=== PATIENT | male | born 1945 | race Caucasian/White ===

== ENCOUNTER → 2017-03-25 13:37 | Outpatient (CLI) | payer MEDICARE, OTHER, SELFPAY ==
[2017-03-25 16:23] LABS: Anion Gap 8 (5-15); BUN 20 mg/dL (7-18); BUN/Creat Ratio 23.1 RATIO (10-20); Calcium,Total 9.2 mg/dL (8.5-10.1); Chloride 104 mmol/L (98-107); Cholesterol 194 mg/dL (200); Creatinine, Serum 0.86 mg/dL (0.70-1.30); EST Glomerular Filtration Rate 93 mL/min (>60); Est Glom Filt Rate - Afr Amer 112 mL/min (>60); Glucose 76 mg/dL (74-106); High Density Lipoprotein 61 mg/dL; Potassium 3.7 mmol/L (3.5-5.1); Sodium Level 141 mmol/L (136-145); Triglycerides 84 mg/dL; Very Low Density Lipoprotein 17 mg/dL (5-40)
== END ==
PROVIDERS: Family Provider Family Medicine; PCP Family Medicine; Visit Provider Family Medicine
DX: I10 Essential (primary) hypertension (principal)
CPT/HCPCS: 36415; 80048; 80061

== ENCOUNTER → 2017-04-12 06:44 | Outpatient (CLI) | payer MEDICARE, OTHER, SELFPAY ==
--- NOTE | 2017-04-12 16:14 | STRESSREP_ITS ---
Stress Test Report Exercise myocardial perfusion stress test 71-year-old man with a history of chest pain. Stress test. Resting EKG demonstrates normal sinus rhythm with a rate of 65 bpm. Normal intervals and noted. Resting blood pressure is 150/90 mmHg. The patient exercised according to the regular Antonio protocol for total duration of 6 minutes and 31 seconds attaining a maximum heart rate of 171 bpm. This was 114 % of the maximum predicted heart rate. At rest there were no ST or T-wave changes noted suggest ischemia at peak exercise no ST or T-wave changes were noted suggest ischemia. Frequent premature ventricular complexes were noted with no couplet activity. The resting blood pressure is 150/90 with a peak blood pressure 162/84 mmHg. No clinical angina was noted the test was terminated due to shortness of breath and leg fatigue. Myocardial perfusion protocol. 14.8 mCi of technetium 99m sestamibi was injected at rest. The patient then exercised according to the regular Antonio protocol for 6-1/2 minutes attaining 7.7 metabolic equivalents. At peak exercise 44.1 mCi of technetium 99m sestamibi was injected. Stress images were obtained. Stress and rest images were reconstructed and compared in the short axis vertical long and horizontal long axis. Gated images were also obtained. Perfusion SPECT analysis. Review of the images demonstrate normal uptake of tracer noted in all areas of myocardium except for the basal inferior wall with mildly reduced perfusion. The resting images demonstrate a similar patent. No areas of reversibility are noted suggest ischemia possible previous infarct is noted. Gated SPECT analysis: The gated ejection fraction is noted to be 37% with global hypokinesis present. Conclusion: Exercise myocardial perfusion stress test with no evidence of ischemia. Mild cardiomyopathy present.
== END ==
PROVIDERS: Family Provider Family Medicine; PCP Family Medicine; Visit Provider Family Medicine
DX: R07.9 Chest pain, unspecified (principal)
CPT/HCPCS: 78452; 93017; A9500; A4216

== ENCOUNTER → 2017-09-22 11:04 | Outpatient (CLI) | payer MEDICARE, OTHER, SELFPAY ==
[2017-09-22 13:10] LABS: Anion Gap 7 (5-15); BUN 17 mg/dL (7-18); BUN/Creat Ratio 19.6 RATIO (10-20); Calcium,Total 8.8 mg/dL (8.5-10.1); Chloride 104 mmol/L (98-107); Creatinine, Serum 0.87 mg/dL (0.70-1.30); EST Glomerular Filtration Rate 92 mL/min (>60); Est Glom Filt Rate - Afr Amer 112 mL/min (>60); Glucose 85 mg/dL (74-106); Sodium Level 140 mmol/L (136-145)
== END ==
PROVIDERS: Family Provider Family Medicine; PCP Family Medicine; Visit Provider Family Medicine
DX: I10 Essential (primary) hypertension (principal)
CPT/HCPCS: 36415; 80048

== ENCOUNTER → 2018-01-21 10:37 | Outpatient (CLI) | payer MEDICARE, OTHER, SELFPAY ==
[2016-04-08 08:04] VITALS: BMI 36.3
[2018-01-21 13:35] LABS: Anion Gap 6 (5-15); BUN 21 mg/dL (7-18); BUN/Creat Ratio 24.3 RATIO (10-20); Calcium,Total 8.6 mg/dL (8.5-10.1); Chloride 101 mmol/L (98-107); Creatinine, Serum 0.86 mg/dL (0.70-1.30); EST Glomerular Filtration Rate 93 mL/min (>60); Est Glom Filt Rate - Afr Amer 112 mL/min (>60); Glucose 86 mg/dL (74-106); Potassium 3.8 mmol/L (3.5-5.1); Sodium Level 140 mmol/L (136-145)
--- OUTSIDE RECORDS SUMMARY | 2018-03-09 01:40 | XMS RPT_ITS ---
:1945 Author Organization OHIP Care Team Providers Name Role Phone Blanco Collazo Attending Unavailable Blanco Collazo Primary Care Unavailable Blanco Collazo Attending Unavailable Blanco Collazo Primary Care Unavailable Blanco Collazo Attending Unavailable Blanco Collazo Referring Unavailable Blanco Collazo Primary Care Unavailable Jessica, [place] Attending Unavailable Blanco Collazo Referring Unavailable Blanco Collazo Attending Unavailable Blanco Collazo Primary Care Unavailable PROBLEMS PROBLEMS DATE TYPE CONDITION / CODE ATTENDING STATUS SOURCE 01/21/2018 Unknown I10 - Essential Blanco Collazo Active Jennifer (primary) Community hypertension / Hospital I10(ICD-10) Repository 05/11/2017 Unknown R07.9 - Chest Jessica, Abelino Active Jennifer pain, unspecified Community / R07.9(ICD-10) Hospital Repository PROCEDURES PROCEDURES No Procedure Records FoundRESULTS RESULTS BASIC METABOLIC Collected: 01/21/2018 Status: F Source: [facility] ([facility]) 10:39 AM [facility] REPOSITORY TYPE CODE TESTS RESULT OUT OF RANGE REFERENCE UNITS LAB L501.0100 74-106 mg/dL Normal GLU 86 Result Comment: Please note revised GLUCOSE reference range effective 2017. LAB L501.1000 7-18 mg/dL High BUN 21 LAB L501.1100 0.70-1.30 mg/dL Normal CREAT,SERUM 0.86 Result Comment: The validity of the calculated GFR AND GFRAA in patients over 70 years has not been determined. Clinical correlation is essential. LAB L501.1110 >60 mL/min Normal EST GFR 93 Result Comment: Non- GFR Calc LAB L501.1115 >60 mL/min Normal EST GFR - AA 112 Result Comment: GFR Calc LAB L501.1300 10-20 RATIO High BUN/CRE 24.3 LAB L501.2200 8.5-10.1 mg/dL CA Normal 8.6 LAB L501.5300 136-145 mmol/L NA Normal 140 LAB L501.5600 3.5-5.1 mmol/L K Normal 3.8 LAB L501.5900 98-107 mmol/L CL Normal 101 LAB L501.6100 21.0-32.0 mmol/L High CO2 33.0 LAB L501.6200 5-15 Normal GAP 6 Performed By: #### L500.2500 #### [facility], [address] BASIC METABOLIC Collected: 09/22/2017 Status: F Source: [facility] ([facility]) 11:06 AM [facility] REPOSITORY TYPE CODE TESTS RESULT OUT OF RANGE REFERENCE UNITS LAB L501.0100 74-106 mg/dL Normal GLU 85 Result Comment: Please note revised GLUCOSE reference range effective 2017. LAB L501.1000 7-18 mg/dL Normal BUN 17 LAB L501.1100 0.70-1.30 mg/dL Normal CREAT,SERUM 0.87 Result Comment: The validity of the calculated GFR AND GFRAA in patients over 70 years has not been determined. Clinical correlation is essential. LAB L501.1110 >60 mL/min Normal EST GFR 92 Result Comment: Non- GFR Calc LAB L501.1115 >60 mL/min Normal EST GFR - AA 112 Result Comment: GFR Calc LAB L501.1300 10-20 RATIO Normal BUN/CRE 19.6 LAB L501.2200 8.5-10.1 mg/dL CA Normal 8.8 LAB L501.5300 136-145 mmol/L NA Normal 140 LAB L501.5600 3.5-5.1 mmol/L K Normal 4.0 LAB L501.5900 98-107 mmol/L CL Normal 104 LAB L501.6100 21.0-32.0 mmol/L Normal CO2 29.0 LAB L501.6200 5-15 Normal GAP 7 Performed By: #### L500.2500 #### [facility] [address] [place], [address] STRESS REPORT Observed: 04/12/2017 Status: F Source: [place] 4:14 PM [facility] REPOSITORY [facility] Cardiovascular Services [address] [place] [address] MR#: [id number] Acct: [id number] Name: ASHVIN MASTERS Rep #: [id number] : 1945 71 From: Abelino Lopez MD Primary Care: Blanco Collazo MD Status: REG CLI Ordering Dr: Sex: M C Stress Test Report Exercise myocardial perfusion stress test 71-year-old man with a history of chest pain. Stress test. Resting EKG demonstrates normal sinus rhythm with a rate of 65 bpm. Normal intervals and noted. Resting blood pressure is 150/90 mmHg. The patient exercised according to the regular Antonio protocol for total duration of 6 minutes and 31 seconds attaining a maximum heart rate of 171 bpm. This was 114% of the maximum predicted heart rate. At rest there were no ST or T-wave changes noted suggest ischemia at peak exercise no ST or T-wave changes were noted suggest ischemia. Frequent premature ventricular complexes were noted with no couplet activity. The resting blood pressure is 150/90 with a peak blood pressure 162/84 mmHg. No clinical angina was noted the test was terminated due to shortness of breath and leg fatigue. Myocardial perfusion protocol. 14.8 mCi of technetium 99m sestamibi was injected at rest. The patient then exercised according to the regular Antonio protocol for 6-1/2 minutes attaining 7.7 metabolic equivalents. At peak exercise 44.1 mCi of technetium 99m sestamibi was injected. Stress images were obtained. Stress and rest images were reconstructed and compared in the short axis vertical long and horizontal long axis. Gated images were also obtained. Perfusion SPECT analysis. Review of the images demonstrate normal uptake of tracer noted in all areas of myocardium except for the basal inferior wall with mildly reduced perfusion. The resting images demonstrate a similar patent. No areas of reversibility are noted suggest ischemia possible previous infarct is noted. Gated SPECT analysis: The gated ejection fraction is noted to be 37% with global hypokinesis present. Conclusion: Exercise myocardial perfusion stress test with no evidence of ischemia. Mild cardiomyopathy present. 04/12/17 1614 <Electronically signed by Abelino Lopez MD> Date Abelino Lopez MD CC: Blanco Collazo MD Date Dictated: 04/12/171609 Date Transcribed: 04/12/171609 Survey Research Professor: [place] Signed BASIC METABOLIC Collected: 03/25/2017 Status: F Source: [facility] PROFILE (BMP) 1:39 PM [facility] REPOSITORY TYPE CODE TESTS RESULT OUT OF RANGE REFERENCE UNITS LAB L501.0100 74-106 mg/dL Normal GLU 76 Result Comment: Please note revised GLUCOSE reference range effective 2017. LAB L501.1000 7-18 mg/dL High BUN 20 LAB L501.1100 0.70-1.30 mg/dL Normal CREAT,SERUM 0.86 Result Comment: The validity of the calculated GFR AND GFRAA in patients over 70 years has not been determined. Clinical correlation is essential. LAB L501.1110 >60 mL/min Normal EST GFR 93 Result Comment: Non- GFR Calc LAB L501.1115 >60 mL/min Normal EST GFR - AA 112 Result Comment: GFR Calc LAB L501.1300 10-20 RATIO High BUN/CRE 23.1 LAB L501.2200 8.5-10.1 mg/dL CA Normal 9.2 LAB L501.5300 136-145 mmol/L NA Normal 141 LAB L501.5600 3.5-5.1 mmol/L K Normal 3.7 LAB L501.5900 98-107 mmol/L CL Normal 104 LAB L501.6100 21.0-32.0 mmol/L Normal CO2 29.0 LAB L501.6200 5-15 Normal GAP 8 Performed By: #### L500.2500, L500.4100 #### [facility] [address] [place], [address] LIPID PROFILE Collected: 03/25/2017 Status: F Source: [place] 1:39 PM [facility] REPOSITORY TYPE CODE TESTS RESULT OUT OF RANGE REFERENCE UNITS LAB L501.4900 200 mg/dL Normal CHOL 194 Result Comment: <200 mg/dL Desirable 200-240 mg/dL Borderline >240 mg/dL High Risk LAB L501.5000 mg/dL Normal TRIG 84 Result Comment: The drugs N-Acetylcysteine and Metamizole may falsely depress this assay. Serum Triglycerides Reference Interval Normal <150 mg/dL Borderline high 150 - 199 mg/dL High 200 - 499 mg/dL Very High > or = 500 mg/dL LAB L501.6400 mg/dL Normal HDL 61 Result Comment: The drugs N-Acetylcysteine and Metamizole may falsely depress this assay. Reference Range HDL <40 mg/dL Low HDL Cholesterol HDL >or= 60 mg/dL High HDL Cholesterol LAB L501.6500 0-130 mg/dL Normal LDL 116 LAB L501.6600 5-40 mg/dL Normal VLDL 17 Performed By: #### L500.2500, L500.4100 #### [facility] [address] [place], [place], [address] ALLERGIES ALLERGIES DATE TYPE / CODE NAME / CODE REACTION SEVERITY SOURCE 04/06/2016 Drug No Known Unknown [facility] Allergy/4160 Allergies/F00 [facility] [address](SNOMED 3288971(RXNOR Repository CT) M) ENCOUNTERS ENCOUNTERS ADMIT/DISCHARGE ACCOUNT ADMITTING ENCOUNTER LOCATION SOURCE NUMBER CLASS 01/21/2018 [id number] Ambulatory [address] ing:MFPLAB Repository 09/22/2017 [id number] Ambulatory [place] 0 [facility] ing:MFPLAB Repository 04/12/2017 [id number] Ambulatory [place] Jennifer 6 [facility] ing:CVS Repository 04/12/2017 [id number] Ambulatory BMSBuilding:W Jennifer 2 [facility] Repository 03/25/2017 [id number] Ambulatory [place] 5 [facility] ing:MFPLAB Repository PAYERS PAYERS ENCOUNTER GUARANTOR PAYER SUBSCRIBER SOURCE 01/21/2018 Ashvin L Primary Ashvin L Jennifer [id number] Insurance:MEDICARE BahmerDOB: [facility] PART A [facility] [id number]: Repository [id number]: [phone] [id number] [phone] () Date:2018-01-21 01/21/2018 Secondary Ashvin L [place] Insurance:AARPPolicy BahmerDOB: [facility] Number: [id number] [facility] [id number] Repository Date:6517-93-64DE [facility] [address], [place] [address]GW: 01/21/2018 Tertiary NOT GIVENUNK [place] Insurance:SELF PAY [facility] Number: Effective Repository Date:2018-01-21 09/22/2017 Ashvin L Primary Ashvin L [place] [id number] Insurance:MEDICARE BahmerDOB: [facility] PART A [facility] [id number] Number: Repository [address]Ncn: 330 [id number] [phone] () Date:2017-09-22 09/22/2017 Secondary Ashvin L Jennifer Insurance:AARPPolicy BahmerDOB: [facility] Number: [id number] Hospital [id number] Repository Date:[id number] [facility] [address], [place] [address]EP: 09/22/2017 Tertiary NOT GIVENUNK Jennifer Insurance:SELF PAY [facility] Number: Effective Repository Date:2017-09-22 04/12/2017 Ashvin L Primary Ashvin L Jennifer [id number] Insurance:MEDICARE BahmerDOB: [facility] [place] PART A [facility] [id number] Number: Repository [address]Xrk: 330 [id number] [phone] (HP) Date:2017-03-31 04/12/2017 Secondary Ashvin L Jennifer Insurance:AARPPolicy BahmerDOB: Community Number: [id number] Hospital [id number] Repository Date:4678-11-29TZ [address], [place] [address]HC: 04/12/2017 Tertiary NOT GIVENUNK Jennifer Insurance:SELF PAY [facility] Hospital Number: Effective Repository Date:2017-03-31 04/12/2017 Ashvin L Primary Ashvin L [place] [id number] Insurance:MEDICARE BahmerDOB: [facility] [place] PART A [id number] [place] Number[facility] Repository [id number]: 330 [id number] [phone] (HP) Date:2017-03-31 04/12/2017 Secondary Ashvin L [place] Insurance:AARPPolicy BahmerDOB: Community Number: [id number] Hospital [id number] Repository Date:1607-80-73KC [address], [place] [address]SZ: 04/12/2017 Tertiary NOT GIVENUNK [place] Insurance:SELF PAY [facility] Hospital Number: Effective Repository Date:2017-04-12 03/25/2017 Ashvin L Primary Ashvin L Jennifer [id number] Insurance:MEDICARE BahmerDOB: [facility] [place] PART A [facility] [id number] Number[place] Repository [id number]: 330 [id number] [phone] (HP) Date:2017-03-25 03/25/2017 Secondary Ashvin L Jennifer Insurance:AARPPolicy BahmerDOB: Community Number: [id number] Hospital [id number] Repository Date:[id number] [address], [place] [address]RW: 03/25/2017 Tertiary NOT GIVENELROY Dee Insurance:SELF PA[facility]: Effective Repository Date:2017-03-25
== END ==
PROVIDERS: Family Provider Family Medicine; PCP Family Medicine; Visit Provider Family Medicine
DX: I10 Essential (primary) hypertension (principal)
CPT/HCPCS: 36415; 80048

== ENCOUNTER → 2018-09-29 11:32 | Outpatient (CLI) | payer MEDICARE, OTHER, SELFPAY ==
[2016-04-08 08:04] VITALS: BMI 36.3
[2018-09-29 14:17] LABS: Anion Gap 7 (5-15); BUN 22 mg/dL (7-18); BUN/Creat Ratio 22.3 RATIO (10-20); Calcium,Total 8.8 mg/dL (8.5-10.1); Chloride 101 mmol/L (98-107); Cholesterol 179 mg/dL (200); Creatinine, Serum 0.99 mg/dL (0.70-1.30); EST Glomerular Filtration Rate 79 mL/min (>60); Est Glom Filt Rate - Afr Amer 96 mL/min (>60); Glucose 91 mg/dL (74-106); High Density Lipoprotein 54 mg/dL; Potassium 4.1 mmol/L (3.5-5.1); Sodium Level 138 mmol/L (136-145); Triglycerides 137 mg/dL; Very Low Density Lipoprotein 27 mg/dL (5-40)
== END ==
PROVIDERS: Family Provider Family Medicine; PCP Family Medicine; Referring Provider Family Medicine; Visit Provider Family Medicine
DX: I10 Essential (primary) hypertension (principal)
CPT/HCPCS: 36415; 80048; 80061

== ENCOUNTER → 2019-01-19 10:18 | Outpatient (CLI) | payer MEDICARE, OTHER, SELFPAY ==
[2016-04-08 08:04] VITALS: BMI 36.3
[2019-01-19 12:52] LABS: Anion Gap 7 (5-15); BUN 22 mg/dL (7-18); BUN/Creat Ratio 20.8 RATIO (10-20); Calcium,Total 9.1 mg/dL (8.5-10.1); Chloride 103 mmol/L (98-107); Creatinine, Serum 1.06 mg/dL (0.70-1.30); EST Glomerular Filtration Rate 73 mL/min (>60); Est Glom Filt Rate - Afr Amer 88 mL/min (>60); Glucose 102 mg/dL (74-106); Potassium 4.1 mmol/L (3.5-5.1); Sodium Level 137 mmol/L (136-145); Thyroid Stim Hormone (TSH) 0.43 uIU/mL (0.358-3.74)
== END ==
PROVIDERS: Family Provider Family Medicine; PCP Family Medicine; Referring Provider Family Medicine; Visit Provider Family Medicine
DX: E66.9 Obesity, unspecified (principal); I10 Essential (primary) hypertension
CPT/HCPCS: 36415; 80048; 84403; 84443

== ENCOUNTER → 2019-07-21 11:26 | Outpatient (CLI) | payer MEDICARE, OTHER, SELFPAY ==
[2016-04-08 08:04] VITALS: BMI 36.3
[2019-07-21 15:41] LABS: Anion Gap 2 (5-15); BUN 20 mg/dL (7-18); BUN/Creat Ratio 19.8 RATIO (10-20); Calcium,Total 9.4 mg/dL (8.5-10.1); Chloride 101 mmol/L (98-107); Cholesterol 177 mg/dL (200); Creatinine, Serum 1.01 mg/dL (0.70-1.30); EST Glomerular Filtration Rate 77 mL/min (>60); Est Glom Filt Rate - Afr Amer 93 mL/min (>60); Glucose 103 mg/dL (74-106); High Density Lipoprotein 67 mg/dL; Potassium 4.7 mmol/L (3.5-5.1); Sodium Level 136 mmol/L (136-145); Triglycerides 155 mg/dL; Very Low Density Lipoprotein 31 mg/dL (5-40)
== END ==
PROVIDERS: PCP Family Medicine; Visit Provider Family Medicine
DX: I10 Essential (primary) hypertension (principal)
CPT/HCPCS: 36415; 80048; 80061

== ENCOUNTER → 2019-10-11 13:19 | Outpatient (CLI) | payer MEDICARE, OTHER, SELFPAY ==
--- NOTE | 2019-10-11 13:24 | ECHOCS_ITS ---
Reason For Study: SOB Procedure This was a 2D Doppler, Color Flow transthoracic echocardiogram. Exam performed in department. Left Ventricle Normal LV size. The estimated ejection fraction is 50-55 %. No evidence for diastolic dysfunction. No regional wall motion abnormalities noted. Right Ventricle Normal RV size. Normal systolic function. Atria Normal left atrium. Normal right atrium. No doppler evidence for ASD. Bubble contrast study negative for right to left interatrial shunt. Mitral Valve There is no mitral valve stenosis. No mitral valve insufficiency. Tricuspid Valve There is no tricuspid stenosis. Trivial tricuspid valve insufficiency. Pulmonary artery systolic pressure is 30 mmHg. Aortic Valve Trisinus/trileaflet aortic valve. There is no aortic stenosis. No aortic valve insufficiency. Pulmonic Valve There is no pulmonic valvular stenosis. No pulmonic valve insufficiency. Great Vessels Normal aortic root. Pericardium/Pleural No pericardial effusion. Medication 22 gauge I.V. with prn adaptor inserted into right arm. Performed a rapid injection of agitated mix of 9 cc saline and 1cc air to assess for atrial septal defect. Diluted definity 5ml given slow IV push to enhance endocardial definition. MMode/2D Measurements & Calculations LVIDd: 4.6 cm IVSd: 1.00 cm Ao root diam: 3.2 cm LVIDs: 3.3 cm LVPWd: 1.1 cm RVDd: 3.5 cm FS: 28.9 % LAV(MOD-bp): 47.2 ml LVAd ap4: 38.3 cm2 SV(MOD-sp4): 72.8 ml LAV(MOD-bp) Indexed: 20.5 ml/m2 EDV(MOD-sp4): 137.3 ml LAV(MOD-sp2): 43.6 ml EDV(sp4-el): 137.4 ml LAV(MOD-sp4): 47.5 ml LVAs ap4: 22.8 cm2 ESV(MOD-sp4): 64.5 ml ESV(sp4-el): 62.8 ml EF(MOD-sp4): 53.0 % EF(sp4-el): 54.3 % SV(sp4-el): 74.5 ml LA A4 area: 18.1 cm2 LA dimension(2D): 3.8 cm RA A4 area: 15.2 cm2 Doppler Measurements & Calculations MV E max marbin: 41.2 cm/sec Lat Peak E' Marbin: 8.0 cm/sec Med Peak E' Marbin: 6.7 cm/sec MV A max marbin: 87.3 cm/sec E/E' lat: 5.2 E/E' med: 6.2 MV E/A: 0.47 Ao V2 max: 155.2 cm/sec LV V1 max: 64.6 cm/sec PA V2 max: 155.0 cm/sec Ao max P.6 mmHg LV V1 max P.7 mmHg TR max marbin: 260.0 cm/sec TR max P.1 mmHg Interpretation Summary Bubble contrast study negative for right to left interatrial shunt. The estimated ejection fraction is 50-55 %. Trivial tricuspid valve insufficiency. The study was technically difficult. Contrast injection was performed. Ordering Physician: Blanco Collazo Referring Physician: Blanco Collazo Performed By: Helene Busch RDCS
== END ==
PROVIDERS: PCP Family Medicine; Referring Provider Family Medicine; Visit Provider Family Medicine
DX: R06.02 Shortness of breath (principal)
CPT/HCPCS: 93306; Q9957; A4216; C8929

== ENCOUNTER → 2020-01-18 11:02 | Outpatient (CLI) | payer MEDICARE, OTHER, SELFPAY ==
[2016-04-08 08:04] VITALS: BMI 36.3
[2020-01-18 13:02] LABS: Anion Gap 4 (5-15); BUN 20 mg/dL (7-18); Calcium,Total 8.8 mg/dL (8.5-10.1); Chloride 101 mmol/L (98-107); EST Glomerular Filtration Rate 78 mL/min (>60); Est Glom Filt Rate - Afr Amer 94 mL/min (>60); Glucose 93 mg/dL (74-106); Potassium 4.1 mmol/L (3.5-5.1); Sodium Level 137 mmol/L (136-145)
== END ==
PROVIDERS: PCP Family Medicine; Referring Provider Family Medicine; Visit Provider Family Medicine
DX: I10 Essential (primary) hypertension (principal)
CPT/HCPCS: 36415; 80048

== ENCOUNTER → 2020-03-06 13:44 | Outpatient (CLI) | payer MEDICARE, OTHER, SELFPAY | LOC: MFPLAB 13:46 → LABSPEC 13:46 | PROVIDERS: PCP Family Medicine; Referring Provider Family Medicine; Visit Provider Family Medicine | DX: U07.1 COVID-19 (principal) | CPT/HCPCS: 87635; U0005; U0003 ==

== ENCOUNTER 2020-03-16 14:46 | Inpatient (IN) | payer MEDICARE, OTHER, SELFPAY ==
[2020-03-16] VITALS (10 sets, daily range): BP systolic 90–122; BP diastolic 59–70; PULSE 70–94; RESP 16–25; TEMP 36.7–36.9; O2SAT 81–98; BMI 38.5; BMI 36.9
--- NOTE | 2020-03-16 15:11 | ED.VIS.GEN ---
History of Present Illness Chief Complaint: Shortness of Breath Informant: Patient Narrative: 74-year-old male presenting for shortness of breath. Patient tested positive for Covid?1910 days ago. He is unsure how long before that his symptoms started. He states his temperature is usually 97.5 and his temperature has been higher but he has not had a technical fever. He does not have any chest pain or palpitations. He states he had a little bit of change in taste and smell as well as some diarrhea intermittently but has been able to eat and drink. He is making urine and stool. Patient states that if he is laying in bed he can usually sleep for 4 hours however when he gets up and walks he is significantly short of breath. He does not wear home O2 at baseline. He denies cardiac or pulmonary disease. - Past Medical History (1) Hypertension Status: Chronic (2) Osteoarthritis Status: Chronic Past Medical History - Allergies and Home Meds Allergies/Adverse Reactions: Allergies No Known Allergies Allergy (Verified 03/16/20 14:48) Primary Care Physician: Blanco Collazo MD [Primary Care Provider] - Prior records reviewed: Yes Past Medical History: - - Viewed in problem list Surgical History: noncontributory, - - testicular Smoking Status: Never smoker - Family History Maternal Family History: Reports: No pertinent history - age 52,mental health Paternal Family History: Reports: No pertinent history - age 56 mental health Review of Systems General: Reports: Fever, Malaise, Subjective Eyes: Reports: -, -. Denies: Visual changes - left, Visual changes - right, Visual changes - bilaterally, Blurred vision - left, Blurred vision - right, Blurred Vision - bilaterally, Diplopia ENT: Denies: Rhinorrhea, Sore throat Cardiovascular: Denies: Chest pain, Palpitations Respiratory: Reports: Dyspnea, Cough, Sputum, Dyspnea on exertion Gastrointestinal: Reports: Diarrhea. Denies: Abdominal pain, Nausea Genitourinary: Denies: Dysuria, Hematuria Musculoskeletal: Denies: Myalgias, Arthralgias Skin: Denies: Rash, Abscess Neurological: Denies: Headache, Weakness, Parasthesia, Numbness Psych: Denies: Depression, Anxiety Physical Exam Vital Signs/Narrative: Vital Signs Temp Pulse Resp BP Pulse Ox 03/16/20 14:52 93 03/16/20 14:48 98.5 F 94 25 H 122/62 H 81 Inital Vital Signs reviewed: Yes General: Obese, No Acute Distress Head: Normocephalic, Atraumatic Eyes: Perrl, EOMI ENT: Moist mucous membranes, No rhinorrhea Cardiovascular: Regular rate, Regular rhythm Respiratory: No distress, CTA bilaterally. Negative for: Wheezing Back: Nontender, Normal Inspection Extremities: Nontender, No edema Skin: Normal color, No rash Neurological: Alert, Oriented x3, Cranial nerves II-XII grossly intact Psychological: Normal affect, Normal Mood Diagnostic/Tx/Re-eval Clinical Impression(s) from Imaging Studies Chest X-Ray 03/16/20 15:12 IMPRESSION: Multilobar pulmonary infiltrates worrisome for COVID pneumonia. Superimposed bacterial pneumonia in the right lung base is possible. Electronically Signed: Joe Hassan MD ([place]) at 15:39 EST , Service support , Chest CTA 03/16/20 15:50 IMPRESSION: 1. No central or segmental pulmonary embolism. 2. Multilobar pulmonary infiltrates with imaging features commonly reported with COVID pneumonia. 3. Bibasilar atelectasis. Electronically Signed: Joe Hassan MD (Brooks) at 17:10 EST , Service support , Laboratory Data 03/16/20 03/16/20 03/16/20 15:00 15:00 15:00 WBC 6.4 RBC 4.31 L Hgb 13.0 Hct 40.7 MCV 94.4 H MCH 30.2 MCHC 31.9 L RDW Std Deviation 45.0 H RDW Coeff of Levi 12.9 Plt Count 300 MPV 9.6 Immature Gran % (Auto) 0.800 Neut % (Auto) 74.3 H Lymph % (Auto) 14.1 L Miller % (Auto) 9.1 Eos % (Auto) 1.4 Baso % (Auto) 0.3 Absolute Neuts (auto) 4.7 Absolute Lymphs (auto) 0.90 Nucleated RBC % 0 Sodium 135 L Potassium 3.5 Chloride 96 L Carbon Dioxide 33.0 H Anion Gap 6 BUN 19 H Creatinine 1.01 Estim Creat Clear Calc 65.14 Est GFR (MDRD) Af Amer 93 Est GFR (MDRD) Non-Af 77 BUN/Creatinine Ratio 18.8 Glucose 111 H Lactic Acid 1.0 Calcium 8.2 L Total Bilirubin 0.50 AST 89 H ALT 117 H Alkaline Phosphatase 87 Troponin I 0.023 Total Protein 6.8 Albumin 2.8 L Globulin 4.0 Albumin/Globulin Ratio 0.7 L Procalcitonin 03/16/20 15:00 WBC RBC Hgb Hct MCV MCH MCHC RDW Std Deviation RDW Coeff of Levi Plt Count MPV Immature Gran % (Auto) Neut % (Auto) Lymph % (Auto) Miller % (Auto) Eos % (Auto) Baso % (Auto) Absolute Neuts (auto) Absolute Lymphs (auto) Nucleated RBC % Sodium Potassium Chloride Carbon Dioxide Anion Gap BUN Creatinine Estim Creat Clear Calc Est GFR (MDRD) Af Amer Est GFR (MDRD) Non-Af BUN/Creatinine Ratio Glucose Lactic Acid Calcium Total Bilirubin AST ALT Alkaline Phosphatase Troponin I Total Protein Albumin Globulin Albumin/Globulin Ratio Procalcitonin 1.40 H - Medical Decision Making Patient presents 10 days after diagnosis of Covid?19. He does not recall exactly when the symptoms started. He states that he has continued to have fevers higher than 97.5 which is his baseline but he has not had a temperature over 100. He is complaining of worsening shortness of breath when he ambulates. He states he can sit and rest most of the time but ambulating is difficult. On arrival his pulse ox was 81%. Patient had EKG which showed a normal sinus rhythm at 76 bpm as interpreted by myself. Chest x-ray showed multiple bilateral pulmonary infiltrates as interpreted by self radiology does agree. Lab work shows no leukocytosis. Hemoglobin is stable. Patient has slightly elevated LFTs. His procalcitonin is slightly high at 1.4. GFR is normal. Patient had follow-up CTA of the chest also shows multifocal infiltrates however there is no pulmonary embolism or dissection. Given patient's severe hypoxia I felt he would benefit from inpatient treatment. Discussed with hospitalist who agreed. Patient was given 6 mg of Decadron IV in the ER. He is stable on transfer to the floor. Impression: 1. Covid?19 pneumonia 2. Hypoxia ED Disposition - Plan for ED Patient: Referrals: Blanco Collazo MD [Primary Care Provider] -
--- NOTE | 2020-03-16 15:12 | RAD_ITS ---
STUDY: X-RAY CHEST REASON FOR EXAM: Male, 74 years old. COUGH, FATIGUE, SHORTNESS OF BREATH, COVID+ TECHNIQUE: AP COMPARISON: None. FINDINGS: Right more than left peripheral dominant reticular and groundglass opacities in multiple pulmonary lobes with localized consolidation in the right lung base. There is no demonstrated pleural abnormality. There is mild cardiac enlargement. Normal mediastinum and ramin. Normal visualized pulmonary arteries. There is atherosclerotic tortuosity of the aortic arch and descending thoracic aorta. There is demineralization of the osseous structures. Normal visualized ribs, clavicles, and shoulders. There is no demonstrated abnormality of the visualized soft tissue structures of the upper abdomen. RAD/Chest 1 View (Portable) IMPRESSION: Multilobar pulmonary infiltrates worrisome for COVID pneumonia. Superimposed bacterial pneumonia in the right lung base is possible. Electronically Signed: Joe Hassan MD ([place]) at 15:39 EST , Service support ,
[2020-03-16 15:38] LABS: Absolute Neutrophil Count 4.7 X10^3/uL (2.0-7.7); Basophil# 0.02 X10^3/uL; Basophil% 0.3 % (0-1); Eosinophil# 0.09 X10^3/uL; Eosinophils% 1.4 % (0-5); Hematocrit 40.7 % (40-54); Lymphocyte % 14.1 % (19-41); Mean Corp Hgb Conc 31.9 g/dL (32-36); Mean Corpuscular Hgb 30.2 pg (27.0-32.0); Mean Corpuscular Volume 94.4 fL (80-94); Mean Platelet Vol. 9.6 fl (6.2-12.0); Monocyte# 0.58 X10^3/uL; Monocyte% 9.1 % (0-10); NRBC Flagged by Analyzer 0 % (0-5); Neutrophil # 4.73 X10^3/uL (2.7-7.7); Neutrophil % 74.3 % (47-70); Platelet Count 300 K/mm3 (150-450); RBC Distribution Width CV 12.9 % (11.6-14.6); Red Blood Count 4.31 M/mm3 (4.6-6.2); White Blood Count 6.4 K/mm3 (4.4-11.0)
--- NOTE | 2020-03-16 15:50 | CT_ITS ---
STUDY: CTA CHEST REASON FOR EXAM: Male, 74 years old. Hypoxia, COVID x 10 days. Hx hypertension. RADIATION DOSAGE (If Supplied By Facility): CTDIvol = ( 24.75 ) mGy, DLP = ( 745.35 ) mGycm TECHNIQUE: The examination was performed with the intravenous administration of IV 100mL Isovue-370. Post-processing of the angiographic images was performed, with multiplanar reformation and 3D reconstruction. Individualized dose optimization techniques were used for this CT. COMPARISON: None. FINDINGS: Normal enhancement of the main pulmonary artery and right and left pulmonary arteries. Normal enhancement of the bilateral peripheral pulmonary arteries. There is no demonstrated pulmonary embolism. Normal thoracic aorta and visualized great vessels. There is no demonstrated aortic dissection. Normal heart and pericardium. Normal mediastinum. Normal hilar regions. Intralobular septal thickening and peripheral groundglass opacities and multiple pulmonary lobes. No cavitating process. Mild subpleural atelectasis of the bilateral lower lobes. No pleural effusion. There is a benign granuloma in the left lower lobe. Normal pleura. Normal chest wall structures. There are degenerative changes of thoracic spine. Compression deformity of T7 is likely chronic. Normal visualized upper abdomen. CT/CTA Chest W/WO Contrast IMPRESSION: 1. No central or segmental pulmonary embolism. 2. Multilobar pulmonary infiltrates with imaging features commonly reported with COVID pneumonia. 3. Bibasilar atelectasis. Electronically Signed: Joe Hassan MD ([place]) at 17:10 EST , Service support ,
[2020-03-16 15:53] LABS: ALB/GLOB Ratio 0.7 RATIO (0.9-2.4); AST(SGOT) 89 U/L (15-37); Alanine Aminotransfer ALT/SGPT 117 U/L (16-61); Albumin, Serum 2.8 g/dL (3.2-5.0); Alkaline Phosphatase 87 U/L (45-117); Anion Gap 6 (5-15); BUN 19 mg/dL (7-18); BUN/Creat Ratio 18.8 RATIO (10-20); Calcium,Total 8.2 mg/dL (8.5-10.1); Chloride 96 mmol/L (98-107); Creatinine, Serum 1.01 mg/dL (0.70-1.30); EST Glomerular Filtration Rate 77 mL/min (>60); Est Glom Filt Rate - Afr Amer 93 mL/min (>60); Estimated Creatinine Clearance 65.14 ml/min; Glucose 111 mg/dL (74-106); Potassium 3.5 mmol/L (3.5-5.1); Protein, Total 6.8 g/dL (6.4-8.2); Sodium Level 135 mmol/L (136-145)
[2020-03-16] MEDS: dexAMETHasone 4 MG/ML Vial 6 MG IV (16:04)
--- NOTE | 2020-03-16 17:16 | EKG12_ITS ---
Test Reason : Blood Pressure : / mmHG Vent. Rate : 076 BPM Atrial Rate : 076 BPM P-R Int : 174 ms QRS Dur : 112 ms QT Int : 412 ms P-R-T Axes : 032 -23 -11 degrees QTc Int : 463 ms Normal sinus rhythm Normal ECG Confirmed by TIFFANY CALDWELL MD ([id number]), deputy editor in chief MARIANNA CISNEROS ([id number]) on 03/19/2020 8:16:59 AM Referred By: [place] Confirmed By:TIFFANY CALDWELL MD
[2020-03-16 19:22] LABS: International Normalized Ratio 1.1; Prothrombin Time (Protime)PT. 13.4 SECONDS (11.7-14.9)
[2020-03-16 19:23] LABS: Fibrinogen 678 mg/dl (203-444)
[2020-03-16 19:35] LABS: Alkaline Phosphatase 85 U/L (45-117); LDH 488 U/L (87-241)
[2020-03-16 19:53] LABS: D-Dimer Quantitative (DVT/PE) 1.97 FEU/ug/m (0.27-0.49)
--- NOTE | 2020-03-16 20:23 | PCM.HP.STD ---
Problem List (1) Pneumonia due to COVID-19 virus Status: Acute (2) Acute respiratory failure with hypoxia Status: Acute History of Present Illness Date of Admission: 03/16/20 Chief Complaint: Shortness of breath and exertional dyspnea The patient is a 74 year old M who 10 days ago still positive for COVID-19 infection. At that time he had had a mild febrile illness. Now presents today with a few days history of increasing shortness of breath, exertional dyspnea and easy fatigability. He admits to a cough. Denies any orthopnea or paroxysmal nocturnal dyspnea. Denies any lower extremity swelling. Has any chest pain. Oxygen saturation was as low as 81 percent on room air. Currently requiring 3 L of supplemental oxygen [] Past Medical History Past Medical History (Chronic Problems): Chronic Problems Hypertension (Chronic) Osteoarthritis (Chronic) Obesity (BMI 30.0-34.9) (Chronic) Allergies No Known Allergies Allergy (Verified 03/16/20 14:48) Home Medications: Ambulatory Orders Medication Instructions Recorded Multivitamins,Therapeutic 1 tablet PO DAILY 01/29/15 [Multivitamin] Triamterene 37.5MG/Hctz 25MG 1 cap PO DAILY 01/29/15 [Dyazide (G)] Aspirin E.C. [Ecotrin] 81 mg PO DAILY@0800 03/16/20 Cetirizine HCl [Zyrtec] 10 mg PO DAILY 03/16/20 Fluticasone 0.05% [Flonase Nasal 2 spray NASAL DAILY 03/16/20 [place]] Lisinopril [Zestril] 20 mg PO DAILY 03/16/20 Loratadine [Claritin] 10 mg PO DAILY 03/16/20 Rosuvastatin Calcium [Crestor] 5 mg PO QHS 03/16/20 Surgical History: noncontributory, - - testicular Psychiatric History: No pertinent psych hx Smoking Status: Never smoker - *Family History Maternal History Items: No pertinent history - age 52,mental health Paternal History Items: No pertinent history - age 56 mental health Review of Systems Constitutional: Reports: Anorexia, Malaise, Weakness, Fatigue. Denies: Chills, Fever, Night Sweats Eyes: Reports: Blurred vision Cardiovascular: Denies: Chest Pain, Orthopnea, Palpitations Respiratory: Reports: Cough, Shortness of breath upon exertion. Denies: Wheezing Gastrointestinal: Denies: Abdominal Pain Comment: All Other systems reviewed and essentially negative. VTE Information - Inpt Only VTE Present on Admission: No VTE Mechan Device Prophylaxis: None VTE Pharm Prophylaxis ordered?: Yes - Physical Exam Vitals/I&O's: Vital Signs Temp Pulse Resp BP Pulse Ox 98.3 F 76 16 109/62 94 03/16/20 19:04 03/16/20 19:04 03/16/20 19:04 03/16/20 19:04 03/16/20 19:04 Oxygen Flow Rate (L/min) 4 Oxygen Delivery Method Nasal Cannula Weight: 113.398 kg Body Mass Index (BMI) 36.9 General: Alert, Oriented x3, Cooperative, - - dyspneic at rest HEENT: Atraumatic, PERRLA, EOMI Oral: Moist Mucosa Neck: Supple, No JVD Lungs: - - Mild crackles posteriorly. Cardiovascular: Regular rate, Regular Rhythm, Normal S1, Normal S2, No murmurs, No Ectopic Activity Abdomen: Soft, Non Tender, Non-Distended, Obese Extremities: Edema - Mild edema involving the right lower extremity Skin: No rashes Musculoskeletal: No Tenderness to Palpation of Joints or Extremities, No Muscle Wasting Neurological: Cranial nerves II-XII grossly intact, Motor Exam 5/5 strength throughout Psych/Mental Status: Normal Affect, Appropriate Laboratory Results 03/16/20 15:00: WBC 6.4, RBC 4.31 L, Hgb 13.0, Hct 40.7, MCV 94.4 H, MCH 30.2, MCHC 31.9 L, RDW Std Deviation 45.0 H, RDW Coeff of Levi 12.9, Plt Count 300, MPV 9.6, Immature Gran % (Auto) 0.800, Neut % (Auto) 74.3 H, Lymph % (Auto) 14.1 L, [place] % (Auto) 9.1, Eos % (Auto) 1.4, Baso % (Auto) 0.3, Absolute Neuts (auto) 4.7, Absolute Lymphs (auto) 0.90, Nucleated RBC % 0 03/16/20 15:00: Sodium 135 L, Potassium 3.5, Chloride 96 L, Carbon Dioxide 33.0 H, Anion Gap 6, BUN 19 H, Creatinine 1.01, Estim Creat Clear Calc 65.14, Est GFR (MDRD) Af Amer 93, Est GFR (MDRD) Non-Af 77, BUN/Creatinine Ratio 18.8, Glucose 111 H, Calcium 8.2 L, Total Bilirubin 0.50, AST 89 H, ALT 117 H, Alkaline Phosphatase 87, Troponin I 0.023, Total Protein 6.8, Albumin 2.8 L, Globulin 4.0, Albumin/Globulin Ratio 0.7 L 03/16/20 15:00: Lactic Acid 1.0 03/16/20 15:00: Procalcitonin 1.40 H 03/16/20 15:00: PT 13.4, INR 1.1, Fibrinogen 678 H, D-Dimer Quant (PE/DVT) 1.97 H* 03/16/20 15:00: Alkaline Phosphatase 85, Lactate Dehydrogenase 488 H, C-React Prot Ext Range 134.00 H Current Medications Acetaminophen (Acetaminophen 325 Mg Tablet) 650 mg PO Q6H PRN PRN PRN Reason: Pain Score 1-10/Temp > 100.7 F Aspirin (Aspirin E.C. 81 Mg Tablet) 81 mg PO DAILY [facility] Atorvastatin Calcium (Atorvastatin Calcium 10 Mg Tablet) 10 mg PO DAILY [facility] Dexamethasone Sodium Phosphate (Dexamethasone 10 Mg/Ml Vial) 6 mg IV DAILY [facility] Enoxaparin Sodium (Enoxaparin 40 Mg/0.4 Ml Syringe) 40 mg SC DAILY [facility] Remdesivir 200 mg/ Sodium (Chloride) 250 mls @ 125 mls/hr IV X1 ONE Stop: 03/16/20 20:51 Last Admin: 03/16/20 19:56 Dose: 125 mls/hr Documented by: Remdesivir 100 mg/ Sodium (Chloride) 250 mls @ 125 mls/hr IV DAILY@2200 [facility] Stop: 03/20/20 23:59 Sodium Chloride () 250 mls @ 15 mls/hr IV .[id number] PRN PRN Reason: Saline Flush Sodium Chloride () 250 mls @ 15 mls/hr IV .[id number] PRN PRN Reason: Additional IVPB Infusion Lisinopril (Lisinopril 20 Mg Tablet) 20 mg PO DAILY [facility] Magnesium Hydroxide (Magnesium Hydroxide 30 Ml Udc) 30 ml PO DAILY PRN PRN PRN Reason: Constipation Melatonin (Melatonin 3 Mg Tablet) 3 mg PO QHS PRN PRN PRN Reason: INSOMNIA Sodium Chloride (0.9% Saline Lock 10 Ml Syringe) 10 - 40 ml IV UD PRN PRN Reason: SALINE FLUSH Triamterene/Hydrochlorothiazide (Triamterene 37.5mg/Hctz 25mg Capsule) 1 cap PO DAILY [facility] Assessment/Plan All Active Problems Pneumonia due to COVID-19 virus (Acute) Acute respiratory failure with hypoxia (Acute) Screening for colon cancer (Acute) Status post total right knee replacement (Acute) 1. COVID-19 infection with pneumonia. Patient hypoxic. Started on Remdesivir and Dexamethasone. Will consult infectious disease. 2. Acute hypoxic respiratory failure. Secondary to #1 above. Continue oxygen supplementation. 3. Hypertension. Well-controlled. Will continue antihypertensives as at home. Inpatient E&M: 54588 Init Hosp L3
--- NOTE | 2020-03-16 21:17 | PCS.PANDOC ---
PANDEMIC DOCUMENTATION INITIATED: Date: 03/16/2020 Time:2116
[2020-03-17] VITALS (12 sets, daily range): BP systolic 97–122; BP diastolic 57–76; PULSE 69–109; RESP 17–18; TEMP 36.4–36.6; O2SAT 92–96
[2020-03-17] MEDS: dexAMETHasone 10 MG/ML Vial 6 MG IV (07:25)
[2020-03-17 07:26] LABS: Hematocrit 38.2 % (40-54); Hemoglobin 12.4 g/dL (13.0-16.5); Mean Corp Hgb Conc 32.5 g/dL (32-36); Mean Corpuscular Hgb 31.2 pg (27.0-32.0); Mean Platelet Vol. 9.6 fl (6.2-12.0); Platelet Count 294 K/mm3 (150-450); RBC Distribution Width CV 13.2 % (11.6-14.6); RBC Distribution Width SD 46.7 fl (35.1-43.9); Red Blood Count 3.98 M/mm3 (4.6-6.2); White Blood Count 5.9 K/mm3 (4.4-11.0)
[2020-03-17] MEDS: Aspirin E.C. 81 MG Tablet PO (07:26)
[2020-03-17] MEDS: Triamterene 37.5MG/Hctz 25MG Capsule 1 CAP PO (07:26)
[2020-03-17] MEDS: Enoxaparin 40 MG/0.4 ML Syringe SC ×2 (07:26→22:16)
[2020-03-17] MEDS: Atorvastatin Calcium 10 MG Tablet PO (07:26)
[2020-03-17] MEDS: Lisinopril 20 MG Tablet PO (07:26)
[2020-03-17] MEDS: 0.9% Saline Lock 10 ML Syringe IV ×3 (07:27→22:17)
--- NOTE | 2020-03-17 07:40 | PCM.PN.HOSP ---
Patient Problems: Active and Suspected Problems Pneumonia due to COVID-19 virus (Acute) Acute respiratory failure with hypoxia (Acute) Reason for Visit: Follow-up on acute COVID-19 pneumonia Subjective: Patient was seen and examined. Denied any new complaints. Remains on 6 L of oxygen. Denies any fever chills or chest pain. Vitals/I&O's: Vital Signs Temp Pulse Resp BP Pulse Ox 97.7 F L 69 18 118/76 95 03/17/20 07:31 03/17/20 07:31 03/17/20 07:31 03/17/20 07:31 03/17/20 07:31 Oxygen Flow Rate (L/min) 6 Oxygen Delivery Method Nasal Cannula Weight: 113.398 kg Body Mass Index (BMI) 36.9 Intake and Output for Last 24 Hours 03/15/20 03/16/20 03/17/20 23:59 23:59 23:59 Intake Total 750 / 750 Balance 750 / 750 General: Alert, Oriented x3, Cooperative, No apparent distress, - - Base HEENT: Atraumatic, PERRLA, EOMI, Normocephalic Oral: Moist Mucosa Neck: Supple Lungs: Diminished Cardiovascular: Regular rate, Regular Rhythm, Normal S1, Normal S2, No murmurs Abdomen: Bowel Sounds Present, Soft, Non Tender, Non-Distended, No Hepato-splenomegaly Extremities: No edema Skin: No rashes Musculoskeletal: No Tenderness to Palpation of Joints or Extremities Lymphatic: No Cervical, Supraclavicular, or Inguinal Adenopathy Neurological: Cranial nerves II-XII grossly intact, Neuro grossly intact Psych/Mental Status: Normal Affect, Appropriate Laboratory Results 03/16/20 15:00: WBC 6.4, RBC 4.31 L, Hgb 13.0, Hct 40.7, MCV 94.4 H, MCH 30.2, MCHC 31.9 L, RDW Std Deviation 45.0 H, RDW Coeff of Levi 12.9, Plt Count 300, MPV 9.6, Immature Gran % (Auto) 0.800, Neut % (Auto) 74.3 H, Lymph % (Auto) 14.1 L, [place] % (Auto) 9.1, Eos % (Auto) 1.4, Baso % (Auto) 0.3, Absolute Neuts (auto) 4.7, Absolute Lymphs (auto) 0.90, Nucleated RBC % 0 03/16/20 15:00: Sodium 135 L, Potassium 3.5, Chloride 96 L, Carbon Dioxide 33.0 H, Anion Gap 6, BUN 19 H, Creatinine 1.01, Estim Creat Clear Calc 65.14, Est GFR (MDRD) Af Amer 93, Est GFR (MDRD) Non-Af 77, BUN/Creatinine Ratio 18.8, Glucose 111 H, Calcium 8.2 L, Total Bilirubin 0.50, AST 89 H, ALT 117 H, Alkaline Phosphatase 87, Troponin I 0.023, Total Protein 6.8, Albumin 2.8 L, Globulin 4.0, Albumin/Globulin Ratio 0.7 L 03/16/20 15:00: Lactic Acid 1.0 03/16/20 15:00: Procalcitonin 1.40 H 03/16/20 15:00: PT 13.4, INR 1.1, Fibrinogen 678 H, D-Dimer Quant (PE/DVT) 1.97 H* 03/16/20 15:00: Alkaline Phosphatase 85, Lactate Dehydrogenase 488 H, C-React Prot Ext Range 134.00 H 03/17/20 06:34: WBC 5.9, RBC 3.98 L, Hgb 12.4 L, Hct 38.2 L, MCV 96.0 H, MCH 31.2, MCHC 32.5, RDW Std Deviation 46.7 H, RDW Coeff of Levi 13.2, Plt Count 294, MPV 9.6 03/17/20 06:54: Sodium Pending, Potassium Pending, Chloride Pending, Carbon Dioxide Pending, Anion Gap Pending, BUN Pending, Creatinine Pending, Est GFR (MDRD) Af Amer Pending, Est GFR (MDRD) Non-Af Pending, BUN/Creatinine Ratio Pending, Glucose Pending, Calcium Pending, Total Bilirubin Pending, AST Pending, ALT Pending, Alkaline Phosphatase Pending, Total Protein Pending, Albumin Pending Current Medications Acetaminophen (Acetaminophen 325 Mg Tablet) 650 mg PO Q6H PRN PRN PRN Reason: Pain Score 1-10/Temp > 100.7 F Aspirin (Aspirin E.C. 81 Mg Tablet) 81 mg PO DAILY [facility] Last Admin: 03/17/20 07:26 Dose: 81 mg Documented by: Atorvastatin Calcium (Atorvastatin Calcium 10 Mg Tablet) 10 mg PO DAILY [facility] Last Admin: 03/17/20 07:26 Dose: 10 mg Documented by: Dexamethasone Sodium Phosphate (Dexamethasone 10 Mg/Ml Vial) 6 mg IV DAILY [facility] Last Admin: 03/17/20 07:25 Dose: 6 mg Documented by: Enoxaparin Sodium (Enoxaparin 40 Mg/0.4 Ml Syringe) 40 mg SC DAILY [facility] Last Admin: 03/17/20 07:26 Dose: 40 mg Documented by: Remdesivir 100 mg/ Sodium (Chloride) 250 mls @ 125 mls/hr IV DAILY@2200 [facility] Stop: 03/20/20 23:59 Sodium Chloride () 250 mls @ 15 mls/hr IV .[id number] PRN PRN Reason: Saline Flush Sodium Chloride () 250 mls @ 15 mls/hr IV .[id number] PRN PRN Reason: Additional IVPB Infusion Lisinopril (Lisinopril 20 Mg Tablet) 20 mg PO DAILY [facility] Last Admin: 03/17/20 07:26 Dose: 20 mg Documented by: Magnesium Hydroxide (Magnesium Hydroxide 30 Ml Udc) 30 ml PO DAILY PRN PRN PRN Reason: Constipation Melatonin (Melatonin 3 Mg Tablet) 3 mg PO QHS PRN PRN PRN Reason: INSOMNIA Sodium Chloride (0.9% Saline Lock 10 Ml Syringe) 10 - 40 ml IV UD PRN PRN Reason: SALINE FLUSH Last Admin: 03/17/20 07:27 Dose: 10 ml Documented by: Triamterene/Hydrochlorothiazide (Triamterene 37.5mg/Hctz 25mg Capsule) 1 cap PO DAILY [facility] Last Admin: 03/17/20 07:26 Dose: 1 cap Documented by: STROKE Vital Signs/Narrative: Vital Signs Temp Pulse Resp BP Pulse Ox 03/17/20 07:31 97.7 F L 69 18 118/76 95 Medical Necessity - Tobacco Use Smoking Status: Never smoker Assessment/Plan All Active Problems Pneumonia due to COVID-19 virus (Acute) Acute respiratory failure with hypoxia (Acute) Screening for colon cancer (Acute) Status post total right knee replacement (Acute) 1. Acute hypoxic respiratory insufficiency secondary to COVID-19 pneumonia Patient currently is on 6 L of oxygen, continue with breathing treatments, IV steroids, encourage use of incentive spirometer. Wean off oxygen for SPO2 more than 94% 2. Acute COVID-19 pneumonia with hypoxia, continue on oral Decadron and remdesivir ID consulted. Will check BNPep 3. Hypertension/hyperlipidemia, remains stable, continue on lisinopril, triamterene/hydrochlorothiazide atorvastatin 4. Obesity, BMI 36.9, lifestyle modification recommended 5. DVT PPx- Lovenox SC Inpatient E&M: 37986 Subs Hosp L3
[2020-03-17 08:04] LABS: ALB/GLOB Ratio 0.6 RATIO (0.9-2.4); AST(SGOT) 62 U/L (15-37); Alanine Aminotransfer ALT/SGPT 103 U/L (16-61); Albumin, Serum 2.5 g/dL (3.2-5.0); Alkaline Phosphatase 78 U/L (45-117); Anion Gap 5 (5-15); BUN 18 mg/dL (7-18); BUN/Creat Ratio 22.3 RATIO (10-20); Calcium,Total 8.3 mg/dL (8.5-10.1); Chloride 97 mmol/L (98-107); Creatinine, Serum 0.81 mg/dL (0.70-1.30); EST Glomerular Filtration Rate 100 mL/min (>60); Est Glom Filt Rate - Afr Amer 121 mL/min (>60); Estimated Creatinine Clearance 81.22 ml/min; Globulin 4.1 g/dL (2.2-4.2); Glucose 130 mg/dL (74-106); Protein, Total 6.6 g/dL (6.4-8.2); Sodium Level 135 mmol/L (136-145)
[2020-03-17 11:29] LABS: BNP,B-Type NATRIURETIC PEPTIDE 32.1 pg/mL (0-100)
[2020-03-17] MEDS: Furosemide 40 MG/4 ML Vial IV (13:24)
[2020-03-18] VITALS (16 sets, daily range): BP systolic 112–135; BP diastolic 60–91; PULSE 66–79; RESP 16–18; TEMP 36.3–36.8; O2SAT 79–94
[2020-03-18] MEDS: 0.9% Saline Lock 10 ML Syringe IV ×2 (03:16→08:01)
[2020-03-18 05:35] LABS: Absolute Lymphocyte Count 0.87 X10^3/uL (0.83-4.51); Basophil# 0.02 X10^3/uL; Basophil% 0.2 % (0-1); Hematocrit 40.4 % (40-54); Hemoglobin 12.9 g/dL (13.0-16.5); Lymphocyte # 0.87 X10^3/ul (4.0); Lymphocyte % 7.3 % (19-41); Mean Corp Hgb Conc 31.9 g/dL (32-36); Mean Corpuscular Hgb 30.9 pg (27.0-32.0); Mean Corpuscular Volume 96.7 fL (80-94); Mean Platelet Vol. 9.6 fl (6.2-12.0); Monocyte# 0.86 X10^3/uL; Monocyte% 7.3 % (0-10); NRBC Flagged by Analyzer 0 % (0-5); Neutrophil # 10.02 X10^3/uL (2.7-7.7); Neutrophil % 84.6 % (47-70); Platelet Count 399 K/mm3 (150-450); RBC Distribution Width CV 12.9 % (11.6-14.6); RBC Distribution Width SD 46.5 fl (35.1-43.9); Red Blood Count 4.18 M/mm3 (4.6-6.2); White Blood Count 11.8 K/mm3 (4.4-11.0)
[2020-03-18 06:04] LABS: ALB/GLOB Ratio 0.6 RATIO (0.9-2.4); AST(SGOT) 54 U/L (15-37); Alanine Aminotransfer ALT/SGPT 114 U/L (16-61); Albumin, Serum 2.6 g/dL (3.2-5.0); Alkaline Phosphatase 84 U/L (45-117); Anion Gap 4 (5-15); BUN 31 mg/dL (7-18); BUN/Creat Ratio 32.2 RATIO (10-20); Calcium,Total 8.8 mg/dL (8.5-10.1); Chloride 95 mmol/L (98-107); Creatinine, Serum 0.96 mg/dL (0.70-1.30); EST Glomerular Filtration Rate 81 mL/min (>60); Est Glom Filt Rate - Afr Amer 98 mL/min (>60); Estimated Creatinine Clearance 68.53 ml/min; Globulin 4.1 g/dL (2.2-4.2); Glucose 146 mg/dL (74-106); Protein, Total 6.7 g/dL (6.4-8.2); Sodium Level 133 mmol/L (136-145)
--- NOTE | 2020-03-18 07:45 | PN_ITS ---
Patient Problems: Active and Suspected Problems Pneumonia due to COVID-19 virus (Acute) Acute respiratory failure with hypoxia (Acute) Subjective: Patient overnight with continued usage of 6 L nasal cannula with + cough and dyspnea but still worse when up and moving. He does note that diarrhea has resolved and only admitting to currently mild headache. 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 Oxygenation trial performed and patient required 5 L to maintain low 90s saturations however he had notable increased work of breathing and was very fatigued. Patient denies fevers, chills, nausea, emesis, abdominal pain, chest pain. Objective: Physical Examination: General: awake, alert, oriented x 3 and cooperative, seated upright in the medical surgical Covid unit bed, fatigued appearing. Skin: normal color, turgor, no icterus, cyanosis. HEENT: AT/NC, EOMI, PERRLA, mildly dry MM. Lungs: Diminished breath sounds bilaterally, greater bases, moderate effort, im proved from recent ambulatory trial as had been significantly short of breath with activity, no obvious rales, rhonchi or wheezing. Heart: Regular rate and rhythm; no gallop, rub audible. Abdomen: soft, obese, NTTP, ND, normal BS. Extremities: no cyanosis, clubbing, or edema. Neurological: patient awake, alert, oriented as noted; cognitive function appears now baseline intact; pupils equally reactive to light and accomodation; cranial nerves II-XII grossly normal, moving all 4 extremities, no focal deficits, strength moderately to severely globally decreased secondary to acute presentation. Psychiatric: affect appears fatigued, less ill-appearing, no acute evidence of depressive or anxiety feelings. Vitals/I&O's: Vital Signs Temp Pulse Resp BP Pulse Ox 97.6 F L 71 16 135/91 H 93 03/18/20 03:20 03/18/20 07:30 03/18/20 03:20 03/18/20 03:20 03/18/20 03:20 Oxygen Flow Rate (L/min) 5 Oxygen Delivery Method Nasal Cannula Weight: 250 lb Body Mass Index (BMI) 36.9 Intake and Output for Last 24 Hours 03/16/20 03/17/20 03/18/20 23:59 23:59 23:59 Intake Total 750 / 750 950 / 1350 1250 / 1250 Output Total 700 / 700 Balance 750 / 750 250 / 650 1250 / 1250 Microbiology Past 72 Hours 03/17/20 15:30 Mucosa - Nose SARS-CoV-2 Antigen (Rapid) - Final Laboratory Results 03/17/20 06:34: B-Natriuretic Peptide 32.1 03/17/20 06:54: Sodium 135 L, Potassium 4.0, Chloride 97 L, Carbon Dioxide 33.0 H, Anion Gap 5, BUN 18, Creatinine 0.81, Estim Creat Clear Calc 81.22, Est GFR (MDRD) Af Amer 121, Est GFR (MDRD) Non-Af 100, BUN/Creatinine Ratio 22.3 H, Glucose 130 H, Calcium 8.3 L, Total Bilirubin 0.40, AST 62 H, ALT 103 H, Alkaline Phosphatase 78, Total Protein 6.6, Albumin 2.5 L, Globulin 4.1, Albumin/Globulin Ratio 0.6 L 03/18/20 05:00: Sodium 133 L, Potassium 4.0, Chloride 95 L, Carbon Dioxide 34.0 H, Anion Gap 4 L, BUN 31 H, Creatinine 0.96, Estim Creat Clear Calc 68.53, Est GFR (MDRD) Af Amer 98, Est GFR (MDRD) Non-Af 81, BUN/Creatinine Ratio 32.2 H, Glucose 146 H, Calcium 8.8, Total Bilirubin 0.40, AST 54 H, ALT 114 H, Alkaline Phosphatase 84, Total Protein 6.7, Albumin 2.6 L, Globulin 4.1, Albumin/Globulin Ratio 0.6 L 03/18/20 05:00: WBC 11.8 H, RBC 4.18 L, Hgb 12.9 L, Hct 40.4, MCV 96.7 H, MCH 30.9, MCHC 31.9 L, RDW Std Deviation 46.5 H, RDW Coeff of Levi 12.9, Plt Count 399, MPV 9.6, Immature Gran % (Auto) 0.600, Neut % (Auto) 84.6 H, Lymph % (Auto) 7.3 L, [place] % (Auto) 7.3, Eos % (Auto) 0.0, Baso % (Auto) 0.2, Absolute Neuts (auto) 10.0 H, Absolute Lymphs (auto) 0.87, Nucleated RBC % 0 Current Medications Acetaminophen (Acetaminophen 325 Mg Tablet) 650 mg PO Q6H PRN PRN PRN Reason: Pain Score 1-10/Temp > 100.7 F Albuterol Sulfate (Albuterol 2.5 Mg/3 Ml Vial.Neb.) 2.5 mg INHALATION Q2H PRN PRN PRN Reason: Dyspnea, wheezing Aspirin (Aspirin E.C. 81 Mg Tablet) 81 mg PO DAILY [facility] Last Admin: 03/17/20 07:26 Dose: 81 mg Documented by: Atorvastatin Calcium (Atorvastatin Calcium 10 Mg Tablet) 10 mg PO DAILY [facility] Last Admin: 03/17/20 07:26 Dose: 10 mg Documented by: Dexamethasone Sodium Phosphate (Dexamethasone 10 Mg/Ml Vial) 6 mg IV DAILY [facility] Last Admin: 03/17/20 07:25 Dose: 6 mg Documented by: Enoxaparin Sodium (Enoxaparin 40 Mg/0.4 Ml Syringe) 40 mg SC BID [facility] Last Admin: 03/17/20 22:16 Dose: 40 mg Documented by: Hydralazine HCl (Hydralazine 20 Mg/Ml Vial) 10 mg IV Q4H PRN PRN PRN Reason: SBP > 160 Remdesivir 100 mg/ Sodium (Chloride) 250 mls @ 125 mls/hr IV DAILY@2200 [facility] Stop: 03/20/20 23:59 Last Infusion: 03/18/20 00:17 Dose: Infused Documented by: Sodium Chloride () 250 mls @ 15 mls/hr IV .[id number] PRN PRN Reason: Saline Flush Sodium Chloride () 250 mls @ 15 mls/hr IV .[id number] PRN PRN Reason: Additional IVPB Infusion Lisinopril (Lisinopril 20 Mg Tablet) 20 mg PO DAILY [facility] Last Admin: 03/17/20 07:26 Dose: 20 mg Documented by: Magnesium Hydroxide (Magnesium Hydroxide 30 Ml Udc) 30 ml PO DAILY PRN PRN PRN Reason: Constipation Melatonin (Melatonin 3 Mg Tablet) 3 mg PO QHS PRN PRN PRN Reason: INSOMNIA Sodium Chloride (0.9% Saline Lock 10 Ml Syringe) 10 - 40 ml IV UD PRN PRN Reason: SALINE FLUSH Last Admin: 03/18/20 03:16 Dose: 10 ml Documented by: Triamterene/Hydrochlorothiazide (Triamterene 37.5mg/Hctz 25mg Capsule) 1 cap PO DAILY [facility] Last Admin: 03/17/20 07:26 Dose: 1 cap Documented by: STROKE Vital Signs/Narrative: Vital Signs Pulse 03/18/20 07:30 71 Medical Necessity - Tobacco Use Smoking Status: Never smoker Assessment/Plan All Active Problems Pneumonia due to COVID-19 virus (Acute) Acute respiratory failure with hypoxia (Acute) Screening for colon cancer (Acute) Status post total right knee replacement (Acute) The patient is a 74 y/o M w/ PMHx: Obesity, HTN, OA, Allergic Rhinitis who presents to the [facility] ED on 03/16/20 with history of onset Covid type symptoms approximately 10 days prior to current presentation with mild fever, fatigue and malaise, headaches, loose stools with minimally decreased sense of taste and smell with worsening cough and dyspnea prompting eventual ED return for evaluation. 1. Acute hypoxic respiratory failure secondary to acute bilateral pneumonia secondary to acute COVID-19 viral syndrome: ED evaluation included chest x-ray with multi lobar pulmonary infiltrates with questionable possible superimposed bacterial pneumonia right lung base, D-dimer elevated therefore CTPA obtained with no central or segmental pulmonary emboli with multi lobar pulmonary infiltrates consistent with Covid pneumonia and bibasilar atelectasis. Patient was admitted to the Covid unit, patient initiated on IV Decadron as well as remdesivir, infectious disease consulted, continued on Lovenox anticoagulant therapy, trend CBC, CMP, oxygenation assessment 03/18/2020 with significant evidence dyspnea noted to be 88% on room air at rest however with ambulation dropped to 82% with improvement to 90% on 5 to 6 L however was notably short of breath. Possible discharge plan 03/19/2020 pending reassessment. 2. Elevated LFTs secondary to #1: Admission AST/ALT 89/117, alk phos 85, continue trending with 03/18/2020 AST/ALT 54/114, secondary to acute Covid 19 viral syndrome, continue treatment as noted #1. 3. Hypertension: Continue home regimen including triamterene, hydrochlorothiazide, lisinopril with hold parameters as needed, PRN hydralazine. 4. Hyperlipidemia: Continue home statin regimen. 5. Obesity: Weight loss and lifestyle changes encouraged. 6. Allergic rhinitis: We will resume patient fluticasone and Claritin home regimen. 7. DVT prophylaxis: SCDs, Lovenox as noted. 8. CODE STATUS: Full code. Inpatient E&M: [id number] Subs Hosp L3
[2020-03-18] MEDS: Atorvastatin Calcium 10 MG Tablet PO (08:00)
[2020-03-18] MEDS: dexAMETHasone 10 MG/ML Vial 6 MG IV (08:01)
[2020-03-18] MEDS: Enoxaparin 40 MG/0.4 ML Syringe SC ×2 (08:01→21:05)
[2020-03-18] MEDS: Lisinopril 20 MG Tablet PO (08:02)
[2020-03-18] MEDS: Triamterene 37.5MG/Hctz 25MG Capsule 1 CAP PO (08:02)
[2020-03-18] MEDS: Aspirin E.C. 81 MG Tablet PO (08:02)
--- NOTE | 2020-03-18 08:25 | CASEMGMT ---
LW/POA forms scheduled into summary tab of echart. SHASHANK Lazar
--- NOTE | 2020-03-18 09:55 | CASEMGMT ---
Addendum entered by Dariel Minaya 03/18/20 13:10: COVID Testing- patient states was done by order of Dr. Collazo @ [facility] drive through testing area. Original Note: RN CM Assessment Note Introduced role of CM to patient via phone to room. Demographics, PCP verified. The patient is awake alert and oriented and able to participate in assessment. Pt states he lives alone and was very independent prior to admission. Denies care needs but has good understanding of possible needs on dc if oxygen or home health are needed. -Patient is able to quarantine @ home and has family who can bring supplies if needed. Presentation: shortness of breath Diagnosis: Covid pneumonia PCP: Dr. Blanco Collazo Insurance[facility] Prescription Benefit: yes LNOK: Elgin Jensen Living Arrangements: Lives independently, states no care needs. Plan is to return home on discharge. Tranportation: drives, but family can assist DME: no home oxygen or cpap. Discussed Home oxygen list with pt including [facility] and hospital affiliation. Patient does not have a preference and is agreeable to [facility]. HHC: none SNF: none Patient DC Goals: Home. DC Plan: Home on discharge. Recommend home oxygen testing at rest and with activity. CM available for discharge planning coordination. Contact CM for any concerns/needs that may arise. Moses AVERY RN ACM
--- NOTE | 2020-03-18 14:10 | PCM.HP.ID ---
Problem List (1) Pneumonia due to COVID-19 virus Status: Acute Reason for Consult: covid Consulted by: Dr. Dewey History of Present Illness: The patient is a 74 year old M with sx for about 10 days, c/o fever, cough, fatigue, mild change in taste/smell. Had progressive dyspnea, came to ED, sat was 81%. Lives alone. Admitted on dex and remdesivir, feeling a little better today. Full ROS performed and neg except as noted above. - Medical History Past Medical History (Chronic Problems): Chronic Problems Hypertension (Chronic) Osteoarthritis (Chronic) Obesity (BMI 30.0-34.9) (Chronic) Allergies/Adverse Reactions: Allergies No Known Allergies Allergy (Verified 03/16/20 14:48) Home Medications: Ambulatory Orders Medication Instructions Recorded Multivitamins,Therapeutic 1 tablet PO DAILY 01/29/15 [Multivitamin] Triamterene 37.5MG/Hctz 25MG 1 cap PO DAILY 01/29/15 [Dyazide (G)] Aspirin E.C. [Ecotrin] 81 mg PO DAILY@0800 03/16/20 Cetirizine HCl [Zyrtec] 10 mg PO DAILY 03/16/20 Fluticasone 0.05% [Flonase Nasal 2 spray NASAL DAILY 03/16/20 [place]] Lisinopril [Zestril] 20 mg PO DAILY 03/16/20 Loratadine [Claritin] 10 mg PO DAILY 03/16/20 Rosuvastatin Calcium [Crestor] 5 mg PO QHS 03/16/20 - Social History Tobacco Use: non-smoker Vital Signs Temp Pulse Resp BP Pulse Ox 97.3 F L 71 18 125/72 H 93 03/18/20 08:00 03/18/20 08:00 03/18/20 08:00 03/18/20 08:00 03/18/20 10:27 Oxygen Flow Rate (L/min) [ 5 AMBULATION with Oxygen] Oxygen Flow Rate (L/min) 5 Oxygen Delivery Method Nasal Cannula Weight: 113.398 kg Body Mass Index (BMI) 36.9 Microbiology Past 72 Hours 03/17/20 15:30 SARS-CoV-2 Antigen (Rapid) - Final Mucosa - Nose Laboratory Tests Past 24 Hrs 03/18/20 03/18/20 05:00 05:00 WBC 11.8 H RBC 4.18 L Hgb 12.9 L Hct 40.4 MCV 96.7 H MCH 30.9 MCHC 31.9 L RDW Std Deviation 46.5 H RDW Coeff of Levi 12.9 Plt Count 399 MPV 9.6 Immature Gran % (Auto) 0.600 Neut % (Auto) 84.6 H Lymph % (Auto) 7.3 L [place] % (Auto) 7.3 Eos % (Auto) 0.0 Baso % (Auto) 0.2 Absolute Neuts (auto) 10.0 H Absolute Lymphs (auto) 0.87 Nucleated RBC % 0 Sodium 133 L Potassium 4.0 Chloride 95 L Carbon Dioxide 34.0 H Anion Gap 4 L BUN 31 H Creatinine 0.96 Estim Creat Clear Calc 68.53 Est GFR (MDRD) Af Amer 98 Est GFR (MDRD) Non-Af 81 BUN/Creatinine Ratio 32.2 H Glucose 146 H Calcium 8.8 Total Bilirubin 0.40 AST 54 H ALT 114 H Alkaline Phosphatase 84 Total Protein 6.7 Albumin 2.6 L Globulin 4.1 Albumin/Globulin Ratio 0.6 L - Other Studies Radiology: [] reviewed Other Studies: [] Route of nutrition/ use of supplements: [] Nutritional Intake: [] IV Site: [] Price Catheter: [] - Physical Exam General: Alert, Oriented x3, Cooperative HEENT: Atraumatic, PERRLA, EOMI Neck: Supple, No Nodes Lungs: Diminished Cardiovascular: Regular rate, Regular Rhythm Abdomen: Soft, Non Tender, Non-Distended Extremities: No edema Skin: No rashes IV Site: Peripheral, without redness Musculoskeletal: No Tenderness to Palpation of Joints or Extremities Neurological: Cranial nerves II-XII grossly intact - Assessment/Plan Antibiotics: [] Assessment/Plan: [] Active and Suspected Problems Pneumonia due to COVID-19 virus (Acute) Acute respiratory failure with hypoxia (Acute) tested (+) 03/06/20. CT neg for PE. On dex for 10 day course and remdesivir. D-dimer was 2. On lovenox 40mg bid. Will change dex to po. Will follow, thank you
[2020-03-19] VITALS (15 sets, daily range): BP systolic 98–117; BP diastolic 56–72; PULSE 57–69; RESP 18–20; TEMP 36.2–36.4; O2SAT 87–96
[2020-03-19 05:47] LABS: Absolute Neutrophil Count 10.4 X10^3/uL (2.0-7.7); Basophil# 0.02 X10^3/uL; Basophil% 0.2 % (0-1); Eosinophil# 0.01 X10^3/uL; Eosinophils% 0.1 % (0-5); Hematocrit 38.7 % (40-54); Hemoglobin 12.6 g/dL (13.0-16.5); Lymphocyte % 8.6 % (19-41); Mean Corp Hgb Conc 32.6 g/dL (32-36); Mean Corpuscular Hgb 31.3 pg (27.0-32.0); Mean Platelet Vol. 9.6 fl (6.2-12.0); Monocyte% 8.6 % (0-10); NRBC Flagged by Analyzer 0 % (0-5); Neutrophil % 80.9 % (47-70); Platelet Count 414 K/mm3 (150-450); RBC Distribution Width CV 12.9 % (11.6-14.6); RBC Distribution Width SD 45.4 fl (35.1-43.9); Red Blood Count 4.03 M/mm3 (4.6-6.2); White Blood Count 12.8 K/mm3 (4.4-11.0)
[2020-03-19 06:16] LABS: ALB/GLOB Ratio 0.7 RATIO (0.9-2.4); AST(SGOT) 33 U/L (15-37); Alanine Aminotransfer ALT/SGPT 94 U/L (16-61); Albumin, Serum 2.5 g/dL (3.2-5.0); Alkaline Phosphatase 74 U/L (45-117); Anion Gap 3 (5-15); BUN 30 mg/dL (7-18); BUN/Creat Ratio 30.6 RATIO (10-20); Calcium,Total 8.6 mg/dL (8.5-10.1); Chloride 99 mmol/L (98-107); Creatinine, Serum 0.98 mg/dL (0.70-1.30); EST Glomerular Filtration Rate 80 mL/min (>60); Est Glom Filt Rate - Afr Amer 96 mL/min (>60); Estimated Creatinine Clearance 67.13 ml/min; Globulin 3.7 g/dL (2.2-4.2); Glucose 109 mg/dL (74-106); Potassium 4.5 mmol/L (3.5-5.1); Protein, Total 6.2 g/dL (6.4-8.2); Sodium Level 138 mmol/L (136-145)
--- NOTE | 2020-03-19 07:15 | PCM.PN.HOSP ---
Patient Problems: Active and Suspected Problems Pneumonia due to COVID-19 virus (Acute) Acute respiratory failure with hypoxia (Acute) Subjective: Patient overnight with onset of increased coughing but no specific dyspnea increase or recurrent symptoms including headache, fever, chills, body aches. Patient today with oxygenation trial with significant increased oxygen needs eventually requiring 5 to 6 L even at rest on room air. Patient remains fatigued with increased coughing otherwise no complaints. He is eager for discharge but understands impetus for remaining in the hospital to continue treatment and evaluation. Given status repeat D-dimer obtained which had actually improved and patient ministered Lasix regimen with also consultation to pulmonary/ICU physician. Patient denies fevers, chills, nausea, emesis, abdominal pain, chest pain. Objective: Physical Examination: General: awake, alert, oriented x 3 and cooperative, seated upright in the medical surgical Covid unit bed, fatigued, coughing frequently during evaluation. Skin: normal color, turgor, no icterus, cyanosis. HEENT: AT/NC, EOMI, PERRLA, improved MMM. Lungs: More diminished than day prior, greater bases, still moderate effort, coughing significantly during evaluation, no obvious rales, rhonchi or wheezing. Heart: Regular rate and rhythm; no gallop, rub audible. Abdomen: soft, obese, NTTP, ND, normal BS. Extremities: no cyanosis, clubbing, or edema. Neurological: patient awake, alert, oriented as noted; cognitive function appears now baseline intact; pupils equally reactive to light and accomodation; cranial nerves II-XII grossly normal, moving all 4 extremities, no focal deficits, strength remains moderately to severely globally decreased secondary to acute presentation. Psychiatric: affect appears fatigued, no acute evidence of depressive or anxiety feelings. Vitals/I&O's: Vital Signs Temp Pulse Resp BP Pulse Ox 97.2 F L 59 L 18 108/72 93 03/19/20 03:00 03/19/20 06:10 03/19/20 05:28 03/19/20 03:00 03/19/20 06:10 Oxygen Flow Rate (L/min) [ 5 AMBULATION with Oxygen] Oxygen Flow Rate (L/min) 2 Oxygen Delivery Method Nasal Cannula Weight: 250 lb Body Mass Index (BMI) 36.9 Intake and Output for Last 24 Hours 03/17/20 03/18/20 03/19/20 23:59 23:59 23:59 Intake Total 950 / 1350 2100 / 2580 880 / 880 Output Total 700 / 700 Balance 250 / 650 2100 / 2580 880 / 880 Microbiology Past 72 Hours 03/17/20 15:30 Mucosa - Nose SARS-CoV-2 Antigen (Rapid) - Final Laboratory Results 03/19/20 05:15: WBC 12.8 H, RBC 4.03 L, Hgb 12.6 L, Hct 38.7 L, MCV 96.0 H, MCH 31.3, MCHC 32.6, RDW Std Deviation 45.4 H, RDW Coeff of Levi 12.9, Plt Count 414, MPV 9.6, Immature Gran % (Auto) 1.600 H, Neut % (Auto) 80.9 H, Lymph % (Auto) 8.6 L, [place] % (Auto) 8.6, Eos % (Auto) 0.1, Baso % (Auto) 0.2, Absolute Neuts (auto) 10.4 H, Absolute Lymphs (auto) 1.10, Nucleated RBC % 0 03/19/20 05:15: Sodium 138, Potassium 4.5, Chloride 99, Carbon Dioxide 36.0 H, Anion Gap 3 L, BUN 30 H, Creatinine 0.98, Estim Creat Clear Calc 67.13, Est GFR (MDRD) Af Amer 96, Est GFR (MDRD) Non-Af 80, BUN/Creatinine Ratio 30.6 H, Glucose 109 H, Calcium 8.6, Total Bilirubin 0.40, AST 33, ALT 94 H, Alkaline Phosphatase 74, Total Protein 6.2 L, Albumin 2.5 L, Globulin 3.7, Albumin/Globulin Ratio 0.7 L Current Medications Acetaminophen (Acetaminophen 325 Mg Tablet) 650 mg PO Q6H PRN PRN PRN Reason: Pain Score 1-10/Temp > 100.7 F Albuterol Sulfate (Albuterol 2.5 Mg/3 Ml Vial.Neb.) 2.5 mg INHALATION Q2H PRN PRN PRN Reason: Dyspnea, wheezing Aspirin (Aspirin E.C. 81 Mg Tablet) 81 mg PO DAILY [facility] Last Admin: 03/18/20 08:02 Dose: 81 mg Documented by: Atorvastatin Calcium (Atorvastatin Calcium 10 Mg Tablet) 10 mg PO DAILY [facility] Last Admin: 03/18/20 08:00 Dose: 10 mg Documented by: Dexamethasone (Dexamethasone 4 Mg Tablet) 6 mg PO DAILY [facility] Stop: 03/25/20 10:01 Enoxaparin Sodium (Enoxaparin 40 Mg/0.4 Ml Syringe) 40 mg SC BID [facility] Last Admin: 03/18/20 21:05 Dose: 40 mg Documented by: Fluticasone Propionate (Fluticasone 0.05% 1 [place] Nasal.Sry) 2 spray NASAL DAILY [facility] Hydralazine HCl (Hydralazine 20 Mg/Ml Vial) 10 mg IV Q4H PRN PRN PRN Reason: SBP > 160 Remdesivir 100 mg/ Sodium (Chloride) 250 mls @ 125 mls/hr IV DAILY@2200 [facility] Stop: 03/20/20 23:59 Last Infusion: 03/18/20 23:05 Dose: Infused Documented by: Sodium Chloride () 250 mls @ 15 mls/hr IV .[id number] PRN PRN Reason: Saline Flush Sodium Chloride () 250 mls @ 15 mls/hr IV .[id number] PRN PRN Reason: Additional IVPB Infusion Lisinopril (Lisinopril 20 Mg Tablet) 20 mg PO DAILY [facility] Last Admin: 03/18/20 08:02 Dose: 20 mg Documented by: Loratadine (Loratadine 10 Mg Tablet) 10 mg PO DAILY [facility] Magnesium Hydroxide (Magnesium Hydroxide 30 Ml Udc) 30 ml PO DAILY PRN PRN PRN Reason: Constipation Melatonin (Melatonin 3 Mg Tablet) 3 mg PO QHS PRN PRN PRN Reason: INSOMNIA Nutritional Formula (Lactose Free) (Ensure Enlive 120 Ml Liquid) 120 ml PO 4X/DAYCM [facility] Sodium Chloride (0.9% Saline Lock 10 Ml Syringe) 10 - 40 ml IV UD PRN PRN Reason: SALINE FLUSH Last Admin: 03/18/20 08:01 Dose: 10 ml Documented by: Triamterene/Hydrochlorothiazide (Triamterene 37.5mg/Hctz 25mg Capsule) 1 cap PO DAILY [facility] Last Admin: 03/18/20 08:02 Dose: 1 cap Documented by: STROKE Vital Signs/Narrative: Vital Signs Pulse Resp Pulse Ox 03/19/20 06:10 59 L 93 03/19/20 05:28 18 93 03/19/20 05:18 57 L 03/19/20 04:15 20 H 95 Medical Necessity - Tobacco Use Smoking Status: Never smoker Assessment/Plan All Active Problems Pneumonia due to COVID-19 virus (Acute) Acute respiratory failure with hypoxia (Acute) Screening for colon cancer (Acute) Status post total right knee replacement (Acute) The patient is a 74 y/o M w/ PMHx: Obesity, HTN, OA, Allergic Rhinitis who presents to the [facility] ED on 03/16/20 with history of onset Covid type symptoms approximately 10 days prior to current presentation with mild fever, fatigue and malaise, headaches, loose stools with minimally decreased sense of taste and smell with worsening cough and dyspnea prompting eventual ED return for evaluation. 1. Acute hypoxic respiratory failure secondary to acute bilateral pneumonia secondary to acute COVID-19 viral syndrome: ED evaluation included chest x-ray with multi lobar pulmonary infiltrates with questionable possible superimposed bacterial pneumonia right lung base, D-dimer elevated therefore CTPA obtained with no central or segmental pulmonary emboli with multi lobar pulmonary infiltrates consistent with Covid pneumonia and bibasilar atelectasis. Patient was admitted to the Covid unit, patient initiated on IV Decadron as well as remdesivir, infectious disease consulted, continued on Lovenox anticoagulant therapy, being CBC, CMP, oxygenation assessment 03/18/2020 with significant evidence dyspnea noted to be 88% on room air at rest however with ambulation dropped to 82% with improvement to 90% on 5 to 6 L however was notably short of breath therefore discharge held. Reevaluation 03/19/2020 with significant increase in oxygen requirements up to 5 to 6 L even at rest therefore D-dimer reassessed and noted to be improved since prior 1.97 initially--> 0.75 near age-adjusted, administered IV Lasix 40 mg x 1 with consultation to pulmonary critical care physician. Suspect likely will need to re-diuresis 03/20/2020, continue to monitor. 2. Elevated LFTs secondary to #1: Admission AST/ALT 89/117, alk phos 85, continue trending with 03/18/2020 AST/ALT 54/114, secondary to acute Covid 19 viral syndrome, improving with 03/19/2020 total bilirubin 0.40, AST/ALT 33/94, alk phos 74, continue to trend. 3. Hypertension: Continue home regimen including triamterene, hydrochlorothiazide, lisinopril with hold parameters as needed, PRN hydralazine. 4. Hyperlipidemia: Continue home statin regimen. 5. Obesity: Weight loss and lifestyle changes encouraged. 6. Allergic rhinitis: We will continue fluticasone and Claritin home regimen. 7. DVT prophylaxis: SCDs, Lovenox as noted. 8. CODE STATUS: Full code. Inpatient E&M: 16943 Subs Hosp L3
[2020-03-19] MEDS: Lisinopril 20 MG Tablet PO (08:31)
[2020-03-19] MEDS: Aspirin E.C. 81 MG Tablet PO (08:31)
[2020-03-19] MEDS: Atorvastatin Calcium 10 MG Tablet PO (08:31)
[2020-03-19] MEDS: dexAMETHasone 4 MG Tablet 6 MG PO (08:31)
[2020-03-19] MEDS: Enoxaparin 40 MG/0.4 ML Syringe SC ×2 (08:32→21:36)
[2020-03-19] MEDS: Triamterene 37.5MG/Hctz 25MG Capsule 1 CAP PO (08:32)
[2020-03-19] MEDS: Loratadine 10 MG Tablet PO (08:32)
[2020-03-19] MEDS: Fluticasone 0.05% 1 SPRAY NASAL.SRY 2 SPRAY NASAL (08:33)
[2020-03-19] MEDS: Furosemide 40 MG/4 ML Vial IV (10:59)
[2020-03-19] MEDS: 0.9% Saline Lock 10 ML Syringe IV (11:00)
[2020-03-19 11:26] LABS: D-Dimer Quantitative (DVT/PE) 0.75 FEU/ug/m (0.27-0.49)
[2020-03-20] VITALS (12 sets, daily range): BP systolic 101–122; BP diastolic 58–74; PULSE 58–77; RESP 16–18; TEMP 36.3–36.4; O2SAT 87–95
[2020-03-20 06:16] LABS: Absolute Lymphocyte Count 1.07 X10^3/uL (0.83-4.51); Absolute Neutrophil Count 8.6 X10^3/uL (2.0-7.7); Basophil# 0.03 X10^3/uL; Basophil% 0.3 % (0-1); Eosinophil# 0.01 X10^3/uL; Eosinophils% 0.1 % (0-5); Hematocrit 42.3 % (40-54); Hemoglobin 13.7 g/dL (13.0-16.5); Lymphocyte # 1.07 X10^3/ul (4.0); Lymphocyte % 9.7 % (19-41); Mean Corp Hgb Conc 32.4 g/dL (32-36); Mean Corpuscular Hgb 31.7 pg (27.0-32.0); Mean Corpuscular Volume 97.9 fL (80-94); Mean Platelet Vol. 9.4 fl (6.2-12.0); Monocyte# 1.08 X10^3/uL; Monocyte% 9.8 % (0-10); NRBC Flagged by Analyzer 0 % (0-5); Neutrophil # 8.62 X10^3/uL (2.7-7.7); Neutrophil % 78.3 % (47-70); Platelet Count 405 K/mm3 (150-450); RBC Distribution Width CV 12.6 % (11.6-14.6); RBC Distribution Width SD 45.6 fl (35.1-43.9); Red Blood Count 4.32 M/mm3 (4.6-6.2)
--- NOTE | 2020-03-20 06:20 | PCM.CONS.PUL ---
Reason for Consult Date of Consultation: 03/20/20 Reason for Consultation: Acute hypoxemic respiratory failure secondary to COVID-19 pneumonia History of Present Illness: The patient is a 74-year-old male, with a history as outlined below, who presented to the emergency department on March 16 with complaints of shortness of breath, cough, self-limited diarrhea, headache and hypoxemia. The patient had previously been tested for coronavirus and found to be positive on March 06. The patient denies any known history of any lung disease. He is a lifelong non-smoker. At his baseline, he does not utilize supplemental oxygen. On presentation to the emergency department, the patient was noted to be afebrile hemodynamically stable. He was initially documented to be saturating 81% on room air. Initial laboratory evaluation revealed a normal white blood cell count. D-dimer was elevated at 1.97. Chemistry profile was largely unremarkable. Lactate was within normal limits. Troponin was within normal limits. Procalcitonin was noted to be 1.40. CTA chest showed no evidence of pulmonary embolism. However, there was evidence of bilateral, predominantly peripheral groundglass opacities, right greater than left. The patient was subsequently admitted to the coronavirus cohort unit, where he was placed on remdesivir, Decadron and prophylactic Lovenox. At the most during his hospitalization to date, the patient has required upwards of 5 L/min via nasal cannula. As of this morning, the patient is maintaining appropriate oxygen saturations on 4 L/min. Past Medical History Past Medical History (Chronic Problems): Chronic Problems Hypertension (Chronic) Osteoarthritis (Chronic) Obesity (BMI 30.0-34.9) (Chronic) Allergies No Known Allergies Allergy (Verified 03/16/20 14:48) Home Medications: Ambulatory Orders Medication Instructions Recorded Multivitamins,Therapeutic 1 tablet PO DAILY 01/29/15 [Multivitamin] Triamterene 37.5MG/Hctz 25MG 1 cap PO DAILY 01/29/15 [Dyazide (G)] Aspirin E.C. [Ecotrin] 81 mg PO DAILY@0800 03/16/20 Cetirizine HCl [Zyrtec] 10 mg PO DAILY 03/16/20 Fluticasone 0.05% [Flonase Nasal 2 spray NASAL DAILY 03/16/20 [place]] Lisinopril [Zestril] 20 mg PO DAILY 03/16/20 Loratadine [Claritin] 10 mg PO DAILY 03/16/20 Rosuvastatin Calcium [Crestor] 5 mg PO QHS 03/16/20 Surgical History: noncontributory, - - testicular Psychiatric History: No pertinent psych hx Smoking Status: Never smoker - *Family History Maternal History Items: No pertinent history - age 52,mental health Paternal History Items: No pertinent history - age 56 mental health Review of Systems Constitutional: Denies: Chills, Fever Eyes: Denies: Blurred vision, Double vision HEENT: Denies: Head Aches, Sinus Congestion, Sinus Drainage Cardiovascular: Denies: Chest Pain, Palpitations Respiratory: Reports: Cough, Shortness of Breath Gastrointestinal: Denies: Abdominal Pain, Nausea, Vomiting Genitourinary: Denies: Dysuria Musculoskeletal: Denies: Joint Pain, Joint Tenderness Skin: Denies: Rash, Wounds Neurological: Denies: Numbness, Tingling, Focal weakness Psychiatric: Denies: Anxiety, Depression, Homicidal Ideations, Suicidal Ideations Hematologic/ Lymphatic: Denies: Easy Bruising, Easy Bleeding, Hx of blood clot Patient Problems: Active and Suspected Problems Pneumonia due to COVID-19 virus (Acute) Acute respiratory failure with hypoxia (Acute) Objective: The patient's most recent lab work, culture data and imaging studies have all been personally reviewed. Surface echocardiogram dated October 2019 revealed an ejection fraction of 50 to 55%. Pulmonary artery systolic pressure was estimated to be 30 mmHg. Coronavirus PCR was positive on March 06. Blood cultures have shown no growth to date. - Physical Exam Vitals/I&O's: Vital Signs Temp Pulse Resp BP Pulse Ox 97.4 F L 58 L 18 122/74 H 93 03/20/20 02:41 03/20/20 02:41 03/20/20 02:41 03/20/20 02:41 03/20/20 02:41 Oxygen Flow Rate (L/min) [ 5 AMBULATION with Oxygen] Oxygen Flow Rate (L/min) 4 Oxygen Delivery Method Nasal Cannula Weight: 250 lb Body Mass Index (BMI) 36.9 Intake and Output for Last 24 Hours 03/18/20 03/19/20 03/20/20 23:59 23:59 23:59 Intake Total 2099 1130 / 1430 300 / 300 Balance 2100 / 2580 1130 / 1430 300 / 300 General: Alert, Oriented x3, Cooperative, No apparent distress HEENT: Atraumatic, PERRLA, Normocephalic Oral: No Gingival or Mucosal Lesions/ Ulcerations Neck: Supple, No Nodes, Trachea Midline Lungs: No rhonchi, No wheeze, No rales, Diminished Cardiovascular: Regular rate, Regular Rhythm, Normal S1, Normal S2, No murmurs Abdomen: Bowel Sounds Present, Soft, Non Tender, Obese Extremities: No clubbing, No cyanosis, No edema Skin: No breakdown Musculoskeletal: No Tenderness to Palpation of Joints or Extremities Lymphatic: No Cervical, Supraclavicular, or Inguinal Adenopathy Neurological: Cranial nerves II-XII grossly intact, Neuro grossly intact Psych/Mental Status: Normal Affect, Appropriate Labs (Last 48 Hours) 03/19/20 03/19/20 03/19/20 05:15 05:15 05:15 WBC 12.8 H RBC 4.03 L Hgb 12.6 L Hct 38.7 L MCV 96.0 H MCH 31.3 MCHC 32.6 RDW Std Deviation 45.4 H RDW Coeff of Levi 12.9 Plt Count 414 MPV 9.6 Immature Gran % (Auto) 1.600 H Neut % (Auto) 80.9 H Lymph % (Auto) 8.6 L [place] % (Auto) 8.6 Eos % (Auto) 0.1 Baso % (Auto) 0.2 Absolute Neuts (auto) 10.4 H Absolute Lymphs (auto) 1.10 Nucleated RBC % 0 D-Dimer Quant (PE/DVT) 0.75 H* Sodium 138 Potassium 4.5 Chloride 99 Carbon Dioxide 36.0 H Anion Gap 3 L BUN 30 H Creatinine 0.98 Estim Creat Clear Calc 67.13 Est GFR (MDRD) Af Amer 96 Est GFR (MDRD) Non-Af 80 BUN/Creatinine Ratio 30.6 H Glucose 109 H Calcium 8.6 Total Bilirubin 0.40 AST 33 ALT 94 H Alkaline Phosphatase 74 Total Protein 6.2 L Albumin 2.5 L Globulin 3.7 Albumin/Globulin Ratio 0.7 L 03/20/20 03/20/20 05:44 05:44 WBC 11.0 RBC 4.32 L Hgb 13.7 Hct 42.3 MCV 97.9 H MCH 31.7 MCHC 32.4 RDW Std Deviation 45.6 H RDW Coeff of Levi 12.6 Plt Count 405 MPV 9.4 Immature Gran % (Auto) 1.800 H Neut % (Auto) 78.3 H Lymph % (Auto) 9.7 L [place] % (Auto) 9.8 Eos % (Auto) 0.1 Baso % (Auto) 0.3 Absolute Neuts (auto) 8.6 H Absolute Lymphs (auto) 1.07 Nucleated RBC % 0 D-Dimer Quant (PE/DVT) Sodium Pending Potassium Pending Chloride Pending Carbon Dioxide Pending Anion Gap Pending BUN Pending Creatinine Pending Estim Creat Clear Calc Est GFR (MDRD) Af Amer Pending Est GFR (MDRD) Non-Af Pending BUN/Creatinine Ratio Pending Glucose Pending Calcium Pending Total Bilirubin Pending AST Pending ALT Pending Alkaline Phosphatase Pending Total Protein Pending Albumin Pending Globulin Albumin/Globulin Ratio Microbiology 03/16/20 15:25 Blood Culture (Wb) - Left Hand Blood Culture - Preliminary No growth in 48 hours. 03/16/20 15:00 Blood Culture (Wb) - Anticubital Left Blood Culture - Preliminary No growth in 48 hours. Clinical Impression(s) from Imaging Studies Chest X-Ray 03/16/20 15:12 IMPRESSION: Multilobar pulmonary infiltrates worrisome for COVID pneumonia. Superimposed bacterial pneumonia in the right lung base is possible. Electronically Signed: Joe Hassan MD ([place]) at 15:39 EST , Service support , Chest CTA 03/16/20 15:50 IMPRESSION: 1. No central or segmental pulmonary embolism. 2. Multilobar pulmonary infiltrates with imaging features commonly reported with COVID pneumonia. 3. Bibasilar atelectasis. Electronically Signed: Joe Hassan MD ([place]) at 17:10 EST , Service support , Current Medications Acetaminophen (Acetaminophen 325 Mg Tablet) 650 mg PO Q6H PRN PRN PRN Reason: Pain Score 1-10/Temp > 100.7 F Albuterol Sulfate (Albuterol 2.5 Mg/3 Ml Vial.Neb.) 2.5 mg INHALATION Q2H PRN PRN PRN Reason: Dyspnea, wheezing Aspirin (Aspirin E.C. 81 Mg Tablet) 81 mg PO DAILY [facility] Last Admin: 03/19/20 08:31 Dose: 81 mg Documented by: Atorvastatin Calcium (Atorvastatin Calcium 10 Mg Tablet) 10 mg PO DAILY [facility] Last Admin: 03/19/20 08:31 Dose: 10 mg Documented by: Dexamethasone (Dexamethasone 4 Mg Tablet) 6 mg PO DAILY [facility] Stop: 03/25/20 10:01 Last Admin: 03/19/20 08:31 Dose: 6 mg Documented by: Enoxaparin Sodium (Enoxaparin 40 Mg/0.4 Ml Syringe) 40 mg SC BID [facility] Last Admin: 03/19/20 21:36 Dose: 40 mg Documented by: Fluticasone Propionate (Fluticasone 0.05% 1 [place] Nasal.Sry) 2 spray NASAL DAILY [facility] Last Admin: 03/19/20 08:33 Dose: 2 sprays Documented by: Hydralazine HCl (Hydralazine 20 Mg/Ml Vial) 10 mg IV Q4H PRN PRN PRN Reason: SBP > 160 Remdesivir 100 mg/ Sodium (Chloride) 250 mls @ 125 mls/hr IV DAILY@2200 [facility] Stop: 03/20/20 23:59 Last Infusion: 03/19/20 23:35 Dose: Infused Documented by: Sodium Chloride () 250 mls @ 15 mls/hr IV .[id number] PRN PRN Reason: Saline Flush Sodium Chloride () 250 mls @ 15 mls/hr IV .[id number] PRN PRN Reason: Additional IVPB Infusion Lisinopril (Lisinopril 20 Mg Tablet) 20 mg PO DAILY [facility] Last Admin: 03/19/20 08:31 Dose: 20 mg Documented by: Loratadine (Loratadine 10 Mg Tablet) 10 mg PO DAILY [facility] Last Admin: 03/19/20 08:32 Dose: 10 mg Documented by: Magnesium Hydroxide (Magnesium Hydroxide 30 Ml Udc) 30 ml PO DAILY PRN PRN PRN Reason: Constipation Melatonin (Melatonin 3 Mg Tablet) 3 mg PO QHS PRN PRN PRN Reason: INSOMNIA Sodium Chloride (0.9% Saline Lock 10 Ml Syringe) 10 - 40 ml IV UD PRN PRN Reason: SALINE FLUSH Last Admin: 03/19/20 11:00 Dose: 10 ml Documented by: Triamterene/Hydrochlorothiazide (Triamterene 37.5mg/Hctz 25mg Capsule) 1 cap PO DAILY [facility] Last Admin: 03/19/20 08:32 Dose: 1 cap Documented by: Assessment/Plan All Active Problems Pneumonia due to COVID-19 virus (Acute) Acute respiratory failure with hypoxia (Acute) Screening for colon cancer (Acute) Status post total right knee replacement (Acute) RECOMMENDATIONS: 1. Agree with continuing remdesivir to complete treatment course. Continue to monitor liver and renal function. 2. Continue Decadron to complete 10-day treatment course. 3. Continue prophylactic Lovenox. 4. Continue to wean supplemental oxygen to maintain saturations at or above 90%. 5. Continue attempts at diuresis as tolerated by hemodynamics and renal function. IMPRESSIONS: 1. Acute hypoxemic respiratory failure secondary to COVID-19 pneumonia The patient did present to the hospital with shortness of breath and hypoxemia along with radiographic evidence of diffuse bilateral groundglass changes, consistent with COVID-19 pneumonia. The patient is currently amidst his treatment course of remdesivir and will be continued on Decadron to complete 10 days of total therapy. Liver and renal function will be monitored accordingly. CTA chest failed to demonstrate evidence of pulmonary emboli. In addition, a recheck of the patient's D-dimer level was not significantly elevated. Therefore, prophylactic Lovenox is appropriate. Agree with attempts at gentle diuresis as tolerated by hemodynamics and renal function. Encourage incentive spirometer use and mobilize patient as tolerated. Supplemental oxygen can be weaned to maintain saturations at or above 90%. 2. Hypertension/hyperlipidemia/obesity Complicates care, management, recovery and prognosis. Continue home medications as indicated. This note was generated with [employer] software. It may contain incorrect words, spelling, and punctuation that were not noted in checking the note before signing. Inpatient E&M: 21276 Init Hosp L3
[2020-03-20 06:53] LABS: ALB/GLOB Ratio 0.8 RATIO (0.9-2.4); AST(SGOT) 24 U/L (15-37); Alanine Aminotransfer ALT/SGPT 91 U/L (16-61); Albumin, Serum 2.7 g/dL (3.2-5.0); Alkaline Phosphatase 77 U/L (45-117); Anion Gap 2 (5-15); BUN 29 mg/dL (7-18); BUN/Creat Ratio 29.7 RATIO (10-20); Calcium,Total 8.6 mg/dL (8.5-10.1); Chloride 98 mmol/L (98-107); Creatinine, Serum 0.98 mg/dL (0.70-1.30); EST Glomerular Filtration Rate 80 mL/min (>60); Est Glom Filt Rate - Afr Amer 97 mL/min (>60); Estimated Creatinine Clearance 67.13 ml/min; Globulin 3.4 g/dL (2.2-4.2); Glucose 103 mg/dL (74-106); Potassium 5.1 mmol/L (3.5-5.1); Protein, Total 6.1 g/dL (6.4-8.2); Sodium Level 136 mmol/L (136-145)
--- NOTE | 2020-03-20 07:02 | PN_ITS ---
Patient Problems: Active and Suspected Problems Pneumonia due to COVID-19 virus (Acute) Acute respiratory failure with hypoxia (Acute) Subjective: Patient with less coughing overnight but increased fatigue and still requiring significant oxygen levels with ambulatory attempts. This morning oxygenation trial noted to be 91% with 6 L with significant increased work of breathing and notable fatigue. Even moving in the bed following examination patient had to catch his breath and had some conversational dyspnea. Patient reevaluated this morning by pulmonary/critical care who redosed his IV Lasix and agreed with continuing to completion of patient remdesivir which will complete late this evening. Patient denies fevers, chills, nausea, emesis, abdominal pain, chest pain. Objective: Physical Examination: General: awake, alert, oriented x 3 and cooperative, seated upright in the medical surgical Covid unit bed, fatigued. Skin: normal color, turgor, no icterus, cyanosis. HEENT: AT/NC, EOMI, PERRLA, MMM. Lungs: Diminished BS, greater bases, no obvious rales, rhonchi or wheezing but just with evaluation appeared short of breath, conversationally. Heart: Regular rate and rhythm; no gallop, rub audible. Abdomen: soft, obese, NTTP, ND, normal BS. Extremities: no cyanosis, clubbing, or edema. Neurological: patient awake, alert, oriented as noted; cognitive function appears now baseline intact; pupils equally reactive to light and accomodation; cranial nerves II-XII grossly normal, moving all 4 extremities, no focal deficits, strength moderately to severely globally decreased secondary to acute presentation. Psychiatric: affect appears still fatigued, no acute evidence of depressive or a nxiety feelings. Vitals/I&O's: Vital Signs Temp Pulse Resp BP Pulse Ox 97.4 F L 58 L 18 122/74 H 93 03/20/20 02:41 03/20/20 02:41 03/20/20 02:41 03/20/20 02:41 03/20/20 02:41 Oxygen Flow Rate (L/min) [ 5 AMBULATION with Oxygen] Oxygen Flow Rate (L/min) 4 Oxygen Delivery Method Nasal Cannula Weight: 250 lb Body Mass Index (BMI) 36.9 Intake and Output for Last 24 Hours 03/18/20 03/19/20 03/20/20 23:59 23:59 23:59 Intake Total 2100 / 2580 1130 / 1430 300 / 300 Balance 2099 1130 / 1430 300 / 300 Microbiology Past 72 Hours 03/16/20 15:25 Blood Culture (Wb) - Left Hand Blood Culture - Preliminary No growth in 48 hours. 03/16/20 15:00 Blood Culture (Wb) - Anticubital Left Blood Culture - Preliminary No growth in 48 hours. 03/17/20 15:30 Mucosa - Nose SARS-CoV-2 Antigen (Rapid) - Final Laboratory Results 03/19/20 05:15: D-Dimer Quant (PE/DVT) 0.75 H* 03/20/20 05:44: WBC 11.0, RBC 4.32 L, Hgb 13.7, Hct 42.3, MCV 97.9 H, MCH 31.7, MCHC 32.4, RDW Std Deviation 45.6 H, RDW Coeff of Levi 12.6, Plt Count 405, MPV 9.4, Immature Gran % (Auto) 1.800 H, Neut % (Auto) 78.3 H, Lymph % (Auto) 9.7 L, [place] % (Auto) 9.8, Eos % (Auto) 0.1, Baso % (Auto) 0.3, Absolute Neuts (auto) 8.6 H, Absolute Lymphs (auto) 1.07, Nucleated RBC % 0 03/20/20 05:44: Sodium 136, Potassium 5.1, Chloride 98, Carbon Dioxide 36.0 H, A nion Gap 2 L, BUN 29 H, Creatinine 0.98, Estim Creat Clear Calc 67.13, Est GFR (MDRD) Af Amer 97, Est GFR (MDRD) Non-Af 80, BUN/Creatinine Ratio 29.7 H, Glucose 103, Calcium 8.6, Total Bilirubin 0.40, AST 24, ALT 91 H, Alkaline Phosphatase 77, Total Protein 6.1 L, Albumin 2.7 L, Globulin 3.4, Albumin/Globulin Ratio 0.8 L Current Medications Acetaminophen (Acetaminophen 325 Mg Tablet) 650 mg PO Q6H PRN PRN PRN Reason: Pain Score 1-10/Temp > 100.7 F Albuterol Sulfate (Albuterol 2.5 Mg/3 Ml Vial.Neb.) 2.5 mg INHALATION Q2H PRN PRN PRN Reason: Dyspnea, wheezing Aspirin (Aspirin E.C. 81 Mg Tablet) 81 mg PO DAILY [facility] Last Admin: 03/19/20 08:31 Dose: 81 mg Documented by: Atorvastatin Calcium (Atorvastatin Calcium 10 Mg Tablet) 10 mg PO DAILY [facility] Last Admin: 03/19/20 08:31 Dose: 10 mg Documented by: Dexamethasone (Dexamethasone 4 Mg Tablet) 6 mg PO DAILY [facility] Stop: 03/25/20 10:01 Last Admin: 03/19/20 08:31 Dose: 6 mg Documented by: Enoxaparin Sodium (Enoxaparin 40 Mg/0.4 Ml Syringe) 40 mg SC BID [facility] Last Admin: 03/19/20 21:36 Dose: 40 mg Documented by: Fluticasone Propionate (Fluticasone 0.05% 1 [place] Nasal.Sry) 2 spray NASAL DAILY [facility] Last Admin: 03/19/20 08:33 Dose: 2 sprays Documented by: Hydralazine HCl (Hydralazine 20 Mg/Ml Vial) 10 mg IV Q4H PRN PRN PRN Reason: SBP > 160 Remdesivir 100 mg/ Sodium (Chloride) 250 mls @ 125 mls/hr IV DAILY@2200 [facility] Stop: 03/20/20 23:59 Last Infusion: 03/19/20 23:35 Dose: Infused Documented by: Sodium Chloride () 250 mls @ 15 mls/hr IV .[id number] PRN PRN Reason: Saline Flush Sodium Chloride () 250 mls @ 15 mls/hr IV .[id number] PRN PRN Reason: Additional IVPB Infusion Lisinopril (Lisinopril 20 Mg Tablet) 20 mg PO DAILY [facility] Last Admin: 03/19/20 08:31 Dose: 20 mg Documented by: Loratadine (Loratadine 10 Mg Tablet) 10 mg PO DAILY [facility] Last Admin: 03/19/20 08:32 Dose: 10 mg Documented by: Magnesium Hydroxide (Magnesium Hydroxide 30 Ml Udc) 30 ml PO DAILY PRN PRN PRN Reason: Constipation Melatonin (Melatonin 3 Mg Tablet) 3 mg PO QHS PRN PRN PRN Reason: INSOMNIA Sodium Chloride (0.9% Saline Lock 10 Ml Syringe) 10 - 40 ml IV UD PRN PRN Reason: SALINE FLUSH Last Admin: 03/19/20 11:00 Dose: 10 ml Documented by: Triamterene/Hydrochlorothiazide (Triamterene 37.5mg/Hctz 25mg Capsule) 1 cap PO DAILY [facility] Last Admin: 03/19/20 08:32 Dose: 1 cap Documented by: Medical Necessity - Tobacco Use Smoking Status: Never smoker Assessment/Plan All Active Problems Pneumonia due to COVID-19 virus (Acute) Acute respiratory failure with hypoxia (Acute) Screening for colon cancer (Acute) Status post total right knee replacement (Acute) The patient is a 74 y/o M w/ PMHx: Obesity, HTN, OA, Allergic Rhinitis who presents to the [facility] ED on 03/16/20 with history of onset Covid type symptoms approximately 10 days prior to current presentation with mild fever, fatigue and malaise, headaches, loose stools with minimally decreased sense of taste and smell with worsening cough and dyspnea prompting eventual ED return for evaluation. 1. Acute hypoxic respiratory failure secondary to acute bilateral pneumonia secondary to acute COVID-19 viral syndrome: ED evaluation included chest x-ray with multi lobar pulmonary infiltrates with questionable possible superimposed bacterial pneumonia right lung base, D-dimer elevated therefore CTPA obtained with no central or segmental pulmonary emboli with multi lobar pulmonary infiltrates consistent with Covid pneumonia and bibasilar atelectasis. Patient was admitted to the Covid unit, patient initiated on IV Decadron as well as remdesivir, infectious disease consulted, continued on Lovenox anticoagulant therapy, being CBC, CMP, oxygenation assessment 03/18/2020 with significant evidence dyspnea noted to be 88% on room air at rest however with ambulation dropped to 82% with improvement to 90% on 5 to 6 L however was notably short of breath therefore discharge held. Re-evaluation 03/19/2020 with significant increase in oxygen requirements up to 5 to 6 L even at rest therefore D-dimer reassessed and noted to be improved since prior 1.97 initially--> 0.75 near age- adjusted, administered IV Lasix 40 mg x 1 with consultation to pulmonary critical care physician. 03/20/20 repeat Lasix 40 mg IV x 1 administered. Will plan to complete remdesivir 03/20/20 late evening. Repeat Oxygenation assessment 03/20/20 with 91 on 6L with activity but notably short of breath with accessory muscle usage. 2. Elevated LFTs secondary to #1: Admission AST/ALT 89/117, alk phos 85, continue trending with 03/18/2020 AST/ALT 54/114, secondary to acute Covid 19 viral syndrome, 03/20/2020 total bilirubin 0.40, AST/ALT 24/91, alk phos 77, continue to trend. 3. Hypertension: Continue home regimen including triamterene, hydrochlorothiazide, lisinopril with hold parameters as needed, PRN hydralazine. 4. Hyperlipidemia: Continue home statin regimen. 5. Obesity: Weight loss and lifestyle changes encouraged. 6. Allergic rhinitis: We will continue fluticasone and Claritin home regimen. 7. DVT prophylaxis: SCDs, Lovenox as noted. 8. CODE STATUS: Full code. Inpatient E&M: 24686 Subs Hosp L2
[2020-03-20] MEDS: dexAMETHasone 4 MG Tablet 6 MG PO (08:59)
[2020-03-20] MEDS: Loratadine 10 MG Tablet PO (08:59)
[2020-03-20] MEDS: Enoxaparin 40 MG/0.4 ML Syringe SC ×2 (09:00→20:40)
[2020-03-20] MEDS: Triamterene 37.5MG/Hctz 25MG Capsule 1 CAP PO (09:00)
[2020-03-20] MEDS: Atorvastatin Calcium 10 MG Tablet PO (09:00)
[2020-03-20] MEDS: Aspirin E.C. 81 MG Tablet PO (09:00)
[2020-03-20] MEDS: Lisinopril 20 MG Tablet PO (09:00)
[2020-03-20] MEDS: Fluticasone 0.05% 1 SPRAY NASAL.SRY 2 SPRAY NASAL (09:00)
[2020-03-20] MEDS: Furosemide 40 MG/4 ML Vial IV (11:14)
[2020-03-20] MEDS: 0.9% Saline Lock 10 ML Syringe IV ×2 (11:15→18:12)
--- NOTE | 2020-03-20 15:36 | PCM.PN.ID ---
Patient Problems: Active and Suspected Problems Pneumonia due to COVID-19 virus (Acute) Acute respiratory failure with hypoxia (Acute) Subjective: Feeling better, o2 about the same, no fever - Physical Exam Vitals/I&O's: Vital Signs Temp Pulse Resp BP Pulse Ox 97.4 F L 62 16 103/62 94 03/20/20 15:17 03/20/20 15:31 03/20/20 15:17 03/20/20 15:17 03/20/20 15:17 Oxygen Flow Rate (L/min) [ 6 AMBULATION with Oxygen] Oxygen Flow Rate (L/min) 4 Oxygen Delivery Method Nasal Cannula Weight: 113.398 kg Body Mass Index (BMI) 36.9 Intake and Output for Last 24 Hours 03/18/20 03/19/20 03/20/20 23:59 23:59 23:59 Intake Total 2100 / 2580 1130 / 1430 870 / 870 Balance 2100 / 2580 1130 / 1430 870 / 870 General: Alert, Cooperative, No apparent distress Lungs: Diminished Cardiovascular: Regular rate, Regular Rhythm Abdomen: Soft, Non Tender, Non-Distended Skin: No rashes Microbiology Past 72 Hours 03/16/20 15:25 Blood Culture (Wb) - Left Hand Blood Culture - Preliminary No growth in 48 hours. 03/16/20 15:00 Blood Culture (Wb) - Anticubital Left Blood Culture - Preliminary No growth in 48 hours. 03/17/20 15:30 Mucosa - Nose SARS-CoV-2 Antigen (Rapid) - Final Laboratory Results 03/20/20 05:44: WBC 11.0, RBC 4.32 L, Hgb 13.7, Hct 42.3, MCV 97.9 H, MCH 31.7, MCHC 32.4, RDW Std Deviation 45.6 H, RDW Coeff of Levi 12.6, Plt Count 405, MPV 9.4, Immature Gran % (Auto) 1.800 H, Neut % (Auto) 78.3 H, Lymph % (Auto) 9.7 L, [place] % (Auto) 9.8, Eos % (Auto) 0.1, Baso % (Auto) 0.3, Absolute Neuts (auto) 8.6 H, Absolute Lymphs (auto) 1.07, Nucleated RBC % 0 03/20/20 05:44: Sodium 136, Potassium 5.1, Chloride 98, Carbon Dioxide 36.0 H, Anion Gap 2 L, BUN 29 H, Creatinine 0.98, Estim Creat Clear Calc 67.13, Est GFR (MDRD) Af Amer 97, Est GFR (MDRD) Non-Af 80, BUN/Creatinine Ratio 29.7 H, Glucose 103, Calcium 8.6, Total Bilirubin 0.40, AST 24, ALT 91 H, Alkaline Phosphatase 77, Total Protein 6.1 L, Albumin 2.7 L, Globulin 3.4, Albumin/Globulin Ratio 0.8 L Current Medications Acetaminophen (Acetaminophen 325 Mg Tablet) 650 mg PO Q6H PRN PRN PRN Reason: Pain Score 1-10/Temp > 100.7 F Albuterol Sulfate (Albuterol 2.5 Mg/3 Ml Vial.Neb.) 2.5 mg INHALATION Q2H PRN PRN PRN Reason: Dyspnea, wheezing Aspirin (Aspirin E.C. 81 Mg Tablet) 81 mg PO DAILY [facility] Last Admin: 03/20/20 09:00 Dose: 81 mg Documented by: Atorvastatin Calcium (Atorvastatin Calcium 10 Mg Tablet) 10 mg PO DAILY [facility] Last Admin: 03/20/20 09:00 Dose: 10 mg Documented by: Dexamethasone (Dexamethasone 4 Mg Tablet) 6 mg PO DAILY [facility] Stop: 03/25/20 10:01 Last Admin: 03/20/20 08:59 Dose: 6 mg Documented by: Enoxaparin Sodium (Enoxaparin 40 Mg/0.4 Ml Syringe) 40 mg SC BID [facility] Last Admin: 03/20/20 09:00 Dose: 40 mg Documented by: Fluticasone Propionate (Fluticasone 0.05% 1 [place] Nasal.Sry) 2 spray NASAL DAILY [facility] Last Admin: 03/20/20 09:00 Dose: 2 sprays Documented by: Hydralazine HCl (Hydralazine 20 Mg/Ml Vial) 10 mg IV Q4H PRN PRN PRN Reason: SBP > 160 Remdesivir 100 mg/ Sodium (Chloride) 250 mls @ 125 mls/hr IV DAILY@2200 [facility] Stop: 03/20/20 23:59 Last Infusion: 03/19/20 23:35 Dose: Infused Documented by: Sodium Chloride () 250 mls @ 15 mls/hr IV .[id number] PRN PRN Reason: Saline Flush Sodium Chloride () 250 mls @ 15 mls/hr IV .[id number] PRN PRN Reason: Additional IVPB Infusion Lisinopril (Lisinopril 20 Mg Tablet) 20 mg PO DAILY [facility] Last Admin: 03/20/20 09:00 Dose: 20 mg Documented by: Loratadine (Loratadine 10 Mg Tablet) 10 mg PO DAILY [facility] Last Admin: 03/20/20 08:59 Dose: 10 mg Documented by: Magnesium Hydroxide (Magnesium Hydroxide 30 Ml Udc) 30 ml PO DAILY PRN PRN PRN Reason: Constipation Melatonin (Melatonin 3 Mg Tablet) 3 mg PO QHS PRN PRN PRN Reason: INSOMNIA Sodium Chloride (0.9% Saline Lock 10 Ml Syringe) 10 - 40 ml IV UD PRN PRN Reason: SALINE FLUSH Last Admin: 03/20/20 11:15 Dose: 10 ml Documented by: Triamterene/Hydrochlorothiazide (Triamterene 37.5mg/Hctz 25mg Capsule) 1 cap PO DAILY [facility] Last Admin: 03/20/20 09:00 Dose: 1 cap Documented by: Medical Necessity - Tobacco Use Smoking Status: Never smoker Route of nutrition/ use of supplements: [] Nutritional Intake: [] IV Site: [] Price Catheter: [] - Assessment/Plan Antibiotics: [] Assessment/Plan: [] Active and Suspected Problems Pneumonia due to COVID-19 virus (Acute) Acute respiratory failure with hypoxia (Acute) tested (+) 03/06/20. CT neg for PE. On dex for 10 day course and remdesivir. D-dimer was 2. On lovenox 40mg bid. Feeling better, seen by pulm today. Plan on 20 days of quarantine from start of symptoms. Will follow
--- NOTE | 2020-03-20 18:36 | NURSING ---
Verbal consent obtained. Pérez, patient's son phones for update. RN returns call and updated on same.
[2020-03-21] VITALS (10 sets, daily range): BP systolic 112–135; BP diastolic 71–78; PULSE 57–82; RESP 17–18; TEMP 36.4–36.7; O2SAT 86–95
[2020-03-21 06:39] LABS: Absolute Lymphocyte Count 1.45 X10^3/uL (0.83-4.51); Absolute Neutrophil Count 8.3 X10^3/uL (2.0-7.7); Basophil# 0.05 X10^3/uL; Basophil% 0.4 % (0-1); Eosinophil# 0.03 X10^3/uL; Eosinophils% 0.3 % (0-5); Hematocrit 41.8 % (40-54); Hemoglobin 13.6 g/dL (13.0-16.5); Lymphocyte # 1.45 X10^3/ul (4.0); Lymphocyte % 12.8 % (19-41); Mean Corp Hgb Conc 32.5 g/dL (32-36); Mean Corpuscular Hgb 31.4 pg (27.0-32.0); Mean Corpuscular Volume 96.5 fL (80-94); Mean Platelet Vol. 9.1 fl (6.2-12.0); Monocyte# 1.04 X10^3/uL; Monocyte% 9.2 % (0-10); NRBC Flagged by Analyzer 0 % (0-5); Neutrophil # 8.29 X10^3/uL (2.7-7.7); Neutrophil % 73.2 % (47-70); Platelet Count 458 K/mm3 (150-450); RBC Distribution Width CV 12.8 % (11.6-14.6); RBC Distribution Width SD 45.6 fl (35.1-43.9); Red Blood Count 4.33 M/mm3 (4.6-6.2); White Blood Count 11.3 K/mm3 (4.4-11.0)
--- NOTE | 2020-03-21 06:43 | PN_ITS ---
Patient Problems: Active and Suspected Problems Pneumonia due to COVID-19 virus (Acute) Acute respiratory failure with hypoxia (Acute) Subjective: The patient was seen and examined at the bedside this morning. Events from the last 24 hours have been reviewed. The patient is currently afebrile, hemodynamically stable and maintaining appropriate oxygen saturations on 3 L/min via nasal cannula. I's and O's are inaccurate as no urine output is documented. However, the patient did receive an additional one-time dose of IV Lasix yesterday. The patient has now completed his treatment course of remdesivir and remains on Decadron and prophylactic Lovenox. Objective: The patient's most recent lab work, culture data and imaging studies have all been personally reviewed. Surface echocardiogram dated October 2019 revealed an ejection fraction of 50 to 55%. Pulmonary artery systolic pressure was e stimated to be 30 mmHg. Coronavirus PCR was positive on March 06. Blood cultures have shown no growth to date. - Physical Exam Vitals/I&O's: Vital Signs Temp Pulse Resp BP Pulse Ox 97.7 F L 63 17 119/71 95 03/21/20 02:51 03/21/20 06:00 03/21/20 04:00 03/21/20 02:51 03/21/20 02:51 Oxygen Flow Rate (L/min) [ 6 AMBULATION with Oxygen] Oxygen Flow Rate (L/min) 3 Oxygen Delivery Method Nasal Cannula Weight: 250 lb Body Mass Index (BMI) 36.9 Intake and Output for Last 24 Hours 03/19/20 03/20/20 03/21/20 23:59 23:59 23:59 Intake Total 1130 / 1430 1480 / 1840 720 / 720 Balance 1130 / 1430 1480 / 1840 720 / 720 General: Alert, Cooperative, No apparent distress HEENT: Atraumatic, PERRLA, Normocephalic Oral: No Gingival or Mucosal Lesions/ Ulcerations Neck: Supple, No Nodes, Trachea Midline Lungs: No rhonchi, No wheeze, No rales, Diminished Cardiovascular: Regular rate, Regular Rhythm Abdomen: Bowel Sounds Present, Soft, Non Tender, Obese Extremities: No clubbing, No cyanosis, No edema Skin: No breakdown Musculoskeletal: No Tenderness to Palpation of Joints or Extremities Lymphatic: No Cervical, Supraclavicular, or Inguinal Adenopathy Neurological: Cranial nerves II-XII grossly intact, Neuro grossly intact Psych/Mental Status: Alert and oriented to time, place, person, mood and affect Labs (Last 48 Hours) 03/19/20 03/20/20 03/20/20 05:15 05:44 05:44 WBC 11.0 RBC 4.32 L Hgb 13.7 Hct 42.3 MCV 97.9 H MCH 31.7 MCHC 32.4 RDW Std Deviation 45.6 H RDW Coeff of Levi 12.6 Plt Count 405 MPV 9.4 Immature Gran % (Auto) 1.800 H Neut % (Auto) 78.3 H Lymph % (Auto) 9.7 L [place] % (Auto) 9.8 Eos % (Auto) 0.1 Baso % (Auto) 0.3 Absolute Neuts (auto) 8.6 H Absolute Lymphs (auto) 1.07 Nucleated RBC % 0 D-Dimer Quant (PE/DVT) 0.75 H* Sodium 136 Potassium 5.1 Chloride 98 Carbon Dioxide 36.0 H Anion Gap 2 L BUN 29 H Creatinine 0.98 Estim Creat Clear Calc 67.13 Est GFR (MDRD) Af Amer 97 Est GFR (MDRD) Non-Af 80 BUN/Creatinine Ratio 29.7 H Glucose 103 Calcium 8.6 Total Bilirubin 0.40 AST 24 ALT 91 H Alkaline Phosphatase 77 Total Protein 6.1 L Albumin 2.7 L Globulin 3.4 Albumin/Globulin Ratio 0.8 L 03/21/20 03/21/20 06:30 06:30 WBC 11.3 H RBC 4.33 L Hgb 13.6 Hct 41.8 MCV 96.5 H MCH 31.4 MCHC 32.5 RDW Std Deviation 45.6 H RDW Coeff of Levi 12.8 Plt Count 458 H MPV 9.1 Immature Gran % (Auto) 4.100 H Neut % (Auto) 73.2 H Lymph % (Auto) 12.8 L [place] % (Auto) 9.2 Eos % (Auto) 0.3 Baso % (Auto) 0.4 Absolute Neuts (auto) 8.3 H Absolute Lymphs (auto) 1.45 Nucleated RBC % 0 D-Dimer Quant (PE/DVT) Sodium Pending Potassium Pending Chloride Pending Carbon Dioxide Pending Anion Gap Pending BUN Pending Creatinine Pending Estim Creat Clear Calc Est GFR (MDRD) Af Amer Pending Est GFR (MDRD) Non-Af Pending BUN/Creatinine Ratio Pending Glucose Pending Calcium Pending Total Bilirubin Pending AST Pending ALT Pending Alkaline Phosphatase Pending Total Protein Pending Albumin Pending Globulin Albumin/Globulin Ratio Microbiology 03/16/20 15:25 Blood Culture (Wb) - Left Hand Blood Culture - Preliminary No growth in 48 hours. 03/16/20 15:00 Blood Culture (Wb) - Anticubital Left Blood Culture - Preliminary No growth in 48 hours. Clinical Impression(s) from Imaging Studies Chest X-Ray 03/16/20 15:12 IMPRESSION: Multilobar pulmonary infiltrates worrisome for COVID pneumonia. Superimposed bacterial pneumonia in the right lung base is possible. Electronically Signed: Joe Hassan MD ([place]) at 15:39 EST , Service support , Chest CTA 03/16/20 15:50 IMPRESSION: 1. No central or segmental pulmonary embolism. 2. Multilobar pulmonary infiltrates with imaging features commonly reported with COVID pneumonia. 3. Bibasilar atelectasis. Electronically Signed: Joe Hassan MD ([place]) at 17:10 EST , Service support , Current Medications Acetaminophen (Acetaminophen 325 Mg Tablet) 650 mg PO Q6H PRN PRN PRN Reason: Pain Score 1-10/Temp > 100.7 F Albuterol Sulfate (Albuterol 2.5 Mg/3 Ml Vial.Neb.) 2.5 mg INHALATION Q2H PRN PRN PRN Reason: Dyspnea, wheezing Aspirin (Aspirin E.C. 81 Mg Tablet) 81 mg PO DAILY [facility] Last Admin: 03/20/20 09:00 Dose: 81 mg Documented by: Atorvastatin Calcium (Atorvastatin Calcium 10 Mg Tablet) 10 mg PO DAILY [facility] Last Admin: 03/20/20 09:00 Dose: 10 mg Documented by: Dexamethasone (Dexamethasone 4 Mg Tablet) 6 mg PO DAILY [facility] Stop: 03/25/20 10:01 Last Admin: 03/20/20 08:59 Dose: 6 mg Documented by: Enoxaparin Sodium (Enoxaparin 40 Mg/0.4 Ml Syringe) 40 mg SC BID [facility] Last Admin: 03/20/20 20:40 Dose: 40 mg Documented by: Fluticasone Propionate (Fluticasone 0.05% 1 [place] Nasal.Sry) 2 spray NASAL DAILY [facility] Last Admin: 03/20/20 09:00 Dose: 2 sprays Documented by: Hydralazine HCl (Hydralazine 20 Mg/Ml Vial) 10 mg IV Q4H PRN PRN PRN Reason: SBP > 160 Sodium Chloride () 250 mls @ 15 mls/hr IV .[id number] PRN PRN Reason: Saline Flush Sodium Chloride () 250 mls @ 15 mls/hr IV .[id number] PRN PRN Reason: Additional IVPB Infusion Lisinopril (Lisinopril 20 Mg Tablet) 20 mg PO DAILY [facility] Last Admin: 03/20/20 09:00 Dose: 20 mg Documented by: Loratadine (Loratadine 10 Mg Tablet) 10 mg PO DAILY [facility] Last Admin: 03/20/20 08:59 Dose: 10 mg Documented by: Magnesium Hydroxide (Magnesium Hydroxide 30 Ml Udc) 30 ml PO DAILY PRN PRN PRN Reason: Constipation Melatonin (Melatonin 3 Mg Tablet) 3 mg PO QHS PRN PRN PRN Reason: INSOMNIA Sodium Chloride (0.9% Saline Lock 10 Ml Syringe) 10 - 40 ml IV UD PRN PRN Reason: SALINE FLUSH Last Admin: 03/20/20 18:12 Dose: 10 ml Documented by: Triamterene/Hydrochlorothiazide (Triamterene 37.5mg/Hctz 25mg Capsule) 1 cap PO DAILY [facility] Last Admin: 03/20/20 09:00 Dose: 1 cap Documented by: Medical Necessity - Tobacco Use Smoking Status: Never smoker Assessment/Plan All Active Problems Pneumonia due to COVID-19 virus (Acute) Acute respiratory failure with hypoxia (Acute) Screening for colon cancer (Acute) Status post total right knee replacement (Acute) RECOMMENDATIONS: 1. Continue Decadron to complete 10-day treatment course. 2. Continue prophylactic Lovenox. 3. Continue to wean supplemental oxygen to maintain saturations at or above 90%. 4. Encourage incentive spirometer use and mobilize patient as tolerated. 5. Check ambulatory pulse ox. IMPRESSIONS: 1. Acute hypoxemic respiratory failure secondary to COVID-19 pneumonia The patient did present to the hospital with shortness of breath and hypoxemia along with radiographic evidence of diffuse bilateral groundglass changes, consistent with COVID-19 pneumonia. The patient has completed his treatment course of remdesivir and will be continued on Decadron to complete 10 days of total therapy. CTA chest failed to demonstrate evidence of pulmonary emboli. In addition, a recheck of the patient's D-dimer level was not significantly elevated. Therefore, prophylactic Lovenox is appropriate. Encourage incentive spirometer use and mobilize patient as tolerated. Supplemental oxygen can be weaned to maintain saturations at or above 90%. 2. Hypertension/hyperlipidemia/obesity Complicates care, management, recovery and prognosis. Continue home medications as indicated. This note was generated with [employer] dictation software. It may contain incorrect words, spelling, and punctuation that were not noted in checking the note before signing. Inpatient E&M: 66767 Subs Hosp L2
[2020-03-21 07:09] LABS: ALB/GLOB Ratio 0.7 RATIO (0.9-2.4); AST(SGOT) 24 U/L (15-37); Alanine Aminotransfer ALT/SGPT 87 U/L (16-61); Albumin, Serum 2.7 g/dL (3.2-5.0); Alkaline Phosphatase 79 U/L (45-117); Anion Gap 2 (5-15); BUN 36 mg/dL (7-18); BUN/Creat Ratio 33.3 RATIO (10-20); Calcium,Total 8.7 mg/dL (8.5-10.1); Chloride 95 mmol/L (98-107); Creatinine, Serum 1.08 mg/dL (0.70-1.30); EST Glomerular Filtration Rate 71 mL/min (>60); Est Glom Filt Rate - Afr Amer 86 mL/min (>60); Estimated Creatinine Clearance 60.92 ml/min; Globulin 3.9 g/dL (2.2-4.2); Glucose 101 mg/dL (74-106); Potassium 4.7 mmol/L (3.5-5.1); Protein, Total 6.6 g/dL (6.4-8.2); Sodium Level 134 mmol/L (136-145)
--- NOTE | 2020-03-21 07:39 | PN_ITS ---
Patient Problems: Active and Suspected Problems Pneumonia due to COVID-19 virus (Acute) Acute respiratory failure with hypoxia (Acute) Vitals/I&O's: Vital Signs Temp Pulse Resp BP Pulse Ox 97.7 F L 59 L 17 119/71 95 03/21/20 02:51 03/21/20 07:15 03/21/20 04:00 03/21/20 02:51 03/21/20 02:51 Oxygen Flow Rate (L/min) [ 6 AMBULATION with Oxygen] Oxygen Flow Rate (L/min) 3 Oxygen Delivery Method Nasal Cannula Weight: 250 lb Body Mass Index (BMI) 36.9 Intake and Output for Last 24 Hours 03/19/20 03/20/20 03/21/20 23:59 23:59 23:59 Intake Total 1130 / 1430 1480 / 1840 720 / 720 Balance 1130 / 1430 1480 / 1840 720 / 720 Microbiology Past 72 Hours 03/16/20 15:25 Blood Culture (Wb) - Left Hand Blood Culture - Preliminary No growth in 48 hours. 03/16/20 15:00 Blood Culture (Wb) - Anticubital Left Blood Culture - Preliminary No growth in 48 hours. Laboratory Results 03/21/20 06:30: WBC 11.3 H, RBC 4.33 L, Hgb 13.6, Hct 41.8, MCV 96.5 H, MCH 31.4, MCHC 32.5, RDW Std Deviation 45.6 H, RDW Coeff of Levi 12.8, Plt Count 458 H, MPV 9.1, Immature Gran % (Auto) 4.100 H, Neut % (Auto) 73.2 H, Lymph % (Auto) 12.8 L, [place] % (Auto) 9.2, Eos % (Auto) 0.3, Baso % (Auto) 0.4, Absolute Neuts (auto) 8.3 H, Absolute Lymphs (auto) 1.45, Nucleated RBC % 0 03/21/20 06:30: Sodium 134 L, Potassium 4.7, Chloride 95 L, Carbon Dioxide 37.0 H, Anion Gap 2 L, BUN 36 H, Creatinine 1.08, Estim Creat Clear Calc 60.92, Est GFR (MDRD) Af Amer 86, Est GFR (MDRD) Non-Af 71, BUN/Creatinine Ratio 33.3 H, Glucose 101, Calcium 8.7, Total Bilirubin 0.40, AST 24, ALT 87 H, Alkaline Phosphatase 79, Total Protein 6.6, Albumin 2.7 L, Globulin 3.9, Albumin/Globulin Ratio 0.7 L Current Medications Acetaminophen (Acetaminophen 325 Mg Tablet) 650 mg PO Q6H PRN PRN PRN Reason: Pain Score 1-10/Temp > 100.7 F Albuterol Sulfate (Albuterol 2.5 Mg/3 Ml Vial.Neb.) 2.5 mg INHALATION Q2H PRN P RN PRN Reason: Dyspnea, wheezing Aspirin (Aspirin E.C. 81 Mg Tablet) 81 mg PO DAILY [facility] Last Admin: 03/20/20 09:00 Dose: 81 mg Documented by: Atorvastatin Calcium (Atorvastatin Calcium 10 Mg Tablet) 10 mg PO DAILY [facility] Last Admin: 03/20/20 09:00 Dose: 10 mg Documented by: Dexamethasone (Dexamethasone 4 Mg Tablet) 6 mg PO DAILY [facility] Stop: 03/25/20 10:01 Last Admin: 03/20/20 08:59 Dose: 6 mg Documented by: Enoxaparin Sodium (Enoxaparin 40 Mg/0.4 Ml Syringe) 40 mg SC BID [facility] Last Admin: 03/20/20 20:40 Dose: 40 mg Documented by: Fluticasone Propionate (Fluticasone 0.05% 1 [place] Nasal.Sry) 2 spray NASAL DAILY [facility] Last Admin: 03/20/20 09:00 Dose: 2 sprays Documented by: Hydralazine HCl (Hydralazine 20 Mg/Ml Vial) 10 mg IV Q4H PRN PRN PRN Reason: SBP > 160 Sodium Chloride () 250 mls @ 15 mls/hr IV .[id number] PRN PRN Reason: Saline Flush Sodium Chloride () 250 mls @ 15 mls/hr IV .[id number] PRN PRN Reason: Additional IVPB Infusion Lisinopril (Lisinopril 20 Mg Tablet) 20 mg PO DAILY [facility] Last Admin: 03/20/20 09:00 Dose: 20 mg Documented by: Loratadine (Loratadine 10 Mg Tablet) 10 mg PO DAILY [facility] Last Admin: 03/20/20 08:59 Dose: 10 mg Documented by: Magnesium Hydroxide (Magnesium Hydroxide 30 Ml Udc) 30 ml PO DAILY PRN PRN PRN Reason: Constipation Melatonin (Melatonin 3 Mg Tablet) 3 mg PO QHS PRN PRN PRN Reason: INSOMNIA Sodium Chloride (0.9% Saline Lock 10 Ml Syringe) 10 - 40 ml IV UD PRN PRN Reason: SALINE FLUSH Last Admin: 03/20/20 18:12 Dose: 10 ml Documented by: Triamterene/Hydrochlorothiazide (Triamterene 37.5mg/Hctz 25mg Capsule) 1 cap PO DAILY [facility] Last Admin: 03/20/20 09:00 Dose: 1 cap Documented by: STROKE Vital Signs/Narrative: Vital Signs Pulse Resp 03/21/20 07:15 59 L 03/21/20 06:00 63 03/21/20 04:00 17 Medical Necessity - Tobacco Use Smoking Status: Never smoker Assessment/Plan All Active Problems Pneumonia due to COVID-19 virus (Acute) Acute respiratory failure with hypoxia (Acute) Screening for colon cancer (Acute) Status post total right knee replacement (Acute)
[2020-03-21] MEDS: dexAMETHasone 4 MG Tablet 6 MG PO (08:02)
[2020-03-21] MEDS: Atorvastatin Calcium 10 MG Tablet PO (08:02)
[2020-03-21] MEDS: Aspirin E.C. 81 MG Tablet PO (08:03)
[2020-03-21] MEDS: Triamterene 37.5MG/Hctz 25MG Capsule 1 CAP PO (08:03)
[2020-03-21] MEDS: Fluticasone 0.05% 1 SPRAY NASAL.SRY 2 SPRAY NASAL (08:04)
[2020-03-21] MEDS: Enoxaparin 40 MG/0.4 ML Syringe SC (08:04)
[2020-03-21] MEDS: Loratadine 10 MG Tablet PO (08:41)
[2020-03-21] MEDS: Lisinopril 20 MG Tablet PO (10:59)
--- NOTE | 2020-03-21 11:51 | DCINST_ITS ---
- Discharge Diagnoses Current Active Problems: Current Active and Chronic Problems 1. Acute hypoxic respiratory failure secondary to acute bilateral pneumonia secondary to acute COVID-19 viral syndrome 2. Elevated LFTs secondary to #1 3. Hypertension 4. Hyperlipidemia 5. Obesity 6. Allergic rhinitis You will use the following diet at home:: Cardiac Your food should be the consistency of: Regular Your liquids should be the consistency of: Regular/Thin Discharge Activity: - - Encourage continued routine activity in the home. Out of bed with all meals and routine wlks around your home. Continue using your incentive spirometer 10x/hr from 7 am to 7 pm. Continue usage of your oxygen continuously until you are cleared to be weaned to room air. May resume sexual activity in: - - You will be on isolation for 20 days. You are being discharged on day 13. Please continue isolation for 1 additional week. Weight Bearing Status: Weight bearing as tolerated Call your doctor if you observe: Fever of 101 or Higher, Inability to urinate, Inability to have a bowel movement, Shortness of breath, Dizziness, Chest pain, Uncontrolled pain Instructions: Coronavirus Disease 2019 (COVID-19): Overview, Coronavirus Disease 2019 (COVID-19): Prevention, Coronavirus Disease 2019 (COVID-19): Caring for Yourself or Others, Traveling with Oxygen, Using Oxygen Safely, Using Oxygen at Home, Pneumonia Additional Instructions: PLEASE CONTINUE OXYGEN USAGE UNTIL WEANED TO ROOM AIR BY YOUR PHYSICIAN. PLEASE COMPLETE YOUR 10 DAY COURSE OF DECADRON. PLEASE MAINTAIN ISOLATION PRECAUTIONS FOR 1 ADDITIONAL WEEK UPON YOUR DISCHARGE PER INFECTION DISEASE. WE STRONGLY ADVISE YOU OBTAIN A FINGER PULSE OXIMETER FOR HOME AND YOU MAY ASSESS YOUR OXYGENATION STATUS IF YOU FEEL SHORT OF BREATH. KEEP A LOG OF YOUR LEVELS WITH REST AND ACTIVITY. IF YOU NOTICE YOU OXYGENATION DECREASING AND YOU NEED TO INCREASE YOUR OXYGEN SUPPLEMENTATION IMMEDIATELY CONTACT YOUR PRIMARY CARE PHYSICIAN OR COME TO THE EMERGENCY ROOM. PLEASE CONTINUE THE ELIQUIS BLOOD THINNER FOR 14 DAYS UPON YOUR DISCHARGE COVID MAKES YOU PRONE TO CLOTS. Allergies/Adverse Reactions: Allergies No Known Allergies Allergy (Verified 03/16/20 14:48) Medications to take at Discharge Multivitamins,Therapeutic [Multivitamin] 1 tablet PO DAILY 01/29/15 Triamterene 37.5MG/Hctz 25MG [Dyazide (G)] 1 cap PO DAILY 01/29/15 Aspirin E.C. [Ecotrin] 81 mg PO DAILY@0800 03/16/20 Cetirizine HCl [Zyrtec] 10 mg PO DAILY 03/16/20 Fluticasone 0.05% [Flonase Nasal [place]] 2 spray NASAL DAILY 03/16/20 Lisinopril [Zestril] 20 mg PO DAILY 03/16/20 Loratadine [Claritin] 10 mg PO DAILY 03/16/20 Rosuvastatin Calcium [Crestor] 5 mg PO QHS 03/16/20 Apixaban [Eliquis] 5 mg PO BID #28 tab 03/21/20 Dexamethasone [Decadron] 6 mg PO DAILY #5 tab 03/21/20 Pantoprazole Sodium [Protonix] 20 mg PO BID #28 tab 03/21/20 The following prescriptions were given: Dexamethasone [Decadron] 6 mg PO DAILY #5 tab Transmission Status: Pending to [facility] Apixaban [Eliquis] 5 mg PO BID #28 tab Transmission Status: Pending to [facility] Pantoprazole Sodium [Protonix] 20 mg PO BID #28 tab Transmission Status: Pending to [facility]/pharmacy #[id number] Primary Care Physician: Blanco Collazo MD [Primary Care Provider] - Please follow up with your Primary Care Physician in: Follow-up within 3-5 days, may be virtual. Test Results: Test results from this visit will be discussed in further detail at your follow- up appointment, if applicable. Proposed Discharge Date: 03/21/20
--- NOTE | 2020-03-21 11:59 | DS.PCM_ITS ---
Discharge Date and Diagnosis - Problem List Patient Problems: Active and Suspected Problems Pneumonia due to COVID-19 virus (Acute) Acute respiratory failure with hypoxia (Acute) Date of Admission: 03/16/20 Date of Discharge: 03/21/20 - Primary Discharge Diagnosis Acute Problems: Active Problems 1. Acute hypoxic respiratory failure secondary to acute bilateral pneumonia secondary to acute COVID-19 viral syndrome 2. Elevated LFTs secondary to #1 3. Hypertension 4. Hyperlipidemia 5. Obesity 6. Allergic rhinitis - Secondary Discharge Diagnosis Chronic Problems: Chronic Problems Hypertension (Chronic) Osteoarthritis (Chronic) Obesity (BMI 30.0-34.9) (Chronic) Hospital Course and Treatment Dr. Greer, ICU/Pulmonary Dr. Balbuena/Infectious disease Operations: None Procedures: EKG Summary of Care Provided: The patient is a 74 y/o M w/ PMHx: Obesity, HTN, OA, Allergic Rhinitis who presented to the [facility] ED on 03/16/20 with history of onset Covid type symptoms approximately 10 days prior to current presentation with mild fever, fatigue and malaise, headaches, loose stools with minimally decreased sense of taste and smell with worsening cough and dyspnea prompting eventual ED return for evaluation. ED evaluation included chest x-ray with multi lobar pulmonary infiltrates with questionable possible superimposed bacterial pneumonia right lung base, D-dimer elevated therefore CTPA obtained with no central or segmental pulmonary emboli with multi lobar pulmonary infiltrates consistent with Covid pneumonia and bibasilar atelectasis. Patient was admitted to the Covid unit, patient initiated on IV Decadron as well as remdesivir, infectious disease consulted, continued on Lovenox anticoagulant therapy, being CBC, CMP, oxygenation assessment 03/18/2020 with significant evidence dyspnea noted to be 88% on room air at rest however with ambulation dropped to 82% with improvement to 90% on 5 to 6 L however was notably short of breath therefore discharge held. Re-evaluation 03/19/2020 with significant increase in oxygen requirements up to 5 to 6 L even at rest therefore D-dimer reassessed and noted to be improved since prior 1.97 initially--> 0.75 near age-adjusted, administered IV Lasix 40 mg x 1 with consultation to pulmonary critical care physician. 03/20/20 repeat Lasix 40 mg IV x 1 administered. Given patient ongoing increased oxygen supplementation requirements 03/20/2020 patient remained overnight and completed course of remdesivir. Repeat 03/21/2020 assessment with ambulatory trial significantly improved with patient only requiring 3 L nasal cannula during ambulation as noted below. Patient with elevated LFTs likely secondary to acute Covid viral syndrome with admission AST/ALT 89/117, alk phos 85, continue trending with 03/18/2020 AST/ALT 54/114-->03/20/2020 total bilirubin 0.40, AST/ALT 24/87, alk phos 79, improved since initial ED presentation. Given patient's significant clinical improvement per agreement with infectious disease and pulmonary medicine patient discharged home on continued oxygen supplementation set up by case management/social work with regimen for 10-day completion Decadron therapy, planned anticoagulation with Eliquis x 2 weeks given patient elevated dimer upon presentation with elevated clotting risk secondary to patient acute diagnosis with additionally Protonix while on anticoagulant therapy. Discussed portance of continuing oxygen supplementation until patient appropriately weaned off oxygen. Discussed patient necessity to obtain finger pulse oximeter which patient intends to purchase to keep a log to bring to PCP follow-up. DAY OF DISCHARGE PROGRESS NOTE: Subjective: Patient without acute event overnight per self and nursing report. Patient is coughing significantly improved since day prior. He does note significant diuresis overnight following IV Lasix repeat administration. Patient notes less dyspnea with ambulatory trial this morning and only required 3 L with activity. Discussed at length discharge planning, continued isolation requirements for 1 additional week, usage of Eliquis for 2 weeks, completion of Decadron therapy to which patient is amenable. Patient denies fever, chills, nausea, emesis, abdominal pain, chest pain or recurrent or worsened dyspnea. Patient agreeable to discharge to home. Patient will be discharged with follow- up with primary care physician within 3-5 days. Objective: T 97.5, heart rate 66, BP 135/76, respiratory rate 18, ambulatory oxygenation trial improved from days prior with 89% on room air at rest, 86% on room air with ambulation improving to 92% on 3 L nasal cannula. Physical Examination: General: awake, alert, oriented x 3 and cooperative, seated upright in the medical surgical Covid bed, no acute distress, improved appearance from day prior. Skin: normal color, turgor, no icterus, cyanosis. HEENT: AT/NC, EOMI, PERRLA, MMM. Lungs: Improved, diminished breath sounds, greater bases, improved effort from day prior, no rales, ronchi or wheezing. Heart: Regular rate and rhythm; no gallop, rub audible. Abdomen: soft, obese, NTTP, ND, normal BS. Extremities: no cyanosis, clubbing, or edema. Neurological: patient awake, alert, oriented as noted; cognitive function appears intact upon questioning,; pupils equally reactive to light and accomodation; cranial nerves II-XII grossly normal, moving all 4 extremities, strength improving, mildly to moderately global decreased, improved effort with ambulatory trial. Psychiatric: affect appears fatigued but otherwise normal, no acute evidence of depressive or anxiety feelings. Assessment and Plan: Please see hospital summary above. Patient Problems: Active and Suspected Problems Pneumonia due to COVID-19 virus (Acute) Acute respiratory failure with hypoxia (Acute) - Physical Exam Vitals/I&O's: Vital Signs Temp Pulse Resp BP Pulse Ox 97.5 F L 66 18 135/76 H 92 03/21/20 07:58 03/21/20 10:57 03/21/20 07:58 03/21/20 10:57 03/21/20 10:57 Oxygen Flow Rate (L/min) [ 3 AMBULATION with Oxygen] Oxygen Flow Rate (L/min) [ 0 AMBULATING on Room Air] Oxygen Flow Rate (L/min) [At 0 REST on Room Air] Oxygen Flow Rate (L/min) 3 Oxygen Delivery Method Nasal Cannula Weight: 250 lb Body Mass Index (BMI) 36.9 Intake and Output for Last 24 Hours 03/19/20 03/20/20 03/21/20 23:59 23:59 23:59 Intake Total 1130 / 1430 1480 / 1840 720 / 720 Balance 1130 / 1430 1480 / 1840 720 / 720 Microbiology Past 72 Hours 03/16/20 15:25 Blood Culture (Wb) - Left Hand Blood Culture - Preliminary No growth in 48 hours. 03/16/20 15:00 Blood Culture (Wb) - Anticubital Left Blood Culture - Preliminary No growth in 48 hours. Laboratory Results 03/21/20 06:30: WBC 11.3 H, RBC 4.33 L, Hgb 13.6, Hct 41.8, MCV 96.5 H, MCH 31.4, MCHC 32.5, RDW Std Deviation 45.6 H, RDW Coeff of Levi 12.8, Plt Count 458 H, MPV 9.1, Immature Gran % (Auto) 4.100 H, Neut % (Auto) 73.2 H, Lymph % (Auto) 12.8 L, [place] % (Auto) 9.2, Eos % (Auto) 0.3, Baso % (Auto) 0.4, Absolute Neuts (auto) 8.3 H, Absolute Lymphs (auto) 1.45, Nucleated RBC % 0 03/21/20 06:30: Sodium 134 L, Potassium 4.7, Chloride 95 L, Carbon Dioxide 37.0 H, Anion Gap 2 L, BUN 36 H, Creatinine 1.08, Estim Creat Clear Calc 60.92, Est GFR (MDRD) Af Amer 86, Est GFR (MDRD) Non-Af 71, BUN/Creatinine Ratio 33.3 H, Glucose 101, Calcium 8.7, Total Bilirubin 0.40, AST 24, ALT 87 H, Alkaline Phosphatase 79, Total Protein 6.6, Albumin 2.7 L, Globulin 3.9, Albumin/Globulin Ratio 0.7 L Current Medications Acetaminophen (Acetaminophen 325 Mg Tablet) 650 mg PO Q6H PRN PRN PRN Reason: Pain Score 1-10/Temp > 100.7 F Albuterol Sulfate (Albuterol 2.5 Mg/3 Ml Vial.Neb.) 2.5 mg INHALATION Q2H PRN PRN PRN Reason: Dyspnea, wheezing Aspirin (Aspirin E.C. 81 Mg Tablet) 81 mg PO DAILY [facility] Last Admin: 03/21/20 08:03 Dose: 81 mg Documented by: Atorvastatin Calcium (Atorvastatin Calcium 10 Mg Tablet) 10 mg PO DAILY [facility] Last Admin: 03/21/20 08:02 Dose: 10 mg Documented by: Dexamethasone (Dexamethasone 4 Mg Tablet) 6 mg PO DAILY [facility] Stop: 03/25/20 10:01 Last Admin: 03/21/20 08:02 Dose: 6 mg Documented by: Enoxaparin Sodium (Enoxaparin 40 Mg/0.4 Ml Syringe) 40 mg SC BID [facility] Last Admin: 03/21/20 08:04 Dose: 40 mg Documented by: Fluticasone Propionate (Fluticasone 0.05% 1 [place] Nasal.Sry) 2 spray NASAL DAILY [facility] Last Admin: 03/21/20 08:04 Dose: 2 sprays Documented by: Hydralazine HCl (Hydralazine 20 Mg/Ml Vial) 10 mg IV Q4H PRN PRN PRN Reason: SBP > 160 Sodium Chloride () 250 mls @ 15 mls/hr IV .[id number] PRN PRN Reason: Saline Flush Sodium Chloride () 250 mls @ 15 mls/hr IV .[id number] PRN PRN Reason: Additional IVPB Infusion Lisinopril (Lisinopril 20 Mg Tablet) 20 mg PO DAILY [facility] Last Admin: 03/21/20 10:59 Dose: 20 mg Documented by: Loratadine (Loratadine 10 Mg Tablet) 10 mg PO DAILY [facility] Last Admin: 03/21/20 08:41 Dose: 10 mg Documented by: Magnesium Hydroxide (Magnesium Hydroxide 30 Ml Udc) 30 ml PO DAILY PRN PRN PRN Reason: Constipation Melatonin (Melatonin 3 Mg Tablet) 3 mg PO QHS PRN PRN PRN Reason: INSOMNIA Sodium Chloride (0.9% Saline Lock 10 Ml Syringe) 10 - 40 ml IV UD PRN PRN Reason: SALINE FLUSH Last Admin: 03/20/20 18:12 Dose: 10 ml Documented by: Triamterene/Hydrochlorothiazide (Triamterene 37.5mg/Hctz 25mg Capsule) 1 cap PO DAILY [facility] Last Admin: 03/21/20 08:03 Dose: 1 cap Documented by: Discharge Activity: - - Encourage continued routine activity in the home. Out of bed with all meals and routine wlks around your home. Continue using your incentive spirometer 10x/hr from 7 am to 7 pm. Continue usage of your oxygen continuously until you are cleared to be weaned to room air. May resume sexual activity in: - - You will be on isolation for 20 days. You are being discharged on day 13. Please continue isolation for 1 additional week. Weight Bearing Status: Weight bearing as tolerated Call your doctor if you observe: Fever of 101 or Higher, Inability to urinate, Inability to have a bowel movement, Shortness of breath, Dizziness, Chest pain, Uncontrolled pain Home Medications: Medications to take at Discharge Multivitamins,Therapeutic [Multivitamin] 1 tablet PO DAILY 01/29/15 Triamterene 37.5MG/Hctz 25MG [Dyazide (G)] 1 cap PO DAILY 01/29/15 Aspirin E.C. [Ecotrin] 81 mg PO DAILY@0800 03/16/20 Cetirizine HCl [Zyrtec] 10 mg PO DAILY 03/16/20 Fluticasone 0.05% [Flonase Nasal [place]] 2 spray NASAL DAILY 03/16/20 Lisinopril [Zestril] 20 mg PO DAILY 03/16/20 Loratadine [Claritin] 10 mg PO DAILY 03/16/20 Rosuvastatin Calcium [Crestor] 5 mg PO QHS 03/16/20 Apixaban [Eliquis] 5 mg PO BID #28 tab 03/21/20 Dexamethasone [Decadron] 6 mg PO DAILY #5 tab 03/21/20 Pantoprazole Sodium [Protonix] 20 mg PO BID #28 tab 03/21/20 Following Prescriptions Were Given to Patient: Dexamethasone [Decadron] 6 mg PO DAILY #5 tab Transmission Status: Received by [facility] Apixaban [Eliquis] 5 mg PO BID #28 tab Transmission Status: Received by [facility] Pantoprazole Sodium [Protonix] 20 mg PO BID #28 tab Transmission Status: Received by [facility]/pharmacy #[id number] Primary Care Physician: Blanco Collazo MD [Primary Care Provider] - Please follow up with your Primary Care Physician in: Follow-up within 3-5 days, may be virtual. Patient Instructions: Coronavirus Disease 2019 (COVID-19): Overview, Coronavirus Disease 2019 (COVID-19): Prevention, Coronavirus Disease 2019 (COVID-19): Caring for Yourself or Others, Traveling with Oxygen, Using Oxygen Safely, Using Oxygen at Home, Pneumonia Disposition: Home with Home Health Minutes spent on discharge:: 35 Patient Condition:: Fair Medical Necessity - Tobacco Use Smoking Status: Never smoker Meaningful Use Info Meaningful Use Diagnoses (Choose all that apply): None applicable Inpatient E&M: 11965 Disch Hosp
--- NOTE | 2020-03-21 12:28 | CASEMGMT ---
Addendum entered by Dariel Minaya 03/21/20 12:59: Script and clinical faxed to [facility] [place]. Original Note: RN CM Note: Patient will be able to discharge today. No concerns when speaking with pt. Explained oxygen set up and patient will be able to call [facility] when he returns home. Pt denied any other dc needs and states he has family to bring groceries/supplies if needed. -Call to Retail pharmacy. They do not have [employer] saving cards. 30 day free card sent to [facility] to process for patient. Moses OTERON RN ACM
--- NOTE | 2020-03-21 13:48 | CASEMGMT ---
Call to Kitty @ [employer] x 1906. Updated that portable tank will be needed. Moses OTEORN RN ACM
== END 2020-03-21 15:55 | disposition home health service (06) | DRG 177 ==
LOC: ED 15:36 → MS2 18:24
PROVIDERS: Internal Medicine; Admitting Provider Internal Medicine; Emergency Provider Student in an Organized Health Care Education/Training Program; PCP Family Medicine; Visit Provider Family Medicine
DX: U07.1 COVID-19 (principal); J12.82 Pneumonia due to coronavirus disease 2019; J96.01 Acute respiratory failure with hypoxia; J98.11 Atelectasis; I10 Essential (primary) hypertension; J30.9 Allergic rhinitis, unspecified; M19.90 Unspecified osteoarthritis, unspecified site; E78.5 Hyperlipidemia, unspecified; E66.9 Obesity, unspecified; Z68.36 Body mass index [BMI] 36.0-36.9, adult; Z79.82 Long term (current) use of aspirin; Z96.651 Presence of right artificial knee joint
CPT/HCPCS: 36415; 71045; 71275; 80053; 83605; 83615; 83880; 84075; 84145; 84484; 85025; 85027; 85379; 85384; 85610; 86140; 87040; 87426; 93005; 99251; 99285; 99406; J7040; J7050; Q9967; A4216; G0463; J1940

== ENCOUNTER 2020-04-02 18:35 | Emergency (ER) | payer MEDICARE, OTHER, SELFPAY ==
[2020-03-16 18:57] VITALS: BMI 36.9
[2020-04-02 18:36] VITALS: BP 116/76; PULSE 129; RESP 18; TEMP 35.7; O2SAT 93; O2SAT 94; BMI 36.9
--- NOTE | 2020-04-02 18:57 | EKG12_ITS ---
Test Reason : DYSRHYTHMIA Blood Pressure : / mmHG Vent. Rate : 112 BPM Atrial Rate : 112 BPM P-R Int : 176 ms QRS Dur : 120 ms QT Int : 330 ms P-R-T Axes : 036 -34 064 degrees QTc Int : 450 ms Sinus tachycardia Left axis deviation Incomplete left bundle branch block Abnormal ECG Confirmed by PAULETTE HERNANDEZ, TIFFANY ([id number]), scientific publications editor MARIANNA CISNEROS ([id number]) on 04/03/2020 12:55:09 PM Referred By: RU Confirmed By:TIFFANY CALDWELL MD
--- NOTE | 2020-04-02 19:07 | ED.VISSUMM ---
- ER Visit Summary Date of Service: 04/02/20 Chief Complaint: [Racing heart] History of Present Illness: The patient is a 74 M [presents to the emergency department complaint of racing heart that he has had since earlier this morning. Patient states that he was diagnosed with Covid 3 weeks ago and initially had an admission due to the Covid but has been home and has been checking his pulse ox frequently. Patient noted through the pulse oximeter that his heart rate was elevated starting this morning and has been up to the 130s and 140s. Patient denies any chest pain or shortness of breath. He denies fever or recent illness. He is currently on Eliquis and states he has 1 more days worth. Patient called his primary care physician who advised him to come and get evaluated as there was concern about possibly atrial fibrillation. Patient has history of hypertension.] Physical Examination: [HEENT-PERRLA, EOMI. Cranial nerves II through XII grossly intact. TMs clear. Mucous membranes moist. No adenopathy. Cardiovascular-regular and tachycardic with a heart rate in the 1 teens. No murmurs auscultated. Lungs-clear to auscultation, chest wall stable without crepitus or subcu emphysema Abdomen-normoactive bowel sounds, soft, nontender, no rebound or rigidity, no peritoneal signs. Extremities-intact ?4, normal range of motion, normal pulses, atraumatic. Patient has trace pretibial edema bilaterally.] Test Results: [EKG obtained arrival shows sinus tachycardia with a ventricular rate of 112 bpm with an incomplete left bundle branch block with no acute ST segment changes noted.] CBC with differential obtained showed a white count of 7.6, hemoglobin 13, hematocrit 39, plates 157. Chemistries unremarkable. Glucose 134, BUN 27 and creatinine 1.2. Troponin less than 0.015. D-dimer was 0.551 corrected for age is considered normal. Chest x-ray obtained 1 view showed persistent increased markings/infiltrates especially in the right lung compared to the left. When compared with prior chest x-ray there appears to be improvement on the left side. Radiology in agreement. Emergency Department Course and Treatment: [IV line established on arrival. Patient was given a liter normal same fluid bolus. Orthostatics obtained after were negative. Patient's blood pressure improved from the 90 systolic into the 110 systolic. Patient's heart rate improved into the 80s. 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 Patient currently feels very well and he is not been on oxygen. Patient overall feels very much improved.] I suspect patient was likely fluid depleted as he did have a slightly elevated BUN and given the fact that he responded well to fluids. Treatment Plan: [Patient has an appoint with his primary care physician tomorrow. Patient advised to return the ER if persistent tachycardia, chest pain, shortness of breath, hypoxemia, or condition should worsen anyway.] Disposition: [Discharged home in stable condition] Impression: [Tachycardia] Dehydration This note was generated with [employer] dictation software. It may contain incorrect words, spelling, and punctuation that were not noted in review of the chart prior to signing ED Disposition - Plan for ED Patient: Referrals: Blanco Collazo MD [Primary Care Provider] -
--- NOTE | 2020-04-02 19:08 | RAD_ITS ---
STUDY: X-RAY CHEST REASON FOR EXAM: Male, 74 years old. Tachycardia. TECHNIQUE: Single AP portable view of the chest. COMPARISON: 03/16/2020. FINDINGS: Telemetry wires overlie the chest. The lungs are well-expanded. Again seen is patchy peripheral pulmonary infiltrates. There is mild resolution of the left lung base. There is no demonstrated pleural abnormality. Normal size heart. Normal mediastinum and ramin. Normal visualized pulmonary arteries. There is atherosclerotic calcification of the aortic arch with tortuosity. The thoracic spine is obscured by the mediastinum. Normal visualized ribs, clavicles, and shoulders. There is no demonstrated abnormality of the visualized soft tissue structures of the upper abdomen. RAD/Chest 1 View (Portable) IMPRESSION: Persistent pulmonary infiltrates. Question minimal improvement at the left lung base. Electronically Signed: Harris Wilson DO at 19:21 EST Tel [phone], Service support ,
[2020-04-02] MEDS: 0.9% Normal Saline 1,000 ML 150 ML IV (19:16)
[2020-04-02 19:27] VITALS: BP 98/69; PULSE 102
[2020-04-02 19:27] LABS: Absolute Lymphocyte Count 1.56 X10^3/uL (0.83-4.51); Absolute Neutrophil Count 5.1 X10^3/uL (2.0-7.7); Basophil# 0.03 X10^3/uL; Basophil% 0.4 % (0-1); Eosinophils% 1.3 % (0-5); Hematocrit 39.4 % (40-54); Lymphocyte # 1.56 X10^3/ul (4.0); Lymphocyte % 20.6 % (19-41); Mean Corpuscular Hgb 31.3 pg (27.0-32.0); Mean Corpuscular Volume 94.7 fL (80-94); Mean Platelet Vol. 10.1 fl (6.2-12.0); Monocyte# 0.76 X10^3/uL; Monocyte% 10.1 % (0-10); NRBC Flagged by Analyzer 0 % (0-5); Neutrophil # 5.05 X10^3/uL (2.7-7.7); Neutrophil % 66.8 % (47-70); Platelet Count 157 K/mm3 (150-450); RBC Distribution Width CV 13.3 % (11.6-14.6); RBC Distribution Width SD 46.1 fl (35.1-43.9); Red Blood Count 4.16 M/mm3 (4.6-6.2); White Blood Count 7.6 K/mm3 (4.4-11.0)
[2020-04-02 19:47] LABS: Anion Gap 5 (5-15); BUN 27 mg/dL (7-18); BUN/Creat Ratio 22.5 RATIO (10-20); Calcium,Total 8.6 mg/dL (8.5-10.1); Chloride 104 mmol/L (98-107); EST Glomerular Filtration Rate 63 mL/min (>60); Est Glom Filt Rate - Afr Amer 76 mL/min (>60); Estimated Creatinine Clearance 54.83 ml/min; Glucose 134 mg/dL (74-106); Potassium 3.9 mmol/L (3.5-5.1); Sodium Level 139 mmol/L (136-145)
[2020-04-02 19:48] LABS: D-Dimer Quantitative (DVT/PE) 0.55 FEU/ug/m (0.27-0.49)
[2020-04-02 20:21] VITALS: BP 91/63; PULSE 96; RESP 18; O2SAT 93
[2020-04-02 21:42] VITALS: BP 105/69; BP 112/70; BP 117/70; PULSE 89; PULSE 91; PULSE 97
--- NOTE | 2020-04-02 21:55 | ED.DEP ---
ED Disposition - Plan for ED Patient: Instructions: ED Palpitations, ED Dehydration (Adult) Referrals: Blanco Collazo MD [Primary Care Provider] - 1 Day
[2020-04-02 22:12] VITALS: BP 115/70; PULSE 81; RESP 16; O2SAT 95
== END 2020-04-02 22:13 | disposition home or self-care (01) ==
LOC: ED 19:12
PROVIDERS: Emergency Provider Emergency Medicine; PCP Family Medicine
DX: R00.0 Tachycardia, unspecified (principal); E86.0 Dehydration; I44.7 Left bundle-branch block, unspecified; I10 Essential (primary) hypertension; Z79.01 Long term (current) use of anticoagulants
CPT/HCPCS: 71045; 80048; 84484; 85025; 85379; 93005; 96360; 96361; 99285; J7030; A4216

== ENCOUNTER 2020-04-16 16:20 | Outpatient (RCR) | payer MEDICARE, OTHER, SELFPAY ==
[2020-04-16] MEDS: COVID-19 VACC, MRNA(PFIZER)/PF 30 MCG/0.3 ML SYRINGE IM (09:26)
[2020-05-07] MEDS: COVID-19 VACC, MRNA(PFIZER)/PF 30 MCG/0.3 ML SYRINGE IM (09:13)
== END 2020-07-16 23:59 ==
LOC: IMMUN 16:20
PROVIDERS: PCP Family Medicine; Visit Provider Family Medicine
DX: Z23 Encounter for immunization (principal)
CPT/HCPCS: 0001A; 0002A; 91300

== ENCOUNTER → 2020-07-05 14:05 | Outpatient (CLI) | payer MEDICARE, OTHER, SELFPAY ==
[2020-07-05 15:40] LABS: Hemoglobin A1c 5.7 % (3.8-5.6)
[2020-07-05 15:59] LABS: Anion Gap 5 (5-15); BUN 22 mg/dL (7-18); BUN/Creat Ratio 22.7 RATIO (10-20); Calcium,Total 8.8 mg/dL (8.5-10.1); Chloride 103 mmol/L (98-107); Cholesterol 176 mg/dL (200); Creatinine, Serum 0.97 mg/dL (0.70-1.30); EST Glomerular Filtration Rate 81 mL/min (>60); Est Glom Filt Rate - Afr Amer 97 mL/min (>60); Glucose 88 mg/dL (74-106); High Density Lipoprotein 59 mg/dL; Potassium 4.4 mmol/L (3.5-5.1); Sodium Level 138 mmol/L (136-145); Triglycerides 159 mg/dL; Very Low Density Lipoprotein 32 mg/dL (5-40)
== END ==
PROVIDERS: PCP Family Medicine; Referring Provider Family Medicine; Visit Provider Family Medicine
DX: E78.5 Hyperlipidemia, unspecified (principal); I10 Essential (primary) hypertension; R73.9 Hyperglycemia, unspecified
CPT/HCPCS: 36415; 80048; 80061; 83036

== ENCOUNTER 2021-04-03 15:40 | Outpatient (CLI) | payer MEDICARE, OTHER, SELFPAY ==
[2021-04-03 18:46] LABS: Anion Gap 7 (5-15); BUN 20 mg/dL (7-18); Calcium,Total 9.2 mg/dL (8.5-10.1); Chloride 104 mmol/L (98-107); Cholesterol 194 mg/dL (200); Creatinine, Serum 1.05 mg/dL (0.70-1.30); EST Glomerular Filtration Rate 73 mL/min (>60); Est Glom Filt Rate - Afr Amer 89 mL/min (>60); Glucose 94 mg/dL (74-106); High Density Lipoprotein 54 mg/dL; Potassium 4.1 mmol/L (3.5-5.1); Sodium Level 140 mmol/L (136-145); Triglycerides 125 mg/dL; Very Low Density Lipoprotein 25 mg/dL (5-40)
== END 2021-04-03 23:59 | disposition home or self-care (01) ==
LOC: MFPLAB 15:41
PROVIDERS: PCP Family Medicine; Referring Provider Family Medicine; Visit Provider Family Medicine
DX: E78.5 Hyperlipidemia, unspecified (principal)
CPT/HCPCS: 36415; 80048; 80061

== ENCOUNTER → 2021-10-01 | Outpatient (CLI) | payer MEDICARE, OTHER, SELFPAY ==
[2021-10-01 13:01] LABS: Anion Gap 5 (5-15); BUN 19 mg/dL (7-18); BUN/Creat Ratio 17.9 RATIO (10-20); Calcium,Total 8.9 mg/dL (8.5-10.1); Chloride 99 mmol/L (98-107); Cholesterol 222 mg/dL (200); Creatinine, Serum 1.06 mg/dL (0.70-1.30); EST Glomerular Filtration Rate 72 mL/min (>60); Est Glom Filt Rate - Afr Amer 88 mL/min (>60); Glucose 117 mg/dL (74-106); High Density Lipoprotein 55 mg/dL; Potassium 4.2 mmol/L (3.5-5.1); Sodium Level 135 mmol/L (136-145); Triglycerides 186 mg/dL; Very Low Density Lipoprotein 37 mg/dL (5-40)
== END | disposition home or self-care (01) ==
LOC: MFPLAB 10:52
PROVIDERS: PCP Family Medicine; Referring Provider Family Medicine; Visit Provider Family Medicine
DX: I10 Essential (primary) hypertension (principal)
CPT/HCPCS: 36415; 80048; 80061

== ENCOUNTER → 2021-10-17 | Outpatient (CLI) | payer MEDICARE, OTHER, SELFPAY ==
--- NOTE | 2021-10-17 16:01 | RAD_ITS ---
INDICATION: Hip pain EXAMINATION/TECHNIQUE: X-RAY - XR Hips Bilateral with Pelvis when performed; 2 Views: AP view pelvis with AP and lateral views of bilateral hips COMPARISON: None. FINDINGS: PELVIC BONES: No displaced fracture or suspicious osseous lesion demonstrated. Note that overlapping bowel shadows may however obscure fine detail. Sacroiliac joints are unremarkable. No widening of the pubic symphysis. Degenerative changes along the imaged lumbar spine. HIPS: No acute fracture or dislocation. Severe left hip degenerative joint space narrowing with [id number]-[id number] articulation. Moderate right hip degenerative joint space narrowing. Bilateral hips demonstrate subchondral eburnation and marginal osteophytosis, most prominent on the left. SOFT TISSUES: Small calcified pelvic phleboliths noted. RAD/Hips B/L min 2 views w/ Pelvis IMPRESSION: Severe left hip osteoarthrosis and moderate right hip osteoarthrosis. Electronically Signed: Sean Henriquez MD at 6:17 EDT ,
== END | disposition home or self-care (01) ==
PROVIDERS: PCP Family Medicine; Referring Provider Family Medicine; Visit Provider Family Medicine
DX: M25.552 Pain in left hip (principal)
CPT/HCPCS: 73521

== ENCOUNTER → 2021-10-21 | Outpatient (CLI) | payer MEDICARE, OTHER, SELFPAY ==
--- NOTE | 2021-10-21 12:35 | ECHOCS_ITS ---
Procedure This was a 2D Doppler, Color Flow transthoracic echocardiogram. The study was technically difficult. Contrast injection was performed. Due to body habitus. Exam performed in department. Left Ventricle Based upon the 2D echocardiographic and contrast enhanced images obtained there appears to be grossly normal left ventricular size, wall motion, and systolic function with an estimated LVEF of 55%. Diastolic function is indeterminate. Right Ventricle Normal RV size. Normal systolic function. Atria Normal left atrium. Normal right atrium. No doppler evidence for ASD. Mitral Valve There is no mitral annular calcification. Normal mitral valve. Tricuspid Valve Normal tricuspid valve. Trivial tricuspid valve insufficiency. Right ventricular systolic pressure estimated to be 39 mmHg. Aortic Valve The aortic valve is not well visualized. Pulmonic Valve The pulmonic valve is not well visualized. Great Vessels Normal sized aortic root. Pericardium/Pleural No pericardial effusion. MMode/2D Measurements & Calculations LVIDd: 5.5 cm IVSd: 1.2 cm Ao root diam: 3.4 cm LVIDs: 3.6 cm LVPWd: 1.2 cm RVDd: 3.6 cm FS: 34.8 % LAV(MOD-bp): 49.2 ml LA A4 area: 18.4 cm2 LA dimension(2D): 4.3 cm LAV(MOD-bp) Indexed: 20.8 ml/m2 LAV(MOD-sp2): 46.0 ml LAV(MOD-sp4): 52.3 ml RA A4 area: 15.8 cm2 Doppler Measurements & Calculations MV E max dewayne: 39.0 cm/sec Ao V2 max: 152.1 cm/sec LV V1 max: 86.7 cm/sec MV A max dewayne: 81.5 cm/sec Ao max P.3 mmHg LV V1 max P.0 mmHg MV E/A: 0.48 Ao V2 mean: 103.9 cm/sec LV V1 mean P.8 mmHg Ao mean P.0 mmHg LV V1 mean: 64.3 cm/sec Ao V2 VTI: 23.4 cm LV V1 VTI: 17.1 cm PA V2 max: 118.8 cm/sec TR max dewayne: 300.2 cm/sec PA V2 mean: 85.2 cm/sec TR max P.0 mmHg ECHO/Echo Complete W/ Contrast Interpretation Summary The study was technically difficult. Contrast injection was performed. Based upon the 2D echocardiographic and contrast enhanced images obtained there appears to be grossly normal left ventricular size, wall motion, and systolic function with a n estimated LVEF of 55%. Trivial tricuspid valve insufficiency. Right ventricular systolic pressure estimated to be 39 mmHg. Diastolic function is indeterminate. Ordering Physician: Blanco Collazo Referring Physician: Blanco Collazo Performed By: Jamila Rooney, RDCS, RVT
== END | disposition home or self-care (01) ==
LOC: CVS 12:34
PROVIDERS: PCP Family Medicine; Referring Provider Family Medicine; Visit Provider Family Medicine
DX: R06.02 Shortness of breath (principal)
CPT/HCPCS: 93306; Q9957; A4216; C8929

== ENCOUNTER → 2022-02-27 | Outpatient (CLI) | payer MEDICARE, OTHER, SELFPAY ==
[2022-02-27 15:29] LABS: Absolute Lymphocyte Count 1.51 X10^3/uL (0.83-4.51); Absolute Neutrophil Count 6.4 X10^3/uL (2.0-7.7); Basophil# 0.07 X10^3/uL; Basophil% 0.8 % (0-1); Eosinophil# 0.15 X10^3/uL; Eosinophils% 1.7 % (0-5); Hematocrit 47.3 % (40-54); Hemoglobin 15.3 g/dL (13.0-16.5); Lymphocyte # 1.51 X10^3/ul (0.83-4.51); Lymphocyte % 16.9 % (19-41); Mean Corp Hgb Conc 32.3 g/dL (32-36); Mean Corpuscular Hgb 32.3 pg (27.0-32.0); Mean Platelet Vol. 10.5 fl (6.2-12.0); Monocyte# 0.81 X10^3/uL; Monocyte% 9.1 % (0-10); NRBC Flagged by Analyzer 0 % (0-5); Neutrophil # 6.35 X10^3/uL (2.7-7.7); Neutrophil % 71.1 % (47-70); Platelet Count 262 K/mm3 (150-450); RBC Distribution Width CV 12.8 % (11.6-14.6); RBC Distribution Width SD 47.3 fl (35.1-43.9); Red Blood Count 4.73 M/mm3 (4.6-6.2); White Blood Count 8.9 K/mm3 (4.4-11.0)
[2022-02-27 16:06] LABS: BNP,B-Type NATRIURETIC PEPTIDE 16.1 pg/mL (0-100)
[2022-02-27 16:10] LABS: Anion Gap 6 (5-15); BUN 23 mg/dL (7-18); BUN/Creat Ratio 20.7 RATIO (10-20); Calcium,Total 9.2 mg/dL (8.5-10.1); Chloride 102 mmol/L (98-107); Creatinine, Serum 1.11 mg/dL (0.70-1.30); EST Glomerular Filtration Rate 69 mL/min (>60); Est Glom Filt Rate - Afr Amer 83 mL/min (>60); Glucose 109 mg/dL (74-106); Potassium 4.4 mmol/L (3.5-5.1); Sodium Level 140 mmol/L (136-145)
== END | disposition home or self-care (01) ==
LOC: MTLAB 11:45
PROVIDERS: PCP Family Medicine; Referring Provider Family Medicine; Visit Provider Family Medicine
DX: R60.9 Edema, unspecified (principal); R06.02 Shortness of breath
CPT/HCPCS: 36415; 80048; 83880; 85025

== ENCOUNTER → 2022-03-09 | Outpatient (CLI) | payer MEDICARE, OTHER, SELFPAY ==
--- NOTE | 2022-03-09 13:33 | ECHOCS_ITS ---
Reason For Study: SOB Procedure This was a 2D Doppler, Color Flow transthoracic echocardiogram. The study was technically difficult. Contrast injection was performed. Exam performed in department. Left Ventricle Normal LV size. Mild concentric left ventricular hypertrophy. The estimated ejection fraction is 53 %. Stage 1 diastolic dysfunction. No regional wall motion abnormalities noted. Right Ventricle Normal RV size. Normal systolic function. Mitral Valve Normal mitral valve. Tricuspid Valve Normal tricuspid valve. Great Vessels Normal aortic root. The pulmonary artery is normal size. Normal inferior vena cava. Pericardium/Pleural No pericardial effusion. Medication 22 gauge I.V. with prn adaptor inserted into right arm. Diluted definity 1.5ml given slow IV push to enhance endocardial definition. MMode/2D Measurements & Calculations LVIDd: 5.0 cm IVSd: 1.2 cm Ao root diam: 3.2 cm LVIDs: 4.0 cm LVPWd: 1.3 cm RVDd: 3.1 cm FS: 19.4 % LAV(MOD-sp4): 51.5 ml SV(MOD-sp4): 75.1 ml LVAd ap4: 41.9 cm2 LVLd ap4: 9.4 cm EDV(MOD-sp4): 158.4 ml EDV(sp4-el): 159.5 ml LVAs ap4: 27.8 cm2 LVLs ap4: 7.4 cm ESV(MOD-sp4): 83.4 ml ESV(sp4-el): 89.3 ml EF(MOD-sp4): 47.4 % EF(sp4-el): 44.0 % SV(sp4-el): 70.2 ml LA dimension(2D): 4.3 cm LA A4 area: 19.3 cm2 RA A4 area: 16.0 cm2 Time Measurements MV dec time: 0.24 sec Doppler Measurements & Calculations MV E max marbin: 48.0 cm/sec Lat Peak E' Marbin: 11.4 cm/sec Med Peak E' Marbin: 9.9 cm/sec MV A max marbin: 55.4 cm/sec E/E' lat: 4.2 E/E' med: 4.8 MV E/A: 0.87 MV V2 max: 54.6 cm/sec Ao V2 max: 149.7 cm/sec MV max P.2 mmHg MV dec slope: 205.9 cm/sec2 Ao max P.0 mmHg MV V2 mean: 35.2 cm/sec Ao V2 mean: 103.5 cm/sec MV mean P.54 mmHg Ao mean P.9 mmHg MV V2 VTI: 19.0 cm Ao V2 VTI: 31.1 cm AV (velocity ratio): 0.63 LV V1 max: 104.4 cm/sec PA V2 max: 108.9 cm/sec LV V1 max P.4 mmHg PA V2 mean: 79.7 cm/sec LV V1 mean P.3 mmHg LV V1 mean: 71.0 cm/sec LV V1 VTI: 19.6 cm ECHO/Echo Complete W/ Contrast Interpretation Summary Normal LV size. The estimated ejection fraction is 53 %. Mild concentric left ventricular hypertrophy. Stage 1 diastolic dysfunction. The study was technically limited. The study was technically difficult. Contras t injection was performed. Ordering Physician: Blanco Collazo Referring Physician: Blanco Collazo Performed By: Niki Pinzon RCS
== END | disposition home or self-care (01) ==
LOC: CVS 13:26
PROVIDERS: PCP Family Medicine; Referring Provider Family Medicine; Visit Provider Family Medicine
DX: R06.02 Shortness of breath (principal)
CPT/HCPCS: 93306; Q9957; A4216; C8929

== ENCOUNTER → 2022-06-20 | Outpatient (CLI) | payer MEDICARE, OTHER, SELFPAY ==
--- NOTE | 2022-06-20 08:04 | CT_ITS ---
EXAM: CT LEFT LOWER EXTREMITY WITHOUT INTRAVENOUS CONTRAST, HIP CLINICAL INDICATION: templating for left JARED TECHNIQUE: Helically acquired images were obtained of the left hip without intravenous contrast. This CT exam was performed using one or more of the following dose reduction techniques: automated exposure control, adjustment of the mA and/or kV according to patient size, and/or use of iterative reconstruction technique. RADIATION DOSE: CTDIvol = 12.98 mGy, DLP = 788.36 mGy-cm COMPARISON: Abdomen and pelvis CT September 07, 2015 FINDINGS: BONES/JOINTS: Advanced degenerative change of the left hip with complete effacement of the superior joint space, surrounding subchondral sclerosis and cysts, ring of osteophytes around the femoral head, no significant joint effusion. No fracture. Significant progression of degenerative disease since 2016. Right knee total prosthesis is included on some images with slight fluid in the suprapatellar bursa. No evidence of hardware displacement or fracture. SOFT TISSUES: Unremarkable. No soft tissue swelling or gas. No radiopaque foreign body. APPENDIX: Normal appendix. OTHER FINDINGS: Demineralization. Vacuum disc and marked disc space narrowing at L3-4 through L5-S1. CT/Extremity Lower without Contra IMPRESSION: 1. No pelvic fracture. Advanced degenerative change of the left hip. Small stable presumed benign cystic focus in the right iliac bone compared to 2016. 2. Marked diverticulosis of descending and sigmoid colon, no evidence of acute diverticulitis. 3. Total right knee prosthesis components are well aligned. Trace right suprapatellar joint effusion. Electronically Signed: Suzi Barnard MD at 8:30 EDT ,
== END | disposition home or self-care (01) ==
LOC: CT 08:01
PROVIDERS: PCP Family Medicine; Referring Provider Orthopaedic Surgery; Visit Provider Orthopaedic Surgery
DX: M16.12 Unilateral primary osteoarthritis, left hip (principal)
CPT/HCPCS: 73700

== ENCOUNTER 2022-07-21 08:05 | Inpatient (IN) | payer MEDICARE, OTHER, SELFPAY ==
[2022-07-01 12:29] LABS: Hematocrit 48.8 % (40-54); Mean Corp Hgb Conc 32.8 g/dL (32-36); Mean Corpuscular Hgb 31.9 pg (27.0-32.0); Mean Corpuscular Volume 97.2 fL (80-94); Mean Platelet Vol. 10.6 fl (6.2-12.0); Platelet Count 259 K/mm3 (150-450); RBC Distribution Width CV 12.7 % (11.6-14.6); RBC Distribution Width SD 45.8 fl (35.1-43.9); Red Blood Count 5.02 M/mm3 (4.6-6.2); White Blood Count 6.8 K/mm3 (4.4-11.0)
[2022-07-01 13:10] LABS: ALB/GLOB Ratio 1.3 RATIO (0.9-2.4); AST(SGOT) 27 U/L (15-37); Alanine Aminotransfer ALT/SGPT 52 U/L (16-61); Albumin, Serum 3.9 g/dL (3.2-5.0); Alkaline Phosphatase 92 U/L (45-117); Anion Gap 9 (5-15); BUN 21 mg/dL (7-18); BUN/Creat Ratio 16.5 RATIO (10-20); Calcium,Total 9.6 mg/dL (8.5-10.1); Chloride 98 mmol/L (98-107); Creatinine, Serum 1.27 mg/dL (0.70-1.30); EST Glomerular Filtration Rate 59 mL/min (>60); Est Glom Filt Rate - Afr Amer 71 mL/min (>60); Globulin 3.1 g/dL (2.2-4.2); Glucose 116 mg/dL (74-106); Potassium 3.7 mmol/L (3.5-5.1); Sodium Level 137 mmol/L (136-145)
[2022-07-01 13:45] LABS: Absolute Lymphocyte Count 1.59 X10^3/uL (0.83-4.51); Absolute Neutrophil Count 4.3 X10^3/uL (2.0-7.7); Basophil# 0.07 X10^3/uL; Eosinophil# 0.11 X10^3/uL; Eosinophils% 1.6 % (0-5); Lymphocyte # 1.59 X10^3/ul (0.83-4.51); Monocyte# 0.76 X10^3/uL; NRBC Flagged by Analyzer 0 % (0-5); Neutrophil # 4.32 X10^3/uL (2.7-7.7); Neutrophil % 62.7 % (47-70)
--- NOTE | 2022-07-07 15:43 | CASEMGMT ---
TC to pt cell phone for RN CM assessment, no vm set up. TC to pt home phone, left vm with return call information.
--- NOTE | 2022-07-08 11:14 | CASEMGMT ---
HORACE WHITLEY Assessment: Pt returned call for initial transition planning/care coordination assessment. HORACE WHITLEY introduced self and role at [facility], pt voices understanding and consents to assessment. Care providers, pharmacy, and demographics verified/updated. Admitting Dx: Lt total hip with SERENE PCP:[facility] Specialists:ayah Phillips Pharmacy: [facility] Insurance: [facility], AARP Prescription Benefit: yes LNOK: Saad Fofana, brother in law; Marino Jensen, son Living Arrangements: Pt lives alone in a single story home with no steps from the garage to livingroom then 2 steps to the kitchen. Pt reports he is typically I in ADLs. Transportation: Pt drives self and denies concerns with transportation. Pt brother in law and sister in law plan to transport pt to medical appts post surgery. DME/HHC/SNF: Pt has a cane, sock aid, shoe horn, toilet riser, bilingual elementary school teacher, grab bars at the toilet, front, back and side grab bars in the shower. Pt plans to borrow a FWW from his brother in law. Pt denies hx of HHC or SNF stays. Pt states he had a TKR and went to the Rehab unit and would like to go there or TCU post stay. Discussed that this surgery is typically an oupt surgery. Pt states he does have therapy set up at [facility] on July 24. Pt states if he can walk with a walker, he can manage his own meals. States he will have some assistance but not every day post surgery. Pt denies further questions. CM to follow. Pt Goal: Rehab Unit, TCU Plan: TBD
[2022-07-14 15:46] LABS: Magnesium 2.4 mg/dL (1.6-2.6)
[2022-07-14 15:48] LABS: Partial Thromboplast Time 30.4 Seconds (24.1-36.2); Prothrombin Time (Protime)PT. 13.4 SECONDS (11.7-14.9)
[2022-07-16 05:07] LABS: Fructosamine 208 umol/L (0-285)
[2022-07-21] VITALS (13 sets, daily range): BP systolic 101–152; BP diastolic 62–91; PULSE 68–88; RESP 16–20; TEMP 36.2–36.8; O2SAT 94–100; BMI 38.7
[2022-07-21] MEDS: Scopolamine 1mg/72hr Patch 1 PATCH TD (07:30)
[2022-07-21] MEDS: Celecoxib 200 MG Capsule 400 MG PO (08:55)
[2022-07-21] MEDS: Gabapentin 600 MG Tablet PO (08:55)
[2022-07-21] MEDS: Acetaminophen 500 MG Tablet 1000 MG PO ×2 (08:56→18:52)
[2022-07-21] MEDS: Lactated Ringers 1,000 ML 999 ML IV (08:56)
[2022-07-21] MEDS: Magnesium 1 GM over 15 mins IV (08:56)
[2022-07-21 09:26] LABS: Bedside Glucose 126 mg/dL (74-106)
--- NOTE | 2022-07-21 10:06 | HP.PCM_ITS ---
History and Physical Date of Admission: 07/21/22 [facility] [address] [place] [address] OFFICE VISIT Date of Service:? 06/05/22 MR#: [id number] Acct: [id number] Name:ASHVIN FINN Rep #: [id number] : 1945 ? ? Provider: Dr. Zeke Phillips DO Age/Sex:? 76/M ? ? Location: [facility] [place].DAJA Status: Signed Intake Vital Signs ? 06/05/2308:19 Height 5 ft 9 in Weight: 277 lb 6 oz BMI 40.9 Intake Visit Reasons:?LEFT HIP Is patient in pain?: Yes Pain scale (1-10): 6 Allergies No Known Allergies Allergy (Verified 06/05/22 09:19) Medications multivitamin with folic acid 400 mcg tablet (Thera) 1 tab PO DAILY 01/29/15 [History Confirmed 06/05/22] triamterene 37.5 mg-hydrochlorothiazide 25 mg capsule 1 cap PO DAILY 01/29/15 [History Confirmed 06/05/22] lisinopril 20 mg tablet 20 mg PO DAILY 03/16/20 [History Confirmed 06/05/22] pantoprazole 20 mg tablet,delayed release 20 mg PO BID #28 tabs 03/21/20 [Rx Confirmed 04/02/20] furosemide 20 mg tablet 20 mg PO DAILY 06/05/22 [History Confirmed 06/05/22] meloxicam 15 mg tablet 15 mg PO DAILY 06/05/22 [History Confirmed 06/05/22] metoprolol succinate 25 mg tablet,extended release 24 hr 25 mg PO DAILY 06/05/22 [History Confirmed 06/05/22] PFSH Medical History?(Updated 06/05/22 @ 11:[address] Zeke Phillips, DO) COVID-19 Kidney stone Pneumonia Surgical History?(Updated 06/05/22 @ 09:41 by Syl Cummins) History of colostomy History of left cataract surgery History of right cataract surgery History of total right knee replacement Family History?(Updated 06/05/22 @ 09:42 by Syl Cummins) Brother Myocardial infarction ?? ? 20 years ago Social History?(Updated 06/05/22 @ 09:42 by Syl Cummins) Smoking Status:? Never smoker alcohol intake:? current what type of physical activity do you participate in:? walking HPI LEFT HIP Details: Parts of this documentation were recorded by a scribe, this documentation accurately reflects the service provided and the decisions made by me, Dr. Zeke Phillips, DO 06/05/22 0805. ASHVIN MASTERS is a 76 year old M here today NEW patient for left hip pain. He has previously seen Dr. Wyatt. States that his left hip pain started last summer and had saw a previous doctor who put him on meloxicam for the pain. He went back in april and he was put on 2 more months of meloxicam. He is here for a second opinion to see what is wrong with his hip. His pain is there all day. Denies low back pain. Denies any previous surgery or injury to the hip. Sitting on hard surfaces like wood he has constant pain. He has noticed it trying to give out on him which started this spring. He doesn't navigate steps and if he does he goes one at a time. Denies using ice/heat for the pain. Denies mechanical symptoms. Denies injections in his hip. States that he has done HEP the first 2 or 3 months after it started. He was also given a sheet of exercises to do at home which he doesn't do very often. He has pain over the posterior hip and he has groin pain with hip abduction. Reports having a blood clot in the right leg in high school. Ortho Exam General General: Yes no acute distress Neurologic: Yes alert and Yes oriented x3 Psychologic: Yes reasonable and appropriate Left Hip Skin/Wound: Yes CDI, No Ecchymosis, No soft tissue swelling and No Erythema Hip: Absent eccymosis, soft tissue swelling, erythema or tender to palpate - Special Tests: Yes TTP Greater sciatic notch; No TTP Greater Troch Homans Sign: No HIP: lumbar flexion posture, inability to fully erect the lumbar spine but does not have pain with attempted lumbar extension. 2 internal rotation with reproduction of groin pain 35 external rotation 5/5 resisted hip flexion large abdominal pannus. he is TTP in the greater sciatic notch he has no paraspinal tenderness and no pain in low back area no gross motor or sensory deficits in the left lower extremity Head: Normocephalic Atraumatic Chest: symmetrical rise, non-labored breathing, no audible wheeze Abdomen: no guarding, non-rigid Supplemental Info 06/05/2022 x-ray lumbar spine advanced lower level facet arthrosis moderate L5-S1 degenerative disc disease 10/17/2021 x-ray left hip: Advanced left hip arthrosis Coding Level of Care Code Off vis,new,level 3 Diagnoses Degenerative joint disease of left hip? M16.12 Obesity? E66.9 Assessment and Plan Assessment and Plan (1) Degenerative joint disease of left hip: ?Status:?Acute (2) Obesity: ?Status:?Acute ? ? ? Orders: Orders HIP, UNI W/ Pelvis 2-3 Views Today M25.552 - Pain in left hip ? Lumbar Spine 2 or 3 Views Today M54.50 - Low back pain, unspecified ? Plan Obtained X-rays of patient's left hip and lumbar spine. Personally reviewed x- rays. There is no obvious fracture, dislocation, or lucency noted. Patient educated that he has advanced arthritis of the left hip which is the cause of the groin pain with movement of the hip. Educated that he also has lumbar DDD L5-S1 and multilevel facet joint arthritis as well as sacroiliac arthrosis which can contribute to pain in his posterior hip area. Treatment options are do nothing, continued NSAID formal, physical therapy, steroid injection or JARED. Educated that it is a possibility if he has a JARED that he while continue to have pain over the SI joint. He could trial a SI joint injection or a left hip injection to determine the amount of pain is resolved from the injection, he is not interested in this today. . Another option is to consult with a spinal surgeon.?Risks, benefits and alternatives of surgery reviewed including but not limited to bleeding, infection, injury to sciatic nerve, foot drop, artery and/or tissue damage, fracture, VTE, leg length discrepancy, dislocation, need for hip precautions, continued pain and expected post-operative course.?He will also start trying to loose weight as his BMI is right at the cut off, currently 40.9.?Recommended 4 weeks of blood thinner post op. He does live alone and he has stairs at home therefore will request an inpatient stay/admission. He wants to have surgery sooner rather than later. Follow up 2 weeks post op or sooner if pain, swelling, numbness or associated symptoms, or concerns develop.? All questions answered. Patient in agreement of plan. 06/05/22 1126 <Electronically signed by Zeke Phillips DO> Date Zeke Phillips DO Cosigner Signature: Date (if applicable) ? CC:? Dr. Blanco Collazo MD ~ I have examined the patient and the H&P has been reviewed. There are no clinical changes since date of exam.
--- NOTE | 2022-07-21 10:45 | HIP_PTH ---
PATIENT: ASHVIN MASTERS LOC: [facility] U#:[id number] AGE/SX: 76/M ROOM: [facility]317 RE07/21/[address]: Dr. Zeke Phillips DO : 1945 BED: 1 DIS: 07/24/2022 SPEC #: [id number] RECD: 07/21/22 16:01 STATUS: CYRUS SAINI #: [id number] DARSHAN: 07/21/22 10:[address]: Zeke Phillips DEPT: SURGICAL PATHOLOGY RECD BY: Veronika Thurston ENTERED: 07/22/22 11:25 SP TYPE: TOTAL HIP OTHR DR: Dr. Blanco Collazo MD Tissues: Hip, NOS Procedures: Decalcification bone/plaque Surgery Specimen Level IV HEADER OPERATION: ERAS, total hip replacement robotic arm assist PRE-OP DIAGNOSIS: Degenerative joint disease of left hip TISSUE SUBMITTED: Bone and soft tissue left hip MICROSCOPIC DIAGNOSIS Bone and tissue of left hip, total hip resection: Severe degenerative joint disease. AM:rosy 07/27/2022 MICROSCOPIC DESCRIPTION Slides are reviewed. GROSS DESCRIPTION Received is one container labeled with the patient's name and designated bone and soft tissue hip, left. The specimen consists of a de leon femoral head (with portion of femoral neck). The femoral head measures 4.5 x 5.0 x 4.5 cm (and the femoral neck measures 1.1 cm in length.) The articular surface displays prominent osteophyte formation, eburnation and bone erosion. Also present in the specimen container are multiple irregular fragments of bone reamings measuring in aggregate 7.0 x 6.0 x 2.0 cm. Mirror Machine Feeder sections are submitted in two cassettes after decalcification as follows: 1 - bone reamings, 2 - femoral head. / SJ:rosy 07/22/2022 TC:5 CPT: 75608, 67800
[2022-07-21] MEDS: dexAMETHasone 10 MG/ML Vial IV (11:45)
--- NOTE | 2022-07-21 13:56 | OP.PCM_ITS ---
Operative Report Date of Procedure: 07/21/22 Preoperative diagnosis: Left hip DJD Postoperative diagnosis: Same Procedure: CT-guided Makoplasty assisted left total hip arthroplasty Implants: [place] Accolade II stem size 6, 127 degree neck angle +2.5 neck length 54 mm Trident II acetabular shell with 40 mm cancellous screw 36 mm ceram ic head, 10 degree Trident X3 polyethylene insert. Anesthesia: Spinal EBL: 175 cc Complications: None Condition: Stable to PACU Dock Operations Supervisor Rico Ann. My physician showroom sales assistant was a vital part of this case. He was important in appropriate retraction during the case, and protection of soft tissues during procedure. His intimate knowledge of the case and my steps aided in safe and expedient completion of the procedure as well as appropriate position of the extremity during the case. He was also vital in assisting with closure under my direct supervision. Indication for procedure: This is a 76-year-old male who has had long-standing arthrosis of the hip who has failed conservative treatment and wished to undergo total hip arthroplasty. We did discuss operative versus nonoperative in tervention including risks of bleeding, infection , nerve artery tissue damage, need for further surgery, fracture, leg length discrepancy dislocation blood clot and need for postoperative physical therapy and postoperative expectations. An informed consent was signed. Procedure: Patient was met in the preoperative holding area once again the operative extremity was identified by both patient and physician and was marked. Patient was met by anesthesia . Anesthesia was started. patient was then positioned in the lateral decubitus position on a well-padded pegboard with an axillary roll. All bony prominences were checked and padded. The patient was prepped and draped in the usual sterile fashion. A timeout was called to ensure the proper patient procedure and extremity were being contemplated. Anatomic landmarks were palpated and marked for a standard posterior lateral approach. Prior to this the ASIS was palpated and 3 fingerbreadths proximal to this 3 pins were placed at a 45 degree angle into the iliac crest with good purchase, stab incisions were made with a 15 blade into the skin prior to placement. The Makoplasty array was then secured. A 10 blade scalpel was used to make a posterior incision through the skin and subcutaneous tissue. retractors were used and electrocautery was used to maintain meticulous hemostasis and dissect full-thickness flaps until the gluteal fascia was reached. The gluteal fascia was incised in line with the gluteal fibers. The bursal tissue was then freed from the underside and a Charnley retractor was placed. The femoral trochant socorro checkpoint was placed and leg length was assessed using the trochanteric checkpoint and an EKG lead that was placed on the knee prior to prepping the leg .the fat pad was then elevated off of the external rotators with electrocautery and the external rotators were dissected off of the greater trochanter including the piriformis and were tagged with #1 Ethibond for later repair. The joint cap winsome opened with posterior trapdoor technique. The hip was surgically dislocated. The measurement on the preoperative CT from the top of the lesser trochanter to the femoral neck cut was marked Hohmann was placed around the lesser trochanter. A neck cutting guide was used to charlotte the neck with a Bovie and an oscillating saw was used complete the femoral neck cut. The femoral head was then removed and sized. We then turned our attention to the acetabulum. A Bovie was used to make a perforation in the anterior joint capsule and a Al retractor was placed this was repeated in the 6 o'clock position and a wide bruce was placed there. With a long handled knife the labral and pulvinar tissue were removed. We then registered the acetabulum with the pointing array and confirmed our landmarks. Once the socket was thoroughly prepared and labral tissue and pulvinar was removed we single reamed with the robotic arm. We then used the robotic arm to position the acetabular implant and impacted it into place under robotic guidance. We then proceeded to place a posterior superior screw by drilling first measuring and inserting the screw. We then inserted a trial liner. And turned our attention back to the femur at this point a femoral elevator was used. As well as a pointed wide Hohmann around the lesser trochanter and a Hohmann to help retract the gluteus medius. A box chi fredrick was used to remove excess lateral neck followed by a canal finder and a lateralizing reamer. This was followed by sequential broaches. Attention was made of the version within the canal based on preoperative templating. Once the final broach was seated we then trialed reduced the hip it was determined that a 127 degree neck angle with a +2.5 neck length was the appropriate size. We then checked stability with shuck testing as well as flexion and internal rotation. then proceeded with hip extension and checked leg lengths at the knees and heels as well as with the trochanteric checkpoint and knee EKG lead. At this point trials were removed. A liner was inserted to the cup. The femoral stem was inserted. We re-trialed and then proceeded to impact the femoral head onto the Viet taper. We then surgically reduce the hip check stability again and leg lengths and were satisfied. Betadine rinse was allowed to sit for 5 minutes while everyone changed their gloves. Thorough irrigation was performed. Followed by closure of the external rotators with #2 FiberWire followed by closure of gluteal fascia with #1 Ethibond. 0 Vicryl fat stitches and 2-0 Vicryl subcutaneous stitches and kamille in the skin. Warren were placed in the skin pin sites over the iliac crest and dressed with a Mepilex dressing. The main incision was dressed with a Mepilex ag dressing and an abduction pillow was placed. Patient tolerated the procedure well there was no intraoperative complications all counts were correct and the patient was brought back to the PACU in stable condition
[2022-07-21] MEDS: Lactated Ringers 1,000 ML 125 ML IV (14:15)
--- NOTE | 2022-07-21 14:20 | RAD_ITS ---
STUDY: X-RAY - PELVIS AND LEFT HIP REASON FOR EXAM: Male, 76 years old. Post Op -- AP both hips on single alvino/lateral of op hip PACU TECHNIQUE: 3 views of the pelvis and hip. COMPARISON: Comparison is made with prior study dated June 05, 2022. FINDINGS: The patient is status post left total hip replacement. There is good alignment. RAD/Hip Min 2 Views (Portable) IMPRESSION: Status post left total hip replacement. There is good alignment. Electronically Signed: Chris Ricci MD at 14:47 EDT ,
[2022-07-21] MEDS: Cefazolin 2 GM in 0.9% Normal Saline 100 ML IV (19:45)
[2022-07-21] MEDS: 0.9% Saline Lock 10 ML Syringe IV (19:52)
[2022-07-21] MEDS: Senna/Docusate Sodium 1 Tablet 2 TABLET PO (21:58)
[2022-07-22] MEDS: Acetaminophen 500 MG Tablet 1000 MG PO ×3 (01:29→17:06)
[2022-07-22 03:57] VITALS: BP 115/60; PULSE 69; RESP 18; TEMP 36.4; O2SAT 95
[2022-07-22] MEDS: Cefazolin 2 GM in 0.9% Normal Saline 100 ML IV ×2 (04:01→11:12)
[2022-07-22 08:00] VITALS: BP 116/77; PULSE 80; RESP 18; TEMP 36.7; O2SAT 98
[2022-07-22 08:00] LABS: Hematocrit 36.6 % (40-54); Hemoglobin 11.9 g/dL (13.0-16.5); Mean Corp Hgb Conc 32.5 g/dL (32-36); Mean Corpuscular Hgb 32.2 pg (27.0-32.0); Mean Corpuscular Volume 99.2 fL (80-94); Mean Platelet Vol. 10.2 fl (6.2-12.0); Platelet Count 210 K/mm3 (150-450); RBC Distribution Width CV 12.6 % (11.6-14.6); RBC Distribution Width SD 45.1 fl (35.1-43.9); Red Blood Count 3.69 M/mm3 (4.6-6.2)
[2022-07-22 08:23] LABS: Anion Gap 4 (5-15); BUN 12 mg/dL (7-18); Calcium,Total 8.4 mg/dL (8.5-10.1); Chloride 105 mmol/L (98-107); Creatinine, Serum 1.09 mg/dL (0.70-1.30); EST Glomerular Filtration Rate 70 mL/min (>60); Est Glom Filt Rate - Afr Amer 85 mL/min (>60); Estimated Creatinine Clearance 58.56 ml/min; Glucose 126 mg/dL (74-106); Potassium 3.9 mmol/L (3.5-5.1); Sodium Level 139 mmol/L (136-145)
[2022-07-22 09:00] VITALS: BP 116/77; PULSE 80
[2022-07-22] MEDS: Senna/Docusate Sodium 1 Tablet 2 TABLET PO ×2 (09:00→21:04)
[2022-07-22] MEDS: Lisinopril 20 MG Tablet PO (09:00)
[2022-07-22] MEDS: Furosemide 20 MG Tablet PO (09:00)
[2022-07-22] MEDS: Triamterene 37.5MG/Hctz 25MG Capsule 1 CAP PO (09:00)
[2022-07-22] MEDS: Metoprolol(XL)Succ 25 MG Tablet PO (09:00)
[2022-07-22 09:47] VITALS: O2SAT 98
--- NOTE | 2022-07-22 11:38 | CASEMGMT ---
Addendum entered by Fernanda Lucas 07/22/22 16:15: TCU beds are not currently available. JOANIE Andrews Original Note: Social Work SW met with pt and pt brother in law in pt room to discuss discharge plan. SW spoke with therapy who states pt was able to ambulate 400ft at [facility] and able to use assistive devices appropriately. Pt is inquiring about placement in [facility]. SW explained that there are currently no rooms available in [facility] nor TCU. SW discussed pt returning home as he did very well with therapy. SW did inform pt that other rehab units could be explored, but with his current movement with therapy he may not be accepted. Pt is concerned as he lives alone. Pt brother in law encouraging pt to return home and states that he and pts sister will be able to help and provide needed transportation. Pt does have an outpatient Pt appointment set at [facility] on Wednesday and [facility]Y will transport. Pt agreeable to return home. Plan: Home with outpatient PT. JOANIE Andrews
--- NOTE | 2022-07-22 12:21 | PN.ORTHO_ITS ---
Subjective Subjective Seen and examined. Doing okay pain control. No nausea chest pain. Has not passed any gas yet but is urinating eating okay. Concerned about going home as was told rehab is full,, and is not excited about going to a different facility. Objective Data Objective Data Vital Signs: Vital Signs Temp Pulse Resp BP Pulse Ox O2 Del Method O2 Flow Rate 98.1 F 80 18 116/77 98 Nasal Cannula 2 07/22/22 08:00 07/22/22 09:00 07/22/22 08:00 07/22/22 09:00 07/22/22 09:47 07/22/22 09:47 07/22/22 09:47 Oxygen Flow Rate (L/min) 2 Oxygen Delivery Method Nasal Cannula Weight: 262 lb 2.074 oz Body Mass Index (BMI) 38.7 Intake & Output: Intake and Output for Last 24 Hours 07/20/22 07/21/22 07/22/22 23:59 23:59 23:59 Intake Total 2030.33 / 2530.33 1570 / 1570 Output Total 800 / 800 Balance 2030.33 / 2130.33 770 / 770 Lab / Micro Data Result Diagrams: 07/22/22 07:10 07/22/22 07:10 Labs: Laboratory Results - last 24 hr 07/22/22 07:10: WBC 12.0 H, RBC 3.69 L, Hgb 11.9 L, Hct 36.6 L, MCV 99.2 H, MCH 32.2 H, MCHC 32.5, RDW Std Deviation 45.1 H, RDW Coeff of Levi 12.6, Plt Count 210, MPV 10.2 07/22/22 07:10: Sodium 139, Potassium 3.9, Chloride 105, Carbon Dioxide 30.0, Anion Gap 4 L, BUN 12, Creatinine 1.09, Estim Creat Clear Calc 58.56, Est GFR (MDRD) Af Amer 85, Est GFR (MDRD) Non-Af 70, BUN/Creatinine Ratio 11.0, Glucose 126 H, Calcium 8.4 L Micro: Microbiology 07/14/22 14:27 Nasal Secretion Nasal Screen MRSA/MSSA - Final Radiography Diagnostic Testing: Radiology Impression Hip X-Ray 07/21/22 14:20 IMPRESSION: Status post left total hip replacement. There is good alignment. Electronically Signed: Chris Ricci MD at 14:47 EDT , Physical Exam Const alert, oriented x3 and no apparent distress General Appearance: cooperative Extremity Extremity Narrative: Dressings clean dry and intact the pin site dressing is detached on one side. Compartment soft neurovascularly intact 2 or 4 pedal pulses Assessment & Plan Assessment/Plan (1) Obesity (BMI 30.0-34.9): (2) S/P total hip arthroplasty: PLAN: Plan Postop day #1 left total hip arthroplasty PT OT weightbearing as tolerated Physical therapy will practice stairs with him as he does live in a split-level by himself and determine if it is safe DC home or alternative placement. Patient requesting rehab here but no beds available, both with social media marketing manager we are reaching out to transitional care unit to see if there is anything available. DVT prophylaxis SCDs CURTIS duarte Eliquis 2.5 mg twice daily for 4 weeks Nursing instructed to change and clean with Betadine the pin site dressing is partially detached
[2022-07-22 14:03] VITALS: BP 112/56; PULSE 95; RESP 18; TEMP 36.4; O2SAT 95
[2022-07-22 20:57] VITALS: BP 95/51; PULSE 68; RESP 18; TEMP 36.5; O2SAT 92
[2022-07-23] VITALS (8 sets, daily range): BP systolic 97–111; BP diastolic 55–69; PULSE 85–105; RESP 16–18; TEMP 36.3–36.9; O2SAT 93–97
[2022-07-23] MEDS: Acetaminophen 500 MG Tablet 1000 MG PO ×3 (02:10→16:46)
[2022-07-23 06:15] LABS: Hematocrit 35.2 % (40-54); Hemoglobin 11.3 g/dL (13.0-16.5); Mean Corp Hgb Conc 32.1 g/dL (32-36); Mean Corpuscular Hgb 31.7 pg (27.0-32.0); Mean Corpuscular Volume 98.6 fL (80-94); Mean Platelet Vol. 10.3 fl (6.2-12.0); Platelet Count 211 K/mm3 (150-450); RBC Distribution Width SD 46.8 fl (35.1-43.9); Red Blood Count 3.57 M/mm3 (4.6-6.2); White Blood Count 9.6 K/mm3 (4.4-11.0)
--- NOTE | 2022-07-23 08:29 | PCM.PN.ORT ---
Subjective Subjective Seen and examined doing better pain controlled no nausea vomiting shortness of breath or chest pain waiting for transfer to TCU Objective Data Objective Data Vital Signs: Vital Signs Temp Pulse Resp BP Pulse Ox O2 Del Method O2 Flow Rate 98.4 F 85 18 102/59 L 93 Room Air 2 07/23/22 02:07 07/23/22 02:07 07/23/22 02:07 07/23/22 02:07 07/23/22 07:51 07/23/22 07:51 07/23/22 02:07 Oxygen Flow Rate (L/min) 2 Oxygen Delivery Method Room Air Weight: 262 lb 2.074 oz Body Mass Index (BMI) 38.7 Intake & Output: Intake and Output for Last 24 Hours 07/21/22 07/22/22 07/23/22 23:59 23:59 23:59 Intake Total 2030.33 / 2530.33 2170 / 2170 1000 / 1000 Output Total 800 / 800 1200 / 1200 Balance 2030.33 / 2130.33 1370 / 1370 -200 / -200 Lab / Micro Data Result Diagrams: 07/23/22 05:23 07/22/22 07:10 Labs: Laboratory Results - last 24 hr 07/23/22 05:23: WBC 9.6, RBC 3.57 L, Hgb 11.3 L, Hct 35.2 L, MCV 98.6 H, MCH 31.7, MCHC 32.1, RDW Std Deviation 46.8 H, RDW Coeff of Levi 13.0, Plt Count 211, MPV 10.3 Micro: Microbiology 07/14/22 14:27 Nasal Secretion Nasal Screen MRSA/MSSA - Final Physical Exam Const alert, oriented x3 and no apparent distress General Appearance: cooperative Extremity Extremity Narrative: Dressings clean dry and intact the pin site dressing is detached on one side. Compartment soft neurovascularly intact 2 or 4 pedal pulses Assessment & Plan Assessment/Plan (1) S/P total hip arthroplasty: (2) Obesity (BMI 30.0-34.9): PLAN: Plan Postop day #2 left total hip arthroplasty PT OT weightbearing as tolerated DVT prophylaxis SCDs CURTIS hose Eliquis 2.5 mg twice daily for 4 weeks Oxycodone 5 to 10 mg every 4 hours Awaiting transfer to TCU likely tomorrow
--- NOTE | 2022-07-23 09:04 | CASEMGMT ---
Social Work SW spoke with physician who is requesting placement in TCU. SW met with pt and discussed pt functional ability with physical therapy. Pt states he cannot manage on his own at home and needs placement. Referral made to [facility] in [facility]CU in the event beds have become available. GERALD will await determination of acceptance. Plan: TCU, pending acceptance JOANIE Andrews
[2022-07-23] MEDS: Metoprolol(XL)Succ 25 MG Tablet PO (10:25)
[2022-07-23] MEDS: Senna/Docusate Sodium 1 Tablet 2 TABLET PO (10:25)
--- NOTE | 2022-07-23 16:31 | CASEMGMT ---
Social Work GERALD spoke with [facility] in TCU and a bed will be available for pt on Wednesday in TCU. GERALD updated pt and he is agreeable and feels he would benefit from short term stay in TCU prior to return home. Plan: TCU, Wednesday JOANIE Andrews
[2022-07-24] MEDS: Acetaminophen 500 MG Tablet 1000 MG PO ×2 (01:32→07:56)
[2022-07-24 04:27] VITALS: BP 126/76; PULSE 81; RESP 18; TEMP 36.7; O2SAT 94
[2022-07-24 06:20] LABS: Hemoglobin 11.1 g/dL (13.0-16.5); Mean Corp Hgb Conc 32.6 g/dL (32-36); Mean Platelet Vol. 10.3 fl (6.2-12.0); Platelet Count 207 K/mm3 (150-450); RBC Distribution Width CV 12.9 % (11.6-14.6); RBC Distribution Width SD 46.4 fl (35.1-43.9); Red Blood Count 3.47 M/mm3 (4.6-6.2); White Blood Count 8.5 K/mm3 (4.4-11.0)
--- NOTE | 2022-07-24 07:15 | PCM.PN.ORT ---
Subjective Subjective Seen and examined doing okay. No changes Objective Data Objective Data Vital Signs: Vital Signs Temp Pulse Resp BP Pulse Ox O2 Del Method O2 Flow Rate 98.1 F 81 18 126/76 H 94 Room Air 2 07/24/22 04:27 07/24/22 04:27 07/24/22 04:27 07/24/22 04:27 07/24/22 04:27 07/24/22 04:27 07/23/22 02:07 Oxygen Flow Rate (L/min) 2 Oxygen Delivery Method Room Air Weight: 262 lb 2.074 oz Body Mass Index (BMI) 38.7 Intake & Output: Intake and Output for Last 24 Hours 07/22/22 07/23/22 07/24/22 23:59 23:59 23:59 Intake Total 2170 / 2170 2450 / 2450 1000 / 1000 Output Total 800 / 800 1200 / 1200 Balance 1370 / 1370 1250 / 1250 1000 / 1000 Lab / Micro Data Result Diagrams: 07/24/22 05:34 07/22/22 07:10 Labs: Laboratory Results - last 24 hr 07/24/22 05:34: WBC 8.5, RBC 3.47 L, Hgb 11.1 L, Hct 34.0 L, MCV 98.0 H, MCH 32.0, MCHC 32.6, RDW Std Deviation 46.4 H, RDW Coeff of Levi 12.9, Plt Count 207, MPV 10.3 Micro: Microbiology 07/14/22 14:27 Nasal Secretion Nasal Screen MRSA/MSSA - Final Physical Exam Const alert, oriented x3 and no apparent distress General Appearance: cooperative Extremity Extremity Narrative: Dressings clean dry and intact the pin site dressing is detached on one side. Compartment soft neurovascularly intact 2 or 4 pedal pulses Assessment & Plan Assessment/Plan (1) S/P total hip arthroplasty: (2) Obesity (BMI 30.0-34.9): PLAN: Plan Postop day #3 left total hip arthroplasty PT OT weightbearing as tolerated hip precautions DVT prophylaxis SCDs CURTIS hose Eliquis 2.5 mg twice daily for 4 weeks Oxycodone 5 to 10 mg every 4 hours Okay to begin showering daily dressing should be removed prior to shower if not showering daily dressing should be removed and incisions cleaned with Betadine and new dressing reapplied daily. transfer to TCU .
--- NOTE | 2022-07-24 07:18 | PCM.DC ---
Discharge Instructions Diet Discharge Diet: No restrictions Dressing / Incision Call your doctor if you observe: Shortness of breath and Chest pain Additional Dressing/Incision Instructions:: Do not shower 72hrs. Begin daily showering warm water antibacterial soap postop day #3( 72hrs Post-operatively) and then daily. Leave the dressing on for 72 hours postoperatively then may remove prior to first shower and change dressing daily after this until no drainage for 2 consecutive days then may leave open to air. Follow hip precautions that were reviewed in hospital. Wear compression stockings, may remove at night. Start physical therapy as directed in hospital. Follow prescriptions instructions do not take any other pain medication or differ dosing without consulting your physician. Do not take oral NSAIDs until blood thinner has been completed , then may begin the day after completion if needed . Call Dr. Phillips's office with any concerns. Follow Up Care Please Follow Up With: Zeke Phillips DO When: 2 weeks. Test Results: Test results from this visit will be discussed in further detail at your follow-up appointment, if applicable. Discharge Plan Admission Admit Date/Time: 07/21/22 08:05 Primary Reason for Your Visit: Left total hip arthroplasty Attending Provider: Zeke Phillips Primary Care Provider: Blanco Collazo Discharge Orders/Prescriptions Prescriptions: New acetaminophen 500 mg Tablet 1,000 mg PO Q8H Qty: 100 1RF Eliquis 2.5 mg tablet 2.5 mg PO BID Qty: 60 0RF oxycodone 5 mg tablet 5 - 10 mg PO Q4H PRN (Reason: pain) 7 Days Qty: 60 0RF Continued metoprolol succinate 25 mg tablet extended release 24 hr 25 mg PO DAILY furosemide 20 mg tablet 20 mg PO DAILY triamterene-hydrochlorothiazid 1 CAP capsule 1 cap PO DAILY Label Comments: blood pressure multivitamin with folic acid [Thera] 1 TABLET tablet 1 tab PO DAILY Label Comments: supplement lisinopril 20 MG tablet 20 mg PO DAILY No Action meloxicam 15 mg tablet 15 mg PO DAILY Referrals / Follow Up: Blanco Collazo MD [Primary Care Provider] - Disposition Disposition (needs filled in before D/C Order can be placed): Custodial Facility
--- NOTE | 2022-07-24 07:33 | DS.PCM_ITS ---
Providers Date of Admission: 07/21/22 Primary Care Physician: Dr. Blanco Collazo MD Reason For Visit: LT TOTAL HIP W SERENE Diagnosis Discharge Diagnosis (1) S/P total hip arthroplasty: Status: Acute Code(s): Z96.649 - Presence of unspecified artificial hip joint (2) Obesity (BMI 30.0-34.9): Status: Chronic Code(s): E66.9 - Obesity, unspecified Plan Postop day #3 left total hip arthroplasty PT OT weightbearing as tolerated hip precautions DVT prophylaxis SCDs CURTIS hose Eliquis 2.5 mg twice daily for 4 weeks Oxycodone 5 to 10 mg every 4 hours Okay to begin showering daily dressing should be removed prior to shower if not showering daily dressing should be removed and incisions cleaned with Betadine and new dressing reapplied daily. transfer to TCU . Medications at Discharge Home Medications multivitamin with folic acid 400 mcg tablet (Thera) 1 tab PO DAILY SUPPLEMENT 1 04/01/14 triamterene 37.5 mg-hydrochlorothiazide 25 mg capsule 1 cap PO DAILY HTN 01/29/15 lisinopril 20 mg tablet 20 mg PO DAILY HTN 03/16/20 furosemide 20 mg tablet 20 mg PO DAILY WATER PILL 06/05/22 meloxicam 15 mg tablet 15 mg PO DAILY PAIN 06/05/22 metoprolol succinate 25 mg tablet,extended release 24 hr 25 mg PO DAILY HTN 06/05/22 acetaminophen 500 mg tablet 1,000 mg PO Q8H #100 tabs 07/24/22 apixaban 2.5 mg tablet (Eliquis) 2.5 mg PO BID #60 tabs 07/24/22 oxycodone 5 mg tablet 5 - 10 mg PO Q4H PRN pain 7 days #60 tabs 07/24/22 Hospital Course Summary of Care Provided Hospital Course: Patient with long-standing history of severe [left] hip DJD who is failed conservative treatment. Patient underwent left total hip arthroplasty day of admission. Patient did receive pre-and postoperative antibiotics which were discontinued within 23 hours postoperatively. Patient did receive spinal anesthesia and postoperatively her pain was controlled with both IV and p.o. pain medication. Patient did receive 2 g of tranexamic acid. Her hemoglobin and hematocrit were monitored postoperatively as well as her vital signs and she did not require any blood transfusion. Dressing will be changed daily beginning postop day #3 before shower will be removed and replaced after. Pt was started on Eliquis 2.5 mg twice daily postop for which will continue for 4 weeks post operatively. Patient was seen by physical therapy was ambulating the halls well. patient will be discharged to transitional care unit as he is obese elderly and lives alone and does have a split level home situation which re quires stairs, he will start outpatient physical therapy when discharged from transitional care unit. will follow-up in the office in 2 weeks. No intrahospital complications. Weight / BMI Weight Weight: 262 lb 2.074 oz Body Mass Index (BMI) 38.7 ABG / Lab / Microbiology Data Result Diagrams: 07/24/22 05:34 07/22/22 07:10 Laboratory: Laboratory Results - last 24 hr 07/24/22 05:34: WBC 8.5, RBC 3.47 L, Hgb 11.1 L, Hct 34.0 L, MCV 98.0 H, MCH 32.0, MCHC 32.6, RDW Std Deviation 46.4 H, RDW Coeff of Levi 12.9, Plt Count 207, MPV 10.3 Microbiology: Microbiology 07/14/22 14:27 Nasal Secretion Nasal Screen MRSA/MSSA - Final D/C Instructions Discharge Diet: No restrictions Call your doctor if you observe: Shortness of breath and Chest pain Additional Dressing/Incision Instructions: Do not shower 72hrs. Begin daily showering warm water antibacterial soap postop day #3( 72hrs Post-operatively) and then daily. Leave the dressing on for 72 hours postoperatively then may remove prior to first shower and change dressing daily after this until no drainage for 2 consecutive days then may leave open to air. Follow hip precautions that were reviewed in hospital. Wear compression stockings, may remove at night. Start physical therapy as directed in hospital. Follow prescriptions instructions do not take any other pain medication or differ dosing without consulting your physician. Do not take oral NSAIDs until blood thinner has been completed , then may begin the day after completion if needed . Call Dr. Phillips's office with any concerns. Please Follow Up With: Zeke Phillips DO When: 2 weeks. Meaningful Use Info Meaningful Use Diagnoses (Choose all that apply): None applicable Discharge Plan Admission Admit Date/Time: 07/21/22 08:05 Primary Reason for Your Visit: Left total hip arthroplasty Attending Provider: Zeke Phillips Primary Care Provider: Blanco Collazo Discharge Orders/Prescriptions Prescriptions: New acetaminophen 500 mg Tablet 1,000 mg PO Q8H Qty: 100 1RF Eliquis 2.5 mg tablet 2.5 mg PO BID Qty: 60 0RF oxycodone 5 mg tablet 5 - 10 mg PO Q4H PRN (Reason: pain) 7 Days Qty: 60 0RF Continued metoprolol succinate 25 mg tablet extended release 24 hr 25 mg PO DAILY furosemide 20 mg tablet 20 mg PO DAILY triamterene-hydrochlorothiazid 1 CAP capsule 1 cap PO DAILY Label Comments: blood pressure multivitamin with folic acid [Thera] 1 TABLET tablet 1 tab PO DAILY Label Comments: supplement lisinopril 20 MG tablet 20 mg PO DAILY No Action meloxicam 15 mg tablet 15 mg PO DAILY Referrals / Follow Up: Blanco Collazo MD [Primary Care Provider] - Disposition Disposition (needs filled in before D/C Order can be placed): Assisted Facility
[2022-07-24 07:42] VITALS: O2SAT 94
[2022-07-24] MEDS: APIXABAN 2.5 MG TABLET (WCH) PO (07:55)
[2022-07-24 07:56] VITALS: PULSE 81
[2022-07-24] MEDS: Metoprolol(XL)Succ 25 MG Tablet PO (07:56)
[2022-07-24] MEDS: Furosemide 20 MG Tablet PO (07:57)
[2022-07-24] MEDS: Triamterene 37.5MG/Hctz 25MG Capsule 1 CAP PO (07:57)
[2022-07-24] MEDS: Lisinopril 20 MG Tablet PO (07:57)
[2022-07-24 08:31] VITALS: BP 127/64; PULSE 81; RESP 16; TEMP 36.8; O2SAT 94
--- NOTE | 2022-07-24 08:50 | CASEMGMT ---
Social Work Per physician, pt is ready for discharge to TCU today. Orders to be faxed to TCU. [facility] in TCU updated. SW met with pt and updated that pt will transfer to TCU today once covid test and results are obtained. Pt agreeable to d/c plan. Disposition: TCU, skilled level of care JOANIE Andrews
--- NOTE | 2022-07-24 10:02 | PHA.DC.MR ---
Pharmacy Service has performed discharge medication reconciliation for this patient. The patient's discharge medication list was reviewed for discrepancies and discrepancies were resolved. Home Medications multivitamin with folic acid 400 mcg tablet (Thera) 1 tab PO DAILY SUPPLEMENT 01/29/15 triamterene 37.5 mg-hydrochlorothiazide 25 mg capsule 1 cap PO DAILY HTN 01/29/15 lisinopril 20 mg tablet 20 mg PO DAILY HTN 03/16/20 furosemide 20 mg tablet 20 mg PO DAILY WATER PILL 06/05/22 meloxicam 15 mg tablet 15 mg PO DAILY PAIN 06/05/22 metoprolol succinate 25 mg tablet,extended release 24 hr 25 mg PO DAILY HTN 06/05/22 acetaminophen 500 mg tablet 1,000 mg PO Q8H #100 tabs 07/24/22 apixaban 2.5 mg tablet (Eliquis) 2.5 mg PO BID #60 tabs 07/24/22 oxycodone 5 mg tablet 5 - 10 mg PO Q4H PRN pain 7 days #60 tabs 07/24/22
== END 2022-07-24 11:06 | DRG 470 ==
LOC: ACINP 08:06 → MS3 16:20
PROVIDERS: Admitting Provider Orthopaedic Surgery; PCP Family Medicine; Referring Provider Orthopaedic Surgery; Visit Provider Orthopaedic Surgery
PROC: 8E0Y0CZ Robotic Assisted Procedure of Lower Extremity, Open Approach (ICD-10-PCS; CPT 27130; principal; 2022-07-21 10:15)
DX: M16.12 Unilateral primary osteoarthritis, left hip (principal); Z68.41 Body mass index [BMI] 40.0-44.9, adult; E66.9 Obesity, unspecified; M51.37 Other intervertebral disc degeneration, lumbosacral region
CPT/HCPCS: 36415; 73502; 80048; 80053; 82962; 82985; 83036; 83735; 85025; 85027; 85610; 85730; 86850; 86900; 86901; 87081; 87426; 88305; 88311; 94668; 97110; 97116; 97162; 97166; 97530; 97535; C1776; J7050; J7120; A4216; J2405; J3475

== ENCOUNTER 2022-07-24 11:26 | Inpatient (IN) | payer MEDICARE, OTHER, SELFPAY ==
[2022-07-24 11:34] VITALS: BP 125/75; PULSE 95; RESP 16; TEMP 36.8; O2SAT 98; BMI 38.9
[2022-07-24 11:52] VITALS: BMI 38.9
[2022-07-24] MEDS: Acetaminophen 500 MG Tablet 1000 MG PO ×2 (13:27→20:33)
[2022-07-24 15:52] VITALS: BP 99/53; PULSE 94; RESP 15; TEMP 37.1; O2SAT 91
--- NOTE | 2022-07-24 16:41 | CASEMGMT ---
Social Work Met with patient to complete initial assessment. [facility] present and pt agreeable for [facility] to remain. Introduced self and role. Discussed code status and MOLST form. Pt wishes to be DNR-CCA, no intubation. Nursing notified. MOLST placed in chart. Educated to Medicare benefit. Pt's goal is to return home in a few days, once stronger and complete steps safely. SW to continue to follow for DC planning. Shelia Bustamante, AUTOMOBILE DETAILER EXERCISE PHYSIOLOGIST
[2022-07-24] MEDS: APIXABAN 2.5 MG TABLET (WCH) PO (17:35)
--- NOTE | 2022-07-24 19:43 | HP.PCM_ITS ---
HPI - General General Date of Admission: 07/24/22 Date of Service: 07/24/22 Chief Complaint: Here for rehabilitation. HPI Narrative ASHVIN MASTERS, is a 76 Male who presents with followin07/21/2022 Dr. Phillips performed left total hip arthroplasty. 07/22/2022 Pain okay, urinating okay, Eating okay. 07/23/2022 Pain improved. PT/OT. Eliquis 2.5mg twice daily x 4 weeks for DVT prophylaxis. Oxycodone 5-10mg q4h prn pain control. 07/24/2022 Admit to TCU with debility, here for rehabilitation, strengthening, prior to discharge home alone. [facility] Medical History (Updated 07/24/22 @ 19:[address] Chema Armendariz MD) Alcohol use Arthritis Chronic cough COVID-19 Former smoker History of echocardiogram History of stress test Kidney stone Leg cramps Normal colonoscopy Pneumonia Wears glasses Home Medications multivitamin with folic acid 400 mcg tablet (Thera) 1 tab PO DAILY SUPPLEMENT 01/29/15 [History Last Taken 08/13/15] triamterene 37.5 mg-hydrochlorothiazide 25 mg capsule 1 cap PO DAILY HTN 01/29/15 [History Last Taken 08/13/15] lisinopril 20 mg tablet 20 mg PO DAILY HTN 03/16/20 [History Last Taken Unknown] furosemide 20 mg tablet 20 mg PO DAILY WATER PILL 06/05/22 [History Last Taken Unknown] meloxicam 15 mg tablet 15 mg PO DAILY PAIN 06/05/22 [History Last Taken Unknown] metoprolol succinate 25 mg tablet,extended release 24 hr 25 mg PO DAILY HTN 06/05/22 [History Last Taken Unknown] acetaminophen 500 mg tablet 1,000 mg PO Q8H pain 07/24/22 [History Last Taken Unknown] apixaban 2.5 mg tablet (Eliquis) 2.5 mg PO BID blood thinner 07/24/22 [History Last Taken Unknown] oxycodone 5 mg tablet 5 - 10 mg PO Q4H PRN pain 7 days #60 tabs 07/24/22 [Rx Last Taken Unknown] Allergy/AdvReac Type Severity Reaction Status Date / Time No Known Allergies Allergy Verified 06/05/22 09:19 Family History Brother Myocardial infarction 20 years ago Surgical History (Updated 07/24/22 @ 19:[address] Chema Armendariz MD) History of left cataract surgery History of right cataract surgery History of total left hip arthroplasty History of total right knee replacement Social History (Updated 07/24/22 @ 19:[address] Chema Armendariz MD) household members: none Smoking Status: Former smoker alcohol intake: current substance use type: does not use what type of physical activity do you participate in: walking ROS Constitutional Constitutional: Denies chills, fever(s) or weight gain ENT HEENT: Denies headache(s), nasal congestion or nasal discharge Cardiovascular Cardiovascular: Denies chest pain or palpitations Respiratory/Chest Respiratory/Chest: Denies cough, excessive phlegm production or shortness of breath with exertion Gastrointestinal Gastrointestinal: Denies abdominal pain, nausea or vomiting Genitourinary Genitourinary: Denies dysuria Musculoskeletal Musculoskeletal: Denies joint pain or joint swelling Integumentary Integumentary: Denies rash or wounds Neurologic Neurologic: Denies focal weakness, numbness or tingling Psychiatric Psychiatric: Denies anxiety, auditory hallucinations, depression, homicidal ideation or suicidal ideation Vital Signs Vital Signs Vital Signs: 07/24/22 11:34 07/24/22 11:34 07/24/22 15:52 Temperature 98.2 F 98.8 F Temperature Source Temporal Temporal Pulse Rate 95 94 Pulse Rhythm Regular Pulse Strength Normal (2+) Respiratory Rate 16 15 Respiratory Effort Normal Non-Labored Respiratory Depth Normal Respiratory Pattern Normal Blood Pressure 125/75 H 99/53 L Blood Pressure Mean 91 68 Blood Pressure Source Monitor Monitor Blood Pressure Position Semi-Fowlers Supine Blood Pressure Location Left Arm Left Arm Pulse Ox 98 91 Oxygen Delivery Method Room Air Room Air Room Air Weight Weight: 119.748 kg Body Mass Index (BMI) 38.9 Physical Exam Const alert General Appearance: cooperative HEENT normocephalic Eyes PERRL and EOMs intact bilaterally Neck supple, no JVD and no carotid bruits Resp normal respiratory effort, normal air movement and clear to auscultation bilaterally Cardio regular rate and regular rhythm GI normal to inspection, nondistended, normoactive bowel sounds, non-tender and non-distended Extremity normal capillary refill General Extremity: Negative for edema Skin no rashes or lesions noted General Skin Exam: no breakdown Psych affect normal Appearance: appropriate Assessment & Plan Assessment/Plan (1) Debility: (2) Degenerative joint disease of left hip: (3) S/P total hip arthroplasty: (4) Hypertension: QUALIFIERS: Hypertension type: essential hypertension Qualified Code(s): I10 - Essential (primary) hypertension (5) Obesity (BMI 30.0-34.9): PLAN: Plan 76 year old male with below past medical history hospitalized for left total hip arthroplasty 07/21/[address] Phillips, admitted to TCU with debility, here for rehabilitation, strengthening, prior to discharge home alone. * Debility - PT/OT. * Pain - Tylenol 1000mg q8, Oxycodone 5-10mg q4h prn. * Bowel - senna/colace 2 tablets bid, Dulcolax 10mg pr x 1 prn, MOM 30ml po x 1 prn. * Adult immunization - Administer pneumonia vaccine, covid19 vaccine, flu v accine as appropriate. * DVT prophylaxis - Eliquis 2.5mg bid thru 08/20/2022. * Hypertension - Metoprolol succinate 25mg daily, Lisinopril 20mg daily, Furosemide 20mg daily. * Nutrition - MVI 1 tablet daily.
[2022-07-25] MEDS: Acetaminophen 500 MG Tablet 1000 MG PO ×3 (05:12→21:01)
[2022-07-25] MEDS: APIXABAN 2.5 MG TABLET (WCH) PO ×2 (05:13→17:38)
[2022-07-25] MEDS: Lisinopril 20 MG Tablet PO (05:13)
[2022-07-25] MEDS: Furosemide 20 MG Tablet PO (05:13)
[2022-07-25 08:07] LABS: Absolute Lymphocyte Count 1.43 X10^3/uL (0.83-4.51); Basophil# 0.06 X10^3/uL; Basophil% 0.6 % (0-1); Eosinophil# 0.17 X10^3/uL; Eosinophils% 1.7 % (0-5); Hematocrit 35.9 % (40-54); Hemoglobin 11.5 g/dL (13.0-16.5); Lymphocyte # 1.43 X10^3/ul (0.83-4.51); Lymphocyte % 14.6 % (19-41); Mean Corpuscular Hgb 31.6 pg (27.0-32.0); Mean Corpuscular Volume 98.6 fL (80-94); Mean Platelet Vol. 10.2 fl (6.2-12.0); Monocyte# 1.06 X10^3/uL; Monocyte% 10.8 % (0-10); NRBC Flagged by Analyzer 0 % (0-5); Neutrophil # 6.99 X10^3/uL (2.7-7.7); Neutrophil % 71.7 % (47-70); Platelet Count 265 K/mm3 (150-450); RBC Distribution Width CV 12.8 % (11.6-14.6); RBC Distribution Width SD 46.4 fl (35.1-43.9); Red Blood Count 3.64 M/mm3 (4.6-6.2); White Blood Count 9.8 K/mm3 (4.4-11.0)
[2022-07-25 08:15] LABS: Anion Gap 6 (5-15); BUN 21 mg/dL (7-18); BUN/Creat Ratio 22.8 RATIO (10-20); Chloride 100 mmol/L (98-107); Creatinine, Serum 0.92 mg/dL (0.70-1.30); EST Glomerular Filtration Rate 85 mL/min (>60); Est Glom Filt Rate - Afr Amer 103 mL/min (>60); Estimated Creatinine Clearance 69.38 ml/min; Glucose 127 mg/dL (74-106); Potassium 3.4 mmol/L (3.5-5.1); Sodium Level 137 mmol/L (136-145)
[2022-07-25] MEDS: Potassium Chloride Oral Tablet 20 MEQ PO (08:39)
[2022-07-25] MEDS: Multivitamins,Therapeutic Tablet 1 TABLET PO (08:39)
[2022-07-25] MEDS: Tuberculin,Purif.prot.deriv. 50 TU/ML Vial 0.1 ML ID (12:59)
[2022-07-25 13:45] VITALS: PULSE 89; RESP 16; O2SAT 93
[2022-07-25 15:49] VITALS: BP 93/48; PULSE 94; RESP 16; TEMP 35.8; O2SAT 91
[2022-07-25] MEDS: Nystatin Powder 15gm Bottle 1 APPLIC TOPICAL (17:37)
[2022-07-25] MEDS: Senna/Docusate Sodium 1 Tablet 2 TABLET PO (17:38)
--- NOTE | 2022-07-25 19:38 | NURSING ---
DNR -CCA no intubation confirmed with patient, form signed and purple wrist band placed.
[2022-07-26 05:00] VITALS: BP 112/63; PULSE 87
[2022-07-26] MEDS: Nystatin Powder 15gm Bottle 1 APPLIC TOPICAL ×2 (05:37→17:20)
[2022-07-26 05:38] VITALS: BP 112/63; PULSE 87
[2022-07-26] MEDS: Lisinopril 20 MG Tablet PO (05:38)
[2022-07-26] MEDS: Acetaminophen 500 MG Tablet 1000 MG PO ×3 (05:38→20:36)
[2022-07-26] MEDS: Metoprolol(XL)Succ 25 MG Tablet PO (05:38)
[2022-07-26] MEDS: Furosemide 20 MG Tablet PO (05:38)
[2022-07-26] MEDS: APIXABAN 2.5 MG TABLET (WCH) PO ×2 (05:39→17:20)
[2022-07-26 07:02] LABS: Anion Gap 5 (5-15); BUN 30 mg/dL (7-18); BUN/Creat Ratio 32.4 RATIO (10-20); Calcium,Total 8.7 mg/dL (8.5-10.1); Chloride 101 mmol/L (98-107); Creatinine, Serum 0.92 mg/dL (0.70-1.30); EST Glomerular Filtration Rate 85 mL/min (>60); Est Glom Filt Rate - Afr Amer 102 mL/min (>60); Estimated Creatinine Clearance 69.38 ml/min; Glucose 124 mg/dL (74-106); Potassium 3.6 mmol/L (3.5-5.1); Sodium Level 137 mmol/L (136-145)
[2022-07-26] MEDS: Multivitamins,Therapeutic Tablet 1 TABLET PO (07:56)
--- NOTE | 2022-07-26 11:27 | NURSING ---
During Nurse rounds, Pt found walking in room with walker alone. Educated pt on importance of using call light when he needs help and waiting for staff to assist. Pt raised his voice at this nurse, stating that he is fine and doesn't want to be here and do nothing all day. Pt requested he would like to move more. This nurse walked pt with walker around unit, pt did well. Pt in recliner in his room, voiced understanding that staff is here to keep him safe.
[2022-07-26 14:02] VITALS: BP 91/44; PULSE 63; RESP 22; TEMP 35.7; O2SAT 94
[2022-07-26] MEDS: Senna/Docusate Sodium 1 Tablet 2 TABLET PO (17:20)
[2022-07-26 20:20] VITALS: PULSE 90; RESP 16; O2SAT 92
[2022-07-27 05:00] VITALS: BP 110/65; PULSE 85
[2022-07-27 05:38] VITALS: BP 110/65; PULSE 85
[2022-07-27] MEDS: Furosemide 20 MG Tablet PO (05:38)
[2022-07-27] MEDS: APIXABAN 2.5 MG TABLET (WCH) PO ×2 (05:38→17:13)
[2022-07-27] MEDS: Metoprolol(XL)Succ 25 MG Tablet PO (05:38)
[2022-07-27] MEDS: Acetaminophen 500 MG Tablet 1000 MG PO ×3 (05:38→19:48)
[2022-07-27] MEDS: Lisinopril 20 MG Tablet PO (05:38)
[2022-07-27] MEDS: Nystatin Powder 15gm Bottle 1 APPLIC TOPICAL ×2 (05:42→17:14)
[2022-07-27] MEDS: Multivitamins,Therapeutic Tablet 1 TABLET PO (08:40)
--- NOTE | 2022-07-27 09:21 | NURSING ---
Floor Supervisor Note; Activity Asset: Constantin Barrios is independent in his choice of daily activities. Jesus prefers to do independent activities in his room such as tv, reading using his smartphone and tablet. when not in therapy he enjoys visit w/friends and family.
--- NOTE | 2022-07-27 10:47 | PCM.PN.DRR ---
TCU RX Drug Regimen Review Subjective: TCU admission. [address] [facility] on 07/21 for left total hip arthroplasty with Dr. Phillips. Admitted to TCU 07/24 with debility for rehabilitation and strengthening. Objective: Allergies No Known Allergies Allergy (Verified 06/05/22 09:19) Current Medications Generic Name Dose Route Start Last Admin Trade Name Freq PRN Reason Stop Dose Admin Acetaminophen 1,000 mg 07/24/22 12:00 07/27/22 05:38 Acetaminophen 500 Mg Tablet PO 1,000 mg Q8H AYANA Administration Apixaban 2.5 mg 07/24/22 18:00 07/27/22 05:38 Apixaban 2.5 Mg Tablet ([facility]) PO 08/20/22 23:59 2.5 mg BID AYANA Administration Bisacodyl 10 mg 07/24/22 19:52 Bisacodyl 10 Mg Suppository RC X1 PRN Constipation Furosemide 20 mg 07/25/22 06:00 07/27/22 05:38 Furosemide 20 Mg Tablet PO 20 mg DAILY AYANA Administration Sodium Chloride 250 mls @ 15 mls/hr 07/24/22 12:28 IV .[id number] PRN Saline Flush Sodium Chloride 250 mls @ 15 mls/hr 07/24/22 12:28 IV .[id number] PRN Additional IVPB Infusion Lisinopril 20 mg 07/25/22 06:00 07/27/22 05:38 Lisinopril 20 Mg Tablet PO 20 mg DAILY AYANA Administration Magnesium Hydroxide 30 ml 07/24/22 19:52 Magnesium Hydroxide 30 Ml Udc PO X1 PRN Constipation Metoprolol Succinate 25 mg 07/25/22 06:00 07/27/22 05:38 Metoprolol(Xl)Succ 25 Mg Tablet PO 25 mg DAILY AYANA Administration Multivitamins 1 tablet 07/25/22 08:00 07/27/22 08:40 Multivitamins,Therapeutic Tablet PO 1 tablet DAILYCM AYANA Administration Nystatin 1 applic 07/25/22 18:00 07/27/22 05:42 Nystatin Powder 15gm Bottle TOPICAL 1 applic BID AYANA Administration Protocol Oxycodone HCl 5 - 10 mg 07/24/22 11:49 Oxycodone 5 Mg Tablet PO Q4H PRN PAIN SCORE 4-10 Senna/Docusate Sodium 2 tablet 07/24/22 20:00 07/27/22 05:41 Senna/Docusate Sodium 1 Tablet PO Not Given BID AYANA Sodium Chloride 10 - 40 ml 07/24/22 12:28 0.9% Saline Lock 10 Ml Syringe IV UD PRN SALINE FLUSH Tuberculin PPD 0.1 ml 08/01/22 10:00 Tuberculin,Purif.Prot.Deriv. 50 Tu/Ml Vial ID 08/01/22 10:01 X1 ONE Problem List (Last Reviewed 07/24/22 @ 19:[address] Chema Armendariz MD) Debility (Acute) S/P total hip arthroplasty (Acute) Obesity (BMI 30.0-34.9) (Chronic) Hypertension (Chronic) Degenerative joint disease of left hip (Acute) Vital Signs Temp Pulse Resp BP Pulse Ox O2 Del Method 96.3 F L 85 16 110/65 92 Room Air 07/26/22 14:02 07/27/22 05:38 07/26/22 20:20 07/27/22 05:38 07/26/22 20:20 07/26/22 20:20 Oxygen Delivery Method Room Air Weight: 119.748 kg Body Mass Index (BMI) 38.9 Sodium 137 mmol/L (136-145) 07/26/22 06:17 Potassium 3.6 mmol/L (3.5-5.1) 07/26/22 06:17 Chloride 101 mmol/L (98-107) 07/26/22 06:17 Carbon Dioxide 31.0 mmol/L (21.0-32.0) 07/26/22 06:17 Anion Gap 5 (5-15) 07/26/22 06:17 BUN 30 mg/dL (7-18) H 07/26/22 06:17 Creatinine 0.92 mg/dL (0.70-1.30) 07/26/22 06:17 Est GFR (MDRD) Af Amer 102 mL/min (>60) 07/26/22 06:17 Est GFR (MDRD) Non-Af 85 mL/min (>60) 07/26/22 06:17 BUN/Creatinine Ratio 32.4 RATIO (10-20) H 07/26/22 06:17 Glucose 124 mg/dL (74-106) H 07/26/22 06:17 Assessment/Plan: 1. Pain: acetaminophen 1000mg PO Q8, oxycodone 5 - 10mg PO Q4H PRN pain (4-10). Please continue to monitor pain, oversedation, increased/decreased constipation, PRN medication use and respiratory depression. Pt has had 0 doses of oxycodone. 2. Bowel: senna/colace 2 T PO BID, bisacodyl 10mg HI x 1 PRN constipation, MOM 30mL PO x 1 PRN constipation. Please continue to monitor increased/decreased constipation/diarrhea, PRN medication use. PT has had 0 doses of MOM and bisacodyl. Pt has no recorded bowel movement to date. Please consider MOM if no bowel movement in 2 days. 3. DVT prophylaxis: apixaban 2.5mg PO BID thru 08/20/22. Please continue to monitor for s/s of bleeding and bruising, s/s of DVT, H/H (Hgb: 11.9, Hct: 35.9). 4. Hypertension: lisinopril 20mg PO daily, metoprolol succinate 25mg PO daily, furosemide 20mg PO daily. Please continue to monitor BP (110/65), HR (85), cough, potassium (3.6mmol/L), sodium (137mmol/L), Renal function (CrCl: 69.38). 5. Skin irritation: nystatin 1application topical BID. Please continue to monitor for skin irritation/redness. 6. Nutrition: Multivitamin 1 T PO daily. Please continue to monitor. Assessment/Plan for indications treated with psychotropic medications: None Medical chart and medication regimen reviewed. The following medication irregularities or issues were identified: None Date of Note:: 07/27/22
[2022-07-27 14:13] VITALS: BP 92/47; PULSE 80; RESP 16; TEMP 36.1; O2SAT 95
[2022-07-27] MEDS: Senna/Docusate Sodium 1 Tablet 2 TABLET PO (17:14)
[2022-07-28] MEDS: Acetaminophen 500 MG Tablet 1000 MG PO ×3 (05:38→19:24)
[2022-07-28] MEDS: Furosemide 20 MG Tablet PO (05:38)
[2022-07-28 05:39] VITALS: BP 102/52; PULSE 83
[2022-07-28] MEDS: Metoprolol(XL)Succ 25 MG Tablet PO (05:39)
[2022-07-28] MEDS: APIXABAN 2.5 MG TABLET (WCH) PO ×2 (05:39→17:21)
[2022-07-28] MEDS: Lisinopril 20 MG Tablet PO (05:39)
[2022-07-28] MEDS: Nystatin Powder 15gm Bottle 1 APPLIC TOPICAL ×2 (05:43→17:22)
[2022-07-28] MEDS: Multivitamins,Therapeutic Tablet 1 TABLET PO (08:06)
--- NOTE | 2022-07-28 10:14 | CASEMGMT ---
Social Work Followed up with pt on progress and DC plans. Pt has POC mtg scheduled fro 07/29 and requesting DC 07/30. IDT agreeable. SW educated to [facility] vs OP therapy. Pt requesting OP PT at [facility]. CASEY to transport home. No DME needs. Faxed referral to [facility]. Plan; DC home alone 07/30, [facility] PT Shelia Bustamante, OLERICULTURIST TRANSLATION DIRECTOR
[2022-07-28 14:39] VITALS: BP 102/56; PULSE 75; RESP 16; TEMP 36.1; O2SAT 94
[2022-07-28 15:01] VITALS: BMI 39.5
[2022-07-28] MEDS: Senna/Docusate Sodium 1 Tablet 2 TABLET PO (17:21)
[2022-07-28 19:28] VITALS: O2SAT 95
--- NOTE | 2022-07-28 20:46 | DS.PCM_ITS ---
Providers Date of Admission: 07/24/22 Primary Care Physician: Dr. Blanco Collazo MD Reason For Visit: LEFT TOTAL HIP Diagnosis Discharge Diagnosis (1) Debility: Status: Acute Code(s): R53.81 - Other malaise (2) Degenerative joint disease of left hip: Status: Acute Code(s): M16.12 - Unilateral primary osteoarthritis, left hip (3) S/P total hip arthroplasty: Status: Acute Code(s): Z96.649 - Presence of unspecified artificial hip joint (4) Hypertension: Status: Chronic Code(s): I10 - Essential (primary) hypertension Qualifiers: Hypertension type: essential hypertension Qualified Code(s): I10 - Essential (primary) hypertension (5) Obesity (BMI 30.0-34.9): Status: Chronic Code(s): E66.9 - Obesity, unspecified Plan 76 year old male with below past medical history hospitalized for left total hip arthroplasty 07/21/[address] Phillips, admitted to TCU with debility, here for rehabilitation, strengthening, prior to discharge home alone. * Debility - PT/OT. * Pain - Tylenol 1000mg q8, Oxycodone 5-10mg q4h prn. * Bowel - senna/colace 2 tablets bid, Dulcolax 10mg pr x 1 prn, MOM 30ml po x 1 prn. * Adult immunization - Administer pneumonia vaccine, covid19 vaccine, flu v accine as appropriate. * DVT prophylaxis - Eliquis 2.5mg bid thru 08/20/2022. * Hypertension - Metoprolol succinate 25mg daily, Lisinopril 20mg daily, Furosemide 20mg daily. * Nutrition - MVI 1 tablet daily. Medications at Discharge Home Medications multivitamin with folic acid 400 mcg tablet (Thera) 1 tab PO DAILY SUPPLEMENT 01/29/15 lisinopril 20 mg tablet 20 mg PO DAILY HTN 03/16/20 furosemide 20 mg tablet 20 mg PO DAILY WATER PILL 06/05/22 meloxicam 15 mg tablet 15 mg PO DAILY PAIN 06/05/22 metoprolol succinate 25 mg tablet,extended release 24 hr 25 mg PO DAILY HTN 06/05/22 acetaminophen 500 mg tablet 1,000 mg PO Q8H pain 07/24/22 apixaban 5 mg tablet (Eliquis) 2.5 mg PO BID 21 days #21 tabs 07/28/22 Hospital Course Operations total hip replacement (Left.) Procedures None Summary of Care Provided Minutes Spent on Discharge: 35 Hospital Course: 76 year old male with below past medical history hospitalized for left total hip arthroplasty 07/21/[address] Phillips, admitted to TCU with debility, here for rehabilitation, strengthening, prior to discharge home alone. Discharge home alone 07/30/2022, [facility]. Physical Exam Const alert General Appearance: cooperative HEENT normocephalic Eyes PERRL and EOMs intact bilaterally Neck supple, no JVD and no carotid bruits Resp normal respiratory effort, normal air movement and clear to auscultation bilaterally Cardio regular rate and regular rhythm GI normal to inspection, nondistended, normoactive bowel sounds, non-tender and non-distended Extremity normal capillary refill General Extremity: Negative for edema Skin no rashes or lesions noted General Skin Exam: no breakdown Psych affect normal Appearance: appropriate Weight / BMI Weight Weight: 121.018 kg Body Mass Index (BMI) 39.5 ABG / Lab / Microbiology Data Result Diagrams: 07/25/22 07:31 07/26/22 06:17 D/C Instructions Discharge Diet: No restrictions Discharge Activity: Return to Normal Activity, May Shower and Use Walker Weight Bearing Status: Weight bearing as tolerated Call your doctor if you observe: Fever of 101 or Higher, Inability to urinate, Inability to have a bowel movement, Using more than 1 pad per hour, Shortness of breath, Dizziness, Swelling in the ankles, Chest pain and Uncontrolled pain Additional Instructions: Discharge home alone 07/30/2022, [facility] PT. Please Follow Up With: Zeke Phillips, DO Meaningful Use Info Meaningful Use Diagnoses (Choose all that apply): None applicable Discharge Plan Admission Admit Date/Time: 07/24/22 11:26 Primary Reason for Your Visit: Debility. Attending Provider: Chema Armendariz Chi Primary Care Provider: Blanco Collazo Instructions Additional Instructions / Restrictions: Discharge home alone 07/30/2022, [facility] PT. Discharge Orders/Prescriptions Prescriptions: New Eliquis 5 mg Tablet 2.5 mg PO BID 21 Days Qty: 21 0RF Continued metoprolol succinate 25 mg tablet extended release 24 hr 25 mg PO DAILY furosemide 20 mg tablet 20 mg PO DAILY multivitamin with folic acid [Thera] 1 TABLET tablet 1 tab PO DAILY Label Comments: supplement lisinopril 20 MG tablet 20 mg PO DAILY acetaminophen 500 mg tablet 1,000 mg PO Q8H Discontinued triamterene-hydrochlorothiazid 1 CAP capsule 1 cap PO DAILY Label Comments: blood pressure oxycodone 5 mg tablet 5 - 10 mg PO Q4H PRN (Reason: pain) 7 Days Qty: 60 0RF Eliquis 2.5 mg tablet 2.5 mg PO BID No Action meloxicam 15 mg tablet 15 mg PO DAILY Referrals / Follow Up: Zeke Phillips DO [Med Staff - Active Staff] - 08/03/22 10:15 am Blanco Collazo MD [Primary Care Provider] - 08/05/22 11:00 am Disposition Disposition (needs filled in before D/C Order can be placed): Home, Self Care
[2022-07-29] MEDS: Acetaminophen 500 MG Tablet 1000 MG PO ×3 (05:31→20:03)
[2022-07-29 05:32] VITALS: BP 126/73; PULSE 92
[2022-07-29] MEDS: Metoprolol(XL)Succ 25 MG Tablet PO (05:32)
[2022-07-29] MEDS: APIXABAN 2.5 MG TABLET (WCH) PO ×2 (05:32→17:33)
[2022-07-29] MEDS: Furosemide 20 MG Tablet PO (05:32)
[2022-07-29] MEDS: Lisinopril 20 MG Tablet PO (05:32)
[2022-07-29] MEDS: Nystatin Powder 15gm Bottle 1 APPLIC TOPICAL (05:43)
[2022-07-29 06:52] VITALS: O2SAT 93
[2022-07-29] MEDS: Multivitamins,Therapeutic Tablet 1 TABLET PO (08:33)
--- NOTE | 2022-07-29 13:15 | CASEMGMT ---
Social Work IDT met with patient and CASEY then son via conference call for care plan meeting. Discussed patient's progress in PT/OT/SN. Confirmed pt will DC home 07/30 with [facility]. BIMS () and PHQ-9 (03/06) completed for MDS assessment. MICHAEL MoffettW
[2022-07-29 15:29] VITALS: BP 96/62; PULSE 87; RESP 20; TEMP 36.4; O2SAT 92
[2022-07-30] MEDS: Acetaminophen 500 MG Tablet 1000 MG PO (06:21)
[2022-07-30 06:22] VITALS: BP 110/68; PULSE 70
[2022-07-30] MEDS: APIXABAN 2.5 MG TABLET (WCH) PO (06:22)
[2022-07-30] MEDS: Metoprolol(XL)Succ 25 MG Tablet PO (06:22)
[2022-07-30] MEDS: Lisinopril 20 MG Tablet PO (06:22)
[2022-07-30] MEDS: Furosemide 20 MG Tablet PO (06:22)
[2022-07-30] MEDS: Nystatin Powder 15gm Bottle 1 APPLIC TOPICAL (06:23)
[2022-07-30] MEDS: Multivitamins,Therapeutic Tablet 1 TABLET PO (07:58)
[2022-07-30 12:26] VITALS: BP 102/58; PULSE 82; RESP 18; TEMP 36.4; O2SAT 96
--- NOTE | 2022-08-04 12:56 | MDS.RN ---
Information for the mds was obtained from review of the clinical record, interview of resident, staff, and direct observation of resident's care.
== END 2022-07-30 13:20 | disposition home or self-care (01) | DRG 561 ==
PROVIDERS: Admitting Provider Family Medicine Geriatric Medicine; PCP Family Medicine; Visit Provider Family Medicine Geriatric Medicine
DX: Z47.1 Aftercare following joint replacement surgery (principal); E66.9 Obesity, unspecified; M16.12 Unilateral primary osteoarthritis, left hip; I10 Essential (primary) hypertension; Z87.891 Personal history of nicotine dependence; Z86.16 Personal history of COVID-19; Z79.899 Other long term (current) drug therapy; Z79.01 Long term (current) use of anticoagulants; Z68.38 Body mass index [BMI] 38.0-38.9, adult; Z96.642 Presence of left artificial hip joint; Z68.39 Body mass index [BMI] 39.0-39.9, adult; Z23 Encounter for immunization
CPT/HCPCS: 0124A; 36415; 80048; 85025; 91312; 97110; 97116; 97162; 97165; 97530; 97535; 97802

== ENCOUNTER 2022-09-07 13:00 | Outpatient (RCR) | payer MEDICARE, OTHER, SELFPAY ==
--- NOTE | 2022-08-03 14:23 | HP.PTEVAL_ITS ---
Patient's Visit Information ASHVIN MASTERS is a 76 year old M referred to Physical Therapy by Dr. Zeke Phillips DO with a diagnosis of L THR. Date of Evaluation: 08/03/22 Physical Therapist: Danny Paul, PT, CRISTIAN, SCS, CSCS - Visit Plan Frequency: 2x /Week Duration: 6 Weeks Plan: 2 xweek for ther ext, gait training and manual therapy. Can be pushed as he had therapy at [facility] and motivated - Subjective Mr. Masters is a pleasant 76 yo gentlemen lamas who was referred to our care by Jacqueline following L THR on 07.21.22. Following his surgery he spent approximately 1 week on TCU as he lives alone. He has three step into his living area. His brother in-law is currently taking him to appointments. He said that his left hip has been bothering him since last October. 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 - Pain Left Hip Pain Intensity (Out of 10): 1 Pain Intensity Range: 0, 5 - Objective Mr. Masters is ambulating with a walker in the clinic today. In the past he ambulated independently without an assistive device. His incision site is healing well he has some kamille remaining in his incision. He denies any fever or chills. PROM of his left hip is 20 int 25 ext rot is right is 55/40 respectively. MMT for knee ext. is 53 R 44 l, Knee flexion is 40 B, hip flexion was 45 right 30 left. In his orth note he complained of swelling in his lower leg. He did not appear to have pitting edema in his L vs R leg today and has been wearing a fabrizio hose to his knee. - Balance/Special Test Scores WOMAC Total Score: 31 WOMAC Percentatge: 67.7100 - Goals Goal 1:: Independent in HEP Goal Time Frame: 1 Week Goal 2:: Improve MMT by 10% Goal Time Frame: 4-6 Weeks Goal 3:: Iproved ROM of int ext rot by 10% Goal Time Frame: 4-6 Weeks Goal 4:: Wean from walker to another assistive device of independent Goal Time Frame: 2-4 Weeks - Rehabilitation Potential Physical Therapy Diagnosis: L THR with strength and ROM limitations Rehabilitation Potential: Good - Anticipated Interventions Patient/Client Instruction: Educate patient on: Condition, Plan of Care, Risk Factors For the Purpose of:: To decrease pain, To increase ROM, To increase flexibility/ROM, To improve safety with gait Therapeutic Exercise to Include: Strength training, Balance training, Gait and locomotor training, Passive ROM, Active ROM For the Purpose of:: To decrease pain, To increase ROM, To improve ability to perform ADL's, To increase flexibility/ROM, To improve safety with gait Assistive Devices: Cane, Standard walker For the Purpose of:: To improve safety with gait, To assume or resume ADL's Thank you for the opportunity to evaluate your patient. For Medicare and Medicare HMO plans, please review the plan of care and approve it. It will need to be FAXED BACK to us at [phone] for Medicare purposes. For Medicare only, by signing this I certify the plan of care. Please let me know if there are questions or concerns regarding this plan of care. Physician Signature: Date:
--- NOTE | 2022-09-07 13:29 | HP.PTDCSUM ---
Discharge Summary D/C summary: It has been my pleasure to treat ASHVIN MASTERS referred by Dr. Zeke Phillips DO, with the diagnosis of L THR for a total of 11 visit(s). Discharge Date: 09/07/22 Please see the following information for a summary of their discharge status. Subjective Subjective: I'm doing pretty good about 80-90 percent better. I'm pretty much back to normal activities and I'm okay with doing exercises on my own. Pain Left Hip: Pain Intensity (Out of 10): 0 Overall Improvement % Improvement: 90 Objective Objective/Function: MMT R Knee ext 69.6 lbs Knee Flexion 47 lbs Hip Flexion 36 lbs L Knee ext 68.0 lbs Knee Flexion 53 lbs Hip Flexion 37 Balance single leg EO 10+ Sec Eyes closed less than 3 sec Goals Goal 1:: Independent in HEP Goal Progress: Goal Met Goal 2:: Improve MMT by 10% Goal Progress: Goal Met Goal 3:: Iproved ROM of int ext rot by 10% Goal 4:: Wean from walker to another assistive device of independent Plan Plan: discharge to HEP and activities on the farm fu with in October. D/C Information Discharge Comments: Mr. Masters didn't really well in therapy. He is anxious to get back to normal routine and activities [place] the farm. While his leg strength improved his balance with eye closed was poor so I gave him some exercise to try and improve. d/c sentence: If there are questions or concerns regarding this patient's physical therapy, please feel free to call me at [phone]. Thank you for the referral of this patient. Sincerely, Danny Paul, PT, CRISTIAN, SCS, CSCS Balance/Gait/Functional tests Balance/Special Test Scores WOMAC Total Score: 8 WOMAC Percentage: 91.6700
== END 2022-09-07 19:00 | disposition home or self-care (01) ==
LOC: PT 13:00
PROVIDERS: PCP Family Medicine; Referring Provider Orthopaedic Surgery; Visit Provider Orthopaedic Surgery
DX: Z96.642 Presence of left artificial hip joint (principal)
CPT/HCPCS: 97110; 97162; 97164

== ENCOUNTER → 2022-10-14 | Outpatient (CLI) | payer MEDICARE, OTHER, SELFPAY ==
[2022-10-14 12:44] LABS: Anion Gap 3 (5-15); BUN 20 mg/dL (7-18); BUN/Creat Ratio 21.6 RATIO (10-20); Calcium,Total 8.9 mg/dL (8.5-10.1); Chloride 103 mmol/L (98-107); Cholesterol 192 mg/dL (200); Creatinine, Serum 0.92 mg/dL (0.70-1.30); EST Glomerular Filtration Rate 85 mL/min (>60); Est Glom Filt Rate - Afr Amer 102 mL/min (>60); Glucose 111 mg/dL (74-106); High Density Lipoprotein 55 mg/dL; Potassium 4.5 mmol/L (3.5-5.1); Sodium Level 137 mmol/L (136-145); Triglycerides 119 mg/dL; Very Low Density Lipoprotein 24 mg/dL (5-40)
== END | disposition home or self-care (01) ==
LOC: MFPLAB 10:14
PROVIDERS: PCP Family Medicine; Visit Provider Family Medicine
DX: I10 Essential (primary) hypertension (principal)
CPT/HCPCS: 36415; 80048; 80061

== ENCOUNTER → 2023-02-04 | Outpatient (CLI) | payer MEDICARE, OTHER, SELFPAY ==
[2023-02-04 12:46] LABS: Anion Gap 6 (5-15); BUN 24 mg/dL (7-18); BUN/Creat Ratio 21.6 RATIO (10-20); Chloride 99 mmol/L (98-107); Creatinine, Serum 1.11 mg/dL (0.70-1.30); EST Glomerular Filtration Rate 68 mL/min (>60); Est Glom Filt Rate - Afr Amer 83 mL/min (>60); Glucose 120 mg/dL (74-106); Potassium 4.5 mmol/L (3.5-5.1); Sodium Level 136 mmol/L (136-145)
== END | disposition home or self-care (01) ==
LOC: MFPLAB 10:36
PROVIDERS: PCP Family Medicine; Visit Provider Family Medicine
DX: R60.9 Edema, unspecified (principal)
CPT/HCPCS: 36415; 80048

== ENCOUNTER → 2023-04-14 | Outpatient (CLI) | payer MEDICARE, OTHER, SELFPAY ==
[2023-04-14 13:30] LABS: Anion Gap 5 (5-15); BUN 25 mg/dL (7-18); BUN/Creat Ratio 20.3 RATIO (10-20); Calcium,Total 9.6 mg/dL (8.5-10.1); Chloride 99 mmol/L (98-107); Cholesterol 247 mg/dL (200); Creatinine, Serum 1.23 mg/dL (0.70-1.30); EST Glomerular Filtration Rate 61 mL/min (>60); Est Glom Filt Rate - Afr Amer 74 mL/min (>60); Glucose 114 mg/dL (74-106); High Density Lipoprotein 54 mg/dL; Potassium 4.3 mmol/L (3.5-5.1); Sodium Level 138 mmol/L (136-145); Thyroid Stim Hormone (TSH) 0.59 uIU/mL (0.358-3.74); Triglycerides 208 mg/dL; Very Low Density Lipoprotein 42 mg/dL (5-40)
== END | disposition home or self-care (01) ==
LOC: MFPLAB 10:21
PROVIDERS: PCP Family Medicine; Visit Provider Family Medicine
DX: I10 Essential (primary) hypertension (principal); E66.9 Obesity, unspecified
CPT/HCPCS: 36415; 80048; 80061; 84443

== ENCOUNTER → 2023-08-04 | Outpatient (CLI) | payer MEDICARE, OTHER, SELFPAY ==
[2023-08-04 12:41] LABS: ALB/GLOB Ratio 1.1 RATIO (0.9-2.4); AST(SGOT) 14 U/L (15-37); Alanine Aminotransfer ALT/SGPT 37 U/L (16-61); Albumin, Serum 3.7 g/dL (3.2-5.0); Alkaline Phosphatase 99 U/L (45-117); Anion Gap 6 (5-15); BUN 20 mg/dL (7-18); BUN/Creat Ratio 18.2 RATIO (10-20); Calcium,Total 9.2 mg/dL (8.5-10.1); Chloride 102 mmol/L (98-107); Cholesterol 145 mg/dL (200); EST Glomerular Filtration Rate 69 mL/min (>60); Est Glom Filt Rate - Afr Amer 84 mL/min (>60); Globulin 3.4 g/dL (2.2-4.2); Glucose 110 mg/dL (74-106); High Density Lipoprotein 52 mg/dL; Potassium 4.1 mmol/L (3.5-5.1); Protein, Total 7.1 g/dL (6.4-8.2); Sodium Level 138 mmol/L (136-145); Triglycerides 141 mg/dL; Very Low Density Lipoprotein 28 mg/dL (5-40)
== END | disposition home or self-care (01) ==
LOC: MFPLAB 10:27
PROVIDERS: PCP Family Medicine; Visit Provider Family Medicine
DX: I10 Essential (primary) hypertension (principal)
CPT/HCPCS: 36415; 80053; 80061

== ENCOUNTER 2024-02-05 18:19 | Inpatient (IN) | payer MEDICARE, OTHER, SELFPAY ==
[2024-02-05] VITALS (9 sets, daily range): BP systolic 105–149; BP diastolic 54–124; PULSE 75–96; RESP 16–24; TEMP 36.6–36.9; O2SAT 91–97; BMI 39.9; BMI 40.0
--- NOTE | 2024-02-05 18:24 | EKG12_ITS ---
Test Reason : DYSRHYTHMIA Blood Pressure : */* mmHG Vent. Rate : 91 BPM Atrial Rate : 91 BPM P-R Int : 174 ms QRS Dur : 124 ms QT Int : 390 ms P-R-T Axes : 27 -39 34 degrees QTcB Int : 479 ms Sinus rhythm with frequent Premature ventricular complexes Left axis deviation Non-specific intra-ventricular conduction delay Abnormal ECG Confirmed by PAULETTE HERNANDEZ, TIFFANY ([id number]), department editor SCTOT HESTER ([id number]) on 02/07/2024 8:39:30 AM Referred By: Confirmed By: TIFFANY CALDWELL MD
[2024-02-05 18:46] LABS: Absolute Lymphocyte Count 1.23 X10^3/uL (0.83-4.51); Absolute Neutrophil Count 3.2 X10^3/uL (2.0-7.7); Basophil# 0.03 X10^3/uL; Basophil% 0.6 % (0-1); Eosinophil# 0.07 X10^3/uL; Eosinophils% 1.4 % (0-5); Hematocrit 43.7 % (40-54); Hemoglobin 14.1 g/dL (13.0-16.5); Lymphocyte # 1.23 X10^3/ul (0.83-4.51); Lymphocyte % 24.3 % (19-41); Mean Corp Hgb Conc 32.3 g/dL (32-36); Mean Corpuscular Hgb 31.5 pg (27.0-32.0); Mean Corpuscular Volume 97.8 fL (80-94); Monocyte# 0.54 X10^3/uL; Monocyte% 10.7 % (0-10); NRBC Flagged by Analyzer 0 % (0-5); Neutrophil # 3.19 X10^3/uL (2.7-7.7); Neutrophil % 62.8 % (47-70); Platelet Count 160 K/mm3 (150-450); RBC Distribution Width CV 13.1 % (11.6-14.6); RBC Distribution Width SD 47.2 fl (35.1-43.9); Red Blood Count 4.47 M/mm3 (4.6-6.2); White Blood Count 5.1 K/mm3 (4.4-11.0)
--- NOTE | 2024-02-05 18:49 | ED.VIS.DYS ---
HPI <ROBYN Joshi - Last Filed: 02/05/24 21:33> History of Present Illness Chief Complaint: Shortness of Breath Narrative Narrative: Patient presenting today with hypoxia and a productive cough with clear sputum he has had over the past week. He reports that he has been feeling short of breath with exertion. He checked his pulse ox today and it was in the 80s on room air, he does not use supplemental O2 at home. He has no history of COPD or asthma. He denies any chest pain. He has a PMH of HTN. PE Risk Factors: Negative for Prior DVT or PE, Recent immobilization, Recent surgery or Recent travel PFSH <ROBYN Joshi - Last Filed: 02/05/24 21:33> [facility] Medical History Wears glasses Alcohol use Arthritis Former smoker Chronic cough Leg cramps History of stress test History of echocardiogram Normal colonoscopy Pneumonia COVID-19 Kidney stone Home Medications ?Medication ?Instructions ?Recorded ?Last Taken ?Type multivitamin with folic acid 400 1 tab PO DAILY SUPPLEMENT 01/29/15 08/13/15 History mcg tablet (Thera) lisinopril 20 mg tablet 20 mg PO DAILY HTN 03/16/20 Unknown History furosemide 20 mg tablet 20 mg PO DAILY WATER PILL 06/05/22 Unknown History metoprolol succinate 25 mg 25 mg PO DAILY HTN 06/05/22 Unknown History tablet,extended release 24 hr acetaminophen 500 mg tablet 1,000 mg PO Q8H pain 07/24/22 Unknown History rosuvastatin 5 mg tablet 5 mg PO QDAY 07/14/23 Unknown History prednisolone acetate 1 % eye 1 drp ophthalmic (eye) Q6H 02/05/24 Unknown History drops,suspension triamterene 37.5 1 tab PO DAILY 02/05/24 Unknown History mg-hydrochlorothiazide 25 mg tablet Allergy/AdvReac Type Severity Reaction Status Date / Time No Known Allergies Allergy Verified 02/05/24 18:21 Family History Brother Myocardial infarction 20 years ago Surgical History History of total left hip arthroplasty History of left cataract surgery History of right cataract surgery History of total right knee replacement Social History household members: none Smoking Status: Former smoker alcohol intake: current substance use type: does not use what type of physical activity do you participate in: walking ROS <ROBYN Joshi - Last Filed: 02/05/24 21:33> ROS ED Constitutional Constitutional ED: Denies chills or fever(s) Cardiovascular Cardiovascular: Denies chest pain Respiratory/Chest Respiratory/Chest: Reports cough, dyspnea and sputum; Denies tachypnea or wheezing Gastrointestinal Gastrointestinal: Denies abdominal pain, nausea or vomiting Musculoskeletal Musculoskeletal: Denies arthralgias or myalgias Integumentary Denies rash Neurologic Neurologic: Denies weakness EXAM <ROBYN Joshi - Last Filed: 02/05/24 21:33> Physical Exam Const Vital Signs: 02/05/24 18:21 02/05/24 18:22 02/05/24 18:23 Temperature 98.4 F 98.4 F Temperature Source Oral Oral Pulse Rate 75 96 Respiratory Rate 24 H 19 H Respiratory Effort Respiratory Depth Respiratory Pattern Blood Pressure 105/63 149/124 H Blood Pressure Mean 77 132 Pulse Ox 94 91 93 Oxygen Delivery Method Nasal Cannula Nasal Cannula Nasal Cannula Oxygen Flow Rate (L/min) 2 2 02/05/24 18:23 02/05/24 18:46 02/05/24 19:22 Temperature 98.4 F Temperature Source Oral Pulse Rate 96 Respiratory Rate 17 18 Respiratory Effort Normal Respiratory Depth Normal Respiratory Pattern Normal Blood Pressure 114/54 L Blood Pressure Mean 74 Pulse Ox 93 97 Oxygen Delivery Method Nasal Cannula Nasal Cannula Nasal Cannula Oxygen Flow Rate (L/min) 2 2 2 02/05/24 20:00 02/05/24 21:00 Temperature 98.2 F Temperature Source Oral Pulse Rate 92 90 Respiratory Rate 19 H 18 Respiratory Effort Respiratory Depth Respiratory Pattern Blood Pressure 118/104 H 126/78 H Blood Pressure Mean 108 94 Pulse Ox 94 96 Oxygen Delivery Method Nasal Cannula Oxygen Flow Rate (L/min) 2 Positive well nourished, well developed and no apparent distress General Appearance ED: well developed HEENT Reports normocephalic and head/scalp atraumatic Mouth ED: Yes moist mucous membranes normal Eyes PERRL and EOMs intact bilaterally Neck full ROM and supple Chest Wall inspection of chest normal Resp normal respiratory effort and clear to auscultation bilaterally Cardio regular rate and regular rhythm GI soft to palpation, non-tender, non-distended and no masses Back/Spine normal ROM and normal to inspection Extremity normal to inspection and full ROM Neuro oriented x3, CN's II-XII intact bilaterally, moves all extremities, no focal motor deficits and no sensory deficits noted Sensorium / Orientation: awake and alert Psych mental status grossly normal and thought process normal Skin no rashes or lesions noted and no wounds <Dr. Eleuterio Garcia DO - Last Filed: 02/06/24 00:42> Physical Exam Const Vital Signs: 02/05/24 18:21 02/05/24 18:22 02/05/24 18:23 Temperature 98.4 F 98.4 F Temperature Source Oral Oral Pulse Rate 75 96 Respiratory Rate 24 H 19 H Respiratory Effort Respiratory Depth Respiratory Pattern Blood Pressure 105/63 149/124 H Blood Pressure Mean 77 132 Pulse Ox 94 91 93 Oxygen Delivery Method Nasal Cannula Nasal Cannula Nasal Cannula Oxygen Flow Rate (L/min) 2 2 02/05/24 18:23 02/05/24 18:46 02/05/24 19:22 Temperature 98.4 F Temperature Source Oral Pulse Rate 96 Respiratory Rate 17 18 Respiratory Effort Normal Respiratory Depth Normal Respiratory Pattern Normal Blood Pressure 114/54 L Blood Pressure Mean 74 Pulse Ox 93 97 Oxygen Delivery Method Nasal Cannula Nasal Cannula Nasal Cannula Oxygen Flow Rate (L/min) 2 2 2 02/05/24 20:00 02/05/24 21:00 Temperature 98.2 F Temperature Source Oral Pulse Rate 92 90 Respiratory Rate 19 H 18 Respiratory Effort Respiratory Depth Respiratory Pattern Blood Pressure 118/104 H 126/78 H Blood Pressure Mean 108 94 Pulse Ox 94 96 Oxygen Delivery Method Nasal Cannula Oxygen Flow Rate (L/min) 2 [facility] <ROBYN Joshi - Last Filed: 02/05/24 21:33> [facility] Narrative Medical decision making narrative: Patient presenting today with hypoxia and a productive cough he has had over the past week. He checked his pulse ox today and it was in the 80s on room air. Patient is currently on 2 L nasal cannula and O2 saturation is around 94%. He is nontoxic-appearing and in no acute distress. COVID/Influenza/RSV swab obtained and he is influenza A positive. His chest x-ray is negative for infiltrate. I did take him off of supplemental O2 and he did desaturate to 86% at the bedside. Given his hypoxia, I do feel he would benefit from admission to the hospital. Lab Data Attestation: I reviewed the patient's lab results. Labs: Laboratory Results - last 24 hr 02/05/24 18:40 WBC 5.1 RBC 4.47 L Hgb 14.1 Hct 43.7 MCV 97.8 H MCH 31.5 MCHC 32.3 RDW Std Deviation 47.2 H RDW Coeff of Levi 13.1 Plt Count 160 MPV 10.0 Immature Gran % (Auto) 0.200 Neut % (Auto) 62.8 Lymph % (Auto) 24.3 [place] % (Auto) 10.7 H Eos % (Auto) 1.4 Baso % (Auto) 0.6 Absolute Neuts (auto) 3.2 Absolute Lymphs (auto) 1.23 Nucleated RBC % 0 Sodium 137 Potassium 4.1 Chloride 101 Carbon Dioxide 34.0 H Anion Gap 2 L BUN 24 H Creatinine 1.16 Estim Creat Clear Calc 68.95 Est GFR (MDRD) Af Amer 79 Est GFR (MDRD) Non-Af 65 BUN/Creatinine Ratio 20.7 H Glucose 114 H Calcium 8.7 TSH 0.280 L Radiography X-Ray: Read by ED Physician Diagnostic Testing: Clinical Impression(s) from Imaging Studies Chest X-Ray 02/05/24 19:10 IMPRESSION: No radiographic evidence of acute cardiopulmonary disease. Electronically Signed: Jesus Mcghee MD at 21:19 EST Reading Location ID and State: [facility] / [place] Tel , Service support , EKG Initial EKG: Comments: 91 bpm, sinus rhythm with frequent PVCs, no ST elevation, interpreted by attending ED physician <Dr. Eleuterio Garcia, DO - Last Filed: 02/06/24 00:42> [facility] Lab Data Labs: Laboratory Results - last 24 hr 02/05/24 18:40 WBC 5.1 RBC 4.47 L Hgb 14.1 Hct 43.7 MCV 97.8 H MCH 31.5 MCHC 32.3 RDW Std Deviation 47.2 H RDW Coeff of Levi 13.1 Plt Count 160 MPV 10.0 Immature Gran % (Auto) 0.200 Neut % (Auto) 62.8 Lymph % (Auto) 24.3 [place] % (Auto) 10.7 H Eos % (Auto) 1.4 Baso % (Auto) 0.6 Absolute Neuts (auto) 3.2 Absolute Lymphs (auto) 1.23 Nucleated RBC % 0 Sodium 137 Potassium 4.1 Chloride 101 Carbon Dioxide 34.0 H Anion Gap 2 L BUN 24 H Creatinine 1.16 Estim Creat Clear Calc 68.95 Est GFR (MDRD) Af Amer 79 Est GFR (MDRD) Non-Af 65 BUN/Creatinine Ratio 20.7 H Glucose 114 H Calcium 8.7 TSH 0.280 L Radiography Diagnostic Testing: Clinical Impression(s) from Imaging Studies Chest X-Ray 02/05/24 19:10 IMPRESSION: No radiographic evidence of acute cardiopulmonary disease. Electronically Signed: Jesus Mcghee MD at 21:19 EST Reading Location ID and State: [facility] / [place] Tel , Service support , Treatment and Re-Evaluation :: I have personally performed a face to face assessment of the patient and have reviewed the ARIES Note. I performed a substantive portion of the visit including all aspects of the following. My ashraf findings include: History: Patient presents with shortness of breath that has been getting worse over the past week. Patient states it is gradually getting worse. Patient states his breathing is worse with any exertion. Patient states it gets better when he is able to stand. Patient admits to a cough with some clear sputum. Patient states he had a fever earlier this week that was up to 101. Patient also admits to a sore throat. Patient had recent right eye surgery but denies any other recent surgeries. Patient denies any recent travel. Patient denies any history of DVT, PE, or cancer. Exam: Vital signs are stable. Patient is afebrile. Patient is in no acute distress. Oral mucosa is pink and moist. Neck is supple. Trachea is midline. There is no JVD. Heart was regular rate and rhythm. Lungs are diminished but equal bilaterally. There is good respiratory effort noted. Abdomen is soft. Bowel sounds are normal. There is no tenderness. There are no masses palpated. Cranial nerves II through XII are intact. There are no focal motor or sensory deficits noted. Medical Decision Making: Differential diagnosis includes pneumonia, bronchitis, viral upper respiratory infection, cardiac dysrhythmia, cardiac ischemia, electrolyte abnormality, congestive heart failure, and anxiety. CBC will be obtained to assess for leukocytosis and anemia. Basic metabolic profile will be obtained to assess for electrolyte abnormality and renal function. Chest x-ray will be obtained to assess for pneumonia. EKG will be obtained to assess for cardiac dysrhythmia and cardiac ischemia. COVID-19, influenza, and RSV PCR will be obtained to assess for viral illness. CBC was reviewed and was essentially within normal limits. Basic metabolic profile was reviewed. BUN was slightly elevated at 24. The remainder is within normal limits. EKG was obtained. On my independent interpretation, shows normal sinus rhythm with a rate of 91. There are no acute ST or T wave changes noted. PA and lateral chest x-ray was obtained. There are 2 views. On my independent interpretation, lung reis are clear. There is normal cardiac silhouette. Bony thorax is normal. There is no acute process noted. Radiologist also interpreted the x-ray and agrees. COVID-19 PCR was reviewed and was negative. Influenza PCR was reviewed and was positive for influenza A but negative for influenza B. RSV PCR was reviewed and was negative. Patient continued to require oxygen. Because of this, case was discussed with the hospitalist. He will admit the patient to his service. Patient and family understood and were agreeable with the plan. All questions were answered. Discharge Plan Dx/Rx/DC Orders Clinical Impression: Influenza A, Hypoxia Disposition Disposition: Acute Care Hospital [facility] Discharge Date/Time: 02/05/24 21:35
[2024-02-05 19:03] LABS: Anion Gap 2 (5-15); BUN 24 mg/dL (7-18); BUN/Creat Ratio 20.7 RATIO (10-20); Calcium,Total 8.7 mg/dL (8.5-10.1); Chloride 101 mmol/L (98-107); Creatinine, Serum 1.16 mg/dL (0.70-1.30); EST Glomerular Filtration Rate 65 mL/min (>60); Est Glom Filt Rate - Afr Amer 79 mL/min (>60); Estimated Creatinine Clearance 68.95 ml/min; Glucose 114 mg/dL (74-106); Potassium 4.1 mmol/L (3.5-5.1); Sodium Level 137 mmol/L (136-145)
--- NOTE | 2024-02-05 19:10 | RAD_ITS ---
INDICATION: cough, sob EXAMINATION/TECHNIQUE: X-RAY - XR Chest 2 Views COMPARISON: 04/02/2020 FINDINGS: LINES/DEVICES: None. LUNGS: No consolidation, edema or effusion. No pneumothorax. Stable calcified granuloma left lower lobe. MEDIASTINUM AND CARDIOVASCULAR STRUCTURES: Cardiac silhouette not enlarged. Central airways and mediastinal contour are unremarkable. BONES AND SOFT TISSUES: No acute changes. RAD/Chest PA and Lateral IMPRESSION: No radiographic evidence of acute cardiopulmonary disease. Electronically Signed: Jesus Mcghee MD at 21:19 EST ,
--- NOTE | 2024-02-05 20:25 | PCM.HP.STD ---
[facility] - General General Date of Admission: 02/05/24 Date of Service: 02/05/24 Chief Complaint: SOB and Cough. HPI Narrative ASHVIN MASTERS, is a 78 M with a past medical history of essential hypertension; on lisinopril, metoprolol and furosemide, hyperlipidemia; on rosuvastatin, obesity; with BMI of 39.9 this admission, former tobacco abuse with pipe (quit 1988), history of COVID-19 pneumonia (2020), history of renal calculi (2015), history of bilateral cataract surgery (Right 2015 and Left 2018), recent Right eye surgery, history of leg cramps and OA; s/p Left hip arthroplasty and Right TKR (2014) who presents to [facility] ER complaining of shortness of breath and cough. Mr. Masters reports his symptoms began approximately 1 week prior to admission with a gradual onset of dyspnea on exertion that recently progressed to shortness of breath at rest so he checked his pulse oximeter which revealed a room air saturation in the ~85% range which caused him to come in for further evaluation and treatment. He additionally admits to fever of 101 ?F with sore throat. He denies associated chills, chest pain, abdominal pain, nausea, vomiting, diarrhea or constipation but he does admit to a productive cough with clear sputum. In the ER he was diagnosed with Influenza A complicated by clinical evidence of acute respiratory insufficiency with the patient requiring initiation of 2L NC and he was then admitted to the general medical floor under observation status for ongoing care for stay that is expected to be less than 2 midnights. COUNTS INCLUDE 234 BEDS AT THE [facility] Medical History Wears glasses Alcohol use Arthritis Former smoker Chronic cough Leg cramps History of stress test History of echocardiogram Normal colonoscopy Pneumonia COVID-19 Kidney stone Home Medications ?Medication ?Instructions ?Recorded ?Last Taken ?Type multivitamin with folic acid 400 1 tab PO DAILY SUPPLEMENT 01/29/15 08/13/15 History mcg tablet (Thera) lisinopril 20 mg tablet 20 mg PO DAILY HTN 03/16/20 Unknown History furosemide 20 mg tablet 20 mg PO DAILY WATER PILL 06/05/22 Unknown History metoprolol succinate 25 mg 25 mg PO DAILY HTN 06/05/22 Unknown History tablet,extended release 24 hr acetaminophen 500 mg tablet 1,000 mg PO Q8H pain 07/24/22 Unknown History rosuvastatin 5 mg tablet 5 mg PO QDAY 07/14/23 Unknown History prednisolone acetate 1 % eye 1 drp ophthalmic (eye) Q6H 02/05/24 Unknown History drops,suspension triamterene 37.5 1 tab PO DAILY 02/05/24 Unknown History mg-hydrochlorothiazide 25 mg tablet Allergy/AdvReac Type Severity Reaction Status Date / Time No Known Allergies Allergy Verified 02/05/24 18:21 Family History Brother Myocardial infarction 20 years ago Surgical History History of total left hip arthroplasty History of left cataract surgery History of right cataract surgery History of total right knee replacement Social History household members: none Smoking Status: Former smoker alcohol intake: current substance use type: does not use what type of physical activity do you participate in: walking Vital Signs Vital Signs Vital Signs: 02/05/24 18:21 02/05/24 18:22 02/05/24 18:23 Temperature 98.4 F 98.4 F Temperature Source Oral Oral Pulse Rate 75 96 Respiratory Rate 24 H 19 H Respiratory Effort Respiratory Depth Respiratory Pattern Blood Pressure 105/63 149/124 H Blood Pressure Mean 77 132 Pulse Ox 94 91 93 Oxygen Delivery Method Nasal Cannula Nasal Cannula Nasal Cannula Oxygen Flow Rate (L/min) 2 2 02/05/24 18:23 02/05/24 18:46 02/05/24 19:22 Temperature 98.4 F Temperature Source Oral Pulse Rate 96 Respiratory Rate 17 18 Respiratory Effort Normal Respiratory Depth Normal Respiratory Pattern Normal Blood Pressure 114/54 L Blood Pressure Mean 74 Pulse Ox 93 97 Oxygen Delivery Method Nasal Cannula Nasal Cannula Nasal Cannula Oxygen Flow Rate (L/min) 2 2 2 Weight Weight: 270 lb Body Mass Index (BMI) 39.9 Results Medical Records Data Attestation: I reviewed the patient's medical records Lab / Micro Data Attestation: I reviewed the patient's lab results. 02/06/24 04:51 02/05/24 18:40 Labs: Laboratory Results - last 24 hr 02/05/24 18:40: WBC 5.1, RBC 4.47 L, Hgb 14.1, Hct 43.7, MCV 97.8 H, MCH 31.5, MCHC 32.3, RDW Std Deviation 47.2 H, RDW Coeff of Levi 13.1, Plt Count 160, MPV 10.0, Immature Gran % (Auto) 0.200, Neut % (Auto) 62.8, Lymph % (Auto) 24.3, [place] % (Auto) 10.7 H, Eos % (Auto) 1.4, Baso % (Auto) 0.6, Absolute Neuts (auto) 3.2, Absolute Lymphs (auto) 1.23, Nucleated RBC % 0, Sodium 137, Potassium 4.1, Chloride 101, Carbon Dioxide 34.0 H, Anion Gap 2 L, BUN 24 H, Creatinine 1.16, Estim Creat Clear Calc 68.95, Est GFR (MDRD) Af Amer 79, Est GFR (MDRD) Non-Af 65, BUN/Creatinine Ratio 20.7 H, Glucose 114 H, Calcium 8.7 Micro: Microbiology 02/05/24 18:50 Mucosa - Nose SARS-CoV-2, Influenza & RSV (PCR) - Final Assessment & Plan Assessment/Plan (1) Influenza A: (2) Respiratory insufficiency: (3) Obesity (BMI 30-39.9): (4) Osteoarthritis: QUALIFIERS: Osteoarthritis location: unspecified site Osteoarthritis type: primary Qualified Code(s): M19.91 - Primary osteoarthritis, unspecified site (5) S/P total left hip arthroplasty: (6) Status post total right knee replacement: (7) Degenerative joint disease of left hip: QUALIFIERS: Osteoarthritis type: unspecified Qualified Code(s): M16.12 - Unilateral primary osteoarthritis, left hip PLAN: Plan 1. Influenza A; with protracted and progressively worsening course over the past week suspicious for possible evolving bacterial superinfection - Admit to general medical floor under observation status on droplet and contact precautions. Give doxycycline 100 mg IV twice daily. Start [place] and give vitamin D3, vitamin C and zinc to help boost immunity and speed recovery with this patient having a protracted course. Give Tylenol prn for [id number] (level 1-5/10) pain or fever. Give [place] prn for severe (level 6-10/10) pain. 2. Acute Respiratory Insufficiency due to #1 - Patient will likely need to discharge home with supplemental oxygen in the AM. 3. Obesity; with BMI of 39.9 this admission complicating #1 & #2 - Weight loss will be recommended. Check TSH. This complicates his case and may hamper recovery. 4. Recent Right eye surgery adding to the medical complexity of #1 - #3 - Noted. We will avoid blood thinners to hopefully decrease risk of potential bleeding complications. 5. OA; s/p Left hip arthroplasty and Right TKR (2014) with chronic low back and Left hip pain - PT/OT and Case Management to consult and treat on-rounds in the AM for further recommendations with help appreciated in advance. 6. Essential hypertension; on lisinopril, metoprolol and furosemide - Maintain home regimen as previous plus give IV Hydralazine prn for systolic blood pressure > 160 mmHg. 7. Hyperlipidemia; on rosuvastatin - Resume statin. 8. Former tobacco abuse with pipe (quit 1988) - Noted. 9. History of COVID-19 pneumonia (2020) - Noted. 10. History of renal calculi (2015) - Noted with no signs of recurrence at this time. 11. History of bilateral cataract surgery (Right 2015 and Left 2018) - Noted. 12. History of leg cramps - Give low-dose Flexeril prn. 13. DVT prophylaxis - SCD's only with recent eye surgery and anticipated discharge on home oxygen in the AM. Total time: Approximately (but not less than) 70 minutes. Charges/Coding Visit Charges OBSV E&M: 35596 Observ/hosp same date L2
[2024-02-05] MEDS: guaiFENesin 10 ML UDC (200MG/10ML) 20 ML PO (22:30)
[2024-02-05] MEDS: 0.9% Normal Saline (1000mL) 1,000 ML 50 ML IV (22:38)
[2024-02-05] MEDS: Oseltamivir Phosphate 45 MG Capsule PO (22:38)
[2024-02-05] MEDS: Atorvastatin Calcium 10 MG Tablet PO (22:38)
[2024-02-05] MEDS: prednisoLONE eye drops (5 mL) 1 DROP OPTH.BTL 1 DRP RIGHT EYE (22:39)
[2024-02-06] VITALS (7 sets, daily range): BP systolic 129–153; BP diastolic 51–94; PULSE 71–95; RESP 18–20; TEMP 36.6–37.2; O2SAT 93–98; BMI 40.1
[2024-02-06 05:19] LABS: Absolute Neutrophil Count 3.5 X10^3/uL (2.0-7.7); Basophil# 0.02 X10^3/uL; Basophil% 0.3 % (0-1); Eosinophil# 0.06 X10^3/uL; Hematocrit 41.9 % (40-54); Hemoglobin 13.6 g/dL (13.0-16.5); Lymphocyte % 25.4 % (19-41); Mean Corp Hgb Conc 32.5 g/dL (32-36); Mean Corpuscular Hgb 31.6 pg (27.0-32.0); Mean Corpuscular Volume 97.4 fL (80-94); Monocyte# 0.77 X10^3/uL; NRBC Flagged by Analyzer 0 % (0-5); Neutrophil # 3.54 X10^3/uL (2.7-7.7); Platelet Count 160 K/mm3 (150-450); RBC Distribution Width CV 13.2 % (11.6-14.6); White Blood Count 5.9 K/mm3 (4.4-11.0)
[2024-02-06] MEDS: guaiFENesin 10 ML UDC (200MG/10ML) 20 ML PO (05:29)
[2024-02-06] MEDS: prednisoLONE eye drops (5 mL) 1 DROP OPTH.BTL 1 DRP RIGHT EYE ×4 (05:29→22:21)
[2024-02-06] MEDS: 0.9% Saline Lock 10 ML Syringe IV ×3 (05:31→22:14)
[2024-02-06 06:54] LABS: AST(SGOT) 43 U/L (15-37); Alanine Aminotransfer ALT/SGPT 61 U/L (16-61); Albumin, Serum 3.2 g/dL (3.2-5.0); Alkaline Phosphatase 78 U/L (45-117); Anion Gap 3 (5-15); BUN 22 mg/dL (7-18); BUN/Creat Ratio 22.9 RATIO (10-20); Calcium,Total 8.4 mg/dL (8.5-10.1); Chloride 98 mmol/L (98-107); Creatinine, Serum 0.96 mg/dL (0.70-1.30); EST Glomerular Filtration Rate 81 mL/min (>60); Est Glom Filt Rate - Afr Amer 97 mL/min (>60); Estimated Creatinine Clearance 83.48 ml/min; Globulin 3.3 g/dL (2.2-4.2); Glucose 104 mg/dL (74-106); Magnesium 2.2 mg/dL (1.6-2.6); Phosphorus 3.4 mg/dL (2.5-4.9); Potassium 3.9 mmol/L (3.5-5.1); Protein, Total 6.5 g/dL (6.4-8.2); Sodium Level 135 mmol/L (136-145)
--- NOTE | 2024-02-06 07:06 | PN.HOSP_ITS ---
Reason for Visit Reason for Visit: Diagnoses Obesity, unspecified (02/05/24) Influenza due to other identified influenza virus with other respiratory manifestations (02/05/24) Unilateral primary osteoarthritis, left hip (02/05/24) Primary osteoarthritis, unspecified site (02/05/24) Other abnormalities of breathing (02/05/24) Presence of left artificial hip joint (02/05/24) Presence of right artificial knee joint (02/05/24) Subjective Subjective Patient with no acute events overnight per self and per nursing report with ongoing oxygen supplementation, intermittent cough and he notes still dyspnea especially with exertion. He does report that has been intermittently wheezing which is audible on examination. He notes he perhaps feels mildly improved since initial ED arrival but not significantly. Patient denies fevers, chills, nausea, emesis, abdominal pain, chest pain or dyspnea. Objective Data Objective Data Vital Signs: Vital Signs Temp Pulse Resp BP Pulse Ox O2 Del Method O2 Flow Rate 98.9 F 90 20 H 152/94 H 93 Nasal Cannula 3 02/06/24 04:05 02/06/24 04:05 02/06/24 04:05 02/06/24 04:05 02/06/24 04:05 02/06/24 04:07 02/06/24 04:07 Oxygen Flow Rate (L/min) 3 Oxygen Delivery Method Nasal Cannula Weight: 270 lb 15.875 oz Body Mass Index (BMI) 40.1 Intake & Output: Intake and Output for Last 24 Hours 02/04/24 02/05/24 02/06/24 23:59 23:59 23:59 Intake Total 200 / 200 675 / 675 Balance 200 / 200 675 / 675 Lab / Micro Data 02/06/24 04:51 02/06/24 04:51 Labs: Laboratory Results - last 24 hr 02/05/24 18:40: WBC 5.1, RBC 4.47 L, Hgb 14.1, Hct 43.7, MCV 97.8 H, MCH 31.5, MCHC 32.3, RDW Std Deviation 47.2 H, RDW Coeff of Levi 13.1, Plt Count 160, MPV 10.0, Immature Gran % (Auto) 0.200, Neut % (Auto) 62.8, Lymph % (Auto) 24.3, M giovanni % (Auto) 10.7 H, Eos % (Auto) 1.4, Baso % (Auto) 0.6, Absolute Neuts (auto) 3.2, Absolute Lymphs (auto) 1.23, Nucleated RBC % 0, Sodium 137, Potassium 4.1, Chloride 101, Carbon Dioxide 34.0 H, Anion Gap 2 L, BUN 24 H, Creatinine 1.16, Estim Creat Clear Calc 68.95, Est GFR (MDRD) Af Amer 79, Est GFR (MDRD) Non-Af 65, BUN/Creatinine Ratio 20.7 H, Glucose 114 H, Calcium 8.7, TSH 0.280 L 02/06/24 04:51: WBC 5.9, RBC 4.30 L, Hgb 13.6, Hct 41.9, MCV 97.4 H, MCH 31.6, MCHC 32.5, RDW Std Deviation 47.0 H, RDW Coeff of Levi 13.2, Plt Count 160, MPV 10.0, Immature Gran % (Auto) 0.300, Neut % (Auto) 60.0, Lymph % (Auto) 25.4, M giovanni % (Auto) 13.0 H, Eos % (Auto) 1.0, Baso % (Auto) 0.3, Absolute Neuts (auto) 3.5, Absolute Lymphs (auto) 1.50, Nucleated RBC % 0, Sodium 135 L, Potassium 3.9, Chloride 98, Carbon Dioxide 33.0 H, Anion Gap 3 L, BUN 22 H, Creatinine 0.96, Estim Creat Clear Calc 83.48, Est GFR (MDRD) Af Amer 97, Est GFR (MDRD) Non-Af 81, BUN/Creatinine Ratio 22.9 H, Glucose 104, Calcium 8.4 L, Phosphorus 3.4, Magnesium 2.2, Total Bilirubin 0.70, AST 43 H, ALT 61, Alkaline Phosphatase 78, Total Protein 6.5, Albumin 3.2, Globulin 3.3, Albumin/Globulin Ratio 1.0 Micro: Microbiology 02/05/24 18:50 Mucosa - Nose SARS-CoV-2, Influenza & RSV (PCR) - Final Radiography Diagnostic Testing: Radiology Impression Chest X-Ray 02/05/24 19:10 IMPRESSION: No radiographic evidence of acute cardiopulmonary disease. Electronically Signed: Jesus Mcghee MD at 21:19 EST , Physical Exam Narrative Physical Examination: General: Awake, alert, oriented x 3 and cooperative, seated upright in the MS bed, fatigued and ill-appearing. Skin: Normal color, normal turgor, no icterus, no cyanosis except occasional stage ecchymoses, abrasion. HEENT: AT/NC, EOMI, PERRLA, mildly dry MM. Lungs: Diffusely diminished, greater bases, mildly increased respiratory rate but no distress, diffuse expiratory wheezing, no rales or rhonchi. Heart: Regular rate and rhythm; no gallop, rub audible. Abdomen: Soft, NTTP, ND, normal BS, no HSM. Extremities: No cyanosis, no clubbing, mild pedal to distal ankle pitting edema. Neurological: Patient awake, alert, oriented as noted, cognitive function intact; pupils equally reactive to light and accommodation, cranial nerves grossly normal, moving all 4 extremities, no focal deficits, strength moderately to severely globally decreased secondary to acute presentation. Psychiatric: Affect appears flat, fatigued, ill-appearing, no acute evidence of depressive or anxiety feelings. Assessment & Plan Assessment/Plan (1) Influenza A: (2) Hypoxia: PLAN: Plan The patient is a 78 y/o M w/ PMHx: Morbid obesity, Former tobacco use, HTN, HLD, CKD stage II per GFR trending who presents to the [facility] ED on 02/05/2024 with history of worsening dyspnea, fatigue, malaise, fevers, mildly productive cough with eventual self home oxygen check noted to be 85% causing him to present to the ED for evaluation. #1. Acute Hypoxia and Adult FTT secondary to Acute Influenza A Viral Syndrome: Admitted to medical surgical floor, maintained on oxygen supplementation with wean as tolerated, given patient timeline of at least 1 week of symptoms at this point Tamiflu is no longer beneficial thus will de-escalate off, given wheezing will initiate on IV solumedrol, maintain on ATC budesonide therapy, PRN albuterol, HOB, IS parameters. PT/OT/case management consulted for discharge planning. #2. Hypertension: Continue home regimen including metoprolol, lisinopril, Lasix with hold parameters as needed, PRN hydralazine. #3. Hyperlipidemia: We will continue patient on statin therapy. #4. Chronic Kidney Disease Stage II per GFR trending: Admission BUN/Cr 24/1.16, GFR 65, baseline renal function primarily 0.9-1.2, 02/06/2024 BUN/creatinine 22/0.96, GFR 81 repeat BMP in AM. #5. Morbid Obesity: Weight loss and lifestyle changes encouraged. #6. Former tobacco use: Encourage continued tobacco cessation. #7. DVT prophylaxis: Lovenox. Charges/Coding Visit Charges Inpatient E&M: 75983 Subs Hosp L3
[2024-02-06 07:11] LABS: T4 Free Direct 1.05 ng/dL (0.76-1.46)
[2024-02-06] MEDS: Furosemide 20 MG Tablet PO (09:47)
[2024-02-06] MEDS: Lactobacillis Acidophilus 1 CAP PO ×4 (09:47→22:15)
[2024-02-06] MEDS: Metoprolol(XL)Succ 25 MG Tablet PO (09:47)
[2024-02-06] MEDS: Oseltamivir Phosphate 75 MG Capsule PO (09:47)
[2024-02-06] MEDS: Ascorbic Acid 500 MG Tablet 1000 MG PO ×2 (09:47→17:59)
[2024-02-06] MEDS: Cholecalciferol (Vit D3) 125 MCG CAPSULE (5,000 UNITS) PO (09:48)
[2024-02-06] MEDS: Zinc Sulfate 50 mg zinc (220 mg) ORAL capsule PO (09:48)
[2024-02-06] MEDS: Lisinopril 20 MG Tablet PO (09:48)
[2024-02-06 12:49] LABS: Bedside Glucose 119 mg/dL (74-106)
[2024-02-06] MEDS: Budesonide Respules 0.5 MG/2 ML AMPUL.NEB. INHALATION (20:11)
[2024-02-06] MEDS: Enoxaparin 40 MG/0.4 ML Syringe SC (22:14)
[2024-02-06] MEDS: Atorvastatin Calcium 10 MG Tablet PO (22:15)
[2024-02-07 03:35] VITALS: BMI 40.1
[2024-02-07 03:36] VITALS: BP 136/86; PULSE 76; RESP 18; TEMP 37; O2SAT 98
[2024-02-07] MEDS: prednisoLONE eye drops (5 mL) 1 DROP OPTH.BTL 1 DRP RIGHT EYE ×2 (05:10→11:21)
[2024-02-07] MEDS: 0.9% Saline Lock 10 ML Syringe IV ×3 (05:12→13:57)
[2024-02-07 06:28] LABS: Absolute Lymphocyte Count 0.84 X10^3/uL (0.83-4.51); Absolute Neutrophil Count 4.5 X10^3/uL (2.0-7.7); Basophil# 0.01 X10^3/uL; Basophil% 0.2 % (0-1); Hematocrit 44.4 % (40-54); Hemoglobin 14.2 g/dL (13.0-16.5); Lymphocyte # 0.84 X10^3/ul (0.83-4.51); Lymphocyte % 14.7 % (19-41); Mean Corpuscular Hgb 31.2 pg (27.0-32.0); Mean Corpuscular Volume 97.6 fL (80-94); Monocyte# 0.35 X10^3/uL; Monocyte% 6.1 % (0-10); NRBC Flagged by Analyzer 0 % (0-5); Neutrophil # 4.49 X10^3/uL (2.7-7.7); Neutrophil % 78.6 % (47-70); Platelet Count 175 K/mm3 (150-450); RBC Distribution Width CV 12.8 % (11.6-14.6); RBC Distribution Width SD 45.7 fl (35.1-43.9); Red Blood Count 4.55 M/mm3 (4.6-6.2); White Blood Count 5.7 K/mm3 (4.4-11.0)
[2024-02-07 06:58] LABS: ALB/GLOB Ratio 0.9 RATIO (0.9-2.4); AST(SGOT) 37 U/L (15-37); Alanine Aminotransfer ALT/SGPT 60 U/L (16-61); Albumin, Serum 3.3 g/dL (3.2-5.0); Alkaline Phosphatase 86 U/L (45-117); Anion Gap 6 (5-15); BUN 22 mg/dL (7-18); BUN/Creat Ratio 21.6 RATIO (10-20); Calcium,Total 9.1 mg/dL (8.5-10.1); Chloride 101 mmol/L (98-107); Creatinine, Serum 1.02 mg/dL (0.70-1.30); EST Glomerular Filtration Rate 75 mL/min (>60); Est Glom Filt Rate - Afr Amer 91 mL/min (>60); Estimated Creatinine Clearance 78.57 ml/min; Globulin 3.7 g/dL (2.2-4.2); Glucose 156 mg/dL (74-106); Magnesium 2.6 mg/dL (1.6-2.6); Phosphorus 4.7 mg/dL (2.5-4.9); Potassium 4.4 mmol/L (3.5-5.1); Sodium Level 138 mmol/L (136-145)
[2024-02-07] MEDS: Budesonide Respules 0.5 MG/2 ML AMPUL.NEB. INHALATION (07:28)
[2024-02-07 07:29] VITALS: PULSE 89; RESP 18; O2SAT 94
[2024-02-07 08:57] VITALS: BP 154/80; PULSE 65; RESP 18; TEMP 36.4; O2SAT 94
[2024-02-07] MEDS: Furosemide 40 MG/4 ML Vial IV (09:00)
[2024-02-07] MEDS: Enoxaparin 40 MG/0.4 ML Syringe SC (09:00)
[2024-02-07 09:01] VITALS: PULSE 65
[2024-02-07] MEDS: Lisinopril 20 MG Tablet PO (09:01)
[2024-02-07] MEDS: Metoprolol(XL)Succ 25 MG Tablet PO (09:01)
[2024-02-07] MEDS: Zinc Sulfate 50 mg zinc (220 mg) ORAL capsule PO (09:01)
[2024-02-07] MEDS: Ascorbic Acid 500 MG Tablet 1000 MG PO (09:01)
[2024-02-07] MEDS: Lactobacillis Acidophilus 1 CAP PO (09:02)
[2024-02-07 11:22] VITALS: O2SAT 86; O2SAT 90; O2SAT 91
--- NOTE | 2024-02-07 11:26 | NURSING ---
spo2 at Rest: on room air 86% 90% on 2L NC 92% on 3L NC spo2 Ambulatin% on 2L
--- NOTE | 2024-02-07 11:56 | DCINST_ITS ---
Discharge Instructions Diet Discharge Diet: Low fat / Low cholesterol DC O2, CPAP, BIPAP needs RN Home O2 Qualification: Home O2 Qualification: Is the patient on home oxygen No 02/07/24 11:22 Home O2 Qualification: AT REST 1- Pulse Ox at rest 86 02/07/24 11:22 2- Pulse Ox at rest 90 02/07/24 11:22 2- Oxygen Flow Rate at rest 2 02/07/24 11:22 Home O2 Qualification: WITH AMBULATION 1- Pulse Ox with ambulation 91 02/07/24 11:22 1- Oxygen Flow Rate with 2 02/07/24 11:22 ambulation Home O2 Discharge instructions: No Dressing / Incision Discharge Activity: Return to Normal Activity Dressing / Incision Call your doctor if you observe: Fever of 101 or Higher, Shortness of breath, Dizziness, Fainting spells, Swelling in the ankles, Chest pain and Increased palpitations (irregular heartbeat) Follow Up Care Test Results: Test results from this visit will be discussed in further detail at your follow- up appointment, if applicable. Discharge Plan Admission Admit Date/Time: 02/06/24 11:53 Attending Provider: Fabricio Harris Primary Care Provider: Blanco Collazo Consulting Providers: Umang Mon; Graciela Dewey Instructions Additional Instructions / Restrictions: Follow-up with your PCP in 3 to 5 days for outpatient monitoring. He will need to have 2 L nasal cannula all the time for oxygen and will need to follow-up with your PCP to have this discontinued as an outpatient Discharge Orders/Prescriptions Prescriptions: New prednisone 20 mg tablet 40 mg PO DAILY Qty: 14 0RF Continued metoprolol succinate 25 mg tablet extended release 24 hr 25 mg PO DAILY furosemide 20 mg tablet 20 mg PO DAILY rosuvastatin 5 mg tablet 5 mg PO QDAY multivitamin with folic acid [Thera] 1 TABLET tablet 1 tab PO DAILY Patient Comments: supplement lisinopril 20 MG tablet 20 mg PO DAILY acetaminophen 500 mg tablet 1,000 mg PO Q8H prednisolone acetate 1 % drops,suspension 1 drp ophthalmic (eye) Q6H triamterene-hydrochlorothiazid 37.5-25 mg tablet 1 tab PO DAILY Referrals / Follow Up: Blanco Collazo MD [Primary Care Provider] - Within 1 Week Disposition Disposition (needs filled in before D/C Order can be placed): Home, Self Care
--- NOTE | 2024-02-07 12:00 | PCM.DC.SUM ---
Providers Date of Admission: 02/06/24 Primary Care Physician: Dr. Blanco Collazo MD Reason For Visit: INFLUENZA A WITH RESPIRATORY INSUFFICIENCY Diagnosis Discharge Diagnosis (1) Influenza A: Status: Acute Code(s): J10.1 - Influenza due to other identified influenza virus with other respiratory manifestations (2) Hypoxia: Status: Acute Code(s): R09.02 - Hypoxemia Medications at Discharge Home Medications multivitamin with folic acid 400 mcg tablet (Thera) 1 tab PO DAILY SUPPLEMENT 01/29/15 lisinopril 20 mg tablet 20 mg PO DAILY HTN 03/16/20 furosemide 20 mg tablet 20 mg PO DAILY WATER PILL 06/05/22 metoprolol succinate 25 mg tablet,extended release 24 hr 25 mg PO DAILY HTN 06/05/22 acetaminophen 500 mg tablet 1,000 mg PO Q8H pain 07/24/22 rosuvastatin 5 mg tablet 5 mg PO QDAY 07/14/23 prednisolone acetate 1 % eye drops,suspension 1 drp ophthalmic (eye) Q6H 02/05/24 triamterene 37.5 mg-hydrochlorothiazide 25 mg tablet 1 tab PO DAILY 02/05/24 prednisone 20 mg tablet 40 mg (2 x 20 mg) PO DAILY #14 tabs 02/07/24 Hospital Course Operations None Procedures None Summary of Care Provided Minutes Spent on Discharge: 36 Hospital Course: Per HPI: ASHVIN MASTERS, is a 78 M with a past medical history of essential hypertension; on lisinopril, metoprolol and furosemide, hyperlipidemia; on rosuvastatin, obesity; with BMI of 39.9 this admission, former tobacco abuse with pipe (quit 1988), history of COVID-19 pneumonia (2020), history of renal calculi (2015), history of bilateral cataract surgery (Right 2015 and Left 2018), recent Right eye surgery, history of leg cramps and OA; s/p Left hip arthroplasty and Right TKR (2014) who presents to [facility] ER complaining of shortness of breath and cough. Mr. Masters reports his symptoms began approximately 1 week prior to admission with a gradual onset of dyspnea on exertion that recently progressed to shortness of breath at rest so he checked his pulse oximeter which revealed a room air saturation in the ~85% range which caused him to come in for further evaluation and treatment. He additionally admits to fever of 101 ?F with sore throat. He denies associated chills, chest pain, abdominal pain, nausea, vomiting, diarrhea or constipation but he does admit to a productive cough with clear sputum. In the ER he was diagnosed with Influenza A complicated by clinical evidence of acute respiratory insufficiency with the patient requiring initiation of 2L NC and he was then admitted to the general medical floor under observation status for ongoing care for stay that is expected to be less than 2 midnights. Hospital Course: 1. Acute hypoxic respiratory insufficiency secondary to acute influenza A?78-year-old male presented to the hospital with increasing shortness of breath and was found to be positive for influenza A. Other viral studies were negative. He been having symptoms for about 7 days so did not qualify for Tamiflu. He was given a dose of Lasix secondary to chronic diastolic CHF that he has at baseline. He had a ambulatory pulse ox today that demonstrated need of 2 L nasal cannula at rest and with activity. I have reviewed the oxygen testing, and this patient qualifies for the home equipment and portability. The patient is mobile in the home and the community. I discussed with him the plan for discharge today he expressed understanding of the risk and benefits of going home and would like to go home today. I discussed with him that it would be beneficial to stay for another 24 hours potentially 48 hours to continue IV diuresis to help with get him off of oxygen but he was not interested. I recommended he follow-up with his PCP in 3 to 5 days for monitoring and evaluation. He will need to have them evaluate him to come off the oxygen. Will continue with prednisone for another 7 days as well. 2. Chronic diastolic CHF, essential hypertension, hyperlipidemia are chronic medical conditions which complicate his care. His home medications were continued where appropriate Physical Exam Narrative General: Alert, Oriented x3, Cooperative, No apparent distress HEENT: Atraumatic, PERRLA, EOMI, Normocephalic Oral: Moist Mucosa Neck: Supple, No JVD Lungs: Diminished, Normal air movement, No rhonchi, No wheeze, No rales Cardiovascular: Regular rate, Regular Rhythm, Normal S1, Normal S2, No murmurs Abdomen: Soft, Non Tender, Non-Distended, No Hepato-splenomegaly Extremities: No edema, Capillary Refill Less than 3 Seconds Skin: No rashes, No breakdown Musculoskeletal: No Tenderness to Palpation of Joints or Extremities Neurological: No focal neurological deficits, Motor Exam 5/5 strength throughout, Sensory exam intact to light touch and pain Psych/Mental Status: Flat Weight / BMI Weight Weight: 270 lb 15.875 oz Body Mass Index (BMI) 40.1 ABG / Lab / Microbiology Data 02/07/24 06:13 02/07/24 06:13 Laboratory: Laboratory Results - last 24 hr 02/06/24 12:27: POC Glucose 119 H 02/07/24 06:13: WBC 5.7, RBC 4.55 L, Hgb 14.2, Hct 44.4, MCV 97.6 H, MCH 31.2, MCHC 32.0, RDW Std Deviation 45.7 H, RDW Coeff of Levi 12.8, Plt Count 175, MPV 10.0, Immature Gran % (Auto) 0.400, Neut % (Auto) 78.6 H, Lymph % (Auto) 14.7 L, [place] % (Auto) 6.1, Eos % (Auto) 0.0, Baso % (Auto) 0.2, Absolute Neuts (auto) 4.5, Absolute Lymphs (auto) 0.84, Nucleated RBC % 0, Sodium 138, Potassium 4.4, Chloride 101, Carbon Dioxide 32.0, Anion Gap 6, BUN 22 H, Creatinine 1.02, Estim Creat Clear Calc 78.57, Est GFR (MDRD) Af Amer 91, Est GFR (MDRD) Non-Af 75, BUN/Creatinine Ratio 21.6 H, Glucose 156 H, Calcium 9.1, Phosphorus 4.7, Magnesium 2.6, Total Bilirubin 0.50, AST 37, ALT 60, Alkaline Phosphatase 86, Total Protein 7.0, Albumin 3.3, Globulin 3.7, Albumin/Globulin Ratio 0.9 Microbiology: Microbiology 02/05/24 18:50 Mucosa - Nose SARS-CoV-2, Influenza & RSV (PCR) - Final Influenzae A D/C Instructions Discharge Diet: Low fat / Low cholesterol Call your doctor if you observe: Fever of 101 or Higher, Shortness of breath, Dizziness, Fainting spells, Swelling in the ankles, Chest pain and Increased palpitations (irregular heartbeat) DC O2, CPAP, BIPAP Needs RN Home O2 Qualification: Home O2 Qualification: Is the patient on home oxygen No 02/07/24 11:22 Home O2 Qualification: AT REST 1- Pulse Ox at rest 86 02/07/24 11:22 2- Pulse Ox at rest 90 02/07/24 11:22 2- Oxygen Flow Rate at rest 2 02/07/24 11:22 Home O2 Qualification: WITH AMBULATION 1- Pulse Ox with ambulation 91 02/07/24 11:22 1- Oxygen Flow Rate with 2 02/07/24 11:22 ambulation Home O2 Discharge instructions: No Meaningful Use Info Meaningful Use Meaningful Use Diagnoses (Choose all that apply): None applicable Ischemic Stroke Statin Dosing Therapy Reference: STATIN DOSE THERAPY REFERENCE: * Patients > 75 years receive moderate or high dose statin therapy. * Patients 75 years or YOUNGER should receive HIGH intensity statin dose unless contraindicated. You will be required to document reason for non-treatment if statin daily dose does not meet guidelines. HIGH DOSE STATIN THERAPY DAILY Atorvastatin > than or = to 40 mg Rosuvastatin > than or = to 20 mg Amlodipine + Atorvastatin > than or = to 2.5/40 mg Ezetimibe + Simvastatin 10/80 mg Simvastatin 80mg Discharge Plan Admission Admit Date/Time: 02/06/24 11:53 Attending Provider: Fabricio Harris Primary Care Provider: Blanco Collazo Consulting Providers: Umang Mon; Graciela Dewey Instructions Additional Instructions / Restrictions: Follow-up with your PCP in 3 to 5 days for outpatient monitoring. He will need to have 2 L nasal cannula all the time for oxygen and will need to follow-up with your PCP to have this discontinued as an outpatient Discharge Orders/Prescriptions Prescriptions: New prednisone 20 mg tablet 40 mg PO DAILY Qty: 14 0RF Continued metoprolol succinate 25 mg tablet extended release 24 hr 25 mg PO DAILY furosemide 20 mg tablet 20 mg PO DAILY rosuvastatin 5 mg tablet 5 mg PO QDAY multivitamin with folic acid [Thera] 1 TABLET tablet 1 tab PO DAILY Patient Comments: supplement lisinopril 20 MG tablet 20 mg PO DAILY acetaminophen 500 mg tablet 1,000 mg PO Q8H prednisolone acetate 1 % drops,suspension 1 drp ophthalmic (eye) Q6H triamterene-hydrochlorothiazid 37.5-25 mg tablet 1 tab PO DAILY Referrals / Follow Up: Blanco Collazo MD [Primary Care Provider] - Within 1 Week Disposition Disposition (needs filled in before D/C Order can be placed): Home, Self Care Charges/Coding Visit Charges Inpatient E&M: 09886 Disch Hosp >30min
--- NOTE | 2024-02-07 12:30 | CASEMGMT ---
HORACE WHITLEY Assessment: RN CM to room for initial transition planning/care coordination assessment. HORACE WHITLEY introduced self and role at [facility], pt voices understanding and consents to assessment. Pt sitting on edge of bed, alert/oriented and answers questions appropriately. Care providers, pharmacy, and demographics verified/updated. PCP: Dr Collazo Specialists: Sees irrigation installation specialist for detached retina, just had surgery 01/16 for this. Preferred Pharmacy: [facility] Insurance: [facility], [employer] Prescription Benefit: yes LNOK: Saad Fofana, brother in law; Marino Jensen, son Living Arrangements: Pt lives alone in a one story home with basement with no steps from the garage to living room then, 2 steps to the kitchen. I w/ADLs and IADL's. Transportation: Pt drives self and denies concerns with transportation. Family will take him home @ dc. DME: toilet riser, grab bars, lift chair, BP machine, pulse ox. Has cane available, but does not use and can borrow a walker, if needed. No home O2. Pt qualifies for O2 @ 2 l/m continuously and he is aware. Discussed DME companies and he prefers [employer]. Made aware of home o2 set-up process. HHC/SNF: Pt denies hx of HHC. Was in [facility] in 2015 and [facility] in 2022. Pt wishes to discharge home. Denies need for HHC or OP therapy. Denies any discharge needs/concerns. Plan: Home w/O2. Troy AVERY RN, CM
--- NOTE | 2024-02-07 12:45 | CASEMGMT ---
HORACE WHITLEY updated by Leroy that pt preference for oxygen is [employer]. Ref[facility] to [facility] at this time for oxygen set up.
[2024-02-07] MEDS: Cholecalciferol (Vit D3) 125 MCG CAPSULE (5,000 UNITS) PO (13:57)
[2024-02-07 14:01] VITALS: BP 133/82; PULSE 77; RESP 18; TEMP 36.4; O2SAT 92
== END 2024-02-07 14:23 | disposition home or self-care (01) | DRG 194 ==
LOC: ED 20:28 → MS3 20:41
PROVIDERS: Family Medicine; Admitting Provider Internal Medicine; Emergency Provider Emergency Medicine; PCP Family Medicine; Visit Provider Family Medicine
DX: J10.1 Influenza due to other identified influenza virus with other respiratory manifestations (principal); Z68.41 Body mass index [BMI] 40.0-44.9, adult; I13.0 Hypertensive heart and chronic kidney disease with heart failure and stage 1 through stage 4 chronic kidney disease, or unspecified chronic kidney disease; I50.32 Chronic diastolic (congestive) heart failure; R62.7 Adult failure to thrive; E66.01 Morbid (severe) obesity due to excess calories; E78.5 Hyperlipidemia, unspecified; M16.12 Unilateral primary osteoarthritis, left hip; N18.2 Chronic kidney disease, stage 2 (mild); R09.02 Hypoxemia; Z87.891 Personal history of nicotine dependence; Z86.16 Personal history of COVID-19
CPT/HCPCS: 36415; 71046; 80048; 80053; 82962; 83735; 84100; 84439; 84443; 85025; 87631; 93005; 94640; 94668; 94760; 99284; A4216; J1940

== ENCOUNTER → 2024-03-27 | Outpatient (CLI) | payer MEDICARE, OTHER, SELFPAY ==
[2024-03-27 12:44] LABS: Anion Gap 7 (5-15); BUN 20 mg/dL (7-18); BUN/Creat Ratio 17.2 RATIO (10-20); Calcium,Total 9.8 mg/dL (8.5-10.1); Chloride 95 mmol/L (98-107); Creatinine, Serum 1.16 mg/dL (0.70-1.30); EST Glomerular Filtration Rate 65 mL/min (>60); Est Glom Filt Rate - Afr Amer 79 mL/min (>60); Glucose 126 mg/dL (74-106); Potassium 3.9 mmol/L (3.5-5.1); Sodium Level 134 mmol/L (136-145)
== END | disposition home or self-care (01) ==
LOC: MFPLAB 10:25
PROVIDERS: PCP Family Medicine; Referring Provider Family Medicine; Visit Provider Family Medicine
DX: R60.9 Edema, unspecified (principal)
CPT/HCPCS: 36415; 80048

== ENCOUNTER → 2024-04-26 | Outpatient (CLI) | payer MEDICARE, OTHER, SELFPAY ==
[2024-04-26 12:48] LABS: Anion Gap 10 (5-15); BUN 22 mg/dL (4-19); BUN/Creat Ratio 20.2 RATIO (10-20); Calcium,Total 9.1 mg/dL (7.6-11.0); Carbon Dioxide 27.4 mmol/L (21.0-32.0); Chloride 100 mmol/L (98-108); Creatinine, Serum 1.07 mg/dL (0.70-1.20); EST Glomerular Filtration Rate 71 (>60); Glucose 118 mg/dL (70-99); Potassium 4.2 mmol/L (3.3-5.1); Sodium Level 137 mmol/L (133-145)
== END | disposition home or self-care (01) ==
LOC: MFPLAB 10:24
PROVIDERS: PCP Family Medicine; Referring Provider Family Medicine; Visit Provider Family Medicine
DX: R60.9 Edema, unspecified (principal)
CPT/HCPCS: 36415; 80048

== ENCOUNTER → 2024-06-21 | Outpatient (CLI) | payer MEDICARE, OTHER, SELFPAY ==
[2024-06-21 12:58] LABS: Anion Gap 9 (5-15); BUN 25 mg/dL (4-19); BUN/Creat Ratio 26.9 RATIO (10-20); Calcium,Total 9.4 mg/dL (7.6-11.0); Carbon Dioxide 28.7 mmol/L (21.0-32.0); Chloride 95 mmol/L (98-108); Creatinine, Serum 0.95 mg/dL (0.70-1.20); EST Glomerular Filtration Rate 83 (>60); Glucose 122 mg/dL (70-99); Potassium 4.1 mmol/L (3.3-5.1); Sodium Level 133 mmol/L (133-145)
== END | disposition home or self-care (01) ==
LOC: MFPLAB 10:46
PROVIDERS: PCP Family Medicine; Referring Provider Family Medicine; Visit Provider Family Medicine
DX: R60.9 Edema, unspecified (principal)
CPT/HCPCS: 36415; 80048

== ENCOUNTER → 2024-08-28 | Outpatient (CLI) | payer MEDICARE, OTHER, SELFPAY ==
[2024-08-28 13:06] LABS: Creatinine, Urine (random) 104.00 mg/dL (39.00-259.00); Microalbumin,Random Urine 73.0 mg/L (<20 mg/L)
[2024-08-28 13:14] LABS: AST(SGOT) 22 U/L (<=37); Alanine Aminotransfer ALT/SGPT 27 U/L (<=46); Albumin, Serum 4.2 g/dL (3.4-4.8); Alkaline Phosphatase 98 U/L (40-129); Anion Gap 10 (5-15); BUN 20 mg/dL (4-19); BUN/Creat Ratio 21.2 RATIO (10-20); Calcium,Total 9.3 mg/dL (7.6-11.0); Carbon Dioxide 28.8 mmol/L (21.0-32.0); Chloride 98 mmol/L (98-108); Cholesterol 166 mg/dL (<=200); Globulin 2.4 g/dL (2.2-4.2); Glucose 126 mg/dL (70-99); Low Density Lipoprotein Calc. 75 mg/dL; Potassium 4.3 mmol/L (3.3-5.1); Triglycerides 182 mg/dL; Very Low Density Lipoprotein 36 mg/dL (5-40); cholesterol:hdl ratio screen 3.04
== END | disposition home or self-care (01) ==
LOC: MFPLAB 10:52
PROVIDERS: PCP Family Medicine; Referring Provider Family Medicine; Visit Provider Family Medicine
DX: I10 Essential (primary) hypertension (principal)
CPT/HCPCS: 36415; 80053; 80061; 82043; 82570

== ENCOUNTER → 2024-10-23 | Outpatient (CLI) | payer MEDICARE, OTHER, SELFPAY ==
[2024-10-23 12:53] LABS: Anion Gap 11 (5-15); BUN 30 mg/dL (4-19); BUN/Creat Ratio 24.1 RATIO (10-20); Calcium,Total 9.3 mg/dL (7.6-11.0); Carbon Dioxide 28.0 mmol/L (21.0-32.0); Chloride 98 mmol/L (98-108); Glucose 127 mg/dL (70-99); Potassium 4.6 mmol/L (3.3-5.1)
== END | disposition home or self-care (01) ==
LOC: MFPLAB 10:19
PROVIDERS: PCP Family Medicine; Visit Provider Family Medicine
DX: R60.9 Edema, unspecified (principal)
CPT/HCPCS: 36415; 80048

== ENCOUNTER 2025-01-20 09:26 | Emergency (ER) | payer MEDICARE, OTHER, SELFPAY ==
[2025-01-20 09:27] VITALS: BP 153/65; PULSE 90; RESP 16; TEMP 36.5; O2SAT 96; BMI 41.2
--- NOTE | 2025-01-20 09:36 | EDS_ITS ---
HPI History of Present Illness Chief Complaint: Complaint [facility] Medical History Wears glasses Alcohol use Arthritis Former smoker Chronic cough Leg cramps History of stress test History of echocardiogram Normal colonoscopy Pneumonia COVID-19 Kidney stone Home Medications ?Medication ?Instructions ?Recorded ?Last Taken ?Type multivitamin with folic acid 400 1 tab PO DAILY SUPPLE MENT 01/29/15 08/13/15 History mcg tablet (Thera) lisinopril 20 mg tablet 20 mg PO DAILY HTN 03/16/20 Unknown History furosemide 20 mg tablet 20 mg PO DAILY WATER PILL Unknown History metoprolol succinate 25 mg 25 mg PO DAILY HTN 06/05/22 Unknown History tablet,extended release 24 hr acetaminophen 500 mg tablet 1,000 mg PO Q8H pain 07/24 Unknown History rosuvastatin 5 mg tablet 5 mg PO QDAY 07/14/23 Unknow n History prednisolone acetate 1 % eye 1 drp ophthalmic (eye) Q6 H 02/05/24 Unknown History drops,suspension triamterene 37.5 1 tab PO DAILY 02/05/24 Unkn own History mg-hydrochlorothiazide 25 mg tablet prednisone 20 mg tablet 40 mg (2 x 20 mg) PO DAILY # 14 tabs 02/07/24 Unknown Rx Allergy/AdvReac Type Severity Reaction Status Date / Time No Known Allergies Allergy Verified 01/20/25 09:30 Family History Brother Myocardial infarction 20 years ago Surgical History History of total left hip arthroplasty History of left cataract surgery History of right cataract surgery History of total right knee replacement Social History household members: none Smoking Status: Former smoker alcohol intake: current substance use type: does not use what type of physical activity do you participate in: walking EXAM Physical Exam Const Vital Signs: 01/20/25 09:27 Temperature 97.7 F L Temperature Source Oral Pulse Rate 90 Respiratory Rate 16 Blood Pressure 153/65 H Blood Pressure Mean 94 Pulse Ox 96 Oxygen Delivery Method Room Air MDM MDM MDM Narrative Medical decision making narrative: HISTORY OF PRESENT ILLNESS: Chief complaint: Hematuria 79-year-old male history of obesity, hypertension, presents concern for hematuria. Notes started last night. No similar event last week that stopped abruptly. No blood thinners. No history of coagulopathy. REVIEW OF SYSTEMS: Pertinent positives: Hematuria Pertinent negatives: Abdominal pain, fevers, frequency, urgency PHYSICAL EXAM: Nursing triage notes reviewed, Vital signs reviewed Constitutional: please see [facility] HENT: MMM Eyes: Pupils equal round and reactive to light, Extraocular muscles intact Neck: No stridor, no JVD, full neck ROM Lungs: Clear to auscultation, No wheezing or rales. No increased work of breathing, no conversational dyspnea, no accessory muscle use, no nasal flaring. No respiratory distress noted Heart: Regular rate and rhythm, No murmurs, No rubs and No gallops, 2+ distal pulses (radial, femoral, posterior tibial) in all extremities Abdomen: Soft, there is no tenderness, rigidity, rebound or guarding, no obvious peritoneal signs, no palpable pulsatile abdominal masses, no auscultated abdominal bruit : No CVAT Extremities: No edema Neuro: No new focal neurological deficits, cranial nerves II through XII intact, 5/5 strength in all present extremities. Intact sensation to light touch in all present extremities, 2+ reflexes bilateral patella tendons. Skin: No rash or lesions noted MEDICAL DECISION MAKING: Chief Complaint: please see [facility] External records reviewed: Reviewed prior imaging studies: Recent advanced imaging of the abdomen or pelvis Factors affecting care: as per [facility] Social determinants of health: none History obtained from others: none Consults: none [facility] Narrative: Patient was initially hemodynamically stable, afebrile and nontoxic-appearing. Exam without abdominal tenderness, suprapubic fullness or other abnormalities. Patient did not appear pale. He appeared in no discomfort. I considered the following differential diagnosis: UTI, bladder mass, anemia I obtained labs to further determine if the patient was suffering from a life- threatening etiology. No treatment indicated as patient no symptoms ALL IMAGES (IF OBTAINED) HAVE BEEN PERSONALLY REVIEWED AND INTERPRETED BY MYSELF. CBC with no leukocytosis, no anemia, no thrombocytopenia No coagulopathy BMP without evidence of significant electrolyte abnormalities, no anion gap, no acute kidney injury. Urinalysis with hematuria but no sign of definitive infection. Will send urine for culture No clear life-limiting etiology identified on ED evaluation specifically no sign of severe infection or anemia. Patient will need prompt follow-up with urology for outpatient cystoscopy to evaluate for painless hematuria and concern for cancerous process. Discussed with patient who agreed. Strict return precautions were discussed. The patient and/or family, caregivers express understanding. The patient and/or family, caregivers agrees with the plan. Shared decision making: I will have a discussion with the patient and or visitors regarding risk/benefits of further testing or admission. They will be made aware of of the risk/benefits inherent in this decision they will be given the opportunity to voice understanding. Total critical care time today provided was at least 0 [] minutes. This excludes separately billable procedures. Critical care time (if documented) is secondary to the patient having high probability of clinically significant/life threatening deterioration in the patient's condition which required my urgent intervention. Impression: 1. Painless hematuria Dispo: discharge This note was generated with [employer] dictation software. It may contain incorrect words, spelling, and punctuation that were not noted in review of the chart prior to signing. Lab Data Labs: Laboratory Results - last 24 hr 01/20/25 01/20/25 09:48 10:15 WBC 8.6 RBC 4.92 Hgb 15.9 Hct 47.6 MCV 96.7 H MCH 32.3 H MCHC 33.4 RDW Std Deviation 46.7 H RDW Coeff of Levi 13.2 Plt Count 244 MPV 10.2 Immature Gran % (Auto) 0.600 Neut % (Auto) 66.8 Lymph % (Auto) 20.2 [place] % (Auto) 9.8 Eos % (Auto) 1.9 Baso % (Auto) 0.7 Absolute Neuts (auto) 5.8 Absolute Lymphs (auto) 1.74 Nucleated RBC % 0 PT 13.4 INR 1.0 APTT 27.8 Sodium 138 Potassium 4.3 Chloride 97 L Carbon Dioxide 30.5 Anion Gap 10 BUN 36 H Creatinine 1.18 Estim Creat Clear Calc 67.94 Est GFR (MDRD) Non-Af 63 BUN/Creatinine Ratio 30.7 H Glucose 126 H Calcium 9.4 Urine Color Red Urine Clarity Turbid Urine pH 6.5 Ur Specific [place] 1.020 Urine Protein 500 H Urine Glucose (UA) Normal Urine Ketones 5 H Urine Occult Blood 250 H Urine Nitrite Negative Urine Bilirubin Negative Urine Urobilinogen Normal Ur Leukocyte Esterase 25 H Urine RBC > 100 SEEN Urine WBC 5-10 SEEN Ur Squamous Epith Cells 0 SEEN Urine Bacteria 0 SEEN Urine Mucus 0 SEEN Discharge Plan Triage Chief Complaint: Complaint ED Provider: Arpit Cordova Dx/Rx/DC Orders Prescriptions: No Action metoprolol succinate 25 mg tablet extended release 24 hr 25 mg PO DAILY furosemide 20 mg tablet 20 mg PO DAILY rosuvastatin 5 mg tablet 5 mg PO QDAY multivitamin with folic acid [Thera] 1 TABLET tablet 1 tab PO DAILY Patient Comments: supplement lisinopril 20 MG tablet 20 mg PO DAILY acetaminophen 500 mg tablet 1,000 mg PO Q8H prednisolone acetate 1 % drops,suspension 1 drp ophthalmic (eye) Q6H triamterene-hydrochlorothiazid 37.5-25 mg tablet 1 tab PO DAILY prednisone 20 mg tablet 40 mg PO DAILY Qty: 14 0RF Primary Care Provider: Blanco Collazo Referrals: Blanco Collazo MD [Primary Care Provider, Family Practice] Print Language: [place]
[2025-01-20 09:58] LABS: Hematocrit 47.6 % (40-54); Hemoglobin 15.9 g/dL (13.0-16.5); Immature Granulocytes Count 0.050 X10^3/uL (0.0-0.0); Mean Corp Hgb Conc 33.4 g/dL (32-36); Mean Corpuscular Volume 96.7 fL (80-94); Mean Platelet Vol. 10.2 fl (6.2-12.0); NRBC Flagged by Analyzer 0 % (0-5); Platelet Count 244 K/mm3 (150-450); RBC Distribution Width CV 13.2 % (11.6-14.6); RBC Distribution Width SD 46.7 fl (35.1-43.9); Red Blood Count 4.92 M/mm3 (4.6-6.2); White Blood Count 8.6 K/mm3 (4.4-11.0)
[2025-01-20 10:05] LABS: Prothrombin Time (Protime)PT. 13.4 SECONDS (11.7-14.9)
[2025-01-20 10:06] LABS: Partial Thromboplast Time 27.8 Seconds (24.1-36.2)
[2025-01-20 10:14] LABS: Anion Gap 10 (5-15); BUN 36 mg/dL (4-19); BUN/Creat Ratio 30.7 RATIO (10-20); Calcium,Total 9.4 mg/dL (7.6-11.0); Carbon Dioxide 30.5 mmol/L (21.0-32.0); Chloride 97 mmol/L (98-108); Estimated Creatinine Clearance 67.94 ml/min (50-250); Glucose 126 mg/dL (70-99); Potassium 4.3 mmol/L (3.3-5.1)
[2025-01-20 10:21] LABS: Mucous, Urine 0 SEEN /hpf (<or=2+); Squamous Epithelial Cells - UA 0 SEEN /hpf (0-5)
[2025-01-20 10:25] LABS: Color, Urine Red (Yellow); Glucose, Dipstick Normal (Normal); Ketone-Dipstick 5 mg/dl (Negative); Leukocyte Esterase-Dipstick 25 /ul (Negative); Nitrite-Dipstick Negative (Negative); Occult Blood-Urine 250 /ul (Negative); Protein-Dipstick 500 mg/dl (Negative); Specific Gravity, Urine 1.020 (1.002-1.030); Urine Bilirubin Dipstick Negative (Negative)
[2025-01-20 10:39] LABS: Red Blood Cells-Urine > 100 SEEN /hpf (0-5)
[2025-01-20 11:06] VITALS: BP 153/65; PULSE 90; RESP 16; TEMP 36.5; O2SAT 96
--- OUTSIDE RECORDS SUMMARY | 2025-01-20 11:07 | XMS RPT_ITS | CCD ---
Author Organization [facility] Care Team Providers Care Chest Pain Coordinator Name Role Phone Dr. Blanco Collazo Primary Care Provider Dr. Blanco Alexander Attending Provider Dr. Blanco Collazo Primary Care Provider Dr. Abelino Lopez Attending Provider Dr. Blanco Collazo Primary Care Provider Dr. Blanco Collazo Referring Provider Dr. Zeke Phillips Attending Provider Dr. Abelino Lopez Attending Provider Dr. Zeke Phillips Admit Provider Dr. Zeke Phillips Referring Provider Dr. Zeke Phillips Other Provider DMITRIY Benson Attending Provider DMITRIY Doyle Attending Provider Dr. Blanco Collazo Primary Care Provider Dr. Zeke Phillips Attending Provider Dr. Blanco Collazo Referring Provider Dr. Abelino Lopez Attending Provider Dr. Blanco Collazo Primary Care Provider Dr. Blanco Collazo Referring Provider Dr. Zeke Phillips Attending Provider Dr. Blanco Collazo MD Primary Care Provider [phone] Schwiger DO, Dr. Eleuterio Emergency Provider de Tadeo DO, Dr. Heck Admit Provider Unavail able de Tadeo DO, Dr. Heck Attending Provider Unav ailable de Tadeo DO, Dr. Heck Other Provider Unavail able Steven HERNANDEZ, Dr. Fabricio Monet Attending Provider Zuleima HERNANDEZ, Dr. Graciela Gillis Other Provider Steven HERNANDEZ, Dr. Fabricio Monet Other Provider [phone] Vale HERNANDEZ, Dr. Simeon Attending Provider Vale HERNANDEZ, Dr. Simeon Referring Provider Vale HERNANDEZ, Dr. Simeon Primary Care Provider Vale HERNANDEZ, Dr. Simeon Primary Care Provider Vale HERNANDEZ, Dr. Simeon Attending Provider Vale HERNANDEZ, Dr. Simeon Referring Provider Vale HERNANDEZ, Dr. Simeon Primary Care Physician Vale HERNANDEZ, Dr. Simeon Attending Physician Vale HERNANDEZ, Dr. Simeon Referring Provider Umang Mon Attending Unavailable Blanco Collazo Primary Care Unavailable de Umang Piedra Admitting Unavailable de Umang Piedra Consulting Unavailable Blanco Collazo Primary Care Unavailable de TadeoUmang sommer Admitting Unavailable Graciela Dewey Attending Unavailable de Umang Piedra Consulting Unavailable Graciela Dewey Consulting Unavailable Fabricio Harris Attending Unavailable Fabricio Harris Consulting Unavailable Blanco Collazo Attending Unavailable Collazo, Blanco Primary Care Unavailable Collazo, Blanco Attending Unavailable Blanco Collazo Referring Unavailable Collazo, Blanco Primary Care Unavailable Collazo, Blanco Attending Unavailable Blanco Collazo Referring Unavailable Collazo, Blanco Primary Care Unavailable Collazo, Blanco Attending Unavailable Vale, Blanco Referring Unavailable Collazo, Blanco Primary Care Unavailable de TadeoUmang Consulting Unavailable Blanco Collazo Primary Care Unavailable Fabricio Harris Attending Unavailable Umang Mon Admitting Unavailable Graciela Dewey L Consulting Unavailable Vale, Blanco Attending Unavailable Collazo, Blanco Referring Unavailable Collazo, Blanco Primary Care Unavailable Medications Current Medications Medication Drug Class(es) Dates Sig (Normalized) Sig (Original) acetaminophen 500 mg oral tablet (19 sources) Start: 07-24-2022 End: 07-24-2022 take 2 tablets by mouth every eight hours Start: 07-24-2022 End: 07-24-2022 take 1000 mg by mouth every eight hours Acetaminophen Active 1000 MG PO Q8H July 24, 2022 11:49am furosemide 20 mg oral tablet (10 sources) Loop Diuretic Start: 06-05-2022 take 1 tablet by mouth once daily hydroCHLOROthiazide 25 mg / triamterene 37.5 mg oral tablet (19 sources) Potassium-sparing Diuretic, Thiazide Diuretic Start: 02-05-2024 Start: 01-29-2015 End: 07-28-2022 Triamterene-Hydrochlorothiaz id 1 CAP capsule Discontinued 1 NMA PO DAILY January 29, 2015 1:00am July 28, 2022 8:50pm HTN Start: 01-29-2015 End: 07-28-2022 take 1 capsule by mouth once daily Triamterene-Hydrochlorothiazid Discontin ued 1 CAP PO DAILY January 29, 2015 1:00am July 28, 2022 8:50pm lisinopril 20 mg oral tablet (15 sources) Angiotensin Converting Enzyme Inhibitor Start: 03-16-2020 take 1 tablet by mouth once daily 24 hr metoprolol succinate 25 mg extended release oral tablet (10 sources) beta-Adrenergic Missy Start: 06-05-2022 take 1 tablet by mouth once daily Miscellaneous Medical Supply (4 sources) Start: 08-03-2022 Miscellaneous Medical Supply Active 1 EACH MC .PRN 1 360 August 02, 2022 11:00pm Handicap Placard to use as needed. Valid for 1 year. Start: 08-03-2022 Miscellaneous Medical Supply Active 1 EACH MC .PRN 1 360 August 03, 2022 12:00am Handicap Placard to use as needed. Valid for 1 year. Multivitamin With Folic Acid (Thera) 1 TABLET tablet (15 sources) Start: 01-29-2015 take 1 tablet by prabha th once daily Start: 01-29-2015 take 1 tablet by prabha th once daily Multivitamin With Folic Acid (Thera) 1 TABLET tablet Active 1 {tbl} PO DAILY January 29, 2015 1:00am SUPPLEMENT Start: 01-29-2015 take 1 tablet by prabha th once daily Multivitamin With Folic Acid (Thera) 1 TABLET tablet Active 1 {tbl} PO DAILY January 29, 2015 1:00am Start: 01-29-2015 take 1 tablet by prabha th once daily Multivitamin With Folic Acid (Thera) 1 TABLET tablet Active 1 TABLET PO DAILY January 29, 2015 12:00am Start: 01-29-2015 take 1 tablet by prabha th once daily Multivitamin With Folic Acid (Thera) 1 TABLET tablet Active 1 TABLET PO DAILY January 29, 2015 1:00am pantoprazole 20 mg delayed release oral tablet (5 sources) Proton Pump Inhibitor Start: 03-21-2020 take 20 mg by mouth twice daily Pantoprazole Active 20 MG PO TWICE A DAY March 21, 2020 12:00am Take while taking eliquis. prednisoLONE acetate 10 mg/ml ophthalmic suspension (4 sources) Corticosteroid Start: 02-05-2024 predniSONE 20 mg oral tablet (4 sources) Start: 02-07-2024 take 2 tablets by mouth once daily rosuvastatin calcium 5 mg oral tablet (19 sources) HMG-CoA Reductase Inhibitor Start: 07-14-2023 take 1 tablet by mouth once daily Start: 03-16-2020 End: 06-05-2022 take 1 tablet by mouth at bedtime Rosuvastatin 5 MG tablet Discontinued 5 mg PO AT BEDTIME March 16, 2020 1:00am June 05, 2022 9:22am Completed/Discontinued Medications Medication Drug Class(es) Dates Sig (Normalized) Sig (Original) amoxicillin 500 mg oral tablet (12 sources) Penicillin-class Antibacterial Start: 03-24-2023 take 4 tablets by mouth every hour Amoxicillin Active 2000 MG PO ONCE 4 March 24, 2023 10:42am take 4 tabs within 1 hr prior to dental procedure. Start: 10-14-2022 End: 07-14-2023 take 4 tablets by mouth every hour Amoxicillin 500 mg tablet Discontinued 2000 mg PO ONCE 4 March 24, 2023 10:42am July 14, 2023 9:23am take 4 tabs within 1 hr prior to dental procedure. apixaban 5 mg oral tablet (20 sources) Factor Xa Inhibitor Start: 07-28-2022 End: 08-31-2022 take 2.5 mg by mouth twice daily Apixaban (Eliquis) 5 mg Tablet Discontinued 2.5 mg PO TWICE A DAY 21 0 July 28, 2022 12:00am August 31, 2022 9:55am Start: 07-24-2022 End: 07-28-2022 take 1 tablet by mouth twice daily Apixaban (Eliquis) 2.5 mg tablet Discontinued 2.5 mg PO TWICE A DAY July 24, 2022 11:49am July 28, 2022 8:50pm blood thinner Start: 03-21-2020 End: 06-05-2022 take 1 tablet by mouth twice daily Apixaban 5 MG tablet Discontinued 5 mg PO TWICE A DAY 28 March 21, 2020 1:00am June 05, 2022 9:24am Pneumonia due to COVID-19 virus COVID-19 Pneumonia due to coronavirus disease 2019 First dose 03/21/20 evening aspirin 81 mg delayed release oral tablet (20 sources) Platelet Aggregation Inhibitor, Nonsteroidal Anti-inflammatory Drug Start: 03-16-2020 End: 06-05-2022 take 1 tablet by mouth once daily Aspirin 81 MG tablet Discontinued 81 mg PO DAILY@0800 March 16, 2020 1:00am June 05, 2022 9:24am Start: 02-13-2015 End: 02-21-2015 take 1 tablet by mouth twice daily at mealtime Aspirin 325 MG tablet Discontinued 325 mg PO TWICE DAILY WITH MEALS 60 0 February 13, 2015 1:00am February 21, 2015 9:59am cetirizine hydrochloride 10 mg oral capsule (15 sources) Histamine-1 Receptor Antagonist Start: 03-16-2020 End: 06-05-2022 take 1 capsule by mouth once daily Cetirizine 10 MG capsule Discontinued 10 mg PO DAILY March 16, 2020 1:00am June 05, 2022 9:23am docusate sodium 50 mg / sennosides, intermediate 8.6 mg oral tablet (15 sources) Start: 02-21-2015 End: 08-11-2015 take 1 tablet by mouth twice daily Sennosides-Docusa te Sodium (Stool Softener-Stimulan t Laxat) 1 TABLET tablet Discontinued 2 {tbl} PO TWICE A DAY 0 0 February 21, 2015 1:00am August 11, 2015 6:46am fluticasone propionate 0.05 mg/actuat metered dose nasal spray (15 sources) Corticosteroid Start: 03-16-2020 End: 06-05-2022 Fluticasone Propionate 1 SPRAY spray,suspension Discontinued 2 NMA NASAL DAILY March 16, 2020 1:00am June 05, 2022 9:23am Start: 03-16-2020 End: 06-05-2022 Fluticasone Propionate Disco ntinued 2 SPRAY NASAL DAILY March 16, 2020 1:00am June 05, 2022 9:23am loratadine 10 mg oral tablet (20 sources) Start: 03-16-2020 End: 06-05-2022 take 1 tablet by mouth once daily Loratadine 10 MG tablet Discontinued 10 mg PO DAILY March 16, 2020 1:00am June 05, 2022 9:23am Start: 02-21-2015 End: 08-11-2015 take 1 tablet by mouth once daily Loratadine (Allergy Relief (Loratadine)) 10 MG tablet Discontinued 10 mg PO DAILY 0 0 February 21, 2015 1:00am August 11, 2015 6:46am meloxicam 15 mg oral tablet (10 sources) Nonsteroidal Anti-inflammatory Drug Start: 06-05-2022 End: 08-03-2022 take 1 tablet by mouth once daily Meloxicam 15 mg tablet Discontinued 15 mg PO DAILY June 05, 2022 12:00am August 03, 2022 10:23am PAIN Miscellaneous Medical Supply [facility] (4 sources) Start: 08-03-2022 End: 07-29-2023 Miscellaneous Medical Supply misc Discontinued 1 NMA MC .PRN as needed for S/P left JARED 1 360 0 August 03, 2022 12:00am July 28, 2023 12:00am July 29, 2023 12:06am Status post total replacement of hip Presence of unspecified artificial hip joint Handicap Placard to use as needed. Valid for 1 year. Start: 08-03-2022 End: 07-29-2023 Miscellaneous Medical Supply [facility] Discontinued 1 NMA MC .PRN as needed for S/P left JARED 1 360 August 03, 2022 12:00am July 28, 2023 12:00am July 29, 2023 12:06am Handicap Placard to use as needed. Valid for 1 year. oxyCODONE hydrochloride 5 mg oral tablet (10 sources) Opioid Agonist Start: 07-24-2022 End: 07-28-2022 take 5-10 mg by mouth every four hours as needed for pain Oxycodone 5 mg tablet Discontinued 5 - 10 mg PO Q4H as needed for pain 60 7 0 July 24, 2022 July 28, 2022 8:50pm Other acute postprocedural pain Other acute postprocedural pain Problems Active Problems Problem Classification Problem Date Documented Date Episodic/Chronic Calculus of urinary tract (15 sources) Urolithiasis ; Translations: [Urinary calculus, unspecified] 08-12-2015 Episodic Essential hypertension (19 sources) Hypertensive disorder; Translations: [Essential (primary) hypertension] Onset: 09-01-2024 02-14-2015 Chronic Malaise and fatigue (12 sources) Asthenia; Translations: [Other malaise] 07-24-2022 Episodic Osteoarthritis (20 sources) Osteoarthritis; Translations: [Unspecified osteoarthritis, unspecified site] Onset: 02-14-2024 02-14-2015 Chronic Other aftercare (7 sources) Follow-up status; Translations: [Encounter for other orthopedic aftercare] 10-14-2022 Episodic Other aftercare (2 sources) Encounter for other orthopedic aftercare; Translations: [Unspecified orthopedic aftercare] 10-14-2022 Episodic Other connective tissue disease (16 sources) History of total knee arthroplasty; Translations: [Presence of right artificial knee joint] 03-16-2020 Chronic Other connective tissue disease (15 sources) History of total hip arthroplasty; Translations: [Presence of unspecified artificial hip joint] 07-22-2022 Chronic Other connective tissue disease (13 sources) Presence of unspecified artificial hip joint; Translations: [Hip joint replacement] 07-24-2022 Chronic Other connective tissue disease (1 source) Presence of left artificial hip joint; Translations: [Presence of left artificial hip joint] Onset: 02-14-2024 Chronic Other connective tissue disease (1 source) Presence of right artificial knee joint; Translations: [Presence of right artificial knee joint] Onset: 02-14-2024 Chronic Other diseases of kidney and ureters (15 sources) Acute renal insufficiency; Translations: [Disorder of kidney and ureter, unspecified] 08-12-2015 Episodic Other lower respiratory disease (5 sources) Respiratory insufficiency; Translations: [Other abnormalities of breathing] 02-05-2024 Episodic Other lower respiratory disease (5 sources) Hypoxia; Translations: [Hypoxemia] 02-05-2024 Episodic Other nervous system disorders (10 sources) Acute postoperative pain; Translations: [Other acute postprocedural pain] 07-24-2022 Episodic Other non-traumatic joint disorders (10 sources) Hip pain; Translations: [Pain in left hip] 06-05-2022 Episodic Other nutritional; endocrine; and metabolic disorders (15 sources) Obese class I; Translations: [Obesity, unspecified] 03-16-2020 Chronic Other nutritional; endocrine; and metabolic disorders (10 sources) Obesity; Translations: [Obesity, unspecified] 06-05-2022 Chronic Other nutritional; endocrine; and metabolic disorders (11 sources) Obesity, unspecified; Translations: [Obesity, unspecified] Onset: 02-14-2024 06-05-2022 Chronic Other nutritional; endocrine; and metabolic disorders (5 sources) Body mass index 30+ - obesity; Translations: [Obesity, unspecified] 02-05-2024 Chronic Other screening for suspected conditions (not mental disorders or infectious disease) (15 sources) Patient encounter status; Translations: [Encounter for screening for malignant neoplasm of colon] 03-16-2020 Episodic Residual codes; unclassified (1 source) Edema, unspecified; Translations: [Edema, unspecified] Onset: 11-03-2024 Episodic Respiratory failure; insufficiency; arrest (adult) (15 sources) Acute respiratory failure; Translations: [Acute respiratory failure with hypoxia] 03-16-2020 Episodic Spondylosis; intervertebral disc disorders; other back problems (10 sources) Low back pain; Translations: [Low back pain] 06-05-2022 Episodic Viral infection (15 sources) COVID-19; Translations: [Pneumonia due to COVID-19 virus] 03-16-2020 Episodic Past or Other Problems Problem Classification Problem Date Documented Date Episodic/Chronic Influenza (6 sources) Influenza due to Influenza A virus; Translations: [Influenza due to other identified influenza virus with other respiratory manifestations] Onset: 02-14-2024 02-05-2024 Episodic Other lower respiratory disease (2 sources) Hypoxemia; Translations: [Hypoxemia] Onset: 02-07-2024 Episodic Other lower respiratory disease (1 source) Other abnormalities of breathing; Translations: [Other abnormalities of breathing] Onset: 02-14-2024 Episodic Results Test Name Value Interpretation Reference Range Facility Anion gap in Serum or Plasma Ordered By: Blanco Collazo on 10-23-2024 Anion gap [Moles/Vol] 11 mmol/L 06-22 [facility] BUN/creatinine ratioOrdered By: Blanco Collazo on 10-23-2024 Urea nitrogen/Creatinine [Mass ratio] 24.1 mg/mg High 11-27 [facility] Basic Metabolic Profile (BMP )on 10-23-2024 BUN/CRE 24.1 RATIO High 11-27 [facility] Comment on above: Performed By: #### L [id number] #### [facility] [address] [place], [address] Calcium [Mass/Vol] 9.3 mg/dL Normal 7.6-11.0 [facility] Comment on above: Performed By: #### L [id number] #### [facility] [address] [place], [address] Chloride [Moles/Vol] 98 mmol/L Normal 98-108 [facility] Comment on above: Performed By: #### L [id number] #### [facility] [address] [place], [address] CO2 [Moles/Vol] 28.0 mmol/L Normal 21.0-32.0 [facility] Comment on above: Performed By: #### L [id number] #### [facility] [address] [place], [address] Creatinine [Mass/Vol] 1.23 mg/dL High 0.70-1.20 [facility] Comment on above: Performed By: #### L [id number] #### [facility] [address] [place], [address] GAP 11 Normal 06-22 [facility] Comment on above: Performed By: #### L [id number] #### [facility] [address] [place], [address] GFR/1.73 sq M.predicted among non-blacks MDRD (S/P/Bld) [Vol rate/Area] 60 mL/min/{1.73_m2} Normal >60 [facility] Comment on above: Result Comment: mL/m in/1.73m2 CKD-EPI Creatinine Equation (2020) Performed By: #### L [id number] #### [facility] [address] [place], [address] Glucose [Mass/Vol] 127 mg/dL High 70-99 [facility] Comment on above: Performed By: #### L [id number] #### [facility] [address] [place], [address] Potassium [Moles/Vol] 4.6 mmol/L Normal 3.3-5.1 [facility] Comment on above: Performed By: #### L [id number] #### [facility] [address] [place], [address] Sodium [Moles/Vol] 137 mmol/L Normal 133-145 [facility] Comment on above: Performed By: #### L [id number] #### [facility] [address] [place], [address] Urea nitrogen [Mass/Vol] 30 mg/dL High 4-19 [facility] Comment on above: Performed By: #### L [id number] #### [facility] [address] [place], [address] Carbon dioxide, total [Moles /volume] in Central venous bloodOrdered By: Blanco Collazo on 10-23-2024 CO2 [Moles/Vol] 28.0 mmol/L 21.0-32.0 [facility] Chloride assayOrdered By: Dmitriy Collazo on 10-23-2024 Chloride [Moles/Vol] 98 mmol/L 98-108 [facility] Glomerular filtration rate ( GFR) estimation/1.73 sq m using serum, plasma, or whole bOrdered By: Blanco Collazo on 10-23-2024 GFR/1.73 sq M.predicted among non-blacks MDRD (S/P/Bld) [Vol rate/Area] 60 mL/min/{1.73_m2} >60 [facility] Comment on above: mL/min/1.73m2 CKD-EP I Creatinine Equation (2020) Potassium measurement (mass/ volume)Ordered By: Blanco Collazo on 10-23-2024 Potassium (Unsp spec) [Mass/Vol] 4.6 mmol/L 3.3-5.1 [facility] Serum creatinine measurement (mass/volume)Ordered By: Blanco Collazo on 10-23-2024 Creatinine [Mass/Vol] 1.23 mg/dL High 0.70-1.20 [facility] Serum glucose measurement (m ass/volume)Ordered By: Blanco Collazo on 10-23-2024 Glucose [Mass/Vol] 127 mg/dL High 70-99 [facility] Serum or plasma calcium jenifer urement (mass/volume)Ordered By: Blanco Collazo on 10-23-2024 Calcium [Mass/Vol] 9.3 mg/dL 7.6-11.0 [facility] Serum or plasma urea nitroge n measurement (mass/volume)Ordered By: Blanco Collazo on 10-23-2024 Urea nitrogen [Mass/Vol] 30 mg/dL High 4-19 [facility] Sodium levelOrdered By: Blanco Collazo on 10-23-2024 Sodium [Moles/Vol] 137 mmol/L 133-145 [facility] Anion gap in Serum or Plasma Ordered By: Blanco Collazo on 08-28-2024 Anion gap [Moles/Vol] 10 mmol/L 5-15 [facility] BUN/creatinine ratioOrdered By: Blanco Collazo on 08-28-2024 Urea nitrogen/Creatinine [Mass ratio] 21.2 mg/mg High 10-20 [facility] Bilirubin, totalOrdered By: Blanco Collazo on 08-28-2024 Bilirubin [Mass/Vol] 0.49 mg/dL 0.00-1.30 [facility] Calculated very low density lipoprotein (VLDL) cholesterol measurementOrdered By: Blanco Collazo on 08-28-2024 Calculated very low density lipoprotein (VLDL) cholesterol measurement 36 mg/dL 5-40 [facility] Carbon dioxide, total [Moles /volume] in Central venous bloodOrdered By: Blanco Collazo on 08-28-2024 CO2 [Moles/Vol] 28.8 mmol/L 21.0-32.0 [facility] Chloride assayOrdered By: Dmitriy Collazo on 08-28-2024 Chloride [Moles/Vol] 98 mmol/L 98-108 [facility] Comprehensive Metabolic Prof ilon 08-28-2024 Albumin [Mass/Vol] 4.2 g/dL Normal 3.4-4.8 [facility] Comment on above: Performed By: #### L 501.2300, [id number], L500.4050, L100.0100 #### [facility] [address] [place], [address] Albumin/Globulin [Mass ratio] 1.7 {ratio} Normal 0.9-2.4 [facility] Comment on above: Performed By: #### L 501.2300, [id number], L500.4050, L100.0100 #### [facility] [address] [place], [address] ALK PHOS 98 U/L Normal 40-129 [facility] Comment on above: Performed By: #### L 501.2300, [id number], L500.4050, L100.0100 #### [facility] [address] [place], [address] ALT [Catalytic activity/Vol] 27 U/L Normal <=46 [facility] Comment on above: Performed By: #### L 501.2300, [id number], L500.4050, L100.0100 #### [facility] [address] [place], [address] AST [Catalytic activity/Vol] 22 U/L Normal <=37 [facility] Comment on above: Performed By: #### L 501.2300, [id number], [id number], L100.0100 #### [facility] [address] [place], [address] Bilirubin [Mass/Vol] 0.49 mg/dL Normal 0.00-1.30 [facility] Comment on above: Performed By: #### L [id number], [id number], [id number], L100.0100 #### [facility] [address] [place], [address] BUN/CRE 21.2 RATIO High 10-20 [facility] Comment on above: Performed By: #### L 501.2300, [id number], [id number], L100.0100 #### [facility] [address] [place], [address] Calcium [Mass/Vol] 9.3 mg/dL Normal 7.6-11.0 [facility] Comment on above: Performed By: #### L 501.2300, [id number], [id number], L100.0100 #### [facility] [address] [place], [address] Chloride [Moles/Vol] 98 mmol/L Normal 98-108 [facility] Comment on above: Performed By: #### L 501.2300, [id number], [id number], L100.0100 #### [facility] [address] [place], [address] CO2 [Moles/Vol] 28.8 mmol/L Normal 21.0-32.0 [facility] Comment on above: Performed By: #### L 501.2300, [id number], [id number], L100.0100 #### [facility] [address] [place], [address] Creatinine [Mass/Vol] 0.94 mg/dL Normal 0.70-1.20 [facility] Comment on above: Performed By: #### L 501.2300, [id number], [id number], L100.0100 #### [facility] [address] [place], [address] GAP 10 Normal 5-15 [facility] Comment on above: Performed By: #### L 501.2300, [id number], [id number], L100.0100 #### [facility] [address] [place], [address] GFR/1.73 sq M.predicted among non-blacks MDRD (S/P/Bld) [Vol rate/Area] 83 mL/min/{1.73_m2} Normal >60 [facility] Comment on above: Result Comment: mL/m in/1.73m2 CKD-EPI Creatinine Equation (2020) Performed By: #### L 501.2300, [id number], [id number], L100.0100 #### [facility] [address] [place], [address] Globulin (S) [Mass/Vol] 2.4 g/dL Normal 2.2-4.2 [facility] Comment on above: Performed By: #### L 501.2300, [id number], [id number], L100.0100 #### [facility] [address] [place], [address] Glucose [Mass/Vol] 126 mg/dL High 70-99 [facility] Comment on above: Performed By: #### L 501.2300, [id number], [id number], L100.0100 #### [facility] [address] [place], [address] Potassium [Moles/Vol] 4.3 mmol/L Normal 3.3-5.1 [facility] Comment on above: Performed By: #### L 501.2300, [id number], [id number], L100.0100 #### [facility] [address] [place], [address] Sodium [Moles/Vol] 138 mmol/L Normal 133-145 [facility] Comment on above: Performed By: #### L 501.2300, [id number], [id number], L100.0100 #### [facility] [address] [place], [address] T PROT 6.5 g/dL Normal 5.9-8.4 [facility] Comment on above: Performed By: #### L 501.2300, L501.5200, L500.4050, L100.0100 #### [facility] [address] [place], [address] Urea nitrogen [Mass/Vol] 20 mg/dL High 4-19 [facility] Comment on above: Performed By: #### L 501.2300, L501.5200, L500.4050, L100.0100 #### [facility] [address] [place], [address] Glomerular filtration rate ( GFR) estimation/1.73 sq m using serum, plasma, or whole bOrdered By: Blanco Collazo on 08-28-2024 GFR/1.73 sq M.predicted among non-blacks MDRD (S/P/Bld) [Vol rate/Area] 83 mL/min/{1.73_m2} >60 [facility] Comment on above: mL/min/1.73m2 CKD-EP I Creatinine Equation (2020) LDL calc ser/plasOrdered By: Blanco Collazo on 08-28-2024 Cholesterol in LDL [Mass/Vol] 75 mg/dL [facility] Comment on above: Ecswmwiscg=355-097 m g/dL & Higher Jkqu=866 mg/dL or greater Laboratory - Chemistry and C hemistry - challengeOrdered By: Blanco Collazo on 08-28-2024 AST [Catalytic activity/Vol] 22 U/L <38 [facility] Lipid Profileon 08-28-2024 CHOL:HDL 3.04 Normal [facility] Comment on above: Performed By: #### L 501.2300, L501.5200, L500.4050, L100.0100 #### [facility] [address] [place], [address] Cholesterol [Mass/Vol] 166 mg/dL Normal <=200 [facility] Comment on above: Result Comment: Chol esterol level, Desirable <200 mg/dL Borderline high cholesterol 200-239 mg/dL High cholesterol >=240 mg/dL Recommendations of the NCEP Adult Treatment Panel for the following risk-cutoff thresholds for the [place] population. Performed By: #### L 501.2300, L501.5200, L500.4050, L100.0100 #### [facility] [address] [place], [address] Cholesterol in HDL [Mass/Vol] 55 mg/dL Normal [facility] Comment on above: Result Comment: Gosia onal Cholesterol Education Program (NCEP) guidelines: <40 mg/dL: Low HDL-cholesterol (major risk factor for CHD) >= 60 mg/dL: High HDL-cholesterol (negative risk factor for CHD) HDL-cholesterol is affected by a number of factors, e.g. smoking, exercise, hormones, sex and age. Performed By: #### L 501.2300, L501.5200, L500.4050, L100.0100 #### [facility] [address] [place], [address] Cholesterol in LDL [Mass/Vol] 75 mg/dL Normal [facility] Comment on above: Result Comment: Bord ubfvwq=431-286 mg/dL Higher Clbf=415 mg/dL or greater Performed By: #### L 501.2300, L501.5200, L500.4050, L100.0100 #### [facility] [address] [place], [address] Cholesterol in VLDL [Mass/Vol] 36 mg/dL Normal 5-40 [facility] Comment on above: Performed By: #### L 501.2300, L501.5200, L500.4050, L100.0100 #### [facility] [address] [place], [address] Triglyceride [Mass/Vol] 182 mg/dL Normal [facility] Comment on above: Result Comment: The drugs N-Acetylcysteine and Metamizole may falsely depress this assay. Normal range: <150 mg/dL Borderline High: 150-199 mg/dL High: 200-499 mg/dL Very High: >500 mg/dL Performed By: #### L 501.2300, L501.5200, L500.4050, L100.0100 #### [facility] [address] [place], [address] Microalb:Creat Ratio,Random URon 08-28-2024 Creatinine [Mass/Vol] 104.00 mg/dL Normal 39.00-259.00 [facility] Comment on above: Performed By: #### L 501.2300, L501.5200, L500.4050, L100.0100 #### [facility] [address] [place], [address] MALB:CREAT 70.2 mg/g CRE High <30 mg/g CRE [facility] Comment on above: Performed By: #### L 501.2300, L501.5200, L500.4050, L100.0100 #### [facility] [address] [place], [address] MICROALBUMIN,UR 73.0 mg/L Normal <20 mg/L [facility] Comment on above: Performed By: #### L 501.2300, L501.5200, L500.4050, L100.0100 #### [facility] [address] [place], [address] Potassium measurement (mass/ volume)Ordered By: Blanco Collazo on 08-28-2024 Potassium (Unsp spec) [Mass/Vol] 4.3 mmol/L 3.3-5.1 [facility] Random urine creatinine jenifer urement (mass/volume)Ordered By: Blanco Collazo on 08-28-2024 Creatinine Unsp time (U) [Mass/Vol] 104.00 mg/dL 39.00-259.00 [facility] Screening total cholesterol/ high density lipoprotein (HDL) cholesterol ratioOrdered By: Blanco Collazo on 08-28-2024 Cholesterol.total/Cholest ester in HDL [Mass ratio] 3.04 {ratio} [facility] Serum creatinine measurement (mass/volume)Ordered By: Blanco Collazo on 08-28-2024 Creatinine [Mass/Vol] 0.94 mg/dL 0.70-1.20 [facility] Serum globulin measurementOr dered By: Blanco Collazo on 08-28-2024 Globulin (S) [Mass/Vol] 2.4 g/dL 2.2-4.2 [facility] Serum glucose measurement (m ass/volume)Ordered By: Blanco Collazo on 08-28-2024 Glucose [Mass/Vol] 126 mg/dL High 70-99 [facility] Serum or plasma alanine jaime otransferase (ALT) measurementOrdered By: Blanco Collazo on 08-28-2024 ALT [Catalytic activity/Vol] 27 U/L <47 [facility] Serum or plasma albumin jenifer urement (mass/volume)Ordered By: Blanco Collazo on 08-28-2024 Albumin [Mass/Vol] 4.2 g/dL 3.4-4.8 [facility] Serum or plasma albumin/glob ulin mass ratioOrdered By: Blanco Collazo on 08-28-2024 Albumin/Globulin [Mass ratio] 1.7 {ratio} 0.9-2.4 [facility] Serum or plasma alkaline fadi sphatase measurementOrdered By: Blanco Collazo on 08-28-2024 ALP [Catalytic activity/Vol] 98 U/L 40-129 [facility] Serum or plasma calcium jenifer urement (mass/volume)Ordered By: Blanco Collazo on 08-28-2024 Calcium [Mass/Vol] 9.3 mg/dL 7.6-11.0 [facility] Serum or plasma cholesterol in HDL measurement (mass/volume)Ordered By: Blanco Collazo on 08-28-2024 Cholesterol in HDL [Mass/Vol] 55 mg/dL >40 [facility] Comment on above: National Cholesterol Education Program (NCEP) guidelines:<40 mg/dL: Low HDL-cholesterol (major risk factor for CHD)>= 60 mg/dL: High HDL-cholesterol (negative risk factor for CHD)HDL-cholesterol is affected by a number of factors, e.g. smoking, exercise, hormones, sex and age. Serum or plasma cholesterol measurement (mass/volume)Ordered By: Blanco Collazo on 08-28-2024 Cholesterol [Mass/Vol] 166 mg/dL <201 [facility] Comment on above: Cholesterol level, D esirable <200 mg/dLBorderline high cholesterol 200-239 mg/dLHigh cholesterol >=240 mg/dLRecommendations of the NCEP Adult Treatment Panel for the following risk-cutoff thresholds for the [place] population. Serum or plasma urea nitroge n measurement (mass/volume)Ordered By: Blanco Collazo on 08-28-2024 Urea nitrogen [Mass/Vol] 20 mg/dL High 4-19 [facility] Sodium levelOrdered By: Blanco Collazo on 08-28-2024 Sodium [Moles/Vol] 138 mmol/L 133-145 [facility] Total proteinOrdered By: Porsche Collazo on 08-28-2024 Protein [Mass/Vol] 6.5 g/dL 5.9-8.4 [facility] Triglycerides measurementOrd ered By: Blanco Collazo on 08-28-2024 Triglyceride [Mass/Vol] 182 mg/dL <199 [facility] Comment on above: The drugs N-Acetylcy steine and Metamizole may falsely depress this assay. Normal range: <150 mg/dLBorderline High: 150-199 mg/dLHigh: 200-499 mg/dLVery High: >500 mg/dL Urine albumin measurement wi detection limit of 20 mg/L or less (mass/volume)Ordered By: Blanco Collazo on 08-28-2024 Albumin DL <= 20 mg/L (U) [Mass/Vol] 73.0 mg/L <20 mg/L [facility] Anion gap in Serum or Plasma Ordered By: Blanco Collazo on 06-21-2024 Anion gap [Moles/Vol] 9 mmol/L 5-15 [facility] BUN/creatinine ratioOrdered By: Blanco Collazo on 06-21-2024 Urea nitrogen/Creatinine [Mass ratio] 26.9 mg/mg High - [facility] Basic Metabolic Profile (BMP )on 06-21-2024 BUN/CRE 26.9 RATIO High - [facility] Comment on above: Performed By: #### L 501.2300, L501.5200, L500.4050, L100.0100 #### [facility] [address] [place], [address] Calcium [Mass/Vol] 9.4 mg/dL Normal 7.6-11.0 [facility] Comment on above: Performed By: #### L 501.2300, L501.5200, L500.4050, L100.0100 #### [facility] [address] [place], [address] Chloride [Moles/Vol] 95 mmol/L Low 98-108 [facility] Comment on above: Performed By: #### L 501.2300, L501.5200, L500.4050, L100.0100 #### [facility] [address] [place], [address] CO2 [Moles/Vol] 28.7 mmol/L Normal 21.0-32.0 [facility] Comment on above: Performed By: #### L 501.2300, L501.5200, L500.4050, L100.0100 #### [facility] [address] [place], [address] Creatinine [Mass/Vol] 0.95 mg/dL Normal 0.70-1.20 [facility] Comment on above: Performed By: #### L 501.2300, L501.5200, L500.4050, L100.0100 #### [facility] [address] [place], [address] GAP 9 Normal 5-15 [facility] Comment on above: Performed By: #### L 501.2300, L501.5200, L500.4050, L100.0100 #### [facility] [address] [place], [address] GFR/1.73 sq M.predicted among non-blacks MDRD (S/P/Bld) [Vol rate/Area] 83 mL/min/{1.73_m2} Normal >60 [facility] Comment on above: Result Comment: mL/m in/1.73m2 CKD-EPI Creatinine Equation (2020) Performed By: #### L 501.2300, L501.5200, L500.4050, L100.0100 #### [facility] [address] [place], [address] Glucose [Mass/Vol] 122 mg/dL High 70-99 [facility] Comment on above: Performed By: #### L 501.2300, L501.5200, L500.4050, L100.0100 #### [facility] [address] [place], [address] Potassium [Moles/Vol] 4.1 mmol/L Normal 3.3-5.1 [facility] Comment on above: Performed By: #### L 501.2300, L501.5200, L500.4050, L100.0100 #### [facility] [address] [place], [address] Sodium [Moles/Vol] 133 mmol/L Normal 133-145 [facility] Comment on above: Performed By: #### L 501.2300, L501.5200, L500.4050, L100.0100 #### [facility] [address] [place], [address] Urea nitrogen [Mass/Vol] 25 mg/dL High 4-19 [facility] Comment on above: Performed By: #### L 501.2300, L501.5200, L500.4050, L100.0100 #### [facility] [address] [place], [address] Carbon dioxide, total [Moles /volume] in Central venous bloodOrdered By: Blanco Collazo on 06-21-2024 CO2 [Moles/Vol] 28.7 mmol/L 21.0-32.0 [facility] Chloride assayOrdered By: Dmitriy Collazo on 06-21-2024 Chloride [Moles/Vol] 95 mmol/L Low 98-108 [facility] Glomerular filtration rate ( GFR) estimation/1.73 sq m using serum, plasma, or whole bOrdered By: Blanco Collazo on 06-21-2024 GFR/1.73 sq M.predicted among non-blacks MDRD (S/P/Bld) [Vol rate/Area] 83 mL/min/{1.73_m2} >60 [facility] Comment on above: mL/min/1.73m2 CKD-EP I Creatinine Equation (2020) Potassium measurement (mass/ volume)Ordered By: Blanco Collazo on 06-21-2024 Potassium (Unsp spec) [Mass/Vol] 4.1 mmol/L 3.3-5.1 [facility] Serum creatinine measurement (mass/volume)Ordered By: Blanco Collazo on 06-21-2024 Creatinine [Mass/Vol] 0.95 mg/dL 0.70-1.20 [facility] Serum glucose measurement (m ass/volume)Ordered By: Blanco Collazo on 06-21-2024 Glucose [Mass/Vol] 122 mg/dL High 70-99 [facility] Serum or plasma calcium jenifer urement (mass/volume)Ordered By: Blanco Collazo on 06-21-2024 Calcium [Mass/Vol] 9.4 mg/dL 7.6-11.0 [facility] Serum or plasma urea nitroge n measurement (mass/volume)Ordered By: Blanco Collazo on 06-21-2024 Urea nitrogen [Mass/Vol] 25 mg/dL High 4-19 [facility] Sodium levelOrdered By: Blanco Collazo on 06-21-2024 Sodium [Moles/Vol] 133 mmol/L 133-145 [facility] Anion gap in Serum or Plasma Ordered By: Blanco Collazo on 04-26-2024 Anion gap [Moles/Vol] 10 mmol/L 5- [facility] BUN/creatinine ratioOrdered By: Blanco Collazo on 04-26-2024 Urea nitrogen/Creatinine [Mass ratio] 20.2 mg/mg High - [facility] Basic Metabolic Profile (BMP )on 04-26-2024 BUN/CRE 20.2 RATIO High 11-27 [facility] Comment on above: Performed By: #### L 501.2300, L501.5200, L500.4050, L100.0100 #### [facility] [address] [place], [address] Calcium [Mass/Vol] 9.1 mg/dL Normal 7.6-11.0 [facility] Comment on above: Performed By: #### L 501.2300, L501.5200, L500.4050, L100.0100 #### [facility] [address] [place], [address] Chloride [Moles/Vol] 100 mmol/L Normal 98-108 [facility] Comment on above: Performed By: #### L 501.2300, L501.5200, L500.4050, L100.0100 #### [facility] [address] [place], [address] CO2 [Moles/Vol] 27.4 mmol/L Normal 21.0-32.0 [facility] Comment on above: Performed By: #### L 501.2300, L501.5200, L500.4050, L100.0100 #### [facility] [address] [place], [address] Creatinine [Mass/Vol] 1.07 mg/dL Normal 0.70-1.20 [facility] Comment on above: Performed By: #### L 501.2300, L501.5200, L500.4050, L100.0100 #### [facility] [address] [place], [address] GAP 10 Normal 5-15 [facility] Comment on above: Performed By: #### L 501.2300, L501.5200, L500.4050, L100.0100 #### [facility] [address] [place], [address] GFR/1.73 sq M.predicted among non-blacks MDRD (S/P/Bld) [Vol rate/Area] 71 mL/min/{1.73_m2} Normal >60 [facility] Comment on above: Result Comment: mL/m in/1.73m2 CKD-EPI Creatinine Equation (2020) Performed By: #### L 501.2300, L501.5200, L500.4050, L100.0100 #### [facility] [address] [place], [address] Glucose [Mass/Vol] 118 mg/dL High 70-99 [facility] Comment on above: Performed By: #### L 501.2300, L501.5200, L500.4050, L100.0100 #### [facility] [address] [place], [address] Potassium [Moles/Vol] 4.2 mmol/L Normal 3.3-5.1 [facility] Comment on above: Performed By: #### L 501.2300, L501.5200, L500.4050, L100.0100 #### [facility] [address] [place], [address] Sodium [Moles/Vol] 137 mmol/L Normal 133-145 [facility] Comment on above: Performed By: #### L 501.2300, L501.5200, L500.4050, L100.0100 #### [facility] [address] [place], [address] Urea nitrogen [Mass/Vol] 22 mg/dL High 05-27 [facility] Comment on above: Performed By: #### L 501.2300, L501.5200, L500.4050, L100.0100 #### [facility] [address] [place], [address] Carbon dioxide, total [Moles /volume] in Central venous bloodOrdered By: Blanco Collazo on 04-26-2024 CO2 [Moles/Vol] 27.4 mmol/L 21.0-32.0 [facility] Chloride assayOrdered By: Dmitriy Collazo on 04-26-2024 Chloride [Moles/Vol] 100 mmol/L 98-108 [facility] GFR/1.73 sq M.predicted bhavin g non-blacks MDRD (S/P/Bld) [Vol rate/Area]Ordered By: Blanco Collazo on 04-26-2024 Estimated GFR (MDRD) Non-Af Amer 71 >60 [facility] Comment on above: mL/min/1.73m2 CKD-EP I Creatinine Equation (2020) Glomerular filtration rate ( GFR) estimation/1.73 sq m using serum, plasma, or whole bOrdered By: Blanco Collazo on 04-26-2024 GFR/1.73 sq M.predicted among non-blacks MDRD (S/P/Bld) [Vol rate/Area] 71 mL/min/{1.73_m2} >60 [facility] Comment on above: mL/min/1.73m2 CKD-EP I Creatinine Equation (2020) Potassium (Unsp spec) [Mass/ Vol]Ordered By: Blanco Collazo on 04-26-2024 Potassium [Moles/Vol] 4.2 mmol/L 3.3-5.1 [facility] Potassium measurement (mass/ volume)Ordered By: Blanco Collazo on 04-26-2024 Potassium (Unsp spec) [Mass/Vol] 4.2 mmol/L 3.3-5.1 [facility] Serum creatinine measurement (mass/volume)Ordered By: Blanco Collazo on 04-26-2024 Creatinine [Mass/Vol] 1.07 mg/dL 0.70-1.20 [facility] Serum glucose measurement (m ass/volume)Ordered By: Blanco Collazo on 04-26-2024 Glucose [Mass/Vol] 118 mg/dL High 70-99 [facility] Serum or plasma calcium jenifer urement (mass/volume)Ordered By: Blanco Collazo on 04-26-2024 Calcium [Mass/Vol] 9.1 mg/dL 7.6-11.0 [facility] Serum or plasma urea nitroge n measurement (mass/volume)Ordered By: Blanco Collazo on 04-26-2024 Urea nitrogen [Mass/Vol] 22 mg/dL High 4-19 [facility] Sodium levelOrdered By: Blanco Collazo on 04-26-2024 Sodium [Moles/Vol] 137 mmol/L 133-145 [facility] Basic Metabolic Profile (BMP )on 03-27-2024 BUN/CRE 17.2 RATIO Normal 10-20 [facility] Comment on above: Performed By: #### L 500.2500 #### [facility] [address] [place], [address] CA,Total 9.8 mg/dL Normal 8.5-10.1 [facility] Comment on above: Performed By: #### L 500.2500 #### [facility] [address] [place], [address] Chloride [Moles/Vol] 95 mmol/L Low 98-107 [facility] Comment on above: Performed By: #### L 500.2500 #### [facility] [address] [place], [address] CO2 [Moles/Vol] 31.0 mmol/L Normal 21.0-32.0 [facility] Comment on above: Performed By: #### L 500.2500 #### [facility] [address] [place], [address] Creatinine [Mass/Vol] 1.16 mg/dL Normal 0.70-1.30 [facility] Comment on above: Result Comment: The validity of the calculated GFR GFRAA in patients over 70 years has not been determined. Clinical correlation is essential. Performed By: #### L 500.2500 #### [facility] [address] [place], [address] EST GFR - AA 79 mL/min Normal >60 [facility] Comment on above: Result Comment: Afri can [place] GFR Calc Performed By: #### L 500.2500 #### [facility] [address] [place], [address] GAP 7 Normal 5-15 [facility] Comment on above: Performed By: #### L 500.2500 #### [facility] [address] [place], [address] GFR/1.73 sq M.predicted among non-blacks MDRD (S/P/Bld) [Vol rate/Area] 65 mL/min/{1.73_m2} Normal >60 [facility] Comment on above: Result Comment: Non- GFR Calc Performed By: #### L 500.2500 #### [facility] [address] [place], [address] Glucose [Mass/Vol] 126 mg/dL High 74-106 [facility] Comment on above: Result Comment: Fast ing Glucose result greater than or equal to 126 mg/dL suggests DIABETES MELLITUS per A.D.A. criteria. Performed By: #### L 500.2500 #### [facility] [address] [place], [address] Potassium [Moles/Vol] 3.9 mmol/L Normal 3.5-5.1 [facility] Comment on above: Performed By: #### L 500.2500 #### [facility] [address] [place], [address] Sodium [Moles/Vol] 134 mmol/L Low 136-145 [facility] Comment on above: Performed By: #### L 500.2500 #### [facility] [address] [place], [address] Urea nitrogen [Mass/Vol] 20 mg/dL High 7-18 [facility] Comment on above: Performed By: #### L 500.2500 #### [facility] [address] [place], [address] Blood urea nitrogen (BUN)/cr eatinine ratioOrdered By: Blanco Collazo on 03-27-2024 Urea nitrogen/Creatinine [Mass ratio] 17.2 mg/mg 10-20 [facility] Carbon dioxide measurementOr dered By: Blanco Collazo on 03-27-2024 CO2 [Moles/Vol] 31.0 mmol/L 21.0-32.0 [facility] Chloride measurementOrdered By: Blanco Collazo on 03-27-2024 Chloride [Moles/Vol] 95 mmol/L Low 98-107 [facility] Estimated glomerular filtrat ion rate (GFR) AmericanOrdered By: Blanco Collazo on 03-27-2024 Estimated GFR (MDRD) Amer 79 mL/min >60 [facility] Comment on above: GFR Calc Glomerular filtration rate ( GFR) estimationOrdered By: Blanco Collazo on 03-27-2024 Estimated GFR (MDRD) Non-Af Amer 65 mL/min >60 [facility] Comment on above: Non- GFR Calc GFR/1.73 sq M.predicted among non-blacks MDRD (S/P/Bld) [Vol rate/Area] 65 mL/min/{1.73_m2} >60 [facility] Comment on above: Non- GFR Calc Glucose measurementOrdered B y: Blanco Collazo on 03-27-2024 Glucose [Mass/Vol] 126 mg/dL High 74-106 [facility] Comment on above: Fasting Glucose resu lt greater than or equal to 126 mg/dL suggests DIABETES MELLITUS per A.D.A. criteria. Potassium measurementOrdered By: Blanco Collazo on 03-27-2024 Potassium [Moles/Vol] 3.9 mmol/L 3.5-5.1 [facility] Serum anion gap measurementO rdered By: Blanco Collazo on 03-27-2024 Anion gap [Moles/Vol] 7 mmol/L 5-15 [facility] Serum or plasma calcium jenifer urement (mass/volume)Ordered By: Blanco Collazo on 03-27-2024 Calcium [Mass/Vol] 9.8 mg/dL 8.5-10.1 [facility] Serum or plasma creatinine m easurement (mass/volume)Ordered By: Blanco Collazo on 03-27-2024 Creatinine [Mass/Vol] 1.16 mg/dL 0.70-1.30 [facility] Comment on above: The validity of the calculated GFR & GFRAA in patients over 70 years has not been determined. Clinical correlation is essential. Serum or plasma urea nitroge n measurement (mass/volume)Ordered By: Blanco Collazo on 03-27-2024 Urea nitrogen [Mass/Vol] 20 mg/dL High -18 [facility] Sodium levelOrdered By: Blanco Collazo on 03-27-2024 Sodium [Moles/Vol] 134 mmol/L Low 136-145 [facility] Absolute neutrophil countOrd ered By: Graciela Zuleima on 02-07-2024 Neutrophils (Bld) [#/Vol] 4.5 10*3/uL 2.0-7.7 [facility] Albumin to globulin ratioOrd ered By: Graciela Dewey on 02-07-2024 Albumin/Globulin [Mass ratio] 0.9 {ratio} 0.9-2.4 [facility] Basophil percentageOrdered B y: Graciela Dewey on 02-07-2024 Basophils/100 WBC (Bld) 0.2 % 0-1 [facility] Bilirubin, totalOrdered By: Graciela Zuleima on 02-07-2024 Bilirubin [Mass/Vol] 0.50 mg/dL 0.20-1.00 [facility] Comment on above: For patients on eltr ombopag therapy, use of Dimension [place] TBIL is not recommended. Blood urea nitrogen (BUN)/cr eatinine ratioOrdered By: Graciela Dewey on 02-07-2024 Urea nitrogen/Creatinine [Mass ratio] 21.6 mg/mg High 10-20 [facility] CBC W/Diff, Automatedon 12-4 Absolute Lymph 0.84 X10 3/uL Normal 0.83-4.51 [facility] Comment on above: Performed By: #### L 100.0100 #### [facility] [address] [place], [address] Absolute Neut 4.5 X10 3/uL Normal 2.0-7.7 [facility] Comment on above: Performed By: #### L 100.0100 #### [facility] [address] [place], [address] Basophils/100 WBC (Bld) 0.2 % Normal 0-1 [facility] Comment on above: Performed By: #### L 100.0100 #### [facility] [address] [place], [address] Eosinophils/100 WBC (Bld) 0.0 % Normal 0-5 [facility] Comment on above: Performed By: #### L 100.0100 #### [facility] [address] [place], [address] Erythrocyte distribution width (RBC) [Ratio] 12.8 % Normal 11.6-14.6 [facility] Comment on above: Performed By: #### L 100.0100 #### [facility] [address] [place], [address] Hematocrit (Bld) [Volume fraction] 44.4 % Normal 40-54 [facility] Comment on above: Performed By: #### L 100.0100 #### [facility] [address] [place], [address] Hemoglobin (Bld) [Mass/Vol] 14.2 g/dL Normal 13.0-16.5 [facility] Comment on above: Performed By: #### L 100.0100 #### [facility] [address] [place], [address] IG% 0.400 Normal 0.0-0.9 [facility] Comment on above: Result Comment: IG% - Immature Granulocytes (promyelocytes, myelocytes and metamyelocytes) > 1% indicates that a LEFT SHIFT is Present. Performed By: #### L 100.0100 #### [facility] [address] [place], [address] Lymphocytes/100 WBC (Bld) 14.7 % Low 19-41 [facility] Comment on above: Performed By: #### L 100.0100 #### [facility] [address] [place], [address] MCH (RBC) [Entitic mass] 31.2 pg Normal 27.0-32.0 [facility] Comment on above: Performed By: #### L 100.0100 #### [facility] [address] [place], [address] MCHC (RBC) [Mass/Vol] 32.0 g/dL Normal 32-36 [facility] Comment on above: Performed By: #### L 100.0100 #### [facility] [address] [place], [address] MCV (RBC) [Entitic vol] 97.6 fL High 80-94 [facility] Comment on above: Performed By: #### L 100.0100 #### [facility] [address] [place], [address] Monocytes/100 WBC (Bld) 6.1 % Normal 0-10 [facility] Comment on above: Performed By: #### L 100.0100 #### [facility] [address] [place], [address] Neutrophils/100 WBC (Bld) 78.6 % High 47-70 [facility] Comment on above: Performed By: #### L 100.0100 #### [facility] [address] [place], [address] Nucleated RBC (Bld) [#/Vol] 0 10*3/uL Normal 0-5 [facility] Comment on above: Performed By: #### L 100.0100 #### [facility] [address] [place], [address] Platelet mean volume (Bld) [Entitic vol] 10.0 fL Normal 6.2-12.0 [facility] Comment on above: Performed By: #### L 100.0100 #### [facility] [address] [place], [address] Platelets (Bld) [#/Vol] 175 10*3/uL Normal 150-450 [facility] Comment on above: Performed By: #### L 100.0100 #### [facility] [address] [place], [address] RBC (Bld) [#/Vol] 4.55 10*6/uL Low 4.6-6.2 [facility] Comment on above: Performed By: #### L 100.0100 #### [facility] [address] [place], [address] RDW SD 45.7 fl High 35.1-43.9 [facility] Comment on above: Performed By: #### L 100.0100 #### [facility] [address] [place], [address] WBC (Bld) [#/Vol] 5.7 10*3/uL Normal 4.4-11.0 [facility] Comment on above: Performed By: #### L 100.0100 #### [facility] [address] [place], [address] Carbon dioxide measurementOr dered By: Graciela Dewey on 02-07-2024 CO2 [Moles/Vol] 32.0 mmol/L 21.0-32.0 [facility] Chloride measurementOrdered By: Graciela Dewey on 02-07-2024 Chloride [Moles/Vol] 101 mmol/L 98-107 [facility] Comprehensive Metabolic Prof ilon 02-07-2024 Albumin [Mass/Vol] 3.3 g/dL Normal 3.2-5.0 [facility] Comment on above: Performed By: #### L 501.2300, L501.5200, L500.4050, L100.0100 #### [facility] [address] [place], [address] Albumin/Globulin [Mass ratio] 0.9 {ratio} Normal 0.9-2.4 [facility] Comment on above: Performed By: #### L 501.2300, L501.5200, L500.4050, L100.0100 #### [facility] [address] [place], [address] ALK P 86 U/L Normal 45-117 [facility] Comment on above: Performed By: #### L 501.2300, L501.5200, L500.4050, L100.0100 #### [facility] [address] [place], [address] ALT [Catalytic activity/Vol] 60 U/L Normal 16-61 [facility] Comment on above: Performed By: #### L 501.2300, L501.5200, L500.4050, L100.0100 #### [facility] [address] [place], [address] AST [Catalytic activity/Vol] 37 U/L Normal 15-37 [facility] Comment on above: Performed By: #### L 501.2300, L501.5200, L500.4050, L100.0100 #### [facility] [address] [place], [address] Bilirubin [Mass/Vol] 0.50 mg/dL Normal 0.20-1.00 [facility] Comment on above: Result Comment: For patients on eltrombopag therapy, use of Dimension [place] TBIL is not recommended. Performed By: #### L 501.2300, L501.5200, L500.4050, L100.0100 #### [facility] [address] [place], [address] BUN/CRE 21.6 RATIO High 10-20 [facility] Comment on above: Performed By: #### L 501.2300, L501.5200, L500.4050, L100.0100 #### [facility] [address] [place], [address] CA,Total 9.1 mg/dL Normal 8.5-10.1 [facility] Comment on above: Performed By: #### L 501.2300, L501.5200, L500.4050, L100.0100 #### [facility] [address] [place], [address] Chloride [Moles/Vol] 101 mmol/L Normal 98-107 [facility] Comment on above: Performed By: #### L 501.2300, L501.5200, L500.4050, L100.0100 #### [facility] [address] [place], [address] CO2 [Moles/Vol] 32.0 mmol/L Normal 21.0-32.0 [facility] Comment on above: Performed By: #### L 501.2300, L501.5200, L500.4050, L100.0100 #### [facility] [address] [place], [address] Creatinine [Mass/Vol] 1.02 mg/dL Normal 0.70-1.30 [facility] Comment on above: Result Comment: The validity of the calculated GFR GFRAA in patients over 70 years has not been determined. Clinical correlation is essential. Performed By: #### L 501.2300, L501.5200, L500.4050, L100.0100 #### [facility] [address] [place], [address] ECRCL 78.57 ml/min Normal [facility] Comment on above: Performed By: #### L 501.2300, L501.5200, L500.4050, L100.0100 #### [facility] [address] [place], [address] EST GFR - AA 91 mL/min Normal >60 [facility] Comment on above: Result Comment: Afri can [place] GFR Calc Performed By: #### L 501.2300, L501.5200, L500.4050, L100.0100 #### [facility] [address] [place], [address] GAP 6 Normal 5-15 [facility] Comment on above: Performed By: #### L 501.2300, L501.5200, L500.4050, L100.0100 #### [facility] [address] [place], [address] GFR/1.73 sq M.predicted among non-blacks MDRD (S/P/Bld) [Vol rate/Area] 75 mL/min/{1.73_m2} Normal >60 [facility] Comment on above: Result Comment: Non- GFR Calc Performed By: #### L 501.2300, L501.5200, L500.4050, L100.0100 #### [facility] [address] [place], [address] Globulin (S) [Mass/Vol] 3.7 g/dL Normal 2.2-4.2 [facility] Comment on above: Performed By: #### L 501.2300, L501.5200, L500.4050, L100.0100 #### [facility] [address] [place], [address] Glucose [Mass/Vol] 156 mg/dL High 74-106 [facility] Comment on above: Result Comment: Fast ing Glucose result greater than or equal to 126 mg/dL suggests DIABETES MELLITUS per A.D.A. criteria. Performed By: #### L 501.2300, L501.5200, L500.4050, L100.0100 #### [facility] [address] [place], [address] Potassium [Moles/Vol] 4.4 mmol/L Normal 3.5-5.1 [facility] Comment on above: Performed By: #### L 501.2300, L501.5200, L500.4050, L100.0100 #### [facility] [address] [place], [address] Sodium [Moles/Vol] 138 mmol/L Normal 136-145 [facility] Comment on above: Performed By: #### L 501.2300, L501.5200, L500.4050, L100.0100 #### [facility] [address] [place], [address] T PROT 7.0 g/dL Normal 6.4-8.2 [facility] Comment on above: Performed By: #### L 501.2300, L501.5200, L500.4050, L100.0100 #### [facility] [address] [place], [address] Urea nitrogen [Mass/Vol] 22 mg/dL High 7-18 [facility] Comment on above: Performed By: #### L 501.2300, L501.5200, L500.4050, L100.0100 #### [facility] [address] [place], [address] Discharge Instructionon 01-10 Discharge Instruction [facility] Medical Records Department [address] [place] [address] Instructions for Home/Discharge Instructions 02/07/24 1156 MR#: [id number] Acct: [id number] Name: ASHVIN JENSEN Rep #: [id number] : 1945 78 From: Fabricio Harris MD PCP: Dr. Blanco Collazo MD Status:ADM IN Discharge Instructions Diet Discharge Diet: Low fat / Low cholesterol DC O2, CPAP, BIPAP needs RN Home O2 Qualification: Home O2 Qualification: Is the patient on home oxygen No 02/07/24 11:22 Home O2 Qualification: AT REST 1- Pulse Ox at rest 86 02/07/24 11:22 2- Pulse Ox at rest 90 02/07/24 11:22 2- Oxygen Flow Rate at rest 2 02/07/24 11:22 Home O2 Qualification: WITH AMBULATION 1- Pulse Ox with ambulation 91 02/07/24 11:22 1- Oxygen Flow Rate with 2 02/07/24 11:22 ambulation Home O2 Discharge instructions: No Dressing / Incision Discharge Activity: Return to Normal Activity Dressing / Incision Call your doctor if you observe: Fever of 101 or Higher, Shortness of breath, Dizziness, Fainting spells, Swelling in the ankles, Chest pain and Increased palpitations (irregular heartbeat) Follow Up Care Test Results: Test results from this visit will be discussed in further detail at your follow-up appointment, if applicable. Discharge Plan Admission Admit Date/Time: 02/06/24 11:53 Attending Provider: Fabricio Harris Primary Care Provider: Blanco Collazo Consulting Providers: Umang Mon; Graciela Dewey Instructions Additional Instructions / Restrictions: Follow-up with your PCP in 3 to 5 days for outpatient monitoring. He will need to have 2 L nasal cannula all the time for oxygen and will need to follow-up with your PCP to have this discontinued as an outpatient Discharge Orders/Prescription s Prescriptions: New prednisone 20 mg tablet 40 mg PO DAILY Qty: 14 0RF Continued metoprolol succinate 25 mg tablet extended release 24 hr 25 mg PO DAILY furosemide 20 mg tablet 20 mg PO DAILY rosuvastatin 5 mg tablet 5 mg PO QDAY multivitamin with folic acid [Thera] 1 TABLET tablet 1 tab PO DAILY Patient Comments: supplement lisinopril 20 MG tablet 20 mg PO DAILY acetaminophen 500 mg tablet 1,000 mg PO Q8H prednisolone acetate 1 % drops,suspension 1 drp ophthalmic (eye) Q6H triamterene-hydroch lorothiazid 37.5-25 mg tablet 1 tab PO DAILY Referrals / Follow Up: Blanco Collazo MD [Primary Care Provider] - Within 1 Week Disposition Disposition (needs filled in before D/C Order can be placed): Home, Self Care 02/07/24 7023 Fabricio Harris MD CC: Dr. Graciela Dewey MD; Dr. Umang Mon DO; Dr. Blanco Collazo MD Signed Normal [facility] Eosinophil percentageOrdered By: Graciela Dewey on 02-07-2024 Eosinophils/100 WBC (Bld) 0.0 % 0-5 [facility] Erythrocyte distribution wid th ratioOrdered By: Graciela Dewey on 02-07-2024 Erythrocyte distribution width (RBC) [Ratio] 12.8 % 11.6-14.6 [facility] Erythrocyte distribution wid th standard deviationOrdered By: Graciela Dewey on 02-07-2024 Erythrocyte distribution width (RBC) [Entitic vol] 45.7 fL High 35.1-43.9 [facility] Estimated glomerular filtrat ion rate (GFR) AmericanOrdered By: Graciela Dewey on 02-07-2024 Estimated GFR (MDRD) Amer 91 mL/min >60 [facility] Comment on above: GFR Calc Estimation of creatinine roxana aranceOrdered By: Graciela Dewey on 02-07-2024 Estimated Creatinine Clearance Calc 78.57 ml/min [facility] Glomerular filtration rate ( GFR) estimationOrdered By: Graciela Dewey on 02-07-2024 Estimated GFR (MDRD) Non-Af Amer 75 mL/min >60 [facility] Comment on above: Non- GFR Calc Glucose measurementOrdered B y: Graciela Dewey on 02-07-2024 Glucose [Mass/Vol] 156 mg/dL High 74-106 [facility] Comment on above: Fasting Glucose resu lt greater than or equal to 126 mg/dL suggests DIABETES MELLITUS per A.D.A. criteria. Hematocrit Auto (Bld) [Volum e fraction]Ordered By: Graciela Dewey on 02-07-2024 Hematocrit (Bld) [Volume fraction] 44.4 % 40-54 [facility] Hemoglobin measurementOrdere d By: Graciela Dewey on 02-07-2024 Hemoglobin (Bld) [Mass/Vol] 14.2 g/dL 13.0-16.5 [facility] Immature granulocytes/100 WB C Auto (Bld)Ordered By: Graciela Dewey on 02-07-2024 Immature granulocytes/100 WBC (Bld) 0.400 % 0.0-0.9 [facility] Comment on above: IG% - Immature Granu locytes (promyelocytes, myelocytes and metamyelocytes) > 1% indicates that a LEFT SHIFT is Present. Laboratory - Chemistry and C hemistry - challengeOrdered By: Graciela Dewey on 02-07-2024 AST [Catalytic activity/Vol] 37 U/L 15-37 [facility] Lymphocytes Auto (Unsp spec) [#/Vol]Ordered By: Graciela Dewey on 02-07-2024 Lymphocytes (Bld) [#/Vol] 0.84 10*3/uL 0.83-4.5 1 [facility] Lymphocytes/100 WBC Auto (Un sp spec)Ordered By: Graciela Dewey on 02-07-2024 Lymphocytes/100 WBC (Bld) 14.7 % Low 19-41 [facility] MCV (mean corpuscular volume ) determinationOrdered By: Graciela Dewey on 02-07-2024 MCV (RBC) [Entitic vol] 97.6 fL High 80-94 [facility] Magnesiumon 02-07-2024 Magnesium [Mass/Vol] 2.6 mg/dL Normal 1.6-2.6 [facility] Comment on above: Performed By: #### L 501.2300, L501.5200, L500.4050, L100.0100 #### [facility] [address] [place] [address]. [place], [address] Magnesium measurementOrdered By: Umang Piedra on 02-07-2024 Magnesium [Mass/Vol] 2.6 mg/dL 1.6-2.6 [facility] Mean corpuscular hemoglobin (MCH) determinationOrdered By: Graciela Dewey on 02-07-2024 MCH (RBC) [Entitic mass] 31.2 pg 27.0-32.0 [facility] Mean corpuscular hemoglobin concentration (MCHC) determinationOrdered By: Graciela Dewey on 02-07-2024 MCHC (RBC) [Mass/Vol] 32.0 g/dL 32-36 [facility] Mean platelet volume determi nationOrdered By: Graciela White on 02-07-2024 Platelet mean volume (Bld) [Entitic vol] 10.0 fL 6.2-12.0 [facility] Monocyte percentageOrdered B y: White on 02-07-2024 Monocytes/100 WBC (Bld) 6.1 % 0-10 [facility] Neutrophil percentageOrdered By: White on 02-07-2024 Neutrophils/100 WBC (Bld) 78.6 % High 47-70 [facility] Nucleated red blood cell per centageOrdered By: White on 02-07-2024 Nucleated RBC/100 WBC (Bld) [Ratio] 0 % 0-5 [facility] Phosphoruson 02-07-2024 Phosphate [Mass/Vol] 4.7 mg/dL Normal 2.5-4.9 [facility] Comment on above: Performed By: #### L 501.2300, L501.5200, L500.4050, L100.0100 #### [facility] [address] [place], [address] Phosphorus measurementOrdere d By: Umang Piedra on 02-07-2024 Phosphorus Level 4.7 mg/dL 2.5-4.9 [facility] Platelet countOrdered By: Clarissa faustino Zuleima on 02-07-2024 Platelets (Bld) [#/Vol] 175 10*3/uL 150-450 [facility] Potassium measurementOrdered By: Graciela Dewey on 02-07-2024 Potassium [Moles/Vol] 4.4 mmol/L 3.5-5.1 [facility] RBC Auto (Bld) [#/Vol]Ordere d By: Graciela White on 02-07-2024 RBC (Bld) [#/Vol] 4.55 10*6/uL Low 4.6-6.2 [facility] Serum anion gap measurementO rdered By: Graciela White on 02-07-2024 Anion gap [Moles/Vol] 6 mmol/L 5-15 [facility] Serum globulin measurementOr dered By: Graciela Dewey on 02-07-2024 Globulin (S) [Mass/Vol] 3.7 g/dL 2.2-4.2 [facility] Serum or plasma alanine jaime otransferase (ALT) measurementOrdered By: Graciela Dewey on 02-07-2024 ALT [Catalytic activity/Vol] 60 U/L 16-61 [facility] Serum or plasma albumin jenifer urement (mass/volume)Ordered By: Graciela Dewey on 02-07-2024 Albumin [Mass/Vol] 3.3 g/dL 3.2-5.0 [facility] Serum or plasma alkaline fadi sphatase measurementOrdered By: Graciela Zuleima on 02-07-2024 ALP [Catalytic activity/Vol] 86 U/L 45-117 [facility] Serum or plasma calcium jenifer urement (mass/volume)Ordered By: Graciela Dewey on 02-07-2024 Calcium [Mass/Vol] 9.1 mg/dL 8.5-10.1 [facility] Serum or plasma creatinine m easurement (mass/volume)Ordered By: Graciela Dewey on 02-07-2024 Creatinine [Mass/Vol] 1.02 mg/dL 0.70-1.30 [facility] Comment on above: The validity of the calculated GFR & GFRAA in patients over 70 years has not been determined. Clinical correlation is essential. Serum or plasma urea nitroge n measurement (mass/volume)Ordered By: Graciela Dewey on 02-07-2024 Urea nitrogen [Mass/Vol] 22 mg/dL High 7-18 [facility] Sodium levelOrdered By: Lastu mn Zuleima on 02-07-2024 Sodium [Moles/Vol] 138 mmol/L 136-145 [facility] Total proteinOrdered By: Last umn Zuleima on 02-07-2024 Protein [Mass/Vol] 7.0 g/dL 6.4-8.2 [facility] White blood cell (WBC) count Ordered By: Graciela Dewey on 02-07-2024 WBC (Bld) [#/Vol] 5.7 10*3/uL 4.4-11.0 [facility] Bedside Glucoseon 02-06-2024 FINGERSTICK GLU 119 mg/dL High 74-106 [facility] Comment on above: Result Comment: RENUKA GEMENT OF PATIENT CARE PER NURSING PROTOCOL Performed By: #### L 501.080 #### [facility] [address] [place], [address] CBC W/Diff, Automatedon 12-2 Absolute Lymph 1.50 X10 3/uL Normal 0.83-4.51 [facility] Comment on above: Performed By: #### L 501.2300, L501.5200, L500.4050, L100.0100 #### [facility] [address] [place], [address] Absolute Neut 3.5 X10 3/uL Normal 2.0-7.7 [facility] Comment on above: Performed By: #### L 501.2300, L501.5200, L500.4050, L100.0100 #### [facility] [address] [place], [address] Basophils/100 WBC (Bld) 0.3 % Normal 0-1 [facility] Comment on above: Performed By: #### L 501.2300, L501.5200, L500.4050, L100.0100 #### [facility] [address] [place], [address] Eosinophils/100 WBC (Bld) 1.0 % Normal 0-5 [facility] Comment on above: Performed By: #### L 501.2300, L501.5200, L500.4050, L100.0100 #### [facility] [address] [place], [address] Erythrocyte distribution width (RBC) [Ratio] 13.2 % Normal 11.6-14.6 [facility] Comment on above: Performed By: #### L 501.2300, L501.5200, L500.4050, L100.0100 #### [facility] [address] [place], [address] Hematocrit (Bld) [Volume fraction] 41.9 % Normal 40-54 [facility] Comment on above: Performed By: #### L 501.2300, L501.5200, L500.4050, L100.0100 #### [facility] [address] [place], [address] Hemoglobin (Bld) [Mass/Vol] 13.6 g/dL Normal 13.0-16.5 [facility] Comment on above: Performed By: #### L 501.2300, L501.5200, L500.4050, L100.0100 #### [facility] [address] [place], [address] IG% 0.300 Normal 0.0-0.9 [facility] Comment on above: Result Comment: IG% - Immature Granulocytes (promyelocytes, myelocytes and metamyelocytes) > 1% indicates that a LEFT SHIFT is Present. Performed By: #### L 501.2300, L501.5200, L500.4050, L100.0100 #### [facility] [address] [place], [address] Lymphocytes/100 WBC (Bld) 25.4 % Normal 19-41 [facility] Comment on above: Performed By: #### L 501.2300, L501.5200, L500.4050, L100.0100 #### [facility] [address] [place], [address] MCH (RBC) [Entitic mass] 31.6 pg Normal 27.0-32.0 [facility] Comment on above: Performed By: #### L 501.2300, L501.5200, L500.4050, L100.0100 #### [facility] [address] [place], [address] MCHC (RBC) [Mass/Vol] 32.5 g/dL Normal 32-36 [facility] Comment on above: Performed By: #### L 501.2300, L501.5200, L500.4050, L100.0100 #### [facility] [address] [place], [address] MCV (RBC) [Entitic vol] 97.4 fL High 80-94 [facility] Comment on above: Performed By: #### L 501.2300, L501.5200, L500.4050, L100.0100 #### [facility] [address] [place], [address] Monocytes/100 WBC (Bld) 13.0 % High 0-10 [facility] Comment on above: Performed By: #### L 501.2300, L501.5200, L500.4050, L100.0100 #### [facility] [address] [place], [address] Neutrophils/100 WBC (Bld) 60.0 % Normal 47-70 [facility] Comment on above: Performed By: #### L 501.2300, L501.5200, L500.4050, L100.0100 #### [facility] [address] [place], [address] Nucleated RBC (Bld) [#/Vol] 0 10*3/uL Normal 0-5 [facility] Comment on above: Performed By: #### L 501.2300, L501.5200, L500.4050, L100.0100 #### [facility] [address] [place], [address] Platelet mean volume (Bld) [Entitic vol] 10.0 fL Normal 6.2-12.0 [facility] Comment on above: Performed By: #### L 501.2300, L501.5200, L500.4050, L100.0100 #### [facility] [address] [place], [address] Platelets (Bld) [#/Vol] 160 10*3/uL Normal 150-450 [facility] Comment on above: Performed By: #### L 501.2300, L501.5200, L500.4050, L100.0100 #### [facility] [address] [place], [address] RBC (Bld) [#/Vol] 4.30 10*6/uL Low 4.6-6.2 [facility] Comment on above: Performed By: #### L 501.2300, L501.5200, L500.4050, L100.0100 #### [facility] [address] [place], [address] RDW SD 47.0 fl High 35.1-43.9 [facility] Comment on above: Performed By: #### L 501.2300, L501.5200, L500.4050, L100.0100 #### [facility] [address] [place], [address] WBC (Bld) [#/Vol] 5.9 10*3/uL Normal 4.4-11.0 [facility] Comment on above: Performed By: #### L 501.2300, L501.5200, L500.4050, L100.0100 #### [facility] [address] [place], [address] Comprehensive Metabolic [facility] 02-06-2024 Albumin [Mass/Vol] 3.2 g/dL Normal 3.2-5.0 [facility] Comment on above: Performed By: #### L 501.2300, L501.5200, L500.4050, L100.0100 #### [facility] [address] [place], [address] Albumin/Globulin [Mass ratio] 1.0 {ratio} Normal 0.9-2.4 [facility] Comment on above: Performed By: #### L 501.2300, L501.5200, L500.4050, L100.0100 #### [facility] [address] [place], [address] ALK P 78 U/L Normal 45-117 [facility] Comment on above: Performed By: #### L 501.2300, L501.5200, L500.4050, L100.0100 #### [facility] [address] [place], [address] ALT [Catalytic activity/Vol] 61 U/L Normal 16-61 [facility] Comment on above: Performed By: #### L 501.2300, L501.5200, L500.4050, L100.0100 #### [facility] [address] [place], [address] AST [Catalytic activity/Vol] 43 U/L High 15-37 [facility] Comment on above: Performed By: #### L 501.2300, L501.5200, L500.4050, L100.0100 #### [facility] [address] [place], [address] Bilirubin [Mass/Vol] 0.70 mg/dL Normal 0.20-1.00 [facility] Comment on above: Result Comment: For patients on eltrombopag therapy, use of Dimension [place] TBIL is not recommended. Performed By: #### L 501.2300, L501.5200, L500.4050, L100.0100 #### [facility] [address] [place], [address] BUN/CRE 22.9 RATIO High 10-20 [facility] Comment on above: Performed By: #### L 501.2300, L501.5200, L500.4050, L100.0100 #### [facility] [address] [place], [address] CA,Total 8.4 mg/dL Low 8.5-10.1 [facility] Comment on above: Performed By: #### L 501.2300, L501.5200, L500.4050, L100.0100 #### [facility] [address] [place], [address] Chloride [Moles/Vol] 98 mmol/L Normal 98-107 [facility] Comment on above: Performed By: #### L 501.2300, L501.5200, L500.4050, L100.0100 #### [facility] [address] [place], [address] CO2 [Moles/Vol] 33.0 mmol/L High 21.0-32.0 [facility] Comment on above: Performed By: #### L 501.2300, L501.5200, L500.4050, L100.0100 #### [facility] [address] [place], [address] Creatinine [Mass/Vol] 0.96 mg/dL Normal 0.70-1.30 [facility] Comment on above: Result Comment: The validity of the calculated GFR GFRAA in patients over 70 years has not been determined. Clinical correlation is essential. Performed By: #### L 501.2300, L501.5200, L500.4050, L100.0100 #### [facility] [address] [place], [address] ECRCL 83.48 ml/min Normal [facility] Comment on above: Performed By: #### L 501.2300, L501.5200, L500.4050, L100.0100 #### [facility] [address] [place], [address] EST GFR - AA 97 mL/min Normal >60 [facility] Comment on above: Result Comment: Afri can Moz[place]ican GFR Calc Performed By: #### L 501.2300, L501.5200, L500.4050, L100.0100 #### [facility] [address] [place], [address] GAP 3 Low 5-15 [facility] Comment on above: Performed By: #### L 501.2300, L501.5200, L500.4050, L100.0100 #### [facility] [address] [place], [address] GFR/1.73 sq M.predicted among non-blacks MDRD (S/P/Bld) [Vol rate/Area] 81 mL/min/{1.73_m2} Normal >60 [facility] Comment on above: Result Comment: Non- GFR Calc Performed By: #### L 501.2300, L501.5200, L500.4050, L100.0100 #### [facility] [address] [place], [address] Globulin (S) [Mass/Vol] 3.3 g/dL Normal 2.2-4.2 [facility] Comment on above: Performed By: #### L 501.2300, L501.5200, L500.4050, L100.0100 #### [facility] [address] [place], [address] Glucose [Mass/Vol] 104 mg/dL Normal 74-106 [facility] Comment on above: Result Comment: Fast ing Glucose result from 100 to 125 mg/dL suggests IMPAIRED HOMEOSTASIS per A.D.A. criteria. Performed By: #### L 501.2300, L501.5200, L500.4050, L100.0100 #### [facility] [address] [place], [address] Potassium [Moles/Vol] 3.9 mmol/L Normal 3.5-5.1 [facility] Comment on above: Performed By: #### L 501.2300, L501.5200, L500.4050, L100.0100 #### [facility] [address] [place], [address] Sodium [Moles/Vol] 135 mmol/L Low 136-145 [facility] Comment on above: Performed By: #### L 501.2300, L501.5200, L500.4050, L100.0100 #### [facility] [address] [place], [address] T PROT 6.5 g/dL Normal 6.4-8.2 [facility] Comment on above: Performed By: #### L 501.2300, L501.5200, L500.4050, L100.0100 #### [facility] [address] [place], [address] Urea nitrogen [Mass/Vol] 22 mg/dL High 7-18 [facility] Comment on above: Performed By: #### L 501.2300, L501.5200, L500.4050, L100.0100 #### [facility] [address] [place], [address] Direct serum free thyroxine (FT4) measurementOrdered By: Umang Piedra on 02-06-2024 Free T4 [Mass/Vol] 1.05 ng/dL 0.76-1.46 [facility] deOrdered By: Graciela Dewey on 02-06-2024 Bedside Glucose (Misc Panel) 119 mg/dL High 74-106 [facility] Comment on above: MANAGEMENT OF PATIEN T CARE PER NURSING PROTOCOL Magnesiumon 02-06-2024 Magnesium [Mass/Vol] 2.2 mg/dL Normal 1.6-2.6 [facility] Comment on above: Performed By: #### L 501.2300, L501.5200, L500.4050, L100.0100 #### [facility] [address] [place], [address] Phosphoruson 02-06-2024 Phosphate [Mass/Vol] 3.4 mg/dL Normal 2.5-4.9 [facility] Comment on above: Performed By: #### L 501.2300, L501.5200, L500.4050, L100.0100 #### [facility] [address] [place], [address] T4 Free Directon 02-06-2024 T4 FREE DIRECT 1.05 ng/dL Normal 0.76-1.46 [facility] Comment on above: Performed By: #### L 506.0400 #### [facility] [address] [place], [address] 12 Lead EKGon 02-05-2024 12 Lead EKG [facility] [address] [place] [address] 12 Lead EKG 02/05/24 1829 MR#: [id number] Acct: [id number] Name: ASHVIN JENSEN Rep #: [id number] : 1945 78 From: Abelino Lopez MD Attending Dr: Dr. Fabricio Harris MD Status : ADM IN Ordering Dr: Eleuterio Garcia DO Date: 02/05/24 Location: VT3 Sex: M C Admitted: 02/06/24 Test Reason : DYSRHYTHMIA Blood Pressure : */* mmHG Vent. Rate : 91 BPM Atrial Rate : 91 BPM P-R Int : 174 ms QRS Dur : 124 ms QT Int : 390 ms P-R-T Axes : 27 -39 34 degrees QTcB Int : 479 ms Sinus rhythm with frequent Premature ventricular complexes Left axis deviation Non-specific intra-ventricular conduction delay Abnormal ECG Confirmed by ABELINO LOPEZ MD ([id number]), news videotape editor SCOTT HESTER ([id number]) on 02/07/2024 8:39:30 AM Referred By: Confirmed By: ABELINO LOPEZ MD 02/07/24 0839 Date Abelino Lopez MD CC: Dr. Eleuterio Garcia DO; Dr. Fabricio Harris MD; Dr. Blanco Collazo MD Signed Normal [facility] Basic Metabolic Profile (BMP )on 02-05-2024 BUN/CRE 20.7 RATIO High 10-20 [facility] Comment on above: Order Comment: 'TROP ' Serial specimen #1, #2 or #3: 1 Performed By: #### L 501.2300, L501.5200, L500.4050, L100.0100 #### [facility] [address] [place], [address] CA,Total 8.7 mg/dL Normal 8.5-10.1 [facility] Comment on above: Order Comment: 'TROP ' Serial specimen #1, #2 or #3: 1 Performed By: #### L 501.2300, L501.5200, L500.4050, L100.0100 #### [facility] [address] [place], [address] Chloride [Moles/Vol] 101 mmol/L Normal 98-107 [facility] Comment on above: Order Comment: 'TROP ' Serial specimen #1, #2 or #3: 1 Performed By: #### L 501.2300, L501.5200, L500.4050, L100.0100 #### [facility] [address] [place], [address] CO2 [Moles/Vol] 34.0 mmol/L High 21.0-32.0 [facility] Comment on above: Order Comment: 'TROP ' Serial specimen #1, #2 or #3: 1 Performed By: #### L 501.2300, L501.5200, L500.4050, L100.0100 #### [facility] [address] [place], [address] Creatinine [Mass/Vol] 1.16 mg/dL Normal 0.70-1.30 [facility] Comment on above: Order Comment: 'TROP ' Serial specimen #1, #2 or #3: 1 Result Comment: The validity of the calculated GFR GFRAA in patients over 70 years has not been determined. Clinical correlation is essential. Performed By: #### L 501.2300, L501.5200, L500.4050, L100.0100 #### [facility] [address] [place], [address] ECRCL 68.95 ml/min Normal [facility] Comment on above: Order Comment: 'TROP ' Serial specimen #1, #2 or #3: 1 Performed By: #### L 501.2300, L501.5200, L500.4050, L100.0100 #### [facility] [address] [place], [address] EST GFR - AA 79 mL/min Normal >60 [facility] Comment on above: Order Comment: 'TROP ' Serial specimen #1, #2 or #3: 1 Result Comment: Afri can [place] GFR Calc Performed By: #### L 501.2300, L501.5200, L500.4050, L100.0100 #### [facility] [address] [place], [address] GAP 2 Low 5-15 [facility] Comment on above: Order Comment: 'TROP ' Serial specimen #1, #2 or #3: 1 Performed By: #### L 501.2300, L501.5200, L500.4050, L100.0100 #### [facility] [address] [place], [address] GFR/1.73 sq M.predicted among non-blacks MDRD (S/P/Bld) [Vol rate/Area] 65 mL/min/{1.73_m2} Normal >60 [facility] Comment on above: Order Comment: 'TROP ' Serial specimen #1, #2 or #3: 1 Result Comment: Non- GFR Calc Performed By: #### L 501.2300, L501.5200, L500.4050, L100.0100 #### [facility] [address] [place], [address] Glucose [Mass/Vol] 114 mg/dL High 74-106 [facility] Comment on above: Order Comment: 'TROP ' Serial specimen #1, #2 or #3: 1 Result Comment: Fast ing Glucose result from 100 to 125 mg/dL suggests IMPAIRED HOMEOSTASIS per A.D.A. criteria. Performed By: #### L 501.2300, L501.5200, L500.4050, L100.0100 #### [facility] [address] [place], [address] Potassium [Moles/Vol] 4.1 mmol/L Normal 3.5-5.1 [facility] Comment on above: Order Comment: 'TROP ' Serial specimen #1, #2 or #3: 1 Performed By: #### L 501.2300, L501.5200, L500.4050, L100.0100 #### [facility] [address] [place], [address] Sodium [Moles/Vol] 137 mmol/L Normal 136-145 [facility] Comment on above: Order Comment: 'TROP ' Serial specimen #1, #2 or #3: 1 Performed By: #### L 501.2300, L501.5200, L500.4050, L100.0100 #### [facility] [address] [place], [address] Urea nitrogen [Mass/Vol] 24 mg/dL High 7-18 [facility] Comment on above: Order Comment: 'TROP ' Serial specimen #1, #2 or #3: 1 Performed By: #### L 501.2300, L501.5200, L500.4050, L100.0100 #### [facility] [address] [place], [address] CBC W/Diff, Automatedon 12-2 Absolute Lymph 1.23 X10 3/uL Normal 0.83-4.51 [facility] Comment on above: Performed By: #### L 501.2300, L501.5200, L500.4050, L100.0100 #### [facility] [address] [place], [address] Absolute Neut 3.2 X10 3/uL Normal 2.0-7.7 [facility] Comment on above: Performed By: #### L 501.2300, L501.5200, L500.4050, L100.0100 #### [facility] [address] [place], [address] Basophils/100 WBC (Bld) 0.6 % Normal 0-1 [facility] Comment on above: Performed By: #### L 501.2300, L501.5200, L500.4050, L100.0100 #### [facility] [address] [place], [address] Eosinophils/100 WBC (Bld) 1.4 % Normal 0-5 [facility] Comment on above: Performed By: #### L 501.2300, L501.5200, L500.4050, L100.0100 #### [facility] [address] [place], [address] Erythrocyte distribution width (RBC) [Ratio] 13.1 % Normal 11.6-14.6 [facility] Comment on above: Performed By: #### L 501.2300, L501.5200, L500.4050, L100.0100 #### [facility] [address] [place], [address] Hematocrit (Bld) [Volume fraction] 43.7 % Normal 40-54 [facility] Comment on above: Performed By: #### L 501.2300, L501.5200, L500.4050, L100.0100 #### [facility] [address] [place], [address] Hemoglobin (Bld) [Mass/Vol] 14.1 g/dL Normal 13.0-16.5 [facility] Comment on above: Performed By: #### L 501.2300, L501.5200, L500.4050, L100.0100 #### [facility] [address] [place], [address] IG% 0.200 Normal 0.0-0.9 [facility] Comment on above: Result Comment: IG% - Immature Granulocytes (promyelocytes, myelocytes and metamyelocytes) > 1% indicates that a LEFT SHIFT is Present. Performed By: #### L 501.2300, L501.5200, L500.4050, L100.0100 #### [facility] [address] [place], [address] Lymphocytes/100 WBC (Bld) 24.3 % Normal 19-41 [facility] Comment on above: Performed By: #### L 501.2300, L501.5200, L500.4050, L100.0100 #### [facility] [address] [place], [address] MCH (RBC) [Entitic mass] 31.5 pg Normal 27.0-32.0 [facility] Comment on above: Performed By: #### L 501.2300, L501.5200, L500.4050, L100.0100 #### [facility] [address] [place], [address] MCHC (RBC) [Mass/Vol] 32.3 g/dL Normal 32-36 [facility] Comment on above: Performed By: #### L 501.2300, L501.5200, L500.4050, L100.0100 #### [facility] [address] [place], [address] MCV (RBC) [Entitic vol] 97.8 fL High 80-94 [facility] Comment on above: Performed By: #### L 501.2300, L501.5200, L500.4050, L100.0100 #### [facility] [address] [place], [address] Monocytes/100 WBC (Bld) 10.7 % High 0-10 [facility] Comment on above: Performed By: #### L 501.2300, L501.5200, L500.4050, L100.0100 #### [facility] [address] [place], [address] Neutrophils/100 WBC (Bld) 62.8 % Normal 47-70 [facility] Comment on above: Performed By: #### L 501.2300, L501.5200, L500.4050, L100.0100 #### [facility] [address] [place], [address] Nucleated RBC (Bld) [#/Vol] 0 10*3/uL Normal 0-5 [facility] Comment on above: Performed By: #### L 501.2300, L501.5200, L500.4050, L100.0100 #### [facility] [address] [place], [address] Platelet mean volume (Bld) [Entitic vol] 10.0 fL Normal 6.2-12.0 [facility] Comment on above: Performed By: #### L 501.2300, L501.5200, L500.4050, L100.0100 #### [facility] [address] [place], [address] Platelets (Bld) [#/Vol] 160 10*3/uL Normal 150-450 [facility] Comment on above: Performed By: #### L 501.2300, L501.5200, L500.4050, L100.0100 #### [facility] [address] [place], [address] RBC (Bld) [#/Vol] 4.47 10*6/uL Low 4.6-6.2 [facility] Comment on above: Performed By: #### L 501.2300, L501.5200, L500.4050, L100.0100 #### [facility] [address] [place], [address] RDW SD 47.2 fl High 35.1-43.9 [facility] Comment on above: Performed By: #### L 501.2300, L501.5200, L500.4050, L100.0100 #### [facility] [address] [place], [address] WBC (Bld) [#/Vol] 5.1 10*3/uL Normal 4.4-11.0 [facility] Comment on above: Performed By: #### L 501.2300, L501.5200, L500.4050, L100.0100 #### [facility] [address] [place], [address] Chest PA and Lateralon 02-04 Chest PA and Lateral [facility] [address] [place] [address] Chest PA and Lateral MR#: [id number] Acct: [id number] Name: ASHVIN JENSEN Rep #: [id number] : 1945 M 78 From: Ashvin Mcghee MD PCP: Dr. Blanco Collazo MD Status: ADM IRVING Study: Chest PA and Lateral Date of Exam: 02/05/24 Exam# [id number] Ordering Dr: Pham Singh -[id number] INDICATION: cough, sob EXAMINATION/TECHNIQ UE: X-RAY - XR Chest 2 Views COMPARISON: 04/02/2020 FINDINGS: LINES/DEVICES: None. LUNGS: No consolidation, edema or effusion. No pneumothorax. Stable calcified granuloma left lower lobe. MEDIASTINUM AND CARDIOVASCULAR STRUCTURES: Cardiac silhouette not enlarged. Central airways and mediastinal contour are unremarkable. BONES AND SOFT TISSUES: No acute changes. RAD/Chest PA and Lateral IMPRESSION: No radiographic evidence of acute cardiopulmonary disease. Electronically Signed: Ashvin Mcghee MD at 21:19 EST , CC: Dr. Blanco Collazo MD; DMITRIY Joshi Molded Candles Wicker: Signed Normal [facility] Emergency Department Summary on 02-05-2024 Emergency Department Summary [facility] Medical Records Department [address] [place] [address] Emergency Department Summary 02/05/24 MR#: [id number] Acct: [id number] Name: ASHVIN JENSEN Rep #: [id number] : 1945 78 From: Eleuterio Garcia DO PCP: Dr. Blanco Collazo MD Status:ADM IRV[place] Location: [address] History of Present Illness Chief Complaint: Shortness of Breath Narrative Narrative: Patient presenting today with hypoxia and a productive cough with clear sputum he has had over the past week. He reports that he has been feeling short of breath with exertion. He checked his pulse ox today and it was in the 80s on room air, he does not use supplemental O2 at home. He has no history of COPD or asthma. He denies any chest pain. He has a PMH of HTN. PE Risk Factors: Negative for Prior DVT or PE, Recent immobilization, Recent surgery or Recent travel [facility] Medical History Wears glasses Alcohol use Arthritis Former smoker Chronic cough Leg cramps History of stress test History of echocardiogram Normal colonoscopy Pneumonia COVID-19 Kidney stone Home Medications ???Medication ???Instructions ???Recorded ???Last Taken ???Type multivitamin with folic acid 400 1 tab PO DAILY SUPPLEMENT 01/29/15 08/13/15 History mcg tablet (Thera) lisinopril 20 mg tablet 20 mg PO DAILY HTN 03/16/20 Unknown History furosemide 20 mg tablet 20 mg PO DAILY WATER PILL 06/05/22 Unknown History metoprolol succinate 25 mg 25 mg PO DAILY HTN 06/05/22 Unknown History tablet,extended release 24 hr acetaminophen 500 mg tablet 1,000 mg PO Q8H pain 07/24/22 Unknown History rosuvastatin 5 mg tablet 5 mg PO QDAY 07/14/23 Unknown History prednisolone acetate 1 % eye 1 drp ophthalmic (eye) Q6H 02/05/24 Unknown History drops,suspension triamterene 37.5 1 tab PO DAILY 02/05/24 Unknown History mg-hydrochlorothiaz rocio 25 mg tablet Allergy/AdvReac Type Severity Reaction Status Date / Time No Known Allergies Allergy Verified 02/05/24 18:21 Family History Brother Myocardial infarction 20 years ago Surgical History History of total left hip arthroplasty History of left cataract surgery History of right cataract surgery History of total right knee replacement Social History household members: none Smoking Status: Former smoker alcohol intake: current substance use type: does not use what type of physical activity do you participate in: walking ROS ROS ED Constitutional Constitutional ED: Denies chills or fever(s) Cardiovascular Cardiovascular: Denies chest pain Respiratory/Chest Respiratory/Chest: Reports cough, dyspnea and sputum; Denies tachypnea or wheezing Gastrointestinal Gastrointestinal: Denies abdominal pain, nausea or vomiting Musculoskeletal Musculoskeletal: Denies arthralgias or myalgias Integumentary Denies rash Neurologic Neurologic: Denies weakness EXAM Physical Exam Const Vital Signs: 02/05/24 18:21 02/05/24 18:22 02/05/24 18:23 Temperature 98.4 F 98.4 F Temperature Source Oral Oral Pulse Rate 75 96 Respiratory Rate 24 H 19 H Respiratory Effort Respiratory Depth Respiratory Pattern Blood Pressure 105/63 149/124 H Blood Pressure Mean 77 132 Pulse Ox 94 91 93 Oxygen Delivery Method Nasal Cannula Nasal Cannula Nasal Cannula Oxygen Flow Rate (L/min) 2 2 02/05/24 18:23 02/05/24 18:46 02/05/24 19:22 Temperature 98.4 F Temperature Source Oral Pulse Rate 96 Respiratory Rate 17 18 Respiratory Effort Normal Respiratory Depth Normal Respiratory Pattern Normal Blood Pressure 114/54 L Blood Pressure Mean 74 Pulse Ox 93 97 Oxygen Delivery Method Nasal Cannula Nasal Cannula Nasal Cannula Oxygen Flow Rate (L/min) 2 2 2 02/05/24 20:00 02/05/24 21:00 Temperature 98.2 F Temperature Source Oral Pulse Rate 92 90 Respiratory Rate 19 H 18 Respiratory Effort Respiratory Depth Respiratory Pattern Blood Pressure 118/104 H 126/78 H Blood Pressure Mean 108 94 Pulse Ox 94 96 Oxygen Delivery Method Nasal Cannula Oxygen Flow Rate (L/min) 2 Positive well nourished, well developed and no apparent distress General Appearance ED: well developed HEENT Reports normocephalic and head/scalp atraumatic Mouth ED: Yes moist mucous membranes normal Eyes PERRL and EOMs intact bilaterally Neck full ROM and supple Chest Wall inspection of chest normal Resp normal respiratory effort and clear to auscultation bilaterally Cardio regular rate and regular rhythm (more content not included)... Normal [facility] H AND P Exam - Hospitaliston 02-05-2024 H&P Exam - Hospitalist [facility] Medical Records Department [address] [place] [address] H P Exam - Hospitalist 02/05/242024 MR#: [id number] Acct: [id number] Name: ASHVIN JENSEN Rep #: [id number] : 1945 78 From: Umang Mon DO PCP: Dr. Blanco Collazo MD Status:ADM IRV[place] Location: [place] [address] HPI - General General Date of Admission: 02/05/24 Date of Service: 02/05/24 Chief Complaint: SOB and Cough. HPI Narrative ASHVIN JENSEN, is a 78 M with a past medical history of essential hypertension; on lisinopril, metoprolol and furosemide, hyperlipidemia; on rosuvastatin, obesity; with BMI of 39.9 this admission, former tobacco abuse with pipe (quit 1988), history of COVID-19 pneumonia (2020), history of renal calculi (2015), history of bilateral cataract surgery (Right 2015 and Left 2018), recent Right eye surgery, history of leg cramps and OA; s/p Left hip arthroplasty and Right TKR (2014) who presents to [facility] ER complaining of shortness of breath and cough. Mr. Jensen reports his symptoms began approximately 1 week prior to admission with a gradual onset of dyspnea on exertion that recently progressed to shortness of breath at rest so he checked his pulse oximeter which revealed a room air saturation in the 85% range which caused him to come in for further evaluation and treatment. He additionally admits to fever of 101 ???F with sore throat. He denies associated chills, chest pain, abdominal pain, nausea, vomiting, diarrhea or constipation but he does admit to a productive cough with clear sputum. In the ER he was diagnosed with Influenza A complicated by clinical evidence of acute respiratory insufficiency with the patient requiring initiation of 2L NC and he was then admitted to the general medical floor under observation status for ongoing care for stay that is expected to be less than 2 midnights. [facility] Medical History Wears glasses Alcohol use Arthritis Former smoker Chronic cough Leg cramps History of stress test History of echocardiogram Normal colonoscopy Pneumonia COVID-19 Kidney stone Home Medications ???Medication ???Instructions ???Recorded ???Last Taken ???Type multivitamin with folic acid 400 1 tab PO DAILY SUPPLEMENT 01/29/15 08/13/15 History mcg tablet (Thera) lisinopril 20 mg tablet 20 mg PO DAILY HTN 03/16/20 Unknown History furosemide 20 mg tablet 20 mg PO DAILY WATER PILL 06/05/22 Unknown History metoprolol succinate 25 mg 25 mg PO DAILY HTN 06/05/22 Unknown History tablet,extended release 24 hr acetaminophen 500 mg tablet 1,000 mg PO Q8H pain 07/24/22 Unknown History rosuvastatin 5 mg tablet 5 mg PO QDAY 07/14/23 Unknown History prednisolone acetate 1 % eye 1 drp ophthalmic (eye) Q6H 02/05/24 Unknown History drops,suspension triamterene 37.5 1 tab PO DAILY 02/05/24 Unknown History mg-hydrochlorothiaz rocio 25 mg tablet Allergy/AdvReac Type Severity Reaction Status Date / Time No Known Allergies Allergy Verified 02/05/24 18:21 Family History Brother Myocardial infarction 20 years ago Surgical History History of total left hip arthroplasty History of left cataract surgery History of right cataract surgery History of total right knee replacement Social History household members: none Smoking Status: Former smoker alcohol intake: current substance use type: does not use what type of physical activity do you participate in: walking Vital Signs Vital Signs Vital Signs: 02/05/24 18:21 02/05/24 18:22 02/05/24 18:23 Temperature 98.4 F 98.4 F Temperature Source Oral Oral Pulse Rate 75 96 Respiratory Rate 24 H 19 H Respiratory Effort Respiratory Depth Respiratory Pattern Blood Pressure 105/63 149/124 H Blood Pressure Mean 77 132 Pulse Ox 94 91 93 Oxygen Delivery Method Nasal Cannula Nasal Cannula Nasal Cannula Oxygen Flow Rate (L/min) 2 2 02/05/24 18:23 02/05/24 18:46 02/05/24 19:22 Temperature 98.4 F Temperature Source Oral Pulse Rate 96 Respiratory Rate 17 18 Respiratory Effort Normal Respiratory Depth Normal Respiratory Pattern Normal Blood Pressure 114/54 L Blood Pressure Mean 74 Pulse Ox 93 97 Oxygen Delivery Method Nasal Cannula Nasal Cannula Nasal Cannula Oxygen Flow Rate (L/min) 2 2 2 Weight Weight: 270 lb Body Mass Index (BMI) 39.9 Results Medical Records Data Attestation: I reviewed the patient's medical records Lab / Micro Data Attestation: I reviewed the patient's lab results. 02/06/24 04:51 02/05/24 18:40 (more content not included)... Normal [facility] Influenza virus A and B and SARS-CoV-2 (COVID-19) and Respiratory syncytial virus RNAOrdered By: Pham Singh on 02-05-2024 SARS-CoV-2 (COVID-19) RNA NEL+probe Ql (Unsp spec) Influenzae A Abnormal [facility] M100.678on 02-05-2024 M100.678 Copy of report sent to Infection Control Printer [id number] 02/06/24 3280 BLUCAS. SARS-CoV-2 (COVID 19) Negative INFLUENZA A A Positive A INFLUENZA B Negative RSV PCR Negative INFLUENZAE A * This is an amended result. * A prior result that was reported as final has been changed. 02/06/24 1551 by COOPER Segovia [facility] Comment on above: Performed By: #### L 501.2300, L501.5200, L500.4050, L100.0100 #### [facility] [address] [place], [place], [address] TSH QnOrdered By: Umang howe on 02-05-2024 Thyroid Stimulating Hormone (TSH) 0.280 uIU/mL Low 0.358-3.740 [facility] Thyroid Stim Hormone (TSH)on 02-05-2024 TSH 0.280 uIU/mL Low 0.358-3.740 [facility] Comment on above: Performed By: #### L 501.9520 #### [facility] [address] [place], [place], [address] Basophil percentageOrdered B y: Blanco Collazo on 04-14-2023 Chloride [Moles/Vol] 99 mmol/L 98-107 [facility] Cholesterol [Mass/Vol] 247 mg/dL <200 [facility] Comment on above: <200 mg/dL Desirable 200-240 mg/dL Borderline >240 mg/dL High Risk Glucose [Mass/Vol] 114 mg/dL 74-106 [facility] Comment on above: Fasting Glucose resu lt from 100 to 125 mg/dL suggests IMPAIRED HOMEOSTASIS per A.D.A. criteria. Potassium [Moles/Vol] 4.3 mmol/L 3.5-5.1 [facility] Sodium [Moles/Vol] 138 mmol/L 136-145 [facility] Triglyceride [Mass/Vol] 208 mg/dL <199 [facility] Comment on above: The drugs N-Acetylcy steine and Metamizole may falsely depress this assay.Serum Triglycerides Reference Interval Normal <150 mg/dL Borderline high 150 - 199 mg/dL High 200 - 499 mg/dL Very High > or = 500 mg/dL Laboratory - Chemistry and C hemistry - challengeOrdered By: Blanco Collazo on 04-14-2023 Cholesterol in HDL [Mass/Vol] 54 mg/dL >40 [facility] Comment on above: The drugs N-Acetylcy steine and Metamizole may falsely depress this assay. Reference Range HDL <40 mg/dL Low HDL Cholesterol HDL >or= 60 mg/dL High HDL Cholesterol Cholesterol in LDL [Mass/Vol] 151 mg/dL 0-130 [facility] CO2 [Moles/Vol] 34.0 mmol/L 21.0-32.0 [facility] Urea nitrogen/Creatinine [Mass ratio] 20.3 mg/mg 10-20 [facility] No Panel InformationOrdered By: Blanco Collazo on 04-14-2023 Estimated GFR (MDRD) Amer 74 mL/min >60 [facility] Comment on above: GFR Calc Estimated GFR (MDRD) Non-Af Amer 61 mL/min >60 [facility] Comment on above: Non- GFR Calc VLDL Cholesterol 42 mg/dL 5-40 [facility] Serum or plasma calcium jenifer urement (mass/volume)Ordered By: Blanco Collazo on 04-14-2023 Calcium [Mass/Vol] 9.6 mg/dL 8.5-10.1 [facility] Serum or plasma creatinine m easurement (mass/volume)Ordered By: Blanco Collazo on 04-14-2023 Creatinine [Mass/Vol] 1.23 mg/dL 0.70-1.30 [facility] Comment on above: The validity of the calculated GFR & GFRAA in patients over 70 years has not been determined. Clinical correlation is essential. Serum or plasma thyroid stim ulating hormone (TSH) measurement (units/volume)Ordered By: Blanco Collazo on 04-14-2023 TSH Qn 0.59 uIU/mL 0.358-3.74 [facility] Serum or plasma urea nitroge n measurement (mass/volume)Ordered By: Blanco Collazo on 04-14-2023 Urea nitrogen [Mass/Vol] 25 mg/dL 7-18 [facility] Thin prep Papanicolaou smear with manual screeningOrdered By: Blanco Collazo on 04-14-2023 Thin prep Papanicolaou smear with manual screening 5 5-15 [facility] Basophil percentageOrdered B y: Blanco Collazo on 02-04-2023 Chloride [Moles/Vol] 99 mmol/L 98-107 [facility] Glucose [Mass/Vol] 120 mg/dL 74-106 [facility] Comment on above: Fasting Glucose resu lt from 100 to 125 mg/dL suggests IMPAIRED HOMEOSTASIS per A.D.A. criteria. Potassium [Moles/Vol] 4.5 mmol/L 3.5-5.1 [facility] Sodium [Moles/Vol] 136 mmol/L 136-145 [facility] Laboratory - Chemistry and C hemistry - challengeOrdered By: Blanco Collazo on 02-04-2023 CO2 [Moles/Vol] 31.0 mmol/L 21.0-32.0 [facility] Urea nitrogen/Creatinine [Mass ratio] 21.6 mg/mg 10- [facility] No Panel InformationOrdered By: Blanco Collazo on 02-04-2023 Estimated GFR (MDRD) Amer 83 mL/min >60 [facility] Comment on above: GFR Calc Estimated GFR (MDRD) Non-Af Amer 68 mL/min >60 [facility] Comment on above: Non- GFR Calc Serum or plasma calcium jenifer urement (mass/volume)Ordered By: Blanco Collazo on 02-04-2023 Calcium [Mass/Vol] 9.0 mg/dL 8.5-10.1 [facility] Serum or plasma creatinine m easurement (mass/volume)Ordered By: Blanco Collazo on 02-04-2023 Creatinine [Mass/Vol] 1.11 mg/dL 0.70-1.30 [facility] Comment on above: The validity of the calculated GFR & GFRAA in patients over 70 years has not been determined. Clinical correlation is essential. Serum or plasma urea nitroge n measurement (mass/volume)Ordered By: Blanco Collazo on 02-04-2023 Urea nitrogen [Mass/Vol] 24 mg/dL 08-25 [facility] Thin prep Papanicolaou smear with manual screeningOrdered By: Blanco Collazo on 02-04-2023 Thin prep Papanicolaou smear with manual screening 6 5-15 [facility] Basophil percentageOrdered B y: Blanco Collazo on 10-14-2022 Chloride [Moles/Vol] 103 mmol/L 98-107 [facility] Cholesterol [Mass/Vol] 192 mg/dL <200 [facility] Comment on above: <200 mg/dL Desirable 200-240 mg/dL Borderline >240 mg/dL High Risk Glucose [Mass/Vol] 111 mg/dL 74-106 [facility] Comment on above: Fasting Glucose resu lt from 100 to 125 mg/dL suggests IMPAIRED HOMEOSTASIS per A.D.A. criteria. Potassium [Moles/Vol] 4.5 mmol/L 3.5-5.1 [facility] Sodium [Moles/Vol] 137 mmol/L 136-145 [facility] Triglyceride [Mass/Vol] 119 mg/dL <199 [facility] Comment on above: The drugs N-Acetylcy steine and Metamizole may falsely depress this assay.Serum Triglycerides Reference Interval Normal <150 mg/dL Borderline high 150 - 199 mg/dL High 200 - 499 mg/dL Very High > or = 500 mg/dL Laboratory - Chemistry and C hemistry - challengeOrdered By: Blanco Collazo on 10-14-2022 CO2 [Moles/Vol] 31.0 mmol/L 21.0-32.0 [facility] Urea nitrogen/Creatinine [Mass ratio] 21.6 mg/mg 10-20 [facility] No Panel InformationOrdered By: Blanco Collazo on 10-14-2022 Estimated GFR (MDRD) Amer 102 mL/min >60 [facility] Comment on above: GFR Calc Estimated GFR (MDRD) Non-Af Amer 85 mL/min >60 [facility] Comment on above: Non- GFR Calc Serum or plasma calcium jenifer urement (mass/volume)Ordered By: Blanco Collazo on 10-14-2022 Calcium [Mass/Vol] 8.9 mg/dL 8.5-10.1 [facility] Serum or plasma cholesterol in HDL measurement (mass/volume)Ordered By: Blanco Collazo on 10-14-2022 Cholesterol in HDL [Mass/Vol] 55 mg/dL >40 [facility] Comment on above: The drugs N-Acetylcy steine and Metamizole may falsely depress this assay. Reference Range HDL <40 mg/dL Low HDL Cholesterol HDL >or= 60 mg/dL High HDL Cholesterol Serum or plasma cholesterol in VLDL measurement (mass/volume)Ordered By: Blanco Collazo on 10-14-2022 Cholesterol in VLDL [Mass/Vol] 24 mg/dL 5-40 [facility] Serum or plasma creatinine m easurement (mass/volume)Ordered By: Blanco Collazo on 10-14-2022 Creatinine [Mass/Vol] 0.92 mg/dL 0.70-1.30 [facility] Comment on above: The validity of the calculated GFR & GFRAA in patients over 70 years has not been determined. Clinical correlation is essential. Serum or plasma low density lipoprotein (LDL) cholesterol measurement (mass/volume)Ordered By: Blanco Collazo on 10-14-2022 Cholesterol in LDL [Mass/Vol] 113 mg/dL 0-130 [facility] Serum or plasma urea nitroge n measurement (mass/volume)Ordered By: Blanco Collazo on 10-14-2022 Urea nitrogen [Mass/Vol] 20 mg/dL 7-18 [facility] Thin prep Papanicolaou smear with manual screeningOrdered By: Blanco Collazo on 10-14-2022 Thin prep Papanicolaou smear with manual screening 3 5-15 [facility] Basophil percentageOrdered B y: Dr. Armendariz on 07-26-2022 Chloride [Moles/Vol] 101 mmol/L 98-107 [facility] Glucose [Mass/Vol] 124 mg/dL 74-106 [facility] Comment on above: Fasting Glucose resu lt from 100 to 125 mg/dL suggests IMPAIRED HOMEOSTASIS per A.D.A. criteria. Potassium [Moles/Vol] 3.6 mmol/L 3.5-5.1 [facility] Sodium [Moles/Vol] 137 mmol/L 136-145 [facility] Laboratory - Chemistry and C hemistry - challengeOrdered By: Dr. Armendariz on 07-26-2022 CO2 [Moles/Vol] 31.0 mmol/L 21.0-32.0 [facility] Urea nitrogen/Creatinine [Mass ratio] 32.4 mg/mg 10-20 [facility] No Panel InformationOrdered By: Dr. Armendariz on 07-26-2022 Estimated Creatinine Clearance Calc 69.38 ml/min [facility] Estimated GFR (MDRD) Amer 102 mL/min >60 [facility] Comment on above: GFR Calc Estimated GFR (MDRD) Non-Af Amer 85 mL/min >60 [facility] Comment on above: Non- GFR Calc Serum or plasma calcium jenifer urement (mass/volume)Ordered By: Dr. Armendariz on 07-26-2022 Calcium [Mass/Vol] 8.7 mg/dL 8.5-10.1 [facility] Serum or plasma creatinine m easurement (mass/volume)Ordered By: Dr. Armendariz on 07-26-2022 Creatinine [Mass/Vol] 0.92 mg/dL 0.70-1.30 [facility] Comment on above: The validity of the calculated GFR & GFRAA in patients over 70 years has not been determined. Clinical correlation is essential. Serum or plasma urea nitroge n measurement (mass/volume)Ordered By: Dr. Armendariz on 07-26-2022 Urea nitrogen [Mass/Vol] 30 mg/dL 08-25 [facility] Thin prep Papanicolaou smear with manual screeningOrdered By: Dr. Armendariz on 07-26-2022 Thin prep Papanicolaou smear with manual screening 5 -15 [facility] Absolute lymphocyte countOrd ered By: Dr. Armendariz on 07-25-2022 Lymphocytes Auto (Unsp spec) [#/Vol] 1.43 10*3/uL 0.83-4.51 [facility] Basophil percentageOrdered B y: Dr. Armendariz on 07-25-2022 Basophils/100 WBC (Bld) 0.6 % 0-1 [facility] Eosinophils/100 WBC (Bld) 1.7 % 0-5 [facility] Neutrophils (Bld) [#/Vol] 7.0 10*3/uL 2.0-7.7 [facility] Neutrophils/100 WBC (Bld) 71.7 % 47-70 [facility] WBC (Bld) [#/Vol] 9.8 10*3/uL 4.4-11.0 [facility] Blood erythrocytes count (nu mber/volume)Ordered By: Dr. Armendariz on 07-25-2022 RBC (Bld) [#/Vol] 3.64 10*6/uL 4.6-6.2 [facility] Blood hemoglobin measurement (mass/volume)Ordered By: Dr. Armendariz on 07-25-2022 Hemoglobin (Bld) [Mass/Vol] 11.5 g/dL 13.0-16.5 [facility] Blood lymphocytes/100 leukoc ytesOrdered By: Dr. Armendariz on 07-25-2022 Lymphocytes/100 WBC (Bld) 14.6 % 19-41 [facility] Blood monocytes/100 leukocyt esOrdered By: Dr. Armendariz on 07-25-2022 Monocytes/100 WBC (Bld) 10.8 % 0-10 [facility] Blood platelet mean volumeOr dered By: Dr. Armendariz on 07-25-2022 Platelet mean volume (Bld) [Entitic vol] 10.2 fL 6.2-12.0 [facility] Determination of erythrocyte mean corpuscular volume (MCV)Ordered By: Dr. Armendariz on 07-25-2022 MCV (RBC) [Entitic vol] 98.6 fL 80-94 [facility] Hematocrit Auto (Bld) [Volum e fraction]Ordered By: Dr. Armendariz on 07-25-2022 Hematocrit (Bld) [Volume fraction] 35.9 % 40-54 [facility] Laboratory - Hematology and Cell countsOrdered By: Dr. Armendariz on 07-25-2022 Erythrocyte distribution width (RBC) [Entitic vol] 46.4 fL 35.1-43.9 [facility] Erythrocyte distribution width (RBC) [Ratio] 12.8 % 11.6-14.6 [facility] Immature granulocytes/100 WBC (Bld) 0.600 % 0.0-0.9 [facility] Comment on above: IG% - Immature Granu locytes (promyelocytes, myelocytes and metamyelocytes) > 1% indicates that a LEFT SHIFT is Present. MCH (RBC) [Entitic mass] 31.6 pg 27.0-32.0 [facility] Nucleated RBC/100 WBC (Bld) [Ratio] 0 % 0-5 [facility] MCHC Auto (RBC) [Mass/Vol]Or dered By: Dr. Armendariz on 07-25-2022 MCHC (RBC) [Mass/Vol] 32.0 g/dL 32-36 [facility] Platelets bldOrdered By: Dr. Armendariz on 07-25-2022 Platelets (Bld) [#/Vol] 265 10*3/uL 150-450 [facility] Basophil percentageOrdered B y: Dr. Phillips on 07-24-2022 WBC (Bld) [#/Vol] 8.5 10*3/uL 4.4-11.0 [facility] Blood erythrocytes count (nu mber/volume)Ordered By: Dr. Phillips on 07-24-2022 RBC (Bld) [#/Vol] 3.47 10*6/uL 4.6-6.2 [facility] Blood hemoglobin measurement (mass/volume)Ordered By: Dr. Phillips on 07-24-2022 Hemoglobin (Bld) [Mass/Vol] 11.1 g/dL 13.0-16.5 [facility] Blood platelet mean volumeOr dered By: Dr. Phillips on 07-24-2022 Platelet mean volume (Bld) [Entitic vol] 10.3 fL 6.2-12.0 [facility] COVID-19 virus antigen assay Ordered By: Zeke Phillips on 07-24-2022 SARS-CoV-2 (COVID-19) Ag IA.rapid Ql (Resp) [facility] COVID-19 virus antigen assay Ordered By: Dr. Phillips on 07-24-2022 SARS-CoV-2 (COVID-19) Ag IA.rapid Ql (Resp) [facility] Determination of erythrocyte mean corpuscular volume (MCV)Ordered By: Dr. Phillips on 07-24-2022 MCV (RBC) [Entitic vol] 98.0 fL 80-94 [facility] Hematocrit Auto (Bld) [Volum e fraction]Ordered By: Dr. Phillips on 07-24-2022 Hematocrit (Bld) [Volume fraction] 34.0 % 40-54 [facility] Laboratory - Hematology and Cell countsOrdered By: Dr. Phillips on 07-24-2022 Erythrocyte distribution width (RBC) [Entitic vol] 46.4 fL 35.1-43.9 [facility] Erythrocyte distribution width (RBC) [Ratio] 12.9 % 11.6-14.6 [facility] MCH (RBC) [Entitic mass] 32.0 pg 27.0-32.0 [facility] MCHC Auto (RBC) [Mass/Vol]Or dered By: Dr. Phillips on 07-24-2022 MCHC (RBC) [Mass/Vol] 32.6 g/dL 32-36 [facility] Platelets bldOrdered By: Dr. Phillips on 07-24-2022 Platelets (Bld) [#/Vol] 207 10*3/uL 150-450 [facility] Basophil percentageOrdered B y: Dr. Phillips on 07-22-2022 Chloride [Moles/Vol] 105 mmol/L 98-107 [facility] Glucose [Mass/Vol] 126 mg/dL 74-106 [facility] Comment on above: Fasting Glucose resu lt greater than or equal to 126 mg/dL suggests DIABETES MELLITUS per A.D.A. criteria. Potassium [Moles/Vol] 3.9 mmol/L 3.5-5.1 [facility] Sodium [Moles/Vol] 139 mmol/L 136-145 [facility] Laboratory - Chemistry and C hemistry - challengeOrdered By: Dr. Phillips on 07-22-2022 CO2 [Moles/Vol] 30.0 mmol/L 21.0-32.0 [facility] Urea nitrogen/Creatinine [Mass ratio] 11.0 mg/mg 10-20 [facility] No Panel InformationOrdered By: Dr. Phillips on 07-22-2022 Estimated Creatinine Clearance Calc 58.56 ml/min [facility] Estimated GFR (MDRD) Amer 85 mL/min >60 [facility] Comment on above: GFR Calc Estimated GFR (MDRD) Non-Af Amer 70 mL/min >60 [facility] Comment on above: Non- GFR Calc Serum or plasma calcium jenifer urement (mass/volume)Ordered By: Dr. Phillips on 07-22-2022 Calcium [Mass/Vol] 8.4 mg/dL 8.5-10.1 [facility] Serum or plasma creatinine m easurement (mass/volume)Ordered By: Dr. Phillips on 07-22-2022 Creatinine [Mass/Vol] 1.09 mg/dL 0.70-1.30 [facility] Comment on above: The validity of the calculated GFR & GFRAA in patients over 70 years has not been determined. Clinical correlation is essential. Serum or plasma urea nitroge n measurement (mass/volume)Ordered By: Dr. Phillips on 07-22-2022 Urea nitrogen [Mass/Vol] 12 mg/dL 7-18 [facility] Thin prep Papanicolaou smear with manual screeningOrdered By: Dr. Phillips on 07-22-2022 Thin prep Papanicolaou smear with manual screening 4 5-15 [facility] Glucose Glucometer (BldC) [M ass/Vol]Ordered By: Dr. Phillips on 07-21-2022 Glucose [Mass/Vol] 126 mg/dL 74-106 [facility] Comment on above: MANAGEMENT OF PATIEN T CARE PER NURSING PROTOCOL INR in Blood by Coagulation assayOrdered By: Dr. Phillips on 07-14-2022 INR Coag (Bld) [Relative time] 1.0 {INR} [facility] Laboratory - Chemistry and C hemistry - challengeOrdered By: Dr. Phillips on 07-14-2022 Magnesium [Mass/Vol] 2.4 mg/dL 1.6-2.6 [facility] Laboratory - CoagulationOrde red By: Dr. Phillips on 07-14-2022 aPTT Coag (Bld) [Time] 30.4 s 24.1-36.2 [facility] PT Coag (PPP) [Time] 13.4 s 11.7-14.9 [facility] No Panel InformationOrdered By: Dr. Phillips on 07-14-2022 Fructosamine 208 umol/L 0-285 [facility] Comment on above: Published reference interval for apparently healthysubjects between age 20 and 60 is 205 - 285 umol/L and in apoorly controlled diabetic population is 228 - 563 umol/Lwith a mean of 396 umol/L.Performed at: [address], [place], [place] [id number] Director: Steven Andrews PhD, Phone: [phone] Whole blood hemoglobin A1c/t otal hemoglobin ratio (mass fraction)Ordered By: Dr. Phillips on 07-14-2022 HbA1c (Bld) [Mass fraction] 6.0 % 3.8-5.6 [facility] Comment on above: Normal < 5.7 % Predi abetic 5.7 - 6.4 % Diabetic >or= 6.5 % Please note range changes. Absolute lymphocyte countOrd ered By: Dr. Phillips on 07-01-2022 Lymphocytes Auto (Unsp spec) [#/Vol] 1.59 10*3/uL 0.83-4.51 [facility] Basophil percentageOrdered B y: Dr. Phillips on 07-01-2022 Basophils/100 WBC (Bld) 1.0 % 0-1 [facility] Bilirubin [Mass/Vol] 0.80 mg/dL 0.20-1.00 [facility] Comment on above: For patients on eltr ombopag therapy, use of Dimension [place] TBIL is not recommended. Eosinophils/100 WBC (Bld) 1.6 % 0-5 [facility] Neutrophils (Bld) [#/Vol] 4.3 10*3/uL 2.0-7.7 [facility] Neutrophils/100 WBC (Bld) 62.7 % 47-70 [facility] Protein [Mass/Vol] 7.0 g/dL 6.4-8.2 [facility] Blood lymphocytes/100 leukoc ytesOrdered By: Dr. Phillips on 07-01-2022 Lymphocytes/100 WBC (Bld) 23.0 % 19-41 [facility] Blood monocytes/100 leukocyt esOrdered By: Dr. Phillips on 07-01-2022 Monocytes/100 WBC (Bld) 11.0 % 0-10 [facility] Laboratory - Chemistry and C hemistry - challengeOrdered By: Dr. Phillips on 07-01-2022 ALP [Catalytic activity/Vol] 92 U/L 45-117 [facility] ALT [Catalytic activity/Vol] 52 U/L 16-61 [facility] Globulin (S) [Mass/Vol] 3.1 g/dL 2.2-4.2 [facility] - Hematology and Cell countsOrdered By: Dr. Phillips on 07-01-2022 Immature granulocytes/100 WBC (Bld) 0.700 % 0.0-0.9 [facility] Comment on above: IG% - Immature Granu locytes (promyelocytes, myelocytes and metamyelocytes) > 1% indicates that a LEFT SHIFT is Present. Nucleated RBC/100 WBC (Bld) [Ratio] 0 % 0-5 [facility] Serum or plasma albumin jenifer urement (mass/volume)Ordered By: Dr. Phillips on 07-01-2022 Albumin [Mass/Vol] 3.9 g/dL 3.2-5.0 [facility] Serum or plasma albumin/glob ulin mass ratioOrdered By: Dr. Phillips on 07-01-2022 Albumin/Globulin [Mass ratio] 1.3 {ratio} 0.9-2.4 [facility] Thin prep Papanicolaou smear with manual screeningOrdered By: Dr. Phillips on 07-01-2022 Thin prep Papanicolaou smear with manual screening 27 U/L 15-37 [facility] Absolute lymphocyte countOrd ered By: Dr. Collazo on 02-27-2022 Lymphocytes Auto (Unsp spec) [#/Vol] 1.51 10*3/uL 0.83-4.51 [facility] Basophil percentageOrdered B y: Dr. Collazo on 02-27-2022 Basophils/100 WBC (Bld) 0.8 % 0-1 [facility] Chloride [Moles/Vol] 102 mmol/L 98-107 [facility] Eosinophils/100 WBC (Bld) 1.7 % 0-5 [facility] Glucose [Mass/Vol] 109 mg/dL 74-106 [facility] Comment on above: Fasting Glucose resu lt from 100 to 125 mg/dL suggests IMPAIRED HOMEOSTASIS per A.D.A. criteria. Neutrophils (Bld) [#/Vol] 6.4 10*3/uL 2.0-7.7 [facility] Neutrophils/100 WBC (Bld) 71.1 % 47-70 [facility] Potassium [Moles/Vol] 4.4 mmol/L 3.5-5.1 [facility] Comment on above: Slight Hemolysis, Re sult may be falsely increased. Sodium [Moles/Vol] 140 mmol/L 136-145 [facility] WBC (Bld) [#/Vol] 8.9 10*3/uL 4.4-11.0 [facility] Blood erythrocytes count (nu mber/volume)Ordered By: Dr. Collazo on 02-27-2022 RBC (Bld) [#/Vol] 4.73 10*6/uL 4.6-6.2 [facility] Blood hemoglobin measurement (mass/volume)Ordered By: Dr. Collazo on 02-27-2022 Hemoglobin (Bld) [Mass/Vol] 15.3 g/dL 13.0-16.5 [facility] Blood lymphocytes/100 leukoc ytesOrdered By: Dr. Collazo on 02-27-2022 Lymphocytes/100 WBC (Bld) 16.9 % 19-41 [facility] Blood monocytes/100 leukocyt esOrdered By: Dr. Collazo on 02-27-2022 Monocytes/100 WBC (Bld) 9.1 % 0-10 [facility] Blood platelet mean volumeOr dered By: Dr. Collazo on 02-27-2022 Platelet mean volume (Bld) [Entitic vol] 10.5 fL 6.2-12.0 [facility] Determination of erythrocyte mean corpuscular volume (MCV)Ordered By: Dr. Collazo on 02-27-2022 MCV (RBC) [Entitic vol] 100.0 fL 80-94 [facility] Hematocrit Auto (Bld) [Volum e fraction]Ordered By: Dr. Collazo on 02-27-2022 Hematocrit (Bld) [Volume fraction] 47.3 % 40-54 [facility] Laboratory - Chemistry and C hemistry - challengeOrdered By: Dr. Collazo on 02-27-2022 CO2 [Moles/Vol] 32.0 mmol/L 21.0-32.0 [facility] Natriuretic peptide B (Bld) [Mass/Vol] 16.1 pg/mL 0-100 [facility] Urea nitrogen/Creatinine [Mass ratio] 20.7 mg/mg 10-20 [facility] Laboratory - Hematology and Cell countsOrdered By: Dr. Collazo on 02-27-2022 Erythrocyte distribution width (RBC) [Entitic vol] 47.3 fL 35.1-43.9 [facility] Erythrocyte distribution width (RBC) [Ratio] 12.8 % 11.6-14.6 [facility] Immature granulocytes/100 WBC (Bld) 0.400 % 0.0-0.9 [facility] Comment on above: IG% - Immature Granu locytes (promyelocytes, myelocytes and metamyelocytes) > 1% indicates that a LEFT SHIFT is Present. MCH (RBC) [Entitic mass] 32.3 pg 27.0-32.0 [facility] Nucleated RBC/100 WBC (Bld) [Ratio] 0 % 0-5 [facility] MCHC Auto (RBC) [Mass/Vol]Or dered By: Dr. Collazo on 02-27-2022 MCHC (RBC) [Mass/Vol] 32.3 g/dL 32-36 [facility] No Panel InformationOrdered By: Dr. Collazo on 02-27-2022 Estimated GFR (MDRD) Amer 83 mL/min >60 [facility] Comment on above: GFR Calc Estimated GFR (MDRD) Non-Af Amer 69 mL/min >60 [facility] Comment on above: Non- GFR Calc Platelets bldOrdered By: Dr. Collazo on 02-27-2022 Platelets (Bld) [#/Vol] 262 10*3/uL 150-450 [facility] Serum or plasma calcium jenifer urement (mass/volume)Ordered By: Dr. Collazo on 02-27-2022 Calcium [Mass/Vol] 9.2 mg/dL 8.5-10.1 [facility] Serum or plasma creatinine m easurement (mass/volume)Ordered By: Dr. Collazo on 02-27-2022 Creatinine [Mass/Vol] 1.11 mg/dL 0.70-1.30 [facility] Comment on above: The validity of the calculated GFR & GFRAA in patients over 70 years has not been determined. Clinical correlation is essential. Serum or plasma urea nitroge n measurement (mass/volume)Ordered By: Dr. Collazo on 02-27-2022 Urea nitrogen [Mass/Vol] 23 mg/dL 7-18 [facility] Thin prep Papanicolaou smear with manual screeningOrdered By: Dr. Collazo on 02-27-2022 Thin prep Papanicolaou smear with manual screening 6 5-15 [facility] Basophil percentageon 2021 Chloride [Moles/Vol] 99 mmol/L 98-107 [facility] Work Phone: Cholesterol [Mass/Vol] 222 mg/dL <200 [facility] Work Phone: Comment on above: <200 mg/dL Desirable 200-240 mg/dL Borderline >240 mg/dL High Risk Glucose [Mass/Vol] 117 mg/dL 74-106 [facility] Work Phone: Comment on above: Fasting Glucose resu lt from 100 to 125 mg/dL suggests IMPAIRED HOMEOSTASIS per A.D.A. criteria. Potassium [Moles/Vol] 4.2 mmol/L 3.5-5.1 [facility] Work Phone: Sodium [Moles/Vol] 135 mmol/L 136-145 [facility] Work Phone: Triglyceride [Mass/Vol] 186 mg/dL <199 [facility] Work Phone: Comment on above: The drugs N-Acetylcy steine and Metamizole may falsely depress this assay.Serum Triglycerides Reference Interval Normal <150 mg/dL Borderline high 150 - 199 mg/dL High 200 - 499 mg/dL Very High > or = 500 mg/dL Laboratory - Chemistry and C hemistry - challengeon 10-01-2021 CO2 [Moles/Vol] 31.0 mmol/L 21.0-32.0 [facility] Work Phone: Urea nitrogen/Creatinine [Mass ratio] 17.9 mg/mg - [facility] Work Phone: No Panel Informationon 10-01 Estimated GFR (MDRD) Amer 88 mL/min >60 [facility] Work Phone: Comment on above: GFR Calc Estimated GFR (MDRD) Non-Af Amer 72 mL/min >60 [facility] Work Phone: Comment on above: Non- GFR Calc Serum or plasma calcium jenifer urement (mass/volume)on 10-01-2021 Calcium [Mass/Vol] 8.9 mg/dL 8.5-10.1 [facility] Work Phone: Serum or plasma cholesterol in HDL measurement (mass/volume)on 10-01-2021 Cholesterol in HDL [Mass/Vol] 55 mg/dL >40 [facility] Work Phone: Comment on above: The drugs N-Acetylcy steine and Metamizole may falsely depress this assay. Reference Range HDL <40 mg/dL Low HDL Cholesterol HDL >or= 60 mg/dL High HDL Cholesterol Serum or plasma cholesterol in VLDL measurement (mass/volume)on 10-01-2021 Cholesterol in VLDL [Mass/Vol] 37 mg/dL 5-40 [facility] Work Phone: Serum or plasma creatinine m easurement (mass/volume)on 10-01-2021 Creatinine [Mass/Vol] 1.06 mg/dL 0.70-1.30 [facility] Work Phone: Comment on above: The validity of the calculated GFR & GFRAA in patients over 70 years has not been determined. Clinical correlation is essential. Serum or plasma low density lipoprotein (LDL) cholesterol measurement (mass/volume)on 10-01-2021 Cholesterol in LDL [Mass/Vol] 130 mg/dL 0-130 [facility] Work Phone: Serum or plasma urea nitroge n measurement (mass/volume)on 10-01-2021 Urea nitrogen [Mass/Vol] 19 mg/dL 7-18 [facility] Work Phone: Thin prep Papanicolaou smear with manual screeningon 10-01-2021 Thin prep Papanicolaou smear with manual screening 5 5-15 [facility] Work Phone: Vital Signs Date Time Vital Sign Value Performing Clinician Faci lity 02-07-2024 14:01-0500 Body temperature 97.6 [degF] Dr. Blanco Collazo MD Work Phone: 9(465)566-210022 [place] [address] 02-07-2024 14:01-0500 Diastolic blood pressure 82 mm[Hg] Dr. Blanco Collazo MD Work Phone: 4(563)543-666222 [place] [address] 02-07-2024 14:01-0500 Heart rate 77 /min Dr. Blanco Collazo MD Work Phone: 8(517)633-675326 [address] 02-07-2024 14:01-0500 Inhaled oxygen flow rate 2 L/min Dr. Blanco Collazo MD Work Phone: 0(524)703-961726 [address] 02-07-2024 14:01-0500 Respiratory rate 18 /min Dr. Blanco Collazo MD Work Phone: 9(468)896-878060 [place] [address] 02-07-2024 14:01-0500 SaO2% (BldA) [Mass fraction] 92 % Dr. Blanco Collazo MD Work Phone: 1(956)988-069926 [address] 02-07-2024 14:01-0500 Systolic blood pressure 133 mm[Hg] Dr. Blanco Collazo MD Work Phone: 7(379)344-927660 [place] [address] 02-07-2024 03:35-0500 Body mass index (BMI) [Ratio] 40.1 kg/m2 Dr. Blanco Collazo MD Work Phone: 2(809)869-541260 [place] [address] 02-07-2024 03:35-0500 Body weight 122.[address] Blanco Collazo MD Work Phone: 7(113)160-785526 [address] 02-05-2024 21:39-0500 Body height 175.[address] Blanco Collazo MD Work Phone: 4(469)294-657826 [address] 07-30-2022 12:26-0400 Body temperature 97.6 [degF] Dr. Blanco Collazo Work Phone: 3(576)674-536722 [place] [address] 07-30-2022 12:26-0400 Diastolic blood pressure 58 mm[Hg] Dr. Blanco Collazo Work Phone: 7(290)751-034926 [address] 07-30-2022 12:26-0400 Heart rate 82 /min Dr. Blanco Collazo Work Phone: [facility] 07-30-2022 12:26-0400 Respiratory rate 18 /min Dr. Blanco Collazo Work Phone: [facility] 07-30-2022 12:26-0400 SaO2% (BldA) [Mass fraction] 96 % Dr. Blanco Collazo Work Phone: [facility] 07-30-2022 12:26-0400 Systolic blood pressure 102 mm[Hg] Dr. Blanco Collazo Work Phone: [facility] 07-29-2022 14:38-0400 Body height 175.[address] Blanco Collazo Work Phone: 3([phone])462-026826 [address] 07-29-2022 14:38-0400 Body weight 121.[address] Blanco Collazo Work Phone: 9([phone])110-812626 [address] 07-28-2022 15:01-0400 Body mass index (BMI) [Ratio] 39.5 kg/m2 Dr. Blanco Collazo Work Phone: [facility] 07-24-2022 08:31-0400 Body temperature 98.3 [degF] Dr. Blanco Collazo Work Phone: [facility] 07-24-2022 08:31-0400 Diastolic blood pressure 64 mm[Hg] Dr. Blanco Collazo Work Phone: [facility] 07-24-2022 08:31-0400 Heart rate 81 /min Dr. Blanco Collazo Work Phone: [facility] 07-24-2022 08:31-0400 Respiratory rate 16 /min Dr. Blanco Collazo Work Phone: [facility] 07-24-2022 08:31-0400 SaO2% (BldA) [Mass fraction] 94 % Dr. Blanco Collazo Work Phone: [facility] 07-24-2022 08:31-0400 Systolic blood pressure 127 mm[Hg] Dr. Blanco Collazo Work Phone: [facility] 07-23-2022 02:07-0400 Inhaled oxygen flow rate 2 L/min Dr. Blanco Collazo Work Phone: [facility] 07-21-2022 08:58-0400 Body height 175.[address] Blanco Collazo Work Phone: [facility] 07-21-2022 08:58-0400 Body mass index (BMI) [Ratio] 38.7 kg/m2 Dr. Blanco Collazo Work Phone: [facility] 07-21-2022 08:58-0400 Body weight 118.[address] Blanco Collazo Work Phone: [facility] 06-05-2022 09:19-0400 Body mass index (BMI) [Ratio] 40.9 kg/m2 Dr. Blanco Collazo Work Phone: [facility] 06-05-2022 09:19-0400 Body weight 125.[address] Blanco Collazo Work Phone: [facility] Encounters Encounter Date Encounter Type Care Provider Facility Start: 10-23-2024 End: 10-23-[address] Blanco Collazo MD Work Phone: [facility] Start: 10-23-2024 End: 10-23-[address] Blanco Collazo MD -[facility] Start: 10-23-2024 End: 10-23-2024 ambulatory Blanco Collazo Facility:[facility] Start: 08-28-2024 End: 08-28-[address] Blanco Collazo MD Work Phone: [facility] Start: 08-28-2024 End: 08-28-[address] Blanco Collazo MD -[facility] Start: 08-28-2024 End: 08-28-2024 ambulatory Blanco Collazo Facility:[facility] Start: 06-21-2024 End: 06-21-[address] Blanco Collazo MD Work Phone: [facility] Work Phone: Start: 06-21-2024 End: 06-21-[address] Blanco Collazo MD -Laboratory [facility] Start: 06-21-2024 End: 06-21-2024 ambulatory Blanco Collazo Facility:[facility] Start: 04-26-2024 End: 04-26-[address] Blanco Collazo MD Work Phone: [facility] Work Phone: Start: 04-26-2024 End: 04-26-[address] [facility]: 04-26-2024 End: 04-26-2024 ambulatory Blanco Collazo Facility:[facility] Start: 03-27-2024 End: 03-27-[address] Blanco Collazo MD -Laboratory, [facility] Start: 03-27-2024 End: 03-27-2024 ambulatory Blanco Collazo Facility:[facility] Start: 02-07-2024 Non-patient / Non-visit Dr. Suni Harris MD -[facility] Work Phone: Start: 02-06-2024 ambulatory Blanco Collazo Facility:[facility] Start: 02-06-2024 End: 02-07-2024 Evaluation and management of inpatient Dr. Fabricio Harris MD -Medical Surgical 3 Work Phone: Start: 02-05-2024 ambulatory Umang Almontei ty:[facility] Start: 02-05-2024 Non-patient / Non-visit Dr. Junior Mon DO -[facility] Work Phone: Start: 04-14-2023 End: 04-14-2023 ambulatory [facility] Work Phone: Start: 04-14-2023 End: 04-14-2023 Patient encounter procedure [facility] Start: 02-04-2023 End: 02-04-[address] Blanco Collazo Work Phone: [facility] Work Phone: Start: 02-04-2023 End: 02-04-[address] Blanco Collazo Work Phone: [facility] Start: 10-14-2022 End: 10-14-[address] Blanco Collazo Work Phone: [facility] Work Phone: Start: 10-14-2022 End: 10-14-[address] Blanco Collazo Work Phone: [facility] Work Phone: Start: 09-07-2022 End: 09-07-[address] Blanco Collazo Work Phone: [facility] Work Phone: Start: 09-07-2022 End: 09-07-[address] Blanco Collazo Work Phone: [facility]-Physical Therapy Work Phone: Start: 08-31-2022 End: 08-31-[address] Blanco Collazo Work Phone: [facility] Work Phone: Start: 08-07-2022 End: 08-07-[address] Blanco Collazo Work Phone: [facility] Work Phone: Start: 08-03-2022 End: 08-03-[address] Blanco Collazo Work Phone: [facility] Work Phone: Start: 07-24-2022 End: 07-30-2022 Evaluation and management of inpatient Dr. Blanco Collazo Work Phone: [facility]-Transitional Care Unit Start: 07-24-2022 Non-patient / Non-visit Dr. Dmitriy Collazo Work Phone: [facility] Start: 07-23-2022 Non-patient / Non-visit Dr. Dmitriy Collazo Work Phone: [facility] Start: 07-22-2022 Non-patient / Non-visit Dr. Dmitriy Collazo Work Phone: [facility] Start: 07-21-2022 Non-patient / Non-visit Dr. Dmitriy Collazo Work Phone: [facility] Start: 07-21-2022 End: 07-24-2022 Evaluation and management of inpatient Dr. Blanco Collazo Work Phone: [facility]-Medical Surgical 3 Start: 06-20-2022 End: 06-20-[address] Blanco Collazo Work Phone: [facility] Start: 06-05-2022 End: 06-05-[address] Blanco Collazo Work Phone: [facility] Start: 03-09-2022 Non-patient / Non-visit Dr. Dmitriy Collazo Work Phone: [facility] Start: 03-09-2022 End: 03-09-[address] Blanco Collazo Work Phone: [facility] Work Phone: Start: 03-09-2022 End: 03-09-[address] Blanco Collazo Work Phone: [facility]-Cardiovascular Services Start: 02-27-2022 End: 02-27-[address] Blanco Collazo Work Phone: [facility] Work Phone: Start: 02-27-2022 End: 02-27-[address] Blanco Collazo Work Phone: [facility] Start: 10-21-2021 Non-patient / Non-visit Dr. Dmitriy Collazo Work Phone: [facility] Start: 10-21-2021 End: 10-21-[address] Blanco Collazo Work Phone: [facility] Work Phone: Start: 10-21-2021 End: 10-21-[address] Blanco Collazo Work Phone: [facility]Cardi[facility] Services Start: 10-17-2021 End: 10-17-[address] Blanco Collazo Work Phone: [facility] Work Phone: Start: 10-17-2021 End: 10-17-[address] Blanco Collazo [facility] Start: 10-01-2021 End: 10-01-2021 ambulatory [facility] Work Phone: Start: 10-01-2021 End: 10-01-2021 Patient encounter [facility] Procedures Date Procedure Procedure Detail Performing Clinician Start: 08-28-2024 Urine microalbumin/creatinine ratio measurement Dr. Blanco Collazo MD Work Phone: Start: 03-27-2024 Measurement of renal function Dr. Blanco Collazo MD Work Phone: Comment on above: GFR Calc Start: 02-05-2024 X-ray of chest, PA a nd lateral views Dr. Blanco Collazo MD Work Phone: Start: 02-05-2024 SARS-CoV-2, Influenz a & RSV (PCR) Dr. Blanco Collazo MD Work Phone: Start: 08-31-2022 Plain x-ray of pelvi s and lower extremity Dr. Blanco Collazo Work Phone: Start: 07-24-[address] Blanco Collazo Work Phone: Start: 07-21-2022 Plain X-ray of hip Dr. 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 Blanco Collazo Work Phone: Start: 06-20-2022 MRI of lower extremity Dr. Blanco Collazo Work Phone: Start: 06-05-2022 X-ray of lumbar spin e, two or three views Dr. Blanco Collazo Work Phone: Start: 06-05-2022 Plain x-ray of pelvi s and lower extremity Dr. Blanco Colalzo Work Phone: Start: 10-17-2021 Plain x-ray of pelvi s and lower extremity Dr. Blanco Collazo Work Phone: Plan of Treatment Date Care Activity Detail Author Start: 02-07-2024 Patient discharge [facility] Start: 02-06-2024 Respiratory secretion precautions [facility] Start: 02-06-2024 Admission procedure [facility] Start: 02-06-2024 [facility] Start: 02-05-2024 Assessment of risk o f venous thromboembolism [facility] Start: 02-05-2024 Incentive spirometry [facility] Start: 02-05-2024 Insertion of cathete r into peripheral vein [facility] Start: 02-05-2024 Measuring intake and output [facility] Start: 02-05-2024 Oxygen therapy [facility] Start: 02-05-2024 Providing care accor ding to standard [facility] Start: 02-05-2024 Provision of activity privileges [facility] Start: 02-05-2024 Referral to occupati onal therapist [facility] Start: 02-05-2024 Referral to service [facility] Start: 02-05-2024 [facility] Start: 02-05-2024 Following clinical p athway protocol [facility] Start: 02-05-2024 Admission procedure [facility] Start: 07-30-2022 Patient discharge [facility] Start: 07-29-2022 Development of care plan [facility] Start: 07-28-2022 [facility] Start: 07-25-2022 Development of care plan [facility] Start: 07-25-2022 Developing a treatment plan [facility] Start: 07-24-2022 Following clinical p athway protocol [facility] Start: 07-24-2022 Recommendation to co ntinue with treatment [facility] Start: 07-24-2022 Wound care [facility] Start: 07-24-2022 Admission procedure [facility] Start: 07-24-2022 Measuring intake and output [facility] Start: 07-24-2022 Patient referral to dietitian [facility] Start: 07-24-2022 Referral to occupati onal therapist [facility] Start: 07-24-2022 Referral to service [facility] Start: 07-24-2022 Vital signs measurements [facility] Start: 07-24-2022 End: 07-24-2022 [facility] Start: 07-24-2022 [facility] Start: 07-24-2022 Patient discharge [facility] Start: 07-21-2022 Following clinical p athway protocol [facility] Start: 07-21-2022 Oxygen therapy [facility] Start: 07-21-2022 Provision of overbed trapeze [facility] Start: 07-21-2022 Admission procedure [facility] Start: 07-21-2022 Recommendation to co ntinue with treatment [facility] Start: 07-21-2022 Ambulation therapy management [facility] Start: 07-21-2022 Application of device [facility] Start: 07-21-2022 Assessment of risk o f venous thromboembolism [facility] Start: 07-21-2022 Catheterization of vein [facility] Start: 07-21-2022 Exercises [facility] Start: 07-21-2022 Following clinical p athway protocol [facility] Start: 07-21-2022 Introduction of urinary catheter [facility] Start: 07-21-2022 Measuring intake and output [facility] Start: 07-21-2022 Neurovascular assessment [facility] Start: 07-21-2022 Patient education [facility] Start: 07-21-2022 Procedure discontinued [facility] Start: 07-21-2022 Provision of activity privileges [facility] Start: 07-21-2022 Referral to occupati onal therapist [facility] Start: 07-21-2022 End: 07-21-2022 Referral to service [facility] Start: 07-21-2022 Vital signs measurements [facility] Start: 07-21-2022 Wound care [facility] Start: 07-21-2022 [facility] Patient referral [facility] Work Phone: Immunizations Immunization Date Immunization Notes Care Provider Fa cility 07-28-2022 Covid Pfizer Bivalen t Booster Dr. Blanco Collazo Work Phone: [facility] 10-01-2021 Covid (Pfizer) Dr. Blanco lopez Work Phone: [facility] 12-05-2020 Covid (Pfizer) Dr. Blanco lopez Work Phone: [facility] 05-07-2020 Covid (Pfizer) [facility] 04-16-2020 Covid (Pfizer) [facility] 11-09-2019 Influenza virus vaccine [facility] 12-31-2014 Influenza virus vaccine [facility] 12-19-2014 pneumococcal conjuga te vaccine, [address] Blanco Collazo Work Phone: [facility] 10-25-2013 pneumococcal polysaccharide vaccine, [address] Blanco Collazo Work Phone: [facility] Payers Date Payer Category Payer Self-pay [id number] 2016 Unknown [id number] 2011 Medicare [id number] Unknown [id number] 2.16.8 [id number] Unknown [id number] 2.16.8 [id number] Unknown [id number] 2.16.8 [id number] Unknown [id number] 2.16.8 [id number] Unknown [id number] 2.16.8 [id number] Unknown [id number] 2.16.8 [id number] Unknown [id number] 2.16.8 [id number] Unknown [id number] 2.16.8 [id number] Unknown [id number] 2.16.8 [id number] Social History Date Type Detail Facility Start: 04-02-2020 End: 10-14-2022 Tobacco smoking status CTIS Unknown if ever smoked [facility] Start: 02-14-2015 Occasional [facility] Start: 02-14-2015 None [facility] Start: 02-14-2015 Alone [facility] Start: 02-14-2015 Cigarettes [facility] Start: 1945 Sex Assigned At Male [facility] Start: 02-05-2024 [facility] Start: 05-05-2024 Sex Male (finding) [facility] Sex Male [facility] Procedure Code Equipment Code Equipment Origin al Text Equipment Identifier Dates ([id number]) Ceramic femoral head prosthesis [id number] FDA Start: 07-21-2022 ([id number]) Coated hip femur prosthesis, modular [id number] FDA Start: 07-21-2022 ([id number]) Non-constrained polyethylene acetabular liner [id number] FDA Start: 07-21-2022 ([id number]) Acetabular shell [id number] FDA Start: 07-21-2022 ([id number]) Orthopaedic bone screw, non-bioabsorbable, sterile [id number] FDA Start: 07-21-2022 Goals Date Patient Goal Desired Activity /State Functional Status Date Assessment Result Facility 02-07-2024 Functional status Patient Activi ty Ambulates;Up ad carrie [facility] [facility] Work Phone: 02-07-2024 Functional status Activity Ability Indepe ndent [facility] Work Phone: 02-07-2024 Functional status Assistive Devices None [facility] Work Phone: 07-30-2022 Functional status Up ad carrie [facility] Work Phone: 07-24-2022 Functional status Bathroom Privilege [facility] Work Phone: Mental Status Date Assessment Result Facility 02-06-2024 Cognitive function Voice/Name [facility] Work Phone: 07-30-2022 Cognitive function Voice/Name [facility] Work Phone: 07-29-2022 Cognitive function Appropriate;Cooperativ e [facility] Work Phone: 07-24-2022 Cognitive function Voice/Name [facility] Work Phone: Clinical Notes 07-21-2022 to 02-07-2024 Note Date & Type Note Facility 02-07-2024 Note [facility] Medical Records Department [address] [place] [address] Discharge Summary 02/07/24 1200 MR#: [id number] Acct: [id number] Name: ASHVIN JENSEN Rep #: [id number] : 1945 78 From: Fabricio Harris MD PCP: Dr. Blanco Collazo MD Status:ADM IN [facility] Prov[facility] Date of Admission: 02/06/24 Primary Care Physician: Dr. Blanco Collazo MD Reason For Visit: INFLUENZA A WITH RESPIRATORY INSUFFICIENCY Diagnosis Discharge Diagnosis (1) Influenza A: Status: Acute Code(s): J10.1 - Influenza due to other identified influenza virus with other respiratory manifestations (2) Hypoxia: Status: Acute Code(s): R09.02 - Hypoxemia Medications at Discharge Home Medications multivitamin with folic acid 400 mcg tablet (Thera) 1 tab PO DAILY SUPPLEMENT 01/29/15 lisinopril 20 mg tablet 20 mg PO DAILY HTN 03/16/20 furosemide 20 mg tablet 20 mg PO DAILY WATER PILL 06/05/22 metoprolol succinate 25 mg tablet,extended release 24 hr 25 mg PO DAILY HTN 06/05/22 acetaminophen 500 mg tablet 1,000 mg PO Q8H pain 07/24/22 rosuvastatin 5 mg tablet 5 mg PO QDAY 07/14/23 prednisolone acetate 1 % eye drops,suspension 1 drp ophthalmic (eye) Q6H 02/05/24 triamterene 37.5 mg-hydrochlorothiazide 25 mg tablet 1 tab PO DAILY 02/05/24 prednisone 20 mg tablet 40 mg (2 x 20 mg) PO DAILY #14 tabs 02/07/24 Hospital Course Operations None Procedures None Summary of Care Provided Minutes Spent on Discharge: 36 Hospital Course: Per HPI: ASHVIN JENSEN, is a 78 M with a past medical history of essential hypertension; on lisinopril, metoprolol and furosemide, hyperlipidemia; on rosuvastatin, obesity; with BMI of 39.9 this admission, former tobacco abuse with pipe (quit 1988), history of COVID-19 pneumonia (2020), history of renal calculi (2015), history of bilateral cataract surgery (Right 2015 and Left 2018), recent Right eye surgery, history of leg cramps and OA; s/p Left hip arthroplasty and Right TKR (2014) who presents to [facility] ER complaining of shortness of breath and cough. Mr. Jensen reports his symptoms began approximately 1 week prior to admission with a gradual onset of dyspnea on exertion that recently progressed to shortness of breath at rest so he checked his pulse oximeter which revealed a room air saturation in the 85% range which caused him to come in for further evaluation and treatment. He additionally admits to fever of 101 ???F with sore throat. He denies associated chills, chest pain, abdominal pain, nausea, vomiting, diarrhea or constipation but he does admit to a productive cough with clear sputum. In the ER he was diagnosed with Influenza A complicated by clinical evidence of acute respiratory insufficiency with the patient requiring initiation of 2L NC and he was then admitted to the general medical floor under observation status for ongoing care for stay that is expected to be less than 2 midnights. Hospital Course: 1. Acute hypoxic respiratory insufficiency secondary to acute influenza A???78-year-old male presented to the hospital with increasing shortness of breath and was found to be positive for influenza A. Other viral studies were negative. He been having symptoms for about 7 days so did not qualify for Tamiflu. He was given a dose of Lasix secondary to chronic diastolic CHF that he has at baseline. He had a ambulatory pulse ox today that demonstrated need of 2 L nasal cannula at rest and with activity. I have reviewed the oxygen testing, and this patient qualifies for the home equipment and portability. The patient is mobile in the home and the community. I discussed with him the plan for discharge today he expressed understanding of the risk and benefits of going home and would like to go home today. I discussed with him that it would be beneficial to stay for another 24 hours potentially 48 hours to continue IV diuresis to help with get him off of oxygen but he was not interested. I recommended he follow-up with his PCP in 3 to 5 days for monitoring and evaluation. He will need to have them evaluate him to come off the oxygen. Will continue with prednisone for another 7 days as well. 2. Chronic diastolic CHF, essential hypertension, hyperlipidemia are chronic medical conditions which complicate his care. His home medications were continued where appropriate Physical Exam Narrative General: Alert, Oriented x3, Cooperative, No apparent distress HEENT: Atraumatic, PERRLA, EOMI, Normocephalic Oral: Moist Mucosa Neck: Supple, No JVD Lungs: Diminished, Normal air movement, No rhonchi, No wheeze, No rales Cardiovascular: Regular rate, Regular Rhythm, Normal S1, Normal S2, No murmurs Abdomen: Soft, Non Tender, Non-Distended, No Hepato-splenomegaly Extremities: No edema, Capillary Refill Less than 3 Seconds Skin: No rashes, No breakdown Mu (more content not included)... [facility] 02-06-2024 Evaluation note Diagnosis Onset Date Resolution Degenerative joint disease of left hip acute January 11:53am Hypoxia acute February 06, 2024 11:53am Influenza A acute January 11:53am Obesity (BMI 30-39.9) acute Dec emb2023 11:53am Respiratory insufficiency acute February 05 11:53am S/P total left hip arthroplasty acute February 05 11:53am Status post total right knee replacement acute February 06, 2024 11:53am Osteoarthritis chronic January 092023 11:53am [facility] Work Phone: 1(161) 603-688707-31-2023 Discharge summary Author Danny Paul [facility] September 07, 2022 1:31pm Note Date/Time September 07, 2022 1:30 pm [facility] Physical Therapy [facility] [address] [place] [address]. [address] [place] [address] / REHABILITATION SERVICES DISCHARGE SUMMARY MR#: [id number] Acct: [id number] Name: ASHVIN JENSEN Rep #: [id number] : 1945 76 From: Danny Paul PT, CRISTIAN, SCS, CSCS Referring Dr.: Dr. Zeke Phillips DO Status: REG RCR Insurance: MEDICARE PART A B [facility] Discharge Summary D/C summary: It has been my pleasure to treat ASHVIN JENSEN referred by Dr. Zeke Phillips DO, with the diagnosis of L THR for a total of 11 visit(s). Discharge Date: 09/07/22 Please see the following information for a summary of their discharge status. Subjective Subjective: I'm doing pretty good about 80-90 percent better. I'm pretty much back to normal activities and I'm okay with doing exercises on my own. Pain Left Hip: Pain Intensity (Out of 10): 0 Overall Improvement % Improvement: 90 Objective Objective/Function: MMT R Knee ext 69.6 lbs Knee Flexion 47 lbs Hip Flexion 36 lbs L Knee ext 68.0 lbs Knee Flexion 53 lbs Hip Flexion 37 Balance single leg EO 10+ Sec Eyes closed less than 3 sec Goals Goal 1:: Independent in HEP Goal Progress: Goal Met Goal 2:: Improve MMT by 10% Goal Progress: Goal Met Goal 3:: Iproved ROM of int ext rot by 10% Goal 4:: Wean from walker to another assistive device of independent Plan Plan: discharge to HEP and activities on the farm fu with Dr in October. D/C Information Discharge Comments: Mr. Jensen didn't really well in therapy. He is anxious to get back to normal routine and activities [place]. While his leg strength improved his balance with eye closed was poor so I gave him some exercise to tryand improve. d/c sentence: If there are questions or concerns regarding this patient's physical therapy, please feel free to call me at [phone]. Thank you for the referral of thispatient. Sincerely, Danny Paul PT, CRISTIAN, SCS, CSCS Balance/Gait/Functional tests Balance/Special Test Scores WOMAC Total Score: 8 WOMAC Percentage: 91.6700 <Electronically signed by Danny Paul PT, CRISTIAN, SCS, CSCS> 09/07/22 1331 CC: Dr. Zeke Phillips DO; Dr. Blanco Collazo MD ~ BC Signed [facility] Work Phone: 1(120) 957-518207-31-2023 Discharge summary Author Danny Paul [facility] September 07, 2022 1:30pm Note Date/Time September 07, 2022 1:30 pm [facility] Physical [facility] [address] [place] [address] [address] [place] [address] / REHABILITATION SERVICES DISCHARGE SUMMARY MR#: [id number] Acct: [id number] Name: ASHVIN JENSEN Rep #: [id number] : 1945 76 From: Danny Paul PT, CRISTIAN, SCS, CSCS Referring Dr.: Dr. Zeke Phillips DO Status: REG RCR Insurance: MEDICARE PART A B [employer] Discharge Summary D/C summary: It has been my pleasure to treat ASHVIN JENSEN referred by Dr. Zeke Phillips DO, with the diagnosis of L THR for a total of 11 visit(s). Discharge Date: 09/07/22 Please see the following information for a summary of their discharge status. Subjective Subjective: I'm doing pretty good about 80-90 percent better. I'm pretty much back to normal activities and I'm okay with doing exercises on my own. Pain Left Hip: Pain Intensity (Out of 10): 0 Overall Improvement % Improvement: 90 Objective Objective/Function: MMT R Knee ext 69.6 lbs Knee Flexion 47 lbs Hip Flexion 36 lbs L Knee ext 68.0 lbs Knee Flexion 53 lbs Hip Flexion 37 Balance single leg EO 10+ Sec Eyes closed less than 3 sec Goals Goal 1:: Independent in HEP Goal Progress: Goal Met Goal 2:: Improve MMT by 10% Goal Progress: Goal Met Goal 3:: Iproved ROM of int ext rot by 10% Goal 4:: Wean from walker to another assistive device of independent Plan Plan: discharge to HEP and activities on the farm fu with in October. D/C Information Discharge Comments: Mr. Jensen didn't really well in therapy. He is anxious to get back to normal routine and activities [place] the farm. While his leg strength improved his balance with eye closed was poor so I gave him some exercise to tryand improve. d/c sentence: If there are questions or concerns regarding this patient's physical therapy, please feel free to call me at [phone]. Thank you for the referral of thispatient. Sincerely, Danny Paul PT, CRISTIAN, SCS, CSCS Balance/Gait/Functional tests Balance/Special Test Scores WOMAC Total Score: 8 WOMAC Percentage: 91.6700 <Electronically signed by Danny Paul PT, CRISTIAN, SCS, CSCS> 09/07/22 1330 CC: Dr. Zeke Phillips DO; Dr. Blanco Collazo MD ~ Signed [facility] Work Phone: 1(889) 551-677706-20-[address] Armendariz [facility] July 28, 2022 8:52pm Note Date/Time July 28, 2022 8:48 pm [facility] Medical Records Department [address] [place] [address] Discharge Summary 07/28/222045 MR#: [id number] Acct: [id number] Name: ASHVIN JENSEN Rep #:[id number] : 1945 76 From: Chema Armendariz MD PCP: Dr. Blanco Collazo MD Status:ADM I N Location: [facility] [address] Providers Date of Admission: 07/24/22 Primary Care Physician: Dr. Blanco Collazo MD Reason For Visit: LEFT TOTAL HIP Diagnosis Discharge Diagnosis (1) Debility: Status: Acute Code(s): R53.81 - Other malaise (2) Degenerative joint disease of left hip: Status: Acute Code(s): M16.12 - Unilateral primary osteoarthritis, left hip (3) S/P total hip arthroplasty: Status: Acute Code(s): Z96.649 - Presence of unspecified artificial hip joint (4) Hypertension: Status: Chronic Code(s): I10 - Essential (primary) hypertension Qualifiers: Hypertension type: essential hypertension Qualified Code(s): I10 - Essential (primary) hypertension (5) Obesity (BMI 30.0-34.9): Status: Chronic Code(s): E66.9 - Obesity, unspecified Plan 76 year old male with below past medical history hospitalized for left total hiparthroplasty 07/21/[address] Phillips, admitted to TCU with debility, here forrehabilitation, strengthening, prior to discharge home alone. * Debility - PT/OT. * Pain - Tylenol 1000mg q8, Oxycodone 5-10mg q4h prn. * Bowel - senna/colace 2 tablets bid, Dulcolax 10mg pr x 1 prn, MOM 30ml po x 1 prn. * Adult immunization - Administer pneumonia vaccine, covid19 vaccine, flu vaccine as appropriate. * DVT prophylaxis - Eliquis 2.5mg bid thru 08/20/2022. * Hypertension - Metoprolol succinate 25mg daily, Lisinopril 20mg daily, Furosemide 20mg daily. * Nutrition - MVI 1 tablet daily. Medications at Discharge Home Medications multivitamin with folic acid 400 mcg tablet (Thera) 1 tab PO DAILY SUPPLEMENT 01/29/15 lisinopril 20 mg tablet 20 mg PO DAILY HTN 03/16/20 furosemide 20 mg tablet 20 mg PO DAILY WATER PILL 06/05/22 meloxicam 15 mg tablet 15 mg PO DAILY PAIN 06/05/22 metoprolol succinate 25 mg tablet,extended release 24 hr 25 mg PO DAILY HTN 06/05/22 acetaminophen 500 mg tablet 1,000 mg PO Q8H pain 07/24/22 apixaban 5 mg tablet (Eliquis) 2.5 mg PO BID 21 days #21 tabs 07/28/22 Hospital Course Operations total hip replacement (Left.) Procedures None Summary of Care Provided Minutes Spent on Discharge: 35 Hospital Course: 76 year old male with below past medical history hospitalized for left total hiparthroplasty 07/21/[address] Phillips, admitted to TCU with debility, here forrehabilitation, strengthening, prior to discharge home alone. Discharge home alone 07/30/2022, [employer] PT. Physical Exam Const alert General Appearance: cooperative HEENT normocephalic Eyes PERRL and EOMs intact bilaterally Neck supple, no JVD and no carotid bruits Resp normal respiratory effort, normal air movement and clear to auscultation bilaterally Cardio regular rate and regular rhythm GI normal to inspection, nondistended, normoactive bowel sounds, non-tender and non-distended Extremity normal capillary refill General Extremity: Negative for edema Skin no rashes or lesions noted General Skin Exam: no breakdown Psych affect normal Appearance: appropriate Weight / BMI Weight Weight: 121.018 kg Body Mass Index (BMI) 39.5 ABG / Lab / Microbiology Data Result Diagrams: 07/25/22 07:31 07/26/22 06:17 D/C Instructions Discharge Diet: No restrictions Discharge Activity: Return to Normal Activity, May Shower and Use Walker Weight Bearing Status: Weight bearing as tolerated Call your doctor if you observe: Fever of 101 or Higher, Inability to urinate, Inability to have a bowel movement, Using more than 1 pad per hour, Shortness ofbreath, Dizziness, Swelling in the ankles, Chest pain and Uncontrolled pain Additional Instructions: Discharge home alone 07/30/2022, [employer] PT. Please Follow Up With: Zeke Phillips, DO Meaningful Use Info Meaningful Use Diagnoses (Choose all that apply): None applicable Discharge Plan Admission Admit Date/Time: 07/24/22 11:26 Primary Reason for Your Visit: Debility. Attending Provider: Chema Armendariz Chi Primary Care Provider: Blanco Collazo Instructions Additional Instructions / Restrictions: Discharge home alone 07/30/2022, [employer] PT. Discharge Orders/Prescriptions Prescriptions: New Eliquis 5 mg Tablet 2.5 mg PO BID 21 Days Qty: 21 0RF Continued metoprolol succinate 25 mg tablet extended release 24 hr 25 mg PO DAILY furosemide 20 mg tablet 20 mg PO DAILY multivitamin with folic acid [Thera] 1 TABLET tablet 1 tab PO DAILY Label Comments: supplement lisinopril 20 MG tablet 20 mg PO DAILY acetaminophen 500 mg tablet 1,000 mg PO Q8H Discontinued triamterene-hydrochlorothiazid 1 CAP capsule 1 cap PO DAILY Label Comments: blood pressure oxycodone 5 mg tablet 5 - 10 mg PO Q4H PRN (Reason: pain) 7 Days Qty: 60 0RF Eliquis 2.5 mg tablet 2.5 mg PO BID No Action meloxicam 15 mg tablet 15 mg PO DAILY Referrals / Follow Up: Zeke Phillips DO [Med Staff - Active Staff] - 08/03/22 10:15 am Blanco Collazo MD [Primary Care Provider] - 08/05/22 11:00 am Disposition Disposition (needs filled in before D/C Order can be placed): Home, Self Care 07/28/222051 <Electronically signed by Chema Armendariz MD> Cosigner Signature (if applicable): CC: Dr. Blanco Collazo MD; Dr. Chema Armendariz MD~ Signed [facility] Work Phone: 1(590) 915-152106-19-[address] Armendariz [facility] July 27, 2022 12:11pm Note Date/Time July 27, 2022 10:4 8am [facility] Medical Records Department [address] [place] [id number] Progress Note - Pharmacy 07/27/22 1047 MR#: [id number] Acct: [id number] Name: ASHVIN JENSEN Rep #:[id number] : 1945 76 From: Asha Pickens PCP: Dr. Blanco Collazo MD Status:ADM I N Location: [facility] [address] TCU RX Drug Regimen Review Subjective: TCU admission. 76 YOM presented to [facility] on 07/21 for left total hip arthroplasty with Dr. Phillips. Admitted to TCU 07/24 with debility for rehabilitation and strengthening. Objective: Allergies No Known Allergies Allergy (Verified 06/05/22 09:19) Current Medications Generic Name Dose Route Start Last Admin Trade Name Freq PRN Reason Stop Dose Admin Acetaminophen 1,000 mg 07/24/22 12:00 07/27/22 05:38 Acetaminophen 500 Mg Tablet PO 1,000 mg Q8H AYANA Administration Apixaban 2.5 mg 07/24/22 18:00 07/27/22 05:38 Apixaban 2.5 Mg Tablet ([facility]) PO 08/20/22 23:59 2.5 mg BID AYANA Administration Bisacodyl 10 mg 07/24/22 19:52 Bisacodyl 10 Mg Suppository RC X1 PRN Constipation Furosemide 20 mg 07/25/22 06:00 07/27/22 05:38 Furosemide 20 Mg Tablet PO 20 mg DAILY AYANA Administration Sodium Chloride 250 mls @ 15 mls/hr 07/24/22 12:28 IV .[id number] PRN Saline Flush Sodium Chloride 250 mls @ 15 mls/hr 07/24/22 12:28 IV .[id number] PRN Additional IVPB Infusion Lisinopril 20 mg 07/25/22 06:00 07/27/22 05:38 Lisinopril 20 Mg Tablet PO 20 mg DAILY AYANA Administration Magnesium Hydroxide 30 ml 07/24/22 19:52 Magnesium Hydroxide 30 Ml Udc PO X1 PRN Constipation Metoprolol Succinate 25 mg 07/25/22 06:00 07/27/22 05:38 Metoprolol(Xl)Succ 25 Mg Tablet PO 25 mg DAILY AYANA Administration Multivitamins 1 tablet 07/25/22 08:00 07/27/22 08:40 Multivitamins,Therapeutic Tablet PO 1 tablet DAILYCM AYANA Administration Nystatin 1 applic 07/25/22 18:00 07/27/22 05:42 Nystatin Powder 15gm Bottle TOPICAL 1 applic BID AYANA Administration Protocol Oxycodone HCl 5 - 10 mg 07/24/22 11:49 Oxycodone 5 Mg Tablet PO Q4H PRN PAIN SCORE 4-10 Senna/Docusate Sodium 2 tablet 07/24/22 20:00 07/27/22 05:41 Senna/Docusate Sodium 1 Tablet PO Not Given BID AYANA Sodium Chloride 10 - 40 ml 07/24/22 12:28 0.9% Saline Lock 10 Ml Syringe IV UD PRN SALINE FLUSH Tuberculin PPD 0.1 ml 08/01/22 10:00 Tuberculin,Purif.Prot.Deriv. 50 Tu/Ml Vial ID 08/01/22 10:01 X1 ONE Problem List (Last Reviewed 07/24/22 @ 19:[address] Chema Armendariz MD) Debility (Acute) S/P total hip arthroplasty (Acute) Obesity (BMI 30.0-34.9) (Chronic) Hypertension (Chronic) Degenerative joint disease of left hip (Acute) Vital Signs Temp Pulse Resp BP Pulse Ox O2 Del Method 96.3 F L 85 16 110/65 92 Room Air 07/26/22 14:02 07/27/22 05:38 07/26/22 20:20 07/27/22 05:38 07/26/22 20:20 07/26/22 20:20 Oxygen Delivery Method Room Air Weight: 119.748 kg Body Mass Index (BMI) 38.9 Sodium 137 mmol/L (136-145) 07/26/22 06:17 Potassium 3.6 mmol/L (3.5-5.1) 07/26/22 06:17 Chloride 101 mmol/L (98-107) 07/26/22 06:17 Carbon Dioxide 31.0 mmol/L (21.0-32.0) 07/26/22 06:17 Anion Gap 5 (5-15) 07/26/22 06:17 BUN 30 mg/dL (7-18) H 07/26/22 06:17 Creatinine 0.92 mg/dL (0.70-1.30) 07/26/22 06:17 Est GFR (MDRD) Af Amer 102 mL/min (>60) 07/26/22 06:17 Est GFR (MDRD) Non-Af 85 mL/min (>60) 07/26/22 06:17 BUN/Creatinine Ratio 32.4 RATIO (10-20) H 07/26/22 06:17 Glucose 124 mg/dL (74-106) H 07/26/22 06:17 Assessment/Plan: 1. Pain: acetaminophen 1000mg PO Q8, oxycodone 5 - 10mg PO Q4H PRN pain (4-10). Please continue to monitor pain, oversedation, increased/decreased constipation,PRN medication use and respiratory depression. Pt has had 0 doses of oxycodone. 2. Bowel: senna/colace 2 T PO BID, bisacodyl 10mg WV x 1 PRN constipation, MOM 30mL PO x 1 PRN constipation. Please continue to monitor increased/decreased constipation/diarrhea, PRN medication use. PT has had 0 doses of MOM and bisacodyl. Pt has no recorded bowel movement to date. Please consider MOM if no bowel movement in 2 days. 3. DVT prophylaxis: apixaban 2.5mg PO BID thru 08/20/22. Please continue to monitor for s/s of bleeding and bruising, s/s of DVT, H/H (Hgb: 11.9, Hct: 35.9). 4. Hypertension: lisinopril 20mg PO daily, metoprolol succinate 25mg PO daily, furosemide 20mg PO daily. Please continue to monitor BP (110/65), HR (85), cough, potassium (3.6mmol/L), sodium (137mmol/L), Renal function (CrCl: 69.38). 5. Skin irritation: nystatin 1application topical BID. Please continue to monitor for skin irritation/redness. 6. Nutrition: Multivitamin 1 T PO daily. Please continue to monitor. Assessment/Plan for indications treated with psychotropic medications: None Medical chart and medication regimen reviewed. The following medication irregularities or issues were identified: None Date of Note:: 07/27/22 07/27/22 1155 <Electronically signed by Asha Pickens > Asha Pickens Cosigner Signature (if applicable): 07/27/22 1211 <Electronically signed by Chema Armendariz MD> CC: ~ Signed [facility] Work Phone: 1(984) 209-923606-16-2023 History and physical note Author Dr. Armendariz [facility] July 24, 2022 7:51pm Note Date/Time July 24, 2022 7:48 pm [facility] [address] [place] [address] History & Physical Exam 07/24/221942 MR#: [id number] Acct: [id number] Name: ASHVIN JENSEN Rep #:[id number] : 1945 76 From: Chema Armendariz MD PCP: Dr. Blanco Collazo MD Status:ADM I N Location: [place] [address] HPI - General General Date of Admission: 07/24/22 Date of Service: 07/24/22 Chief Complaint: Here for rehabilitation. HPI Narrative ASHVIN JENSEN, is a 76 Male who presents with followin07/21/2022 Dr. Phillips performed left total hip arthroplasty. 07/22/2022 Pain okay, urinating okay, Eating okay. 07/23/2022 Pain improved. PT/OT. Eliquis 2.5mg twice daily x 4 weeks for DVT prophylaxis. Oxycodone 5-10mg q4h prn pain control. 07/24/2022 Admit to TCU with debility, here for rehabilitation, strengthening, prior to discharge home alone. [facility] Medical History (Updated 07/24/22 @ 19:[address] Chema Armendariz MD) Alcohol use Arthritis Chronic cough COVID-19 Former smoker History of echocardiogram History of stress test Kidney stone Leg cramps Normal colonoscopy Pneumonia Wears glasses Home Medications multivitamin with folic acid 400 mcg tablet (Thera) 1 tab PO DAILY SUPPLEMENT 01/29/15 [History Last Taken 08/13/15] triamterene 37.5 mg-hydrochlorothiazide 25 mg capsule 1 cap PO DAILY HTN 01/29/15 [History Last Taken 08/13/15] lisinopril 20 mg tablet 20 mg PO DAILY HTN 03/16/20 [History Last Taken Unknown] furosemide 20 mg tablet 20 mg PO DAILY WATER PILL 06/05/22 [History Last Taken Unknown] meloxicam 15 mg tablet 15 mg PO DAILY PAIN 06/05/22 [History Last Taken Unknown] metoprolol succinate 25 mg tablet,extended release 24 hr 25 mg PO DAILY HTN 06/05/22 [History Last Taken Unknown] acetaminophen 500 mg tablet 1,000 mg PO Q8H pain 07/24/22 [History Last Taken Unknown] apixaban 2.5 mg tablet (Eliquis) 2.5 mg PO BID blood thinner 07/24/22 [History Last Taken Unknown] oxycodone 5 mg tablet 5 - 10 mg PO Q4H PRN pain 7 days #60 tabs 07/24/22 [Rx Last Taken Unknown] Allergy/AdvReac Type Severity Reaction Status Date / Time No Known Allergies Allergy Verified 06/05/22 09:19 Family History Brother Myocardial infarction 20 years ago Surgical History (Updated 07/24/22 @ 19:[address] Chema Armendariz MD) History of left cataract surgery History of right cataract surgery History of total left hip arthroplasty History of total right knee replacement Social History (Updated 07/24/22 @ 19:[address] Chema Armendariz MD) household members: none Smoking Status: Former smoker alcohol intake: current substance use type: does not use what type of physical activity do you participate in: walking ROS Constitutional Constitutional: Denies chills, fever(s) or weight gain ENT HEENT: Denies headache(s), nasal congestion or nasal discharge Cardiovascular Cardiovascular: Denies chest pain or palpitations Respiratory/Chest Respiratory/Chest: Denies cough, excessive phlegm production or shortness of breath with exertion Gastrointestinal Gastrointestinal: Denies abdominal pain, nausea or vomiting Genitourinary Genitourinary: Denies dysuria Musculoskeletal Musculoskeletal: Denies joint pain or joint swelling Integumentary Integumentary: Denies rash or wounds Neurologic Neurologic: Denies focal weakness, numbness or tingling Psychiatric Psychiatric: Denies anxiety, auditory hallucinations, depression, homicidal ideation or suicidal ideation Vital Signs Vital Signs Vital Signs: 07/24/22 11:34 07/24/22 11:34 07/24/22 15:52 Temperature 98.2 F 98.8 F Temperature Source Temporal Temporal Pulse Rate 95 94 Pulse Rhythm Regular Pulse Strength Normal (2+) Respiratory Rate 16 15 Respiratory Effort Normal Non-Labored Respiratory Depth Normal Respiratory Pattern Normal Blood Pressure 125/75 H 99/53 L Blood Pressure Mean 91 68 Blood Pressure Source Monitor Monitor Blood Pressure Position Semi-Fowlers Supine Blood Pressure Location Left Arm Left Arm Pulse Ox 98 91 Oxygen Delivery Method Room Air Room Air Room Air Weight Weight: 119.748 kg Body Mass Index (BMI) 38.9 Physical Exam Const alert General Appearance: cooperative HEENT normocephalic Eyes PERRL and EOMs intact bilaterally Neck supple, no JVD and no carotid bruits Resp normal respiratory effort, normal air movement and clear to auscultation bilaterally Cardio regular rate and regular rhythm GI normal to inspection, nondistended, normoactive bowel sounds, non-tender and non-distended Extremity normal capillary refill General Extremity: Negative for edema Skin no rashes or lesions noted General Skin Exam: no breakdown Psych affect normal Appearance: appropriate Assessment & Plan Assessment/Plan (1) Debility: (2) Degenerative joint disease of left hip: (3) S/P total hip arthroplasty: (4) Hypertension: QUALIFIERS: Hypertension type: essential hypertension Qualified Code(s): I10 - Essential (primary) hypertension (5) Obesity (BMI 30.0-34.9): PLAN: Plan 76 year old male with below past medical history hospitalized for left total hiparthroplasty 07/21/[address] Phillips, admitted to TCU with debility, here forrehabilitation, strengthening, prior to discharge home alone. * Debility - PT/OT. * Pain - Tylenol 1000mg q8, Oxycodone 5-10mg q4h prn. * Bowel - senna/colace 2 tablets bid, Dulcolax 10mg pr x 1 prn, MOM 30ml po x 1 prn. * Adult immunization - Administer pneumonia vaccine, covid19 vaccine, flu v accine as appropriate. * DVT prophylaxis - Eliquis 2.5mg bid thru 08/20/2022. * Hypertension - Metoprolol succinate 25mg daily, Lisinopril 20mg daily, Furosemide 20mg daily. * Nutrition - MVI 1 tablet daily. 07/24/221950 <Electronically signed by Chema Armendariz MD> Cosigner Signature (if applicable): CC: Dr. Blanco Collazo MD; Dr. Chema Armendariz MD~ Signed [facility] Work Phone: [phone] 525-896906-16-[address] Phillips [facility] July 24, 2022 7:35am Note Date/Time July 24, 2022 7:35 am [facility] Medical Records Department [address] [place] [address] Discharge Summary 07/24/22 0733 MR#: [id number] Acct: [id number] Name: ASHVIN JENSEN Rep #:[id number] : 1945 76 From: Zeke Phillips PCP: Dr. Blanco Collazo MD Status:ADM I N Location: [place] [address] Providers Date of Admission: 07/21/22 Primary Care Physician: Dr. Blanco Collazo MD Reason For Visit: LT TOTAL HIP W SERENE Diagnosis Discharge Diagnosis (1) S/P total hip arthroplasty: Status: Acute Code(s): Z96.649 - Presence of unspecified artificial hip joint (2) Obesity (BMI 30.0-34.9): Status: Chronic Code(s): E66.9 - Obesity, unspecified Plan Postop day #3 left total hip arthroplasty PT OT weightbearing as tolerated hip precautions DVT prophylaxis SCDs CURTIS hose Eliquis 2.5 mg twice daily for 4 weeks Oxycodone 5 to 10 mg every 4 hours Okay to begin showering daily dressing should be removed prior to shower if not showering daily dressing should be removed and incisions cleaned with Betadine and new dressing reapplied daily. transfer to TCU . Medications at Discharge Home Medications multivitamin with folic acid 400 mcg tablet (Thera) 1 tab PO DAILY SUPPLEMENT 01/29/15 triamterene 37.5 mg-hydrochlorothiazide 25 mg capsule 1 cap PO DAILY HTN 01/29/15 lisinopril 20 mg tablet 20 mg PO DAILY HTN 03/16/20 furosemide 20 mg tablet 20 mg PO DAILY WATER PILL 06/05/22 meloxicam 15 mg tablet 15 mg PO DAILY PAIN 06/05/22 metoprolol succinate 25 mg tablet,extended release 24 hr 25 mg PO DAILY HTN 06/05/22 acetaminophen 500 mg tablet 1,000 mg PO Q8H #100 tabs 07/24/22 apixaban 2.5 mg tablet (Eliquis) 2.5 mg PO BID #60 tabs 07/24/22 oxycodone 5 mg tablet 5 - 10 mg PO Q4H PRN pain 7 days #60 tabs 07/24/22 Hospital Course Summary of Care Provided Hospital Course: Patient with long-standing history of severe [left] hip DJD who is failed conservative treatment. Patient underwent left total hip arthroplasty day of admission. Patient did receive pre-and postoperative antibiotics which were discontinued within 23 hours postoperatively. Patient did receive spinal anesthesia and postoperatively her pain was controlled with both IV and p.o. pain medication. Patient did receive 2 g of tranexamic acid. Her hemoglobin and hematocrit were monitored postoperatively as well as her vital signs and she did not require any blood transfusion. Dressing will be changed daily beginning postop day #3 before shower will be removed and replaced after. Pt was started on Eliquis 2.5 mg twice daily postop for which will continue for 4 weeks post operatively. Patient was seen by physical therapy was ambulating the halls well. patient will be discharged to transitional care unit as he is obese elderly and lives alone and does have a split level home situation which requires stairs, he will start outpatient physical therapy when discharged from transitional care unit. will follow-up in the office in 2 weeks. No intrahospital complications. Weight / BMI Weight Weight: 262 lb 2.074 oz Body Mass Index (BMI) 38.7 ABG / Lab / Microbiology Data Result Diagrams: 07/24/22 05:34 07/22/22 07:10 Laboratory: Laboratory Results - last 24 hr 07/24/22 05:34: WBC 8.5, RBC 3.47 L, Hgb 11.1 L, Hct 34.0 L, MCV 98.0 H, MCH 32.0, MCHC 32.6, RDW Std Deviation 46.4 H, RDW Coeff of Levi 12.9, Plt Count 207, MPV 10.3 Microbiology: Microbiology 07/14/22 14:27 Nasal Secretion Nasal Screen MRSA/MSSA - Final D/C Instructions Discharge Diet: No restrictions Call your doctor if you observe: Shortness of breath and Chest pain Additional Dressing/Incision Instructions: Do not shower 72hrs. Begin daily showering warm water antibacterial soap postop day #3( 72hrs Post-operatively) and then daily. Leave the dressing on for 72 hours postoperatively then may remove prior to first shower and change dressing daily after this until no drainage for 2 consecutive days then may leave open to air. Follow hip precautions that were reviewed in hospital. Wear compression stockings, may remove at night. Start physical therapy as directed in hospital. Follow prescriptions instructions do not take any other pain medication or differ dosing without consulting your physician. Do not take oral NSAIDs until blood thinner has been completed , then may begin the day after completion if needed . Call Dr. Phillips's office with any concerns. Please Follow Up With: Zeke Phillips DO When: 2 weeks. Meaningful Use Info Meaningful Use Diagnoses (Choose all that apply): None applicable Discharge Plan Admission Admit Date/Time: 07/21/22 08:05 Primary Reason for Your Visit: Left total hip arthroplasty Attending Provider: Zeke Phillips Primary Care Provider: Blanco Collazo Discharge Orders/Prescriptions Prescriptions: New acetaminophen 500 mg Tablet 1,000 mg PO Q8H Qty: 100 1RF Eliquis 2.5 mg tablet 2.5 mg PO BID Qty: 60 0RF oxycodone 5 mg tablet 5 - 10 mg PO Q4H PRN (Reason: pain) 7 Days Qty: 60 0RF Continued metoprolol succinate 25 mg tablet extended release 24 hr 25 mg PO DAILY furosemide 20 mg tablet 20 mg PO DAILY triamterene-hydrochlorothiazid 1 CAP capsule 1 cap PO DAILY Label Comments: blood pressure multivitamin with folic acid [Thera] 1 TABLET tablet 1 tab PO DAILY Label Comments: supplement lisinopril 20 MG tablet 20 mg PO DAILY No Action meloxicam 15 mg tablet 15 mg PO DAILY Referrals / Follow Up: Blanco Collazo MD [Primary Care Provider] - Disposition Disposition (needs filled in before D/C Order can be placed): [facility] 07/24/22 0735 <Electronically signed by Zeke Phillips DO> Cosigner Signature (if applicable): CC: Dr. Zeke Phillips DO; Dr. Blanco Collazo MD~ Signed [facility] Work Phone: [phone]) 913-114806-16-[address] Phillips [facility] July 24, 2022 7:32am Note Date/Time July 24, 2022 7:19 am [facility] Medical Records Department [address] [place] [address] Instructions for Home/Discharge Instructions 07/24/22 0718 MR#: [id number] Acct: [id number] Name: GUERREROASHVINPHYLICIA PARRISH Rep #:[id number] : 1945 76 From: Zeke Phillips DO PCP: Dr. Blanco Collazo MD Status:ADM I N Discharge Instructions Diet Discharge Diet: No restrictions Dressing / Incision Call your doctor if you observe: Shortness of breath and Chest pain Additional Dressing/Incision Instructions:: Do not shower 72hrs. Begin daily showering warm water antibacterial soap postop day #3( 72hrs Post-operatively) and then daily. Leave the dressing on for 72 hours postoperatively then may remove prior to first shower and change dressing daily after this until no drainage for 2 consecutive days then may leave open to air. Follow hip precautions that were reviewed in hospital. Wear compression stockings, may remove at night. Start physical therapy as directed in hospital. Follow prescriptions instructions do not take any other pain medication or differ dosing without consulting your physician. Do not take oral NSAIDs until blood thinner has been completed , then may begin the day after completion if needed .Call Dr. Phillips's office with any concerns. Follow Up Care Please Follow Up With: Zeke Phillips DO When: 2 weeks. Test Results: Test results from this visit will be discussed in further detail at your follow- up appointment, if applicable. Discharge Plan Admission Admit Date/Time: 07/21/22 08:05 Primary Reason for Your Visit: Left total hip arthroplasty Attending Provider: Zeke Phillips Primary Care Provider: Blanco Collazo Discharge Orders/Prescriptions Prescriptions: New acetaminophen 500 mg Tablet 1,000 mg PO Q8H Qty: 100 1RF Eliquis 2.5 mg tablet 2.5 mg PO BID Qty: 60 0RF oxycodone 5 mg tablet 5 - 10 mg PO Q4H PRN (Reason: pain) 7 Days Qty: 60 0RF Continued metoprolol succinate 25 mg tablet extended release 24 hr 25 mg PO DAILY furosemide 20 mg tablet 20 mg PO DAILY triamterene-hydrochlorothiazid 1 CAP capsule 1 cap PO DAILY Label Comments: blood pressure multivitamin with folic acid [Thera] 1 TABLET tablet 1 tab PO DAILY Label Comments: supplement lisinopril 20 MG tablet 20 mg PO DAILY No Action meloxicam 15 mg tablet 15 mg PO DAILY Referrals / Follow Up: Blanco Collazo MD [Primary Care Provider] - Disposition Disposition (needs filled in before D/C Order can be placed): [facility] 07/24/22 0732<Electronically signed by Zeke Phillips DO>Zeke Phillips DO CC: Dr. Blanco Collazo MD ~ Signed [facility] Work Phone: 1(641) 462-711006-16-[address] Phillips [facility] July 24, 2022 7:17am Note Date/Time July 24, 2022 7:17 am [facility] Medical Records Department [address] [place] [address] Progress Note - Orthopedic 07/24/22714 MR#: [id number] Acct: [id number] Name: ASHVIN JENSEN Rep #:[id number] : 1945 76 From: Zeke Phillips DO PCP: Dr. Blanco Collazo MD Status:ADM I N Location: [address] Subjective Subjective Seen and examined doing okay. No changes Objective Data Objective Data Vital Signs: Vital Signs Temp Pulse Resp BP Pulse Ox O2 Del Method O2 Flow Rate 98.1 F 81 18 126/76 H 94 Room Air 2 07/24/22 04:27 07/24/22 04:27 07/24/22 04:27 07/24/22 04:27 07/24/22 04:27 07/24/22 04:27 07/23/22 02:07 Oxygen Flow Rate (L/min) 2 Oxygen Delivery Method Room Air Weight: 262 lb 2.074 oz Body Mass Index (BMI) 38.7 Intake & Output: Intake and Output for Last 24 Hours 07/22/22 07/23/22 07/24/22 23:59 23:59 23:59 Intake Total 2170 / 2170 2450 / 2450 1000 / 1000 Output Total 800 / 800 1200 / 1200 Balance 1370 / 1370 1250 / 1250 1000 / 1000 Lab / Micro Data Result Diagrams: 07/24/22 05:34 07/22/22 07:10 Labs: Laboratory Results - last 24 hr 07/24/22 05:34: WBC 8.5, RBC 3.47 L, Hgb 11.1 L, Hct 34.0 L, MCV 98.0 H, MCH 32.0, MCHC 32.6, RDW Std Deviation 46.4 H, RDW Coeff of Levi 12.9, Plt Count 207,MPV 10.3 Micro: Microbiology 07/14/22 14:27 Nasal Secretion Nasal Screen MRSA/MSSA - Final Physical Exam Const alert, oriented x3 and no apparent distress General Appearance: cooperative Extremity Extremity Narrative: Dressings clean dry and intact the pin site dressing is detached on one side. Compartment soft neurovascularly intact 2 or 4 pedal pulses Assessment & Plan Assessment/Plan (1) S/P total hip arthroplasty: (2) Obesity (BMI 30.0-34.9): PLAN: Plan Postop day #3 left total hip arthroplasty PT OT weightbearing as tolerated hip precautions DVT prophylaxis SCDs CURTIS hose Eliquis 2.5 mg twice daily for 4 weeks Oxycodone 5 to 10 mg every 4 hours Okay to begin showering daily dressing should be removed prior to shower if not showering daily dressing should be removed and incisions cleaned with Betadine and new dressing reapplied daily. transfer to TCU . 07/24/22716 <Electronically signed by Zeke Phillips DO> Cosigner Signature (if applicable): CC: ~ Signed [facility] Work Phone: [phone]) 154-430806-15-[address] Phillips [facility] July 23, 2022 8:31am Note Date/Time July 23, 2022 8:31 am [facility] Medical Records Department [address] [place] [address] Progress Note - Orthopedic 07/23/22828 MR#: [id number] Acct: [id number] Name: ASHVIN JENSEN Rep #:[id number] : 1945 76 From: Zeke Phillips DO PCP: Dr. Blanco Collazo MD Status:ADM I N Location: [place] [address] Subjective Subjective Seen and examined doing better pain controlled no nausea vomiting shortness of breath or chest pain waiting for transfer to TCU Objective Data Objective Data Vital Signs: Vital Signs Temp Pulse Resp BP Pulse Ox O2 Del Method O2 Flow Rate 98.4 F 85 18 102/59 L 93 Room Air 2 07/23/22 02:07 07/23/22 02:07 07/23/22 02:07 07/23/22 02:07 07/23/22 07:51 07/23/22 07:51 07/23/22 02:07 Oxygen Flow Rate (L/min) 2 Oxygen Delivery Method Room Air Weight: 262 lb 2.074 oz Body Mass Index (BMI) 38.7 Intake & Output: Intake and Output for Last 24 Hours 07/21/22 07/22/22 07/23/22 23:59 23:59 23:59 Intake Total 2029.33 / 2530.33 2170 / 2170 1000 / 1000 Output Total 800 / 800 1200 / 1200 Balance 2030.33 / 2130.33 1370 / 1370 -200 / -200 Lab / Micro Data Result Diagrams: 07/23/22 05:23 07/22/22 07:10 Labs: Laboratory Results - last 24 hr 07/23/22 05:23: WBC 9.6, RBC 3.57 L, Hgb 11.3 L, Hct 35.2 L, MCV 98.6 H, MCH 31.7, MCHC 32.1, RDW Std Deviation 46.8 H, RDW Coeff of Levi 13.0, Plt Count 211,MPV 10.3 Micro: Microbiology 07/14/22 14:27 Nasal Secretion Nasal Screen MRSA/MSSA - Final Physical Exam Const alert, oriented x3 and no apparent distress General Appearance: cooperative Extremity Extremity Narrative: Dressings clean dry and intact the pin site dressing is detached on one side. Compartment soft neurovascularly intact 2 or 4 pedal pulses Assessment & Plan Assessment/Plan (1) S/P total hip arthroplasty: (2) Obesity (BMI 30.0-34.9): PLAN: Plan Postop day #2 left total hip arthroplasty PT OT weightbearing as tolerated DVT prophylaxis SCDs CURTIS hose Eliquis 2.5 mg twice daily for 4 weeks Oxycodone 5 to 10 mg every 4 hours Awaiting transfer to TCU likely tomorrow 07/23/22 0831 <Electronically signed by Zeke Phillips DO> Cosigner Signature (if applicable): CC: ~ Signed [facility] Work Phone: [phone]) 362-117606-14-[address] Phillips [facility] July 22, 2022 12:27pm Note Date/Time July 22, 2022 12:2 7pm [facility] Medical Records Department [address] [place] [address] Progress Note - Orthopedic 07/22/22 1221 MR#: [id number] Acct: [id number] Name: ASHVIN JENSEN Rep #:[id number] : 1945 76 From: Zeke Phillips DO PCP: Dr. Blanco Collazo MD Status:ADM I N Location: [place] [id number] Subjective Subjective Seen and examined. Doing okay pain control. No nausea chest pain. Has not passed any gas yet but is urinating eating okay. Concerned about going home as was told rehab is full,, and is not excited about going to a different facility. Objective Data Objective Data Vital Signs: Vital Signs Temp Pulse Resp BP Pulse Ox O2 Del Method O2 Flow Rate 98.1 F 80 18 116/77 98 Nasal Cannula 2 07/22/22 08:00 07/22/22 09:00 07/22/22 08:00 07/22/22 09:00 07/22/22 09:47 07/22/22 09:47 07/22/22 09:47 Oxygen Flow Rate (L/min) 2 Oxygen Delivery Method Nasal Cannula Weight: 262 lb 2.074 oz Body Mass Index (BMI) 38.7 Intake & Output: Intake and Output for Last 24 Hours 07/20/22 07/21/22 07/22/22 23:59 23:59 23:59 Intake Total 2030.33 / 2530.33 1570 / 1570 Output Total 800 / 800 Balance 2029.33 / 2130.33 770 / 770 Lab / Micro Data Result Diagrams: 07/22/22 07:10 07/22/22 07:10 Labs: Laboratory Results - last 24 hr 07/22/22 07:10: WBC 12.0 H, RBC 3.69 L, Hgb 11.9 L, Hct 36.6 L, MCV 99.2 H, MCH 32.2 H, MCHC 32.5, RDW Std Deviation 45.1 H, RDW Coeff of Levi 12.6, Plt Count 210, MPV 10.2 07/22/22 07:10: Sodium 139, Potassium 3.9, Chloride 105, Carbon Dioxide 30.0, Anion Gap 4 L, BUN 12, Creatinine 1.09, Estim Creat Clear Calc 58.56, Est GFR (MDRD) Af Amer 85, Est GFR (MDRD) Non-Af 70, BUN/Creatinine Ratio 11.0, Glucose 126 H, Calcium 8.4 L Micro: Microbiology 07/14/22 14:27 Nasal Secretion Nasal Screen MRSA/MSSA - Final Radiography Diagnostic Testing: Radiology Impression Hip X-Ray 07/21/22 14:20 IMPRESSION: Status post left total hip replacement. There is good alignment. Electronically Signed: Chris Ricci MD at 14:47 EDT , Physical Exam Const alert, oriented x3 and no apparent distress General Appearance: cooperative Extremity Extremity Narrative: Dressings clean dry and intact the pin site dressing is detached on one side. Compartment soft neurovascularly intact 2 or 4 pedal pulses Assessment & Plan Assessment/Plan (1) Obesity (BMI 30.0-34.9): (2) S/P total hip arthroplasty: PLAN: Plan Postop day #1 left total hip arthroplasty PT OT weightbearing as tolerated Physical therapy will practice stairs with him as he does live in a split-level by himself and determine if it is safe DC home or alternative placement. Patient requesting rehab here but no beds available, both with school social worker we are reaching out to transitional care unit to see if there is anything available. DVT prophylaxis SCDs CURTIS hose Eliquis 2.5 mg twice daily for 4 weeks Nursing instructed to change and clean with Betadine the pin site dressing is partially detached 07/22/22 1227 <Electronically signed by Zeke Phillips DO> Cosigner Signature (if applicable): CC: ~ Signed [facility] Work Phone: 1(332) 533-839306-13-2023 Procedure [facility] 07-21-2022 History and physical note Author Dr. Phillips [facility] July 21, 2022 10:07am Note Date/Time July 21, 2022 10:0 7am [facility] Medical Records Department [address] [place] [place] [address] History & Physical Exam 07/21/22 1006 MR#: [id number] Acct: [id number] Name: ASHVIN JENSEN Rep #:[id number] : 1945 76 From: Zeke Phillips DO PCP: Dr. Blanco Collazo MD Status:ADM I N [facility] History and Physical Date of Admission: 07/21/22 [facility] [address] [place] [address] [place] [address] OFFICE VISIT Date of Service:? 06/05/22 MR#: [id number] Acct: [id number] Name:ASHVIN FINN Rep #: [id number] : 1945 ? ? Provider: Dr. Zeke Phillips DO Age/Sex:? 76/M ? ? [place] [facility] Status: Signed Intake Vital Signs ? 06/05/2308:19 Height 5 ft 9 in Weight: 277 lb 6 oz BMI 40.9 Intake Visit Reasons:?LEFT HIP Is patient in pain?: Yes Pain scale (1-10): 6 Allergies No Known Allergies Allergy (Verified 06/05/22 09:19) Medications multivitamin with folic acid 400 mcg tablet (Thera) 1 tab PO DAILY 01/29/15 [History Confirmed 06/05/22] triamterene 37.5 mg-hydrochlorothiazide 25 mg capsule 1 cap PO DAILY 01/29/15 [History Confirmed 06/05/22] lisinopril 20 mg tablet 20 mg PO DAILY 03/16/20 [History Confirmed 06/05/22] pantoprazole 20 mg tablet,delayed release 20 mg PO BID #28 tabs 03/21/20 [Rx Confirmed 04/02/20] furosemide 20 mg tablet 20 mg PO DAILY 06/05/22 [History Confirmed 06/05/22] meloxicam 15 mg tablet 15 mg PO DAILY 06/05/22 [History Confirmed 06/05/22] metoprolol succinate 25 mg tablet,extended release 24 hr 25 mg PO DAILY 06/05/22[History Confirmed 06/05/22] PFSH Medical History?(Updated 06/05/22 @ 11:[address] Zeke Phillips DO) COVID-19 Kidney stone Pneumonia Surgical History?(Updated 06/05/22 @ 09:41 by Syl Cummins) History of colostomy History of left cataract surgery History of right cataract surgery History of total right knee replacement Family History?(Updated 06/05/22 @ 09:42 by Syl Cummins) Brother Myocardial infarction ?? ? 20 years ago Social History?(Updated 06/05/22 @ 09:42 by Syl Cummins) Smoking Status:? Never smoker alcohol intake:? current what type of physical activity do you participate in:? walking HPI LEFT HIP Details: Parts of this documentation were recorded by a scribe, this documentation accurately reflects the service provided and the decisions made by me, Dr. Zeke Phillips, DO 06/05/22 0805. ASHVIN JENSEN is a 76 year old M here today NEW patient for left hip pain. He has previously seen Dr. Wyatt. States that his left hip pain started last summer and had saw a previous doctor who put him on meloxicam for the pain. He went back in april and he was put on 2 more months of meloxicam. He is here for a second opinion to see what is wrong with his hip. His pain is there all day. Denies low back pain. Denies any previous surgery or injury to the hip. Sitting on hard surfaces like wood he has constant pain. He has noticed it trying to give out on him which started this spring. He doesn't navigate steps and if he does he goes one at a time. Denies using ice/heat for the pain. Denies mechanical symptoms. Denies injections in his hip. States that he has done HEP the first 2 or 3 months after it started. He was also given a sheet of exercisesto do at home which he doesn't do very often. He has pain over the posterior hipand he has groin pain with hip abduction. Reports having a blood clot in the right leg in high school. Ortho Exam General General: Yes no acute distress Neurologic: Yes alert and Yes oriented x3 Psychologic: Yes reasonable and appropriate Left Hip Skin/Wound: Yes CDI, No Ecchymosis, No soft tissue swelling and No Erythema Hip: Absent eccymosis, soft tissue swelling, erythema or tender to palpate - Special Tests: Yes TTP Greater sciatic notch; No TTP Greater Troch Homans Sign: No HIP: lumbar flexion posture, inability to fully erect the lumbar spine but does not have pain with attempted lumbar extension. 2 internal rotation with reproduction of groin pain 35 external rotation 5/5 resisted hip flexion large abdominal pannus. he is TTP in the greater sciatic notch he has no paraspinal tenderness and no pain in low back area no gross motor or sensory deficits in the left lower extremity Head: Normocephalic Atraumatic Chest: symmetrical rise, non-labored breathing, no audible wheeze Abdomen: no guarding, non-rigid Supplemental Info 06/05/2022 x-ray lumbar spine advanced lower level facet arthrosis moderate [id number] disc disease 10/17/2021 x-ray left hip: Advanced left hip arthrosis Coding Level of Care Code Off vis,new,level 3 Diagnoses Degenerative joint disease of left hip? M16.12 Obesity? E66.9 Assessment and Plan Assessment and Plan (1) Degenerative joint disease of left hip: ?Status:?Acute (2) Obesity: ?Status:?Acute ? ? ? Orders: Orders HIP, UNI W/ Pelvis 2-3 Views Today M25.552 - Pain in left hip ? Lumbar Spine 2 or 3 Views Today M54.50 - Low back pain, unspecified ? Plan Obtained X-rays of patient's left hip and lumbar spine. Personally reviewed x- rays. There is no obvious fracture, dislocation, or lucency noted. Patient educated that he has advanced arthritis of the left hip which is the cause of the groin pain with movement of the hip. Educated that he also has lumbar DDD L5-S1 and multilevel facet joint arthritis as well as sacroiliac arthrosis whichcan contribute to pain in his posterior hip area. Treatment options are do nothing, continued NSAID formal, physical therapy, steroid injection or JARED. Educated that it is a possibility if he has a JARED that he while continue to havepain over the SI joint. He could trial a SI joint injection or a left hip injection to determine the amount of pain is resolved from the injection, he is not interested in this today. . Another option is to consult with a spinal surgeon.?Risks, benefits and alternatives of surgery reviewed including but not limited to bleeding, infection, injury to sciatic nerve, foot drop, artery and/or tissue damage, fracture, VTE, leg length discrepancy, dislocation, need for hip precautions, continued pain and expected post-operative course.?He will alsostart trying to loose weight as his BMI is right at the cut off, currently 40.9.?Recommended 4 weeks of blood thinner post op. He does live alone and he has stairs at home therefore will request an inpatient stay/admission. He wants to have surgery sooner rather than later. Follow up 2 weeks post op or sooner if pain, swelling, numbness or associated symptoms, or concerns develop.? All questions answered. Patient in agreement of plan. 06/05/22 1126 <Electronically signed by Zeke Phillips DO> Date Zeke Phillips DO Cosigner Signature: Date (if applicable) ? CC:? Dr. Blanco Collazo MD ~ I have examined the patient and the H&P has been reviewed. There are no clinicalchanges since date of exam. 07/21/22 1007 <Electronically signed by Zeke Phillips DO> Cosigner Signature (if applicable): CC: Dr. Zeke Phillips DO; Dr. Blanco Collazo MD~ Signed [facility] Work Phone: Evaluation noteNo assessment information available [facility] Work Phone: Evaluation note* Diagnosis Onset Date Resolution Status Degenerative joint disease of left hip acute Obesity acute S/P total hip arthroplasty a cute Obesity (BMI 30.0-34.9) [facility] Work Phone: Evaluation note* Diagnosis Onset Date Resolution Status Degenerative joint disease of left hip acute Obesity acute S/P total hip arthroplasty a cute Obesity (BMI 30.0-34.9) [facility] Debility acute Degenerative joint disease of left hip acute S/P total hip arthroplasty a cute Hypertension chronic Obesity (BMI 30.0-34.9) [facility] Work Phone: Evaluation note* Diagnosis Onset Date Resolution Status Degenerative joint disease of left hip acute Obesity acute S/P total hip arthroplasty a cute Obesity (BMI 30.0-34.9) 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 Debility acute Degenerative joint disease of left hip acute S/P total hip arthroplasty a cute Hypertension chronic Obesity (BMI 30.0-34.9) 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[employer] S/P total hip arthroplasty a cute S/P total hip arthroplasty a cute S/P total hip arthroplasty a cute [facility] Work Phone: Evaluation note* Diagnosis Onset Date Resolution Status S/P total hip arthroplasty a cute Obesity (BMI 30.0-34.9) 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 Debility acute Degenerative joint disease of left hip acute S/P total hip arthroplasty a cute Hypertension chronic Obesity (BMI 30.0-34.9) 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[employer] S/P total hip arthroplasty a cute S/P total hip arthroplasty a cute S/P total hip arthroplasty a cute Orthopedic aftercare [facility] Work Phone: Evaluation note* Diagnosis Onset Date Resolution Status Orthopedic aftercare [facility] Work Phone: Reason for referral (narrative)No reason for referral [facility] Work [facility]: Family History No Family History Records Found Relationship Condition Age at Onset Recorded Date/T julius Unknown Family History?No pe rtinent history Unknown February 14, 2015 10:25am Family History?No pe rtinent history Unknown February 14, 2015 10:25am Relationship Condition Age at Onset Recorded Date/T julius Unknown Family History?No pe rtinent history Unknown February 14, 2015 9:25am Family History?No pe rtinent history Unknown February 14, 2015 9:25am Relationship Condition Age at Onset Recorded Date/T julius brother Myocardial infarction Unknown Advance Directives No Advanced Directives Records Found Advance Directive Response Recorded Date/ Time Advance Directives No August 12 1:12pm Living Will Yes April 02 8:17pm Power of Senior Linux Systems Administrator Yes April 02, 2020 8:17pm Advance Directive Response Recorded Date/ Time Advance Directives No August 12 12:12pm Living Will Yes April 02 7:17pm Power of Senior Linux Systems Administrator Yes April 02, 2020 7:17pm Advance Directive Response Recorded Date/ Time Name of Medical Power of Senior Linux Systems Administrator BROTHER IN LAW July 21, 2022 6:31pm Advance Directives No August 12 1:12pm Living Will Yes July 21, 2022 6:31pm Power of Senior Linux Systems Administrator Yes July 21 6:31pm Advance Directive Response Recorded Date/ Time Name of Medical Power of Senior Linux Systems Administrator BROTHER IN LAW July 21, 2022 6:31pm Name of Medical Power of Senior Linux Systems Administrator Marino Jensen, melody July 24, 2022 4:36pm Advance Directives No August 12 1:12pm Living Will Yes July 24, 2022 4:36pm Power of Senior Linux Systems Administrator Yes July 24 4:36pm Advance Directive Response Recorded Date/ Time Advance Directives No August 12 12:12pm Living Will Yes July 24, 2022 3:36pm Power of Senior Linux Systems Administrator Yes July 24 3:36pm Advance Directive Response Recorded Date/ Time Advance Directives No August 12 1:12pm Living Will Yes July 24, 2022 4:36pm Power of Senior Linux Systems Administrator Yes July 24 4:36pm Advance Directive Response Recorded Date/ Time Living Will Yes February 04 024 10:39pm Do you have a Healthcare Power of Senior Linux Systems Administrator? Yes February 05, 2024 10:39pm Name of Medical Power of Senior Linux Systems Administrator Reuben Fofana February 05, 2024 10:39pm Advance Directives No August 12 1:12pm Advance Directive Response Recorded Date/ Time Advance Directives No August 12 1:12pm Chief Complaint and Reason for Visit Chief Complaint HIP PAIN SOB Chief Complaint SOB Chief Complaint LEFT HIP RM 1 TEMPLATING FOR LEFT JARED LT TOTAL HIP W SERENE LT TOTAL HIP W SERENE LT TOTAL HIP W SERENE LT TOTAL HIP W SERENE LT TOTAL HIP W SERENE Reason for Visit Degenerative joint d isease of left hip Obesity S/P total hip arthroplasty Obesity (BMI 30.0-34.9) Chief Complaint LEFT HIP RM 1 TEMPLATING FOR LEFT JARED LT TOTAL HIP W SERENE LT TOTAL HIP W SERENE LT TOTAL HIP W SERENE LT TOTAL HIP W SERENE LT TOTAL HIP W SERENE LEFT TOTAL HIP Reason for Visit Degenerative joint d isease of left hip Obesity S/P total hip arthroplasty Obesity (BMI 30.0-34.9) Debility Degenerative joint disease of left hip S/P total hip arthroplasty Hypertension Obesity (BMI 30.0-34.9) Chief Complaint LEFT HIP RM 1 TEMPLATING FOR LEFT JARED LT TOTAL HIP W SERENE LT TOTAL HIP W SERENE LT TOTAL HIP W SERENE LT TOTAL HIP W SERENE LT TOTAL HIP W SERENE LEFT TOTAL HIP LEFT HIP left hip left hip room 2 L JARED RX HERE Reason for Visit Degenerative joint d isease of left hip Obesity S/P total hip arthroplasty Obesity (BMI 30.0-34.9) Debility Degenerative joint disease of left hip S/P total hip arthroplasty Hypertension Obesity (BMI 30.0-34.9) 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 Chief Complaint LT TOTAL HIP W SERENE LT TOTAL HIP W SERENE LT TOTAL HIP W SERENE LT TOTAL HIP W SERENE LT TOTAL HIP W SERENE LEFT TOTAL HIP LEFT HIP left hip left hip room 2 L JARED RX HERE LEFT HIP Reason for Visit S/P total hip arthro plasty Obesity (BMI 30.0-34.9) Debility Degenerative joint disease of left hip S/P total hip arthroplasty Hypertension Obesity (BMI 30.0-34.9) 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 Orthopedic aftercare Chief Complaint LEFT HIP Reason for Visit Orthopedic aftercare Chief Complaint Admit Date INFLUENZA A WITH RESPIRATORY INSUFFICIEN CY February 05, 2024 9:13pm INFLUENZA A WITH RESPIRATORY INSUFFICIEN CY February 06, 2024 11:53am INFLUENZA A WITH RESPIRATORY INSUFFICIEN CY February 07, 2024 12:00pm Reason for Visit Admit Date Degenerative joint disease of left hip D ecember 2023 11:53am Hypoxia February 06, 2024 11:53am Influenza A February 06, 2024 11:53am Obesity (BMI 30-39.9) February 05 11:53am Respiratory insufficiency February 06, 2024 11:53am S/P total left hip arthroplasty February 06, 2024 11:53am Status post total right knee replacement February 06, 2024 11:53am Osteoarthritis February 06, 2024 11:53am Summary Purpose Additional Source Comments Goals (unrecognized section and content) Goals may be documented in a n alternate sectionGoals may be documented in an alternate sectionGoals may be documented in an alternate sectionGoals may be documented in an alternate sectionGoals may be documented in an alternate sectionGoals may be documented in an alternate sectionGoals may be documented in an alternate sectionGoals may be documented in an alternate sectionGoals may be documented in an alternate sectionGoals may be documented in an alternate section Care Teams (unrecognized sec tion and content) Team Status: Active Member Role Status Dates Dr. Blanco Collazo MD Family Provider Active Dr. Blanco Collazo MD Primary Care Provider Active Team Status: Active Member Role Status Dates Dr. Blanco Collazo MD Primary Care Provider Active Dr. Abelino Lopez MD Attending Provider Active Team Status: Inactive Member Role Status Dates Dr. Blanco Collazo MD Primary Care Provi anupam, Attending Provider, Referring Provider Active Team Status: Active Member Role Status Dates Dr. Blanco Collazo MD Primary Care Provi anupam, Attending Provider, Referring Provider Active Team Status: Inactive Member Role Status Dates Dr. Blanco Collazo MD Primary Care Provider, Referring Provider Active Dr. Zeke Phillips DO Attending Provider Active Team Status: Inactive Member Role Status Dates Dr. Blanco Collazo MD Primary Care Provider Active Dr. Abelino Lopez MD Attending Provider Active Team Status: Active Member Role Status Dates Dr. Blanco Collazo MD Primary Care Provider Active Dr. Zeke Phillips DO Admit Provider, Attending Provider, Referring Provider, Other Provider Active Team Status: Inactive Member Role Status Dates Dr. Blanco Collzao MD Primary Care Provider Active Dr. Zeke Phillips DO Admit Provider, Attending Provider, Referring Provider Active Team Status: Inactive Member Role Status Dates Dr. Blanco Collazo MD Primary Care Provider Active Dr. Zeke Phlilips DO Attending Provider, Referring Provider Active Team Status: Inactive Member Role Status Dates Dr. Blanco Collazo MD Primary Care Provider Active Dr. Chema Armendariz MD Admit Provider, Attending Provid er Active Team Status: Inactive Member Role Status Dates Dr. Blanco Collazo MD Primary Care Provider, Referring Provider Active Rico CARLSON PA Attending Provider Active Team Status: Inactive Member Role Status Dates Dr. Blanco Collazo MD Primary Care Provider, Referring Provider Active Jael CARLSON PA Attending Provider Active Team Status: Inactive Member Role Status Dates Dr. Blanco Collazo MD Primary Care Provider Active Dr. Zeke Phillips DO Attending Provider, Referring Provider Active Dr. Chema Armendariz MD Other Provider Active Team Status: Inactive Member Role Status Dates Dr. Blnaco Collazo MD Primary Care Provider, Attending Provider Active Team Status: Active Member Role Status Dates Dr. Blanco Collazo MD Primary Care Provider Active Start: February 05, 2024 Dr. Eleuterio Garcia DO Emergency Provider Active Start: February 05, 2024 Dr. Umang Mon DO Admit Provider Active Start: February 05, 2024 Dr. Umang Mon DO Attending Provider Active Start: February 05, 2024 Dr. Umang Mon DO Other Provider Active Start: February 05, 2024 Team Status: Inactive Member Role Status Dates Dr. Blanco Collazo MD Primary Care Provider Active Start: February 06, 2024 End: February 07, 2024 Dr. Eleuterio Garcia DO Emergency Provider Active Start: February 06, 2024 End: February 07, 2024 Dr. Umang Mon DO Admit Provider Active Start: February 06, 2024 End: February 07, 2024 Dr. Umang Mon DO Other Provider Active Start: February 06, 2024 End: February 07, 2024 Dr. Fabricio Harris MD Attending Provider Active Start: February 06, 2024 End: February 07, 2024 Dr. Graciela Dewey MD Other Provider Active St art: February 06, 2024 End: February 07, 2024 Team Status: Active Member Role Status Dates Dr. Blanco Collazo MD Primary Care Provider Active Start: February 07, 2024 Dr. Eleuterio Garcia DO Emergency Provider Active Start: February 07, 2024 Dr. Umang Mon DO Admit Provider Active Start: February 07, 2024 Dr. Umang Mon DO Other Provider Active Start: February 07, 2024 Dr. Fabricio Harris MD Attending Provider Active Start: February 07, 2024 Dr. Fabricio Harris MD Other Provider Active Start: February 07, 2024 Dr. Graciela Dewey MD Other Provider Active St art: February 07, 2024 Team Status: Inactive Member Role Status Dates Dr. Blanco Collazo MD Primary Care Provider Active Start: March 27, 2024 End: March 27, 2024 Dr. Blanco Collazo MD Attending Provider Active Start: March 27, 2024 End: March 27, 2024 Dr. Blanco Collazo MD Referring Provider Active Start: March 27, 2024 End: March 27, 2024 Team Status: Inactive Member Role Status Dates Dr. Blanco Collazo MD Primary Care Provider Active Start: April 26, 2024 End: April 26, 2024 Dr. Blanco Collazo MD Attending Provider Active Start: April 26, 2024 End: April 26, 2024 Dr. Blanco Collazo MD Referring Provider Active Start: April 26, 2024 End: April 26, 2024 Team Status: Inactive Member Role Status Dates Dr. Blanco Collazo MD Primary Care Provider Active Start: June 21, 2024 End: June 21, 2024 Dr. Blanco Collazo MD Attending Provider Active Start: June 21, 2024 End: June 21, 2024 Dr. Blanco Collazo MD Referring Provider Active Start: June 21, 2024 End: June 21, 2024 Team Status: Active Member Role/Relationship Status Dates Dr. Blanco Collazo MD Family Provider Active Dr. Blanco Collazo MD Primary Care Provider Active Team Status: Inactive Member Role/Relationship Status Dates Dr. Blanco Collazo MD Primary Care Provider Active Start: June 21, 2024 End: June 21, 2024 Dr. Blanco Collazo MD Attending Provider Active Start: June 21, 2024 End: June 21, 2024 Dr. Blanco Collazo MD Referring Provider Active Start: June 21, 2024 End: June 21, 2024 Team Status: Inactive Member Role/Relationship Status Dates Dr. Blanco Collazo MD Primary Care Provider Active Start: August 28, 2024 End: August 28, 2024 Dr. Blanco Collazo MD Attending Provider Active Start: August 28, 2024 End: August 28, 2024 Dr. Blanco Collazo MD Referring Provider Active Start: August 28, 2024 End: August 28, 2024 Team Status: Active Member Role/Relationship Status Dates Dr. Blanco Collazo MD Primary care physician Active Team Status: Inactive Member Role/Relationship Status Dates Dr. Blanco Collazo MD Primary care physician Active Start: August 28, 2024 End: August 28, 2024 Dr. Blanco Collazo MD Attending physician Active Start: August 28, 2024 End: August 28, 2024 Dr. Blanco Collazo MD Referring Provider Active Start: August 28, 2024 End: August 28, 2024 Team Status: Inactive Member Role/Relationship Status Dates Dr. Blanco Collazo MD Primary care physician Active Start: October 23, 2024 End: October 23, 2024 Dr. Blanco Collazo MD Attending physician Active Start: October 23, 2024 End: October 23, 2024 (unrecognized sect ion and content) No Status Records Found INFORMATION SOURCE (unrecogn ized section and content) DATE CREATED AUTHOR 11/11/2024 [facility] FOR RECORDS PERTAINING TO PATIENTS WHO ARE OR HAVE BEEN ENROLLED IN A CHEMICAL DEPENDENCY/SUBSTANCEABUSE PROGRAM, SOME INFORMATION MAY BE OMITTED. This clinical summary was aggregated from multiple sources. Caution should be exercised in using it in the provision of clinical care. This summary normalizes information from multiple sources, and as a consequence, information in this document may materially change the coding, format and clinical context of patient data. In addition, data may be omitted in some cases. CLINICAL DECISIONS SHOULD BE BASED ON THE PRIMARY CLINICAL RECORDS. [employer] provides no warranty or guarantee of the accuracy or completeness of information in this document.
== END 2025-01-20 11:07 | disposition home or self-care (01) ==
PROVIDERS: Emergency Provider Emergency Medicine; PCP Family Medicine; Visit Provider Emergency Medicine
DX: R31.9 Hematuria, unspecified (principal); Z87.891 Personal history of nicotine dependence; I10 Essential (primary) hypertension; Z86.16 Personal history of COVID-19; Z87.442 Personal history of urinary calculi
CPT/HCPCS: 80048; 81001; 85025; 85610; 85730; 99283; A4216

== ENCOUNTER → 2025-01-30 | Outpatient (CLI) | payer MEDICARE, OTHER, SELFPAY ==
[2025-01-30 10:25] LABS: PSA,Total - Annual Screen 0.37 ng/mL (0.02-4.00)
== END | disposition home or self-care (01) ==
PROVIDERS: PCP Family Medicine; Referring Provider Nurse Practitioner; Visit Provider Nurse Practitioner
DX: Z12.5 Encounter for screening for malignant neoplasm of prostate (principal)
CPT/HCPCS: 36415; 84153; G0103